=== PATIENT | male | born 1960 | race Caucasian/White ===

== ENCOUNTER 2023-10-06 03:37 | Inpatient (IN) | payer MEDICARE, SELFPAY ==
[2023-10-06] VITALS (16 sets, daily range): BP systolic 135–166; BP diastolic 56–85; PULSE 56–90; RESP 16–20; TEMP 36.5–37.1; O2SAT 90–98; BMI 51.6
--- NOTE | 2023-10-06 03:44 | PC.NURSE ---
Patient arrived to floor via stretcher with EMS from [facility] at 03:42.
--- NOTE | 2023-10-06 03:58 | XR_ITS ---
PROCEDURE INFORMATION: Exam: XR Chest Exam date and time: 10/06/2023 4:46 AM Age: 63 years old Clinical indication: Shortness of breath; Additional info: SOB TECHNIQUE: Imaging protocol: Radiologic exam of the chest. Views: 1 view. COMPARISON: No relevant prior studies available. FINDINGS: Lungs: Unremarkable. No consolidation. Pleural spaces: Unremarkable. No pleural effusion. No pneumothorax. Heart/Mediastinum: Unremarkable. No cardiomegaly. Bones/joints: Unremarkable. IMPRESSION: No acute findings.
--- NOTE | 2023-10-06 04:02 | CA_ITS ---
APPROVED REPORT EXAM: Comprehensive 2D, Doppler, and color-flow Echocardiogram Asbestos Remover: OPAL Fernandes, RVS Ht: 5 ft 6 in Wt: 321lbs BSA: 2.45 BP: 150/86 mmHg Indications: Acute cholecystitis, SOB, Morbid obesity, HTN, DM, Kidney disease Echo Enhancing Agent Comments: Limited acoustic windows due to extreme body habitus 2D Dimensions IVSd 1.20 cm M: 0.6-1.2 LVEF (Visual) 58.20 % PWd 1.20 cm M: 0.6 - 1.2 LA Volume 66.60 mL LVDd 4.91 cm M: 4.2 - 5.9 LA Volume Index 27.18 mL/m2 (M/F) 16-34 LVDs 3.40 cm M: 2.5 - 4.0 Left Atrium 3.14 cm M: 3.0 - 4.0 M-Mode Dimensions LA Diam 4.23 cm (1.9-4.0) LVDd 5.17 cm (3.5-5.7) LVDs 3.26 cm (3.5-5.7) EF (Teich) 66.50% EPSs 0.34 cm FS 36.90% EDV (Teich) 127.80 mL TAPSE 2.44 (<1.7) ESV (Teich) 42.80 mL LV Diastology E Decel Time 270 (160-240 msec) E/A Ratio 0.86 MED A' 10.90 cm/s LAT A' 15.00 cm/s Aortic Valve CARROLL Index 0.87 cm2/m2 AoV Peak Ranjith. 181.0 (50-130 cm/s) AO Peak GR. 13.10 mmHg AO Mean GR. 7.40 (<5 mmHg) AO VTI 37.1 (18-25 cm) CARROLL (VTI) 2.18 (2.5-4.5 cm2) Mitral Valve MV A Velocity 121.0 (40-130 cm/s) E/A Ratio 0.86 Pulmonary Valve PV Peak Velocity 117.0 (50-150 cm/s) Left Ventricle The left ventricle is normal size. The left ventricular systolic function is normal. The left ventricular ejection fraction is within the normal range. There is increased LV wall thickness. There is normal LV segmental wall motion. Transmitral Doppler flow pattern suggests impaired LV relaxation. LVEF is 55%. Right Ventricle The right ventricle is normal size. The right ventricular systolic function is normal. Atria The left atrium size is normal. The right atrium size is normal. There is no Doppler evidence of interatrial shunt. Aortic Valve The aortic valve is mildly thickened. There is no aortic valvular stenosis. Mild aortic regurgitation. Mitral Valve The mitral valve is normal in structure. No evidence of mitral valve stenosis. Trace mitral regurgitation. Tricuspid Valve The tricuspid valve leaflets are thin and pliable. Mild tricuspid regurgitation. RVSP is normal. Pulmonic Valve The pulmonary valve is normal in structure. Trace pulmonic regurgitation. Great Vessels The aortic root is normal in size. The ascending aorta is not well-visualized. IVC is normal in size and collapses >50% with inspiration. Pericardium There is no pericardial effusion. Other Information Study Quality: Fair Conclusion Normal biventricular systolic function. Mild AI, mild TR. Electronically signed by : Magali Zimmerman MD 10/08/2023 20:15:01
--- NOTE | 2023-10-06 04:03 | EXP.HP ---
History of Present Illness *Admission Date: 10/06/23 *Reason for visit:: Cholecystitis *History of present illness: 63-year-old male presents as a transfer from [facility] for acute calculus cholecystitis and choledocholithiasis. Initially presented to the emergency department at [facility] due to pain in epigastric region radiating to right mid back. Acute onset at 430 after taking a shower. Pain increasing with motion. [place] like he had a pushing sensation and abdomen was stabbing in the back. Has had diarrhea last few days but denies any fevers chills nausea vomiting. Also states he has an abscess on his buttock that is being seen but denies any recent surgeries. Has diabetes on insulin. Denies any cardiovascular history. Is unable to complete greater than 4 METS. Limited by leg cramping and dyspnea, must take a break to proceed. Also has stage III kidney disease. Reportedly had issues with anesthesia during a colonoscopy and did not want to wake up Currently patient has no acute concerns answered all questions. [facility] Disclaimer: The information contained in this section may have been updated after the patient was seen, as this information can be updated by other users. Medical History (Updated 10/06/23 @ 06:53 by Justino Rutledge MD) Chronic kidney disease Hypertension Diabetes mellitus, type 2 Social History Smoking Status: Never smoker alcohol intake: never current occupational status: other Travel in the last 8 weeks: None Review of Systems Review of Systems Review of systems:: pertinent systems reviewed and negative unless documented below Meds Home Medications and Allergies Home Medications Medication Instructions Recorded Confirmed Type allopurinol 100 mg tablet 100 mg PO TID 10/06/23 10/06/23 History atenolol 100 mg-chlorthalidone 25 100 tab PO DAILY 10/06/23 10/06/23 History mg tablet bumetanide 1 mg tablet 1 mg PO DAILY 10/06/23 10/06/23 History cholecalciferol (vitamin D3) 10 10 mcg PO DAILY 10/06/23 10/06/23 History mcg (400 unit) tablet (Vitamin D3) doxazosin 8 mg tablet 8 mg PO DAILY 10/06/23 10/06/23 History fenofibrate micronized 134 mg 134 mg PO DAILY 10/06/23 10/06/23 History capsule glipizide 10 mg tablet 10 mg PO DAILY 10/06/23 10/06/23 History insulin degludec 200 unit/mL (3 200 unit SQ DAILY 10/06/23 10/06/23 History mL) subcutaneous pen (Tresiba FlexTouch U-200 insulin) levothyroxine 75 mcg tablet 75 mcg PO DAILY 10/06/23 10/06/23 History repaglinide 2 mg tablet 2 mg PO TID 10/06/23 10/06/23 History semaglutide 1 mg/dose (2 mg/1.5 1 mg SQ WEEKLY 10/06/23 10/06/23 History mL) subcutaneous pen injector New Prescriptions to Start Prescriptions: Allergies Allergy/AdvReac Type Severity Reaction Status Date / Time Sulfa (Sulfonamide Allergy Intermediate Hives Verified 10/06/23 03:58 Antibiotics) Exam Constitutional Constitutional: no acute distress and obese *Routine HEENT Exam Head: Present normocephalic Eye: Present EOMI and PERRL ENT: Present mucous membranes moist *Routine Neck Exam Neck: Present supple; Absent lymphadenopathy *Routine Respiratory Exam Respiratory: Present CTA bilaterally *Routine Cardiovascular Exam Cardiovascular: Present RRR *Routine Abdominal Exam Abdominal: Present soft, normoactive bowel sounds, tenderness and distended; Absent rebound or guarding *Routine Rectal Exam Rectal:: deferred *Routine Genitalia Exam Genitalia:: deferred *Routine Extremities Exam Extremities: Absent cyanosis, clubbing or edema *Routine Skin Exam Skin: Present warm; Absent rash *Routine Neurological Exam Neurological: Present alert and oriented X3 Assessment and Plan *Assessment and plan (1) Choledocholithiasis with acute cholecystitis: Status: Acute Category: Medical Code(s): K80.42 - Calculus of bile duct with acute cholecystitis without obstruction (2) Obesity: Status: Acute Category: Medical Code(s): E66.9 - Obesity, unspecified Plan 63-year-old male presenting with acute calculus cholecystitis and choledocholithiasis. Will admit and start on antibiotics. Consult general surgery. No prior cardiovascular history however has multiple cardiovascular risk factors including poorly controlled diabetic and advanced CKD and is unable to complete 4 METS due to dyspnea. Acute calculus cholecystitis Choledocholithiasis -Rocephin -Follow-up LFTs -Radiology from outside hospital and chart -Consult surgery -N.p.o. -At least intermediate risk for intraperitoneal procedure -EKG and echo ordered. Depending on clinical and procedural urgency may need stress test given reduced METS Diabetes -SSI -Follow-up A1c Morbid obesity -Complicates all aspects of care CKD -Creatinine 2.1 at outside hospital, monitor Hypertension -Will resume home antihypertensives once reconciled Anemia -Monitor
[2023-10-06] MEDS: CEFTRIAXONE SODIUM 1 GM in 0.9 % SODIUM CHLORIDE 50 ML IV (04:36)
[2023-10-06 04:40] LABS: Basophils # 0.1 K/mm3 (0-0.2); Basophils % 0.5 % (0.1-2.0); Eosinophils % 0.4 % (0.1-12.0); Hemoglobin 12.1 g/dL (14.1-18.0); Lymphocytes % 9.1 % (10-50); Mean Corpuscular HGB Conc 31.8 g/dL (31.8-35.4); Mean Corpuscular Hemoglobin 32.1 pg (27.0-31.2); Mean Corpuscular Volume 100.9 fl (80-94); Mean Platelet Volume 9.5 fl (7.4-10.4); Monocytes # 0.4 K/mm3 (0.1-1.0); Neutrophils % 86.1 % (37.0-80.0); Platelet Count 227 K/mm3 (142-424); Red Blood Count 3.77 M/mm3 (4.60-6.20); Red Cell Distribution Width 16.2 % (11.5-17.5); White Blood Count 10.5 K/mm3 (4.8-10.8)
[2023-10-06 04:54] LABS: MANUAL DIFFERENTIAL MANUAL DIFFERENTIAL (MANUAL DIFF)
[2023-10-06 04:56] LABS: Chloride 104 mmol/L (98-107); Potassium 3.4 mmoL/L (3.5-5.1); Sodium 139 mmol/L (136-145)
[2023-10-06 04:58] LABS: Alanine Aminotransferase 51 U/L (12-78); Alkaline Phosphatase 114 U/L (38-126); Aspartate Amino Transferase 75 U/L (17-59); Bilirubin,Total 2.1 mg/dl (0.2-1.3); Blood Urea Nitrogen 46 mg/dl (9-20); Estimated Glomerular Filt Rate 34 ml/min (>60); GFR (African American) 41 ML/MIN (>60)
[2023-10-06 04:59] LABS: Albumin Level 3.3 g/dl (3.5-5.0); Albumin/Globulin Ratio 0.8 (1.1-1.8); Anion Gap 6.4 mEq/L (5-15); Calcium 8.7 mg/dl (8.4-10.2); Carbon Dioxide 32 mmol/L (22.0-30.0); Cholesterol 152 mg/dl (140-200); Globulin 4.1 g/dL (1.3-3.2); Glucose 207 mg/dl (74-100); HDL Cholesterol 33 mg/dl (40-60); Magnesium 1.8 mg/dl (1.6-2.3); Phosphorous 3.2 mg/dl (2.5-4.5); Total Protein,Serum 7.4 g/dl (6.3-8.2); Triglycerides 92 mg/dl (30-150); VLDL Cholesterol 18 mg/dL (0-40)
[2023-10-06 05:00] LABS: Chol/HDL Ratio 4.6 (1-3.5); INR 1.16 (0.9-1.1); Lactic Acid 1.2 mmol/L (0.7-2.1); Prothrombin Time 12.8 seconds (10.1-12.5)
[2023-10-06 05:13] LABS: Troponin I 0.04 ng/ml (0.00-0.034)
[2023-10-06 06:08] LABS: Lymphocytes % 15 % (10-50); Macrocytosis 1+; Neutrophils % 84 % (42-76); Platelet Estimate Normal; Total Cells Counted 100
[2023-10-06 07:35] LABS: POC Glucose,Bedside 142 (70-110)
--- NOTE | 2023-10-06 08:48 | P.CONS_ITS ---
History of Present Illness *Admission Date: 10/06/23 *Reason for visit:: Acute cholecystitis *History of present illness: This is a 63-year-old gentleman seen in consultation from the primary service for evaluation regarding possible acute cholecystitis. Please see HPI forwarded from admission H&P below. Forwarded from admission H&P: 63-year-old male presents as a transfer from [facility] for acute calculus cholecystitis and choledocholithiasis. Initially presented to the emergency department at [facility] due to pain in epigastric region radiating to right mid back. Acute onset at 430 after taking a shower. Pain increasing with motion. [place] like he had a pushing sensation and abdomen was stabbing in the back. Has had diarrhea last few days but denies any fevers chills nausea vomiting. Also states he has an abscess on his buttock that is being seen but denies any recent surgeries. Has diabetes on insulin. Denies any cardiovascular history. Is unable to complete greater than 4 METS. Limited by leg cramping and dyspnea, must take a break to proceed. Also has stage III kidney disease. Reportedly had issues with anesthesia during a colonoscopy and did not want to wake up Currently patient has no acute concerns answered all questions. [facility] Disclaimer: The information contained in this section may have been updated after the patient was seen, as this information can be updated by other users. Medical History (Updated 10/06/23 @ 06:53 by Justino Rutledge MD) Chronic kidney disease Hypertension Diabetes mellitus, type 2 Social History (Updated 10/06/23 @ 06:52 by Justino Rutledge MD) Smoking Status: Never smoker alcohol intake: never current occupational status: other Travel in the last 8 weeks: None Meds Home Medications and Allergies Home Medications Medication Instructions Recorded Confirmed Type allopurinol 100 mg tablet 100 mg PO TID 10/06/23 10/06/23 History atenolol 100 mg-chlorthalidone 25 100 tab PO DAILY 10/06/23 10/06/23 History mg tablet bumetanide 1 mg tablet 1 mg PO DAILY 10/06/23 10/06/23 History cholecalciferol (vitamin D3) 10 10 mcg PO DAILY 10/06/23 10/06/23 History mcg (400 unit) tablet (Vitamin D3) doxazosin 8 mg tablet 8 mg PO DAILY 10/06/23 10/06/23 History fenofibrate micronized 134 mg 134 mg PO DAILY 10/06/23 10/06/23 History capsule glipizide 10 mg tablet 10 mg PO DAILY 10/06/23 10/06/23 History insulin degludec 200 unit/mL (3 200 unit SQ DAILY 10/06/23 10/06/23 History mL) subcutaneous pen (Tresiba FlexTouch U-200 insulin) levothyroxine 75 mcg tablet 75 mcg PO DAILY 10/06/23 10/06/23 History repaglinide 2 mg tablet 2 mg PO TID 10/06/23 10/06/23 History semaglutide 1 mg/dose (2 mg/1.5 1 mg SQ WEEKLY 10/06/23 10/06/23 History mL) subcutaneous pen injector New Prescriptions to Start Prescriptions: Allergies Allergy/AdvReac Type Severity Reaction Status Date / Time Sulfa (Sulfonamide Allergy Intermediate Hives Verified 10/06/23 03:58 Antibiotics) Exam (Inpt) Vital signs and Labs for Last 24 Hours: Temp Pulse Resp BP Pulse Ox O2 Del Method 98.1 F 76 20 146/85 H 93 L Room Air 10/06/23 08:00 10/06/23 08:00 10/06/23 08:00 10/06/23 08:00 10/06/23 08:00 10/06/23 08:00 Laboratory Results - last 24 hr 10/06/23 04:30: WBC 10.5, RBC 3.77 L, Hgb 12.1 L, Hct 38.0 L, MCV 100.9 H, MCH 32.1 H, MCHC 31.8, RDW 16.2, Plt Count 227, MPV 9.5, Neut % (Auto) 86.1 H, Lymph % (Auto) 9.1 L, [place] % (Auto) 4.0, Eos % (Auto) 0.4, Baso % (Auto) 0.5, Neut # (Auto) 9.0 H, Lymph # (Auto) 1.0, [place] # (Auto) 0.4, Eos # (Auto) 0.0, Baso # (Auto) 0.1, Total Counted 100, Neutrophils % (Manual) 84 H, Lymphocytes % (Manual) 15, Basophils % (Manual) 1.0, Platelet Estimate Normal, Macrocytosis 1+, PT 12.8 H, INR 1.16 H, Sodium 139, Potassium 3.4 L, Chloride 104, Carbon Dioxide 32 H, Anion Gap 6.4, BUN 46 H, Creatinine 2.00 H, Estimated GFR 34 L, E st GFR ( Amer) 41 L, Glucose 207 H, Hemoglobin A1c 8.5 H, Lactate 1.2, Calcium 8.7, Phosphorus 3.2, Magnesium 1.8, Total Bilirubin 2.1 H, AST 75 H, ALT 51, Alkaline Phosphatase 114, Troponin I 0.04 H, Total Protein 7.4, Albumin 3.3 L, Globulin 4.1 H, Albumin/Globulin Ratio 0.8 L, Triglycerides 92, Cholesterol 152, LDL Cholesterol Direct 71.30 L, VLDL Cholesterol 18, HDL Cholesterol 33 L, Cholesterol/HDL Ratio 4.6 H 10/06/23 07:26: POC Glucose 142 H I & O for Labs for Last 24 Hours: Intake & Output 10/03/23 10/04/23 10/05/23 10/06/23 11:59 11:59 11:59 11:59 Output Total 0 / 0 Balance 0 / 0 Weight 321 lb 8 oz Constitutional: no acute distress Respiratory: Absent respiratory distress Cardiac: Absent Tachycardia GI: Present soft Results Labs 10/06/23 04:30 10/06/23 04:30 Labs: Laboratory Results - last 24 hr 10/06/23 04:30: WBC 10.5, RBC 3.77 L, Hgb 12.1 L, Hct 38.0 L, MCV 100.9 H, MCH 32.1 H, MCHC 31.8, RDW 16.2, Plt Count 227, MPV 9.5, Neut % (Auto) 86.1 H, Lymph % (Auto) 9.1 L, [place] % (Auto) 4.0, Eos % (Auto) 0.4, Baso % (Auto) 0.5, Neut # (Auto) 9.0 H, Lymph # (Auto) 1.0, [place] # (Auto) 0.4, Eos # (Auto) 0.0, Baso # (Auto) 0.1, Total Counted 100, Neutrophils % (Manual) 84 H, Lymphocytes % (Manual) 15, Basophils % (Manual) 1.0, Platelet Estimate Normal, Macrocytosis 1+, PT 12.8 H, INR 1.16 H, Sodium 139, Potassium 3.4 L, Chloride 104, Carbon Dioxide 32 H, Anion Gap 6.4, BUN 46 H, Creatinine 2.00 H, Estimated GFR 34 L, E st GFR ( Amer) 41 L, Glucose 207 H, Hemoglobin A1c 8.5 H, Lactate 1.2, Calcium 8.7, Phosphorus 3.2, Magnesium 1.8, Total Bilirubin 2.1 H, AST 75 H, ALT 51, Alkaline Phosphatase 114, Troponin I 0.04 H, Total Protein 7.4, Albumin 3.3 L, Globulin 4.1 H, Albumin/Globulin Ratio 0.8 L, Triglycerides 92, Cholesterol 152, LDL Cholesterol Direct 71.30 L, VLDL Cholesterol 18, HDL Cholesterol 33 L, Cholesterol/HDL Ratio 4.6 H 10/06/23 07:26: POC Glucose 142 H Assessment and Plan *Assessment and plan (1) Choledocholithiasis with acute cholecystitis: Status: Acute Category: Medical Code(s): K80.42 - Calculus of bile duct with acute cholecystitis without obstruction Plan: Currently, ERCP capabilities are not present at this facility. Pending results of ultrasound... the patient will possibly require transfer to a facility capable of endoscopic management of common bile duct stones. If no evidence of common bile duct stones or biliary dilatation noted per ultrasound the likely need for transfer diminishes.
--- NOTE | 2023-10-06 09:01 | US_ITS ---
FINAL REPORT CLINICAL HISTORY: ? Acute cholecystitis ?Choledocholithiasis COMPARISON: CT abdomen pelvis 10/05/2023 FINDINGS: Sonographic images of the right upper quadrant were obtained. The pancreas is partially obscured.The liver has an unremarkable appearance. Multiple gallstones are noted. There is gallbladder wall thickening, measuring 11 mm. There is a small amount of pericholecystic fluid. There is borderline biliary duct dilatation consistent with multiple common duct stones seen on CT scan. The common duct measures 6 mm. Limited images of the right kidney are unremarkable. IMPRESSION: Findings consistent with acute cholecystitis. Reviewed, Interpreted and Dictated by Alek Sparks III, MD Transcribed by Brigitte Rod Authenticated and [facility]
--- NOTE | 2023-10-06 09:46 | HMH.PHAINT1 ---
Pharmacy Intervention Comments: MEDICATION RECONCILIATION COMPLETED ON PATIENT USING EXTERNAL FILL HISTORY FROM PHARMACY. -DIONNA LEE, [place]
[2023-10-06] MEDS: ENOXAPARIN 60MG/0.6ML SYRINGE 60 MG SQ ×2 (10:36→20:52)
[2023-10-06 11:07] LABS: Troponin I 0.21 ng/ml (0.00-0.034)
--- NOTE | 2023-10-06 11:51 | PC.NURSE ---
dr Huitron notified this nurse of findings on US and recommends transfer, notified dr. Byrne.
--- NOTE | 2023-10-06 13:24 | IR_ITS ---
APPROVED REPORT Patient Location: Inpatient PROCEDURES Left heart catheterization Left ventriculogram Selective coronary angiogram INDICATION Acute non-ST elevation myocardial infarction, Preoperative evaluation Informed consent was obtained prior to the procedure. COMPLICATIONS NONE Estimated Blood Loss: LESS THAN 10 ML TECHNIQUE One percent lidocaine used to anesthetize the right anterior aspect of the wrist. The right radial artery was accessed via the Seldinger technique. A 6 Arabic sheath was placed in the right radial artery. 2.5 mg of Verapamil, 800 mcg of nitroglycerin, 1mg Lidocaine and 5000 U Heparin were given through the arterial sheath. The papa catheter was also used to perform left heart catheterization, left ventriculogram and selective coronary angiogram. At the end of the procedure the sheath was removed good hemostasis was achieved using Traclet band, patient was transferred to the postop holding area in stable condition. ANGIOGRAPHIC RESULTS The left main artery Normal The left anterior descending artery Has proximal and mid vessel 20 to 30% stenoses The circumflex artery Nondominant with mild diffuse 10 to 20% luminal irregularities The right coronary artery Dominant with proximal and mid vessel 20 and 30% stenoses. The posterior descending artery is occluded proximally and fills via both right to right collaterals and left to right collaterals The LOU ventriculogram reveals Preserved at 55% The left ventricular end-diastolic pressure Elevated at 20 to 25 mmHg IMPRESSION Mild nonflow limiting disease in the LAD and circumflex artery Occluded posterior descending artery which fills via right to right and left to right collaterals. This is the likely etiology for the elevated troponin Preserved ejection fraction Elevated LVEDP PLAN 1. Patient is an acceptable risk to proceed with cholecystectomy 2. Recommend sleep study as an outpatient 3. Medical management for coronary artery disease with a goal LDL of 55 to be achieved with high intensity statin 4. Control of hypertension 5. Workup and evaluation of renal disease Electronically signed by : Hernán Rutledge MD 10/06/2023 17:01:12
[2023-10-06] MEDS: CEFEPIME HCL 1 GM in 0.9 % SODIUM CHLORIDE 50 ML IV (13:25)
--- NOTE | 2023-10-06 13:25 | P.CONCA_ITS ---
History of Present Illness History of Present Illness Consult date: 10/06/23 Requesting physician: Justino Rutledge Consult reason: chest pain Chief complaint: abdominal and chest pain History of present illness: 63-year-old morbidly obese male with questionable history of HFpEF, details are unclear. Patient presented to [facility] ER with sudden onset substernal and right flank pain. Initially thought it was as muscle strain but symptoms worsened in frequency and intensity and continued constantly until he arrived at [facility] ER where he received an IV medication, presumed morphine. He was found on workup to have obstructing gallstones and transferred to this facility for further evaluation. On arrival here his initial troponin was 0.04, subsequent 0.21, EKG showed sinus rhythm with nonspecific inferolateral changes. He states his symptoms are well-controlled at this time surgical evaluation here determine he needs ERCP and will be transferred to [place]. [facility] Disclaimer: The information contained in this section may have been updated after the patient was seen, as this information can be updated by other users. Medical History Chronic kidney disease Hypertension Diabetes mellitus, type 2 Social History Smoking Status: Never smoker alcohol intake: never current occupational status: other Travel in the last 8 weeks: None Review of Systems Constitutional Constitutional: Denies fatigue and Denies weakness Eyes Eyes: Denies loss of vision ENT Ears, Nose, Mouth, and Throat: Denies hearing loss and Denies vertigo *Cardiovascular Cardiovascular: Reports chest pain, Denies dyspnea and Denies syncope *Respiratory Respiratory: Denies cough and Denies dyspnea *Gastrointestinal Gastrointestinal: Reports abdominal pain, Denies change in stool character, Denies nausea and Denies vomiting *Genitourinary Genitourinary: Denies difficulty urinating *Musculoskeletal Musculoskeletal: Denies muscle weakness Integumentary/Breasts Skin/Breast: Denies changing lesions *Neurologic Neurologic: Denies loss of vision, Denies syncope, Denies vertigo and Denies weakness Endocrine Endocrine: Denies fatigue Exam Data for Last 24 hours Vital signs and Labs for Last 24 Hours: Temp Pulse Resp BP Pulse Ox O2 Del Method 98.1 F 68 20 135/68 93 L Room Air 10/06/23 12:00 10/06/23 12:00 10/06/23 12:00 10/06/23 12:00 10/06/23 12:00 10/06/23 12:00 Laboratory Results - last 24 hr 10/06/23 04:30: WBC 10.5, RBC 3.77 L, Hgb 12.1 L, Hct 38.0 L, MCV 100.9 H, MCH 32.1 H, MCHC 31.8, RDW 16.2, Plt Count 227, MPV 9.5, Neut % (Auto) 86.1 H, Lymph % (Auto) 9.1 L, [place] % (Auto) 4.0, Eos % (Auto) 0.4, Baso % (Auto) 0.5, Neut # (Auto) 9.0 H, Lymph # (Auto) 1.0, [place] # (Auto) 0.4, Eos # (Auto) 0.0, Baso # (Auto) 0.1, Total Counted 100, Neutrophils % (Manual) 84 H, Lymphocytes % (Manual) 15, Basophils % (Manual) 1.0, Platelet Estimate Normal, Macrocytosis 1+, PT 12.8 H, INR 1.16 H, Sodium 139, Potassium 3.4 L, Chloride 104, Carbon Dioxide 32 H, Anion Gap 6.4, BUN 46 H, Creatinine 2.00 H, Estimated GFR 34 L, Est GFR ( Amer) 41 L, Glucose 207 H, Hemoglobin A1c 8.5 H, Lactate 1.2, Calcium 8.7, Phosphorus 3.2, Magnesium 1.8, Total Bilirubin 2.1 H, AST 75 H, ALT 51, Alkaline Phosphatase 114, Troponin I 0.04 H, Total Protein 7.4, Albumin 3.3 L, Globulin 4.1 H, Albumin/Globulin Ratio 0.8 L, Triglycerides 92, Cholesterol 152, LDL Cholesterol Direct 71.30 L, VLDL Cholesterol 18, HDL Cholesterol 33 L, Cholesterol/HDL Ratio 4.6 H 10/06/23 07:26: POC Glucose 142 H 10/06/23 10:18: Troponin I 0.21 H I & O for Last 24 hours: Intake & Output 10/03/23 10/04/23 10/05/23 10/06/23 23:59 23:59 23:59 23:59 Output Total 0 / 0 Balance 0 / 0 Weight 321 lb 8 oz Meds Home Medications and Allergies Home Medications Medication Instructions Recorded Confirmed Type allopurinol 100 mg tablet 100 mg PO TID 10/06/23 10/06/23 History atenolol 100 mg-chlorthalidone 25 1 tab PO DAILY 10/06/23 10/06/23 History mg tablet cholecalciferol (vitamin D3) 10 10 mcg PO DAILY 10/06/23 10/06/23 History mcg (400 unit) tablet (Vitamin D3) doxazosin 8 mg tablet 12 mg PO HS 10/06/23 10/06/23 History fenofibrate micronized 134 mg 134 mg PO DAILY 10/06/23 10/06/23 History capsule glipizide 10 mg tablet 15 mg PO DAILY 10/06/23 10/06/23 History insulin degludec 200 unit/mL (3 70 unit SQ BID 10/06/23 10/06/23 History mL) subcutaneous pen (Tresiba FlexTouch U-200 insulin) levothyroxine 75 mcg tablet 75 mcg PO DAILY 10/06/23 10/06/23 History repaglinide 2 mg tablet 2 mg PO TID 10/06/23 10/06/23 History New Prescriptions to Start Prescriptions: Allergies Allergy/AdvReac Type Severity Reaction Status Date / Time Sulfa (Sulfonamide Allergy Intermediate Hives Verified 10/06/23 03:58 Antibiotics) Assessment and Plan *Assessment and plan (1) NSTEMI (non-ST elevated myocardial infarction): Status: Acute Category: Medical Code(s): I21.4 - Non-ST elevation (NSTEMI) myocardial infarction Plan NSTEMI - CCS = 4 on arrival with rising serial Troponins - EKG: SR with minimal ST depression inferior leads - Plan: ASA, Lovenox, Metoprolol, Statin, ECHO, LHC. Discussed details of cath including risks, benefits, and alternative treatment options with patient. He would like to proceed. Acute Obstructive Cholangitis and Cholecystitis - no signs of infection/sepsis yet - pt will be tx to [place] for surgery after [facility] here - symptoms stable - on broad spectrum antibiotics CKD-III - Cr 2 - discussed [facility] risk of contrast induced nephropathy with patient. He is agreeable to proceed - give 500mL NS now and again post cath, monitor labs closely Morbid Obesity, BMI 51 - pt would benefit from aggressive weight loss via diet and exercise - consider OP GLP-1 DM-II, poorly controlled - A1C 8.5 - glucose management per hosp service - consider addition of SGLT-2 Chronic Venous Inufficiency BLE with skin changes - will address outpatient
[2023-10-06] MEDS: 0.9 % SODIUM CHLORIDE 1000ML 1,000 ML 500 ML IV (13:54)
[2023-10-06] MEDS: ASPIRIN 325MG TABLET 325 MG PO (14:24)
[2023-10-06] MEDS: METOPROLOL SUCCINATE XL 25MG TABLET 25 MG PO (14:24)
[2023-10-06 16:09] LABS: Hemoglobin A1C 6.8 % (4.0-6.0)
--- NOTE | 2023-10-06 16:39 | PC.NURSE ---
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
[2023-10-06] MEDS: VERAPAMIL 2.5MG/ML 2ML VIAL 2.5 MG IV (17:05)
[2023-10-06] MEDS: diphenhydrAMINE 50MG/ML VIAL 50 MG IV (17:05)
[2023-10-06] MEDS: LIDOCAINE 1% 10ML MDV 20 ML IJ (17:05)
[2023-10-06] MEDS: NITROGLYCERIN 800MCG/8ML SYR (CATH LAB) 800 MCG IA (17:05)
[2023-10-06] MEDS: FENTANYL 100MCG/2ML VIAL 50 MCG IV (17:06)
[2023-10-06] MEDS: MIDAZOLAM HCL 1MG/1ML 5ML VIAL 1 MG IV (17:06)
[2023-10-06] MEDS: 0.9 % SODIUM CHLORIDE 500 ML 25 ML IV (17:06)
[2023-10-06] MEDS: HEPARIN 1,000 UNITS/ML 10ML VIAL (CATH LAB) 10000 UNIT IV (17:06)
[2023-10-06] MEDS: HEPARIN 1,000 UNITS/500ML NS (CATH LAB) 3000 UNIT IV (17:06)
[2023-10-06] MEDS: IOPAMIDOL-370 (76%);100ML BOTTLE 70 ML IV (17:15)
--- NOTE | 2023-10-06 17:30 | EXP.ACUTE.PN ---
Subjective *Date: 10/06/23 *Time: 17:30 Medical Exam Vital signs and Labs for Last 24 Hours: Vital Signs Temp Pulse Resp BP Pulse Ox O2 Del Method 10/06/23 16:00 98.6 F 72 20 147/58 H 92 L Room Air 10/06/23 15:00 Room Air 10/06/23 13:00 Room Air 10/06/23 12:00 98.1 F 68 20 135/68 93 L Room Air 10/06/23 11:00 Room Air 10/06/23 09:00 Room Air 10/06/23 08:00 Room Air 10/06/23 08:00 98.1 F 76 20 146/85 H 93 L Room Air 10/06/23 05:00 Room Air 10/06/23 04:46 Room Air 10/06/23 04:00 98.2 F 90 18 158/73 H 90 L Room Air Intake and Output 10/06/23 10/06/23 10/06/23 07:59 15:59 23:59 Output Total 0 / 0 Balance 0 / 0 Output: Output, Urine Amount 0 / 0 Other: Weight 145.83 kg Patient Weight 10/06/23 23:59 Weight 145.83 kg Laboratory Results - last 24 hr 10/06/23 04:30: WBC 10.5, RBC 3.77 L, Hgb 12.1 L, Hct 38.0 L, MCV 100.9 H, MCH 32.1 H, MCHC 31.8, RDW 16.2, Plt Count 227, MPV 9.5, Neut % (Auto) 86.1 H, Lymph % (Auto) 9.1 L, [place] % (Auto) 4.0, Eos % (Auto) 0.4, Baso % (Auto) 0.5, Neut # (Auto) 9.0 H, Lymph # (Auto) 1.0, [place] # (Auto) 0.4, Eos # (Auto) 0.0, Baso # (Auto) 0.1, Total Counted 100, Neutrophils % (Manual) 84 H, Lymphocytes % (Manual) 15, Basophils % (Manual) 1.0, Platelet Estimate Normal, Macrocytosis 1+, PT 12.8 H, INR 1.16 H, Sodium 139, Potassium 3.4 L, Chloride 104, Carbon Dioxide 32 H, Anion Gap 6.4, BUN 46 H, Creatinine 2.00 H, Estimated GFR 34 L, Est GFR ( Amer) 41 L, Glucose 207 H, Hemoglobin A1c 6.8 H, Lactate 1.2, Calcium 8.7, Phosphorus 3.2, Magnesium 1.8, Total Bilirubin 2.1 H, AST 75 H, ALT 51, Alkaline Phosphatase 114, Troponin I 0.04 H, Total Protein 7.4, Albumin 3.3 L, Globulin 4.1 H, Albumin/Globulin Ratio 0.8 L, Triglycerides 92, Cholesterol 152, LDL Cholesterol Direct 71.30 L, VLDL Cholesterol 18, HDL Cholesterol 33 L, Cholesterol/HDL Ratio 4.6 H 10/06/23 07:26: POC Glucose 142 H 10/06/23 10:18: Troponin I 0.21 H I & O for Labs for Last 24 Hours: Intake & Output 10/03/23 10/04/23 10/05/23 10/06/23 23:59 23:59 23:59 23:59 Output Total 0 / 0 Balance 0 / 0 Weight 145.83 kg
--- NOTE | 2023-10-06 17:31 | P.EN_ITS ---
Patient undergoing cardiac catheterization today. Spoke with Lakhwinder Elizondo MD gastroenterology at [facility]. [facility] willing to take patient tomorrow for ERCP. Will pick patient n.p.o. after midnight in preparation for ERCP procedure tomorrow.
--- NOTE | 2023-10-06 18:38 | PC.NURSE ---
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 alert and oriented. wrist band still in place, began letting air out at 1830. vss. dsg to buttocks changed today with minimal drainage. cb within reach. pts brother has been at bs majority of the day. no concerns at this time.
[2023-10-06 21:05] LABS: POC Glucose,Bedside 72 (70-110)
--- NOTE | 2023-10-06 22:30 | PC.NURSE ---
Notified by [employer] that patient had a headache and was requesting tylenol for pain. Upon entering room patient states he was lightheaded and felt his sugar was low. FSBS 67. Administered tylenol per MAR and patient sat on the side of the bed and ate peanut butter with cracker and drank a diet soda. Patient stated he was then feeling better after eating a snack and laid back down
[2023-10-06] MEDS: ACETAMINOPHEN 325MG TAB 650 MG PO (22:32)
[2023-10-06 22:37] LABS: POC Glucose,Bedside 67 (70-110)
[2023-10-07] VITALS: BP 133/67; PULSE 56; PULSE 97; RESP 18; TEMP 36.6; O2SAT 93
[2023-10-07 04:00] VITALS: BP 122/57; PULSE 56; PULSE 64; RESP 18; TEMP 36.6; O2SAT 92; BMI 53.1
--- NOTE | 2023-10-07 04:59 | PC.NURSE ---
Patient alert and oriented x4 throughout shift. Patient has slept well majority of shift. Currently on home CPAP while sleeping. No complaints of chest pain or shortness of breath. Right radial cath site dressed with gauze and tegaderm and is C/D/I. Patient has independently gotten up to use restroom throughout the night. No needs or concerns expressed. Call light within reach.
--- NOTE | 2023-10-07 06:01 | ECG_ITS ---
APPROVED REPORT Exam: Resting ECG HR:66 bpm ECG Measurements Heart Rate 66 AXES OK 274 P 29 QRSd 115 QRS 46 QT 426 T 48 QTc 440 Conclusion SINUS RHYTHM WITH FIRST DEGREE AV BLOCK MODERATE INTRAVENTRICULAR CONDUCTION DELAY [110+ ms QRS DURATION] NONSPECIFIC ST & T-WAVE ABNORMALITY ABNORMAL ECG UNCONFIRMED REPORT Electronically signed by : Donovan Wyman MD 10/09/2023 10:36:09
[2023-10-07 06:08] LABS: POC Glucose,Bedside 61 (70-110)
[2023-10-07] MEDS: DEXTROSE 50% 50ML SYRINGE (CRASH CART) 25 ML IVP (06:20)
[2023-10-07 07:20] VITALS: BP 159/88; PULSE 74; RESP 19; TEMP 36.6; O2SAT 94
--- NOTE | 2023-10-07 07:35 | PC.NURSE ---
[facility] called for a clinical update on patient. update given, no issues at this time.
[2023-10-07 08:00] VITALS: PULSE 75
[2023-10-07 08:25] LABS: Basophils # 0.1 K/mm3 (0-0.2); Basophils % 0.8 % (0.1-2.0); Eosinophils # 0.2 K/mm3 (0.0-0.4); Eosinophils % 3.6 % (0.1-12.0); Hematocrit 34.9 % (42.0-52.0); Hemoglobin 10.8 g/dL (14.1-18.0); Lymphocytes % 15.8 % (10-50); Mean Corpuscular Hemoglobin 32.3 pg (27.0-31.2); Mean Corpuscular Volume 104.2 fl (80-94); Mean Platelet Volume 9.1 fl (7.4-10.4); Monocytes # 0.4 K/mm3 (0.1-1.0); Monocytes % 5.5 % (1.7-9.3); Neutrophils # 4.9 K/mm3 (1.8-7.8); Neutrophils % 74.3 % (37.0-80.0); Platelet Count 190 K/mm3 (142-424); Red Blood Count 3.34 M/mm3 (4.60-6.20); Red Cell Distribution Width 16.8 % (11.5-17.5); White Blood Count 6.6 K/mm3 (4.8-10.8)
[2023-10-07] MEDS: METOPROLOL SUCCINATE XL 25MG TABLET 25 MG PO (08:27)
[2023-10-07] MEDS: DEXTROSE 50% 50ML SYRINGE (CRASH CART) 50 ML IV ×2 (08:30→11:05)
[2023-10-07 08:34] LABS: Alanine Aminotransferase 62 U/L (12-78); Albumin Level 3.1 g/dl (3.5-5.0); Albumin/Globulin Ratio 0.8 (1.1-1.8); Alkaline Phosphatase 116 U/L (38-126); Anion Gap 7.1 mEq/L (5-15); Aspartate Amino Transferase 93 U/L (17-59); Bilirubin,Total 3.1 mg/dl (0.2-1.3); Blood Urea Nitrogen 50 mg/dl (9-20); Calcium 7.9 mg/dl (8.4-10.2); Carbon Dioxide 27 mmol/L (22.0-30.0); Chloride 109 mmol/L (98-107); Creatinine Clearance Estimated 26 mL/min (50-200); Estimated Glomerular Filt Rate 25 ml/min (>60); GFR (African American) 30 ML/MIN (>60); Globulin 3.7 g/dL (1.3-3.2); Glucose 56 mg/dl (74-100); Potassium 3.1 mmoL/L (3.5-5.1); Sodium 140 mmol/L (136-145); Total Protein,Serum 6.8 g/dl (6.3-8.2)
[2023-10-07 08:39] LABS: C-Reactive Protein 55.4 mg/L (0-4)
[2023-10-07] MEDS: CEFEPIME HCL 2 GM in 0.9 % SODIUM CHLORIDE 100 ML IV (08:47)
[2023-10-07 08:49] LABS: Procalcitonin 0.198 ng/mL (0.0-2.0)
[2023-10-07 08:57] LABS: POC Glucose,Bedside 60 (70-110)
[2023-10-07 09:08] LABS: POC Glucose,Bedside 103 (70-110)
--- NOTE | 2023-10-07 09:25 | PC.NURSE ---
Addendum entered by Heike Hubbard RN 10/07/23 11:11: 1100 fsbg 63, notified RADHA arce for another amp of d5 and ivmf d5 1/2 ns at 100ml/hr. Original Note: pt stated he was seeing spots and asked to check his sugar. 0820 fsbg 60, notified dr itzel GARCIA for amp of D5. 0900 fsbg 103
[2023-10-07 10:58] LABS: POC Glucose,Bedside 63 (70-110)
--- NOTE | 2023-10-07 11:06 | EXP.SURG.PN ---
Subjective Patient reports: no new complaints Exam Data for Last 24 hours Vital signs and Labs for Last 24 Hours: Temp Pulse Resp BP Pulse Ox O2 Del Method O2 Flow Rate 97.9 F 75 19 159/88 H 94 L Room Air 2.5 10/07/23 07:20 10/07/23 08:00 10/07/23 07:20 10/07/23 07:20 10/07/23 07:20 10/07/23 09:00 10/06/23 22:20 Laboratory Results - last 24 hr 10/06/23 04:30: Hemoglobin A1c 6.8 H 10/06/23 10:18: Troponin I 0.21 H 10/06/23 20:40: POC Glucose 72 10/06/23 22:30: POC Glucose 67 L 10/07/23 06:00: POC Glucose 61 L 10/07/23 07:58: WBC 6.6 D, RBC 3.34 L, Hgb 10.8 L, Hct 34.9 L, MCV 104.2 H, MCH 32.3 H, MCHC 31.0 L, RDW 16.8, Plt Count 190, MPV 9.1, Neut % (Auto) 74.3, Lymph % (Auto) 15.8, [place] % (Auto) 5.5, Eos % (Auto) 3.6, Baso % (Auto) 0.8, Neut # (Auto) 4.9, Lymph # (Auto) 1.0, [place] # (Auto) 0.4, Eos # (Auto) 0.2, Baso # (Auto) 0.1, Sodium 140, Potassium 3.1 L, Chloride 109 H, Carbon Dioxide 27, Anion Gap 7.1, BUN 50 H, Creatinine 2.60 H D, Estimated Creat Clear 26, Estimated GFR 25 L, Est GFR ( Amer) 30 L D, Glucose 56 L, Calcium 7.9 L, Magnesium 2.0 D, Total Bilirubin 3.1 H, AST 93 H, ALT 62, Alkaline Phosphatase 116, C-Reactive Protein 55.4 H, Total Protein 6.8, Albumin 3.1 L, Globulin 3.7 H, Albumin/Globulin Ratio 0.8 L, Procalcitonin 0.198 10/07/23 08:16: POC Glucose 60 L 10/07/23 09:01: POC Glucose 103 10/07/23 10:49: POC Glucose 63 L I & O for Last 24 hours: Intake & Output 10/04/23 10/05/23 10/06/23 10/07/23 11:59 11:59 11:59 11:59 Output Total 0 / 0 0 / 0 Balance 0 / 0 0 / 0 Weight 321 lb 8 oz 330 lb 4.8 oz Microbiology Reports for the Last 24 Hours: Microbiology 10/06/23 04:30 Blood Blood Culture - Preliminary NO GROWTH AFTER 24 HOURS 10/06/23 04:30 Blood Blood Culture - Preliminary NO GROWTH AFTER 24 HOURS Constitutional Constitutional: no acute distress and obese *Routine Respiratory Exam Respiratory: Absent respiratory distress *Routine Cardiovascular Exam Cardiovascular: Absent tachycardia *Routine Abdominal Exam Abdominal: Present soft Progress Note: A&P Assessment and plan (1) Choledocholithiasis with acute cholecystitis: Status: Acute Assessment and plan: Overall stable with regard to cholecystitis (afebrile, normal white blood cell count, improving pain, etc.) Continue antibiotics for now Surgical management deferred to accepting facility (2) Hyperbilirubinemia: Status: Acute Assessment and plan: Worsening hyperbilirubinemia consistent with likely common bile duct obstruction Transfer to facility with ERCP capabilities pending Assessment and Plan Assessment and Plan for All Diagnoses:: Continue overall management per primary service. Transfer to [facility] pending.
[2023-10-07 11:30] VITALS: BP 159/79; PULSE 78; RESP 18; TEMP 36.6; O2SAT 97
--- NOTE | 2023-10-07 11:54 | PC.NURSE ---
late entry: [facility] called with a bed available. room 101 report number: [phone]
[2023-10-07] MEDS: ASPIRIN EC 81MG TABLET 81 MG PO (11:58)
[2023-10-07] MEDS: 0.9 % SODIUM CHLORIDE 1000ML 1,000 ML 999 ML IV (11:58)
[2023-10-07] MEDS: Dex 5% in 0.45% NaCl 1,000 ML 100 ML IV (11:58)
--- NOTE | 2023-10-07 12:22 | P.DS_ITS ---
General Admission date:: 10/06/23 HPI HPI HPI: This is a 63-year-old gentleman seen in consultation from the primary service for evaluation regarding possible acute cholecystitis. Please see HPI forwarded from admission H&P below. Forwarded from admission H&P: 63-year-old male presents as a transfer from [facility] for acute calculus cholecystitis and choledocholithiasis. Initially presented to the emergency department at [facility] due to pain in epigastric region radiating to right mid back. Acute onset at 430 after taking a shower. Pain increasing with motion. Mott like he had a pushing sensation and abdomen was stabbing in the back. Has had diarrhea last few days but denies any fevers chills nausea vomiting. Also states he has an abscess on his buttock that is being seen but denies any recent surgeries. Has diabetes on insulin. Denies any cardiovascular history. Is unable to complete greater than 4 METS. Limited by leg cramping and dyspnea, must take a break to proceed. Also has stage III kidney disease. Reportedly had issues with anesthesia during a colonoscopy and did not want to wake up Currently patient has no acute concerns answered all questions. Hospital Course Hospital Course Hospital Course: Patient admitted to hospital for abdominal discomfort, and diagnosed with choledocholithiasis. Patient had ultrasound gallbladder done showing gallbladder thickening, pericystic with fluid, and common bile duct stones. 10/06/2023 patient's enzymes increased from 0.04 to patient subsequently taken to cardiac [employer] 0.21. With occluded PDA and mild diffuse CAD noted. Patient advised to follow-up with cardiology within 2 weeks as per disposition. Patient then transferred to [facility] for ERCP management of gallstone pancreatitis. Patient will also likely receive cholecystectomy evaluation at [facility]. Exam Data for Last 24 hours Vital signs and Labs for Last 24 Hours: Temp Pulse Resp BP Pulse Ox O2 Del Method O2 Flow Rate 97.9 F 78 18 159/79 H 97 Room Air 2.5 10/07/23 11:30 10/07/23 11:30 10/07/23 11:30 10/07/23 11:30 10/07/23 11:30 10/07/23 11:30 10/06/23 22:20 Laboratory Results - last 24 hr 10/06/23 04:30: Hemoglobin A1c 6.8 H 10/06/23 20:40: POC Glucose 72 10/06/23 22:30: POC Glucose 67 L 10/07/23 06:00: POC Glucose 61 L 10/07/23 07:58: WBC 6.6 D, RBC 3.34 L, Hgb 10.8 L, Hct 34.9 L, MCV 104.2 H, MCH 32.3 H, MCHC 31.0 L, RDW 16.8, Plt Count 190, MPV 9.1, Neut % (Auto) 74.3, Lymph % (Auto) 15.8, [place] % (Auto) 5.5, Eos % (Auto) 3.6, Baso % (Auto) 0.8, Neut # (Auto) 4.9, Lymph # (Auto) 1.0, [place] # (Auto) 0.4, Eos # (Auto) 0.2, Baso # (Auto) 0.1, Sodium 140, Potassium 3.1 L, Chloride 109 H, Carbon Dioxide 27, Anion Gap 7.1, BUN 50 H, Creatinine 2.60 H D, Estimated Creat Clear 26, Estimated GFR 25 L, Est GFR ( Amer) 30 L D, Glucose 56 L, Calcium 7.9 L, Magnesium 2.0 D, Total Bilirubin 3.1 H, AST 93 H, ALT 62, Alkaline Phosphatase 116, C-Reactive Protein 55.4 H, Total Protein 6.8, Albumin 3.1 L, Globulin 3.7 H , Albumin/Globulin Ratio 0.8 L, Procalcitonin 0.198 10/07/23 08:16: POC Glucose 60 L 10/07/23 09:01: POC Glucose 103 10/07/23 10:49: POC Glucose 63 L I & O for Last 24 hours: Intake & Output 10/04/23 10/05/23 10/06/23 10/07/23 23:59 23:59 23:59 23:59 Output Total 0 / 0 0 / 0 Balance 0 / 0 0 / 0 Weight 145.83 kg 149.822 kg Microbiology Reports for the Last 24 Hours: Microbiology 10/06/23 04:30 Blood Blood Culture - Preliminary NO GROWTH AFTER 24 HOURS 10/06/23 04:30 Blood Blood Culture - Preliminary NO GROWTH AFTER 24 HOURS Constitutional Constitutional: no acute distress and obese *Routine HEENT Exam Head: Present normocephalic Eye: Present EOMI ENT: Present mucous membranes moist *Routine Neck Exam Neck: Present supple and full ROM *Routine Respiratory Exam Respiratory: Present CTA bilaterally and normal respiratory effort *Routine Cardiovascular Exam Cardiovascular: Present RRR, Normal S1 and Normal S2 *Routine Abdominal Exam Abdominal: Present soft and normoactive bowel sounds *Routine Rectal Exam Comments: Deferred *Routine Extremities Exam Extremities: Present full ROM and normal capillary refill *Routine Skin Exam Skin: Present intact and dry *Routine Neurological Exam Neurological: Present alert and oriented X3 Results Data Completed and Pending Labs on day of discharge: Labs from last 24 hours 10/07/23 10/07/23 10/07/23 10:49 09:01 08:16 WBC RBC Hgb Hct MCV MCH MCHC RDW Plt Count MPV Neut % (Auto) Lymph % (Auto) [place] % (Auto) Eos % (Auto) Baso % (Auto) Neut # (Auto) Lymph # (Auto) [place] # (Auto) Eos # (Auto) Baso # (Auto) Sodium Potassium Chloride Carbon Dioxide Anion Gap BUN Creatinine Estimated Creat Clear Estimated GFR Est GFR ( Amer) Glucose POC Glucose 63 L 103 60 L Hemoglobin A1c Calcium Magnesium Total Bilirubin AST ALT Alkaline Phosphatase C-Reactive Protein Total Protein Albumin Globulin Albumin/Globulin Ratio Procalcitonin 10/07/23 10/07/23 10/06/23 07:58 06:00 22:30 WBC 6.6 D RBC 3.34 L Hgb 10.8 L Hct 34.9 L MCV 104.2 H MCH 32.3 H MCHC 31.0 L RDW 16.8 Plt Count 190 MPV 9.1 Neut % (Auto) 74.3 Lymph % (Auto) 15.8 [place] % (Auto) 5.5 Eos % (Auto) 3.6 Baso % (Auto) 0.8 Neut # (Auto) 4.9 Lymph # (Auto) 1.0 [place] # (Auto) 0.4 Eos # (Auto) 0.2 Baso # (Auto) 0.1 Sodium 140 Potassium 3.1 L Chloride 109 H Carbon Dioxide 27 Anion Gap 7.1 BUN 50 H Creatinine 2.60 H D Estimated Creat Clear 26 Estimated GFR 25 L Est GFR ( Amer) 30 L D Glucose 56 L POC Glucose 61 L 67 L Hemoglobin A1c Calcium 7.9 L Magnesium 2.0 D Total Bilirubin 3.1 H AST 93 H ALT 62 Alkaline Phosphatase 116 C-Reactive Protein 55.4 H Total Protein 6.8 Albumin 3.1 L Globulin 3.7 H Albumin/Globulin Ratio 0.8 L Procalcitonin 0.198 10/06/23 10/06/23 20:40 04:30 WBC RBC Hgb Hct MCV MCH MCHC RDW Plt Count MPV Neut % (Auto) Lymph % (Auto) [place] % (Auto) Eos % (Auto) Baso % (Auto) Neut # (Auto) Lymph # (Auto) [place] # (Auto) Eos # (Auto) Baso # (Auto) Sodium Potassium Chloride Carbon Dioxide Anion Gap BUN Creatinine Estimated Creat Clear Estimated GFR Est GFR ( Amer) Glucose POC Glucose 72 Hemoglobin A1c 6.8 H Calcium Magnesium Total Bilirubin AST ALT Alkaline Phosphatase C-Reactive Protein Total Protein Albumin Globulin Albumin/Globulin Ratio Procalcitonin Preliminary micro results at discharge 10/06/23 04:30 Blood Culture - Preliminary Blood NO GROWTH AFTER 24 HOURS 10/06/23 04:30 Blood Culture - Preliminary Blood NO GROWTH AFTER 24 HOURS Imaging and Cardiology TESTING: Additional comments: 10/06/23 Echocardiogram: Results pending at time of hospital discharge Ordering Physician: Rene Huitron MD Date of Service: 10/06/23 Procedure(s): US abdomen limited Accession Number(s): [id number] cc: Evans Butler ; Alek Sparks MD~ FINAL REPORT CLINICAL HISTORY: ? Acute cholecystitis ?Choledocholithiasis COMPARISON: CT abdomen pelvis 10/05/2023 FINDINGS: Sonographic images of the right upper quadrant were obtained. The pancreas is partially obscured.The liver has an unremarkable appearance. Multiple gallstones are noted. There is gallbladder wall thickening, measuring 11 mm. There is a small amount of pericholecystic fluid. There is borderline biliary duct dilatation consistent with multiple common duct stones seen on CT scan. The common duct measures 6 mm. Limited images of the right kidney are unremarkable. IMPRESSION: Findings consistent with acute cholecystitis. Ordering Physician: Justino Rutledge MD Date of Service: 10/06/23 Procedure(s): XR chest portable Accession Number(s): [id number] cc: Conor Rosales MD; Evans Butler PROCEDURE INFORMATION: Exam: XR Chest Exam date and time: 10/06/2023 4:46 AM Age: 63 years old Clinical indication: Shortness of breath; Additional info: SOB TECHNIQUE: Imaging protocol: Radiologic exam of the chest. Views: 1 view. COMPARISON: No relevant prior studies available. DS: Diagnosis Discharge Diagnosis (1) Choledocholithiasis with acute cholecystitis: Status: Acute Code(s): K80.42 - Calculus of bile duct with acute cholecystitis without obstruction (2) Hyperbilirubinemia: Status: Acute Code(s): E80.6 - Other disorders of bilirubin metabolism Meds Home Medications and Allergies Home Medications Medication Instructions Recorded Confirmed Type allopurinol 100 mg tablet 100 mg PO TID 10/06/23 10/06/23 History atenolol 100 mg-chlorthalidone 25 1 tab PO DAILY 10/06/23 10/06/23 History mg tablet cholecalciferol (vitamin D3) 10 10 mcg PO DAILY 10/06/23 10/06/23 History mcg (400 unit) tablet (Vitamin D3) doxazosin 8 mg tablet 12 mg PO HS 10/06/23 10/06/23 History glipizide 10 mg tablet 15 mg PO DAILY 10/06/23 10/06/23 History insulin degludec 200 unit/mL (3 70 unit SQ BID 10/06/23 10/06/23 History mL) subcutaneous pen (Tresiba FlexTouch U-200 insulin) levothyroxine 75 mcg tablet 75 mcg PO DAILY 10/06/23 10/06/23 History repaglinide 2 mg tablet 2 mg PO TID 10/06/23 10/06/23 History aspirin 81 mg tablet,delayed 81 mg PO DAILY #90 tabs 10/07/23 Rx release atorvastatin 40 mg tablet 40 mg PO DAILY #90 tabs 10/07/23 Rx metoprolol succinate 25 mg 25 mg PO DAILY #90 tabs 10/07/23 Rx tablet,extended release 24 hr New Prescriptions to Start Prescriptions: aspirin Byrne,Morgan atorvastatin Byrne,Morgan metoprolol succinate Morgan Byrne Allergies Allergy/AdvReac Type Severity Reaction Status Date / Time Sulfa (Sulfonamide Allergy Intermediate Hives Verified 10/06/23 03:58 Antibiotics) Discharge Plan Disposition Patient Disposition: Xfer Short-Term Hosp Condition: Fair Discharge Order Discharge Orders: Discharge Order (Routine); Ordered 10/07/23 Ordered By: Morgan Byrne Follow up Plan Follow up with: Hernán Rutledge MD [Staff Physician] - Enter time for follow up (Please call the office when you are discharged from [facility] per dafne dunne in cardiology office. ) Prescriptions/Medication Reconciliation: New aspirin 81 mg Tablet,Delayed Release (Dr/Ec) 81 mg PO DAILY Qty: 90 0RF metoprolol succinate 25 mg Tablet Extended Release 24 Hr 25 mg PO DAILY Qty: 90 0RF atorvastatin 40 mg tablet 40 mg PO DAILY Qty: 90 0RF Continued atenolol-chlorthalidone 100-25 mg tablet 1 tab PO DAILY repaglinide 2 mg tablet 2 mg PO TID Patient Comments: TAKE ONE TABLET BY MOUTH THREE TIMES DAILY glipizide 10 mg tablet 15 mg PO DAILY allopurinol 100 mg tablet 100 mg PO TID levothyroxine 75 mcg tablet 75 mcg PO DAILY doxazosin 8 mg tablet 12 mg PO HS cholecalciferol (vitamin D3) [Vitamin D3] 10 mcg (400 unit) Tablet 10 mcg PO DAILY insulin degludec [Tresiba FlexTouch U-200] 200 unit/mL (3 mL) insulin pen 70 unit SQ BID Discontinued fenofibrate micronized 134 mg capsule 134 mg PO DAILY Problem Reconciliation Problems Reviewed?: Yes Patient Discharge Instructions ACTIVITY: Continue current activity DIET: continue same diet Stand Alone Forms: Transfer Record Patient Instructions: DI for Cardiac Catheterization, DI for Surgical Site Infection, DI for Epigastric Pain Print Language: Greek Providers Primary Care Provider: Evans Butler Admit Provider: Morgan Byrne Attending Provider: Morgan Byrne
--- NOTE | 2023-10-07 12:40 | PC.NURSE ---
attempted to call report to [facility], no answer. will try again
--- NOTE | 2023-10-07 12:58 | PC.NURSE ---
report given to ervin at [facility].
--- NOTE | 2023-10-07 13:16 | P.PN_ITS ---
Subjective Subjective Date: 10/07/23 Time: 10:00 Interval history: Successful heart cath last night, no stents required. Details outlined below. Creatinine up slightly from 2.0-2.6 he is receiving fluids this morning. Patient denies symptoms of abdominal pain at this time. His transfer to [place] is pending. Exam Data for Last 24 hours Vital signs and Labs for Last 24 Hours: Temp Pulse Resp BP Pulse Ox O2 Del Method O2 Flow Rate 97.9 F 78 18 159/79 H 97 Room Air 2.5 10/07/23 11:30 10/07/23 11:30 10/07/23 11:30 10/07/23 11:30 10/07/23 11:30 10/07/23 11:30 10/06/23 22:20 Laboratory Results - last 24 hr 10/06/23 04:30: Hemoglobin A1c 6.8 H 10/06/23 20:40: POC Glucose 72 10/06/23 22:30: POC Glucose 67 L 10/07/23 06:00: POC Glucose 61 L 10/07/23 07:58: WBC 6.6 D, RBC 3.34 L, Hgb 10.8 L, Hct 34.9 L, MCV 104.2 H, MCH 32.3 H, MCHC 31.0 L, RDW 16.8, Plt Count 190, MPV 9.1, Neut % (Auto) 74.3, Lymph % (Auto) 15.8, [place] % (Auto) 5.5, Eos % (Auto) 3.6, Baso % (Auto) 0.8, Neut # (Auto) 4.9, Lymph # (Auto) 1.0, [place] # (Auto) 0.4, Eos # (Auto) 0.2, Baso # (Auto) 0.1, Sodium 140, Potassium 3.1 L, Chloride 109 H, Carbon Dioxide 27, Anion Gap 7.1, BUN 50 H, Creatinine 2.60 H D, Estimated Creat Clear 26, Estimated GFR 25 L, Est GFR ( Amer) 30 L D, Glucose 56 L, Calcium 7.9 L, Magnesium 2.0 D, Total Bilirubin 3.1 H, AST 93 H, ALT 62, Alkaline Phosphatase 116, C-Reactive Protein 55.4 H, Total Protein 6.8, Albumin 3.1 L, Globulin 3.7 H , Albumin/Globulin Ratio 0.8 L, Procalcitonin 0.198 10/07/23 08:16: POC Glucose 60 L 10/07/23 09:01: POC Glucose 103 10/07/23 10:49: POC Glucose 63 L I & O for Last 24 hours: Intake & Output 10/04/23 10/05/23 10/06/23 10/07/23 23:59 23:59 23:59 23:59 Output Total 0 / 0 0 / 0 Balance 0 / 0 0 / 0 Weight 321 lb 8 oz 330 lb 4.8 oz Microbiology Reports for the Last 24 Hours: Microbiology 10/06/23 04:30 Blood Blood Culture - Preliminary NO GROWTH AFTER 24 HOURS 10/06/23 04:30 Blood Blood Culture - Preliminary NO GROWTH AFTER 24 HOURS Constitutional Constitutional: no acute distress and cooperative *Routine HEENT Exam Eye: Present PERRL *Routine Respiratory Exam Respiratory: Present CTA bilaterally; Absent accessory muscle use, wheezes or crackles *Routine Cardiovascular Exam Cardiovascular: Present RRR, Normal S1 and Normal S2; Absent murmur, gallop or rubs Comments: Right radial cath site is normal on inspection and palpation *Routine Abdominal Exam Abdominal: Present soft; Absent tenderness *Routine Extremities Exam Extremities: Present pulses intact; Absent cyanosis or edema *Routine Skin Exam Skin: Present intact; Absent erythema or wounds *Routine Neurological Exam Neurological: Present alert and oriented X3 Routine Psychiatric Exam Psychiatric: Present cooperative Progress Note: A&P Assessment and plan (1) Coronary artery disease: Status: Acute (2) Choledocholithiasis with acute cholecystitis: Status: Acute (3) Hyperbilirubinemia: Status: Acute (4) Obesity: Status: Acute Assessment and Plan Assessment and Plan for All Diagnoses:: NSTEMI - CCS = 4 on arrival with rising serial Troponins - EKG: SR with minimal ST depression inferior leads - [facility] 10/05: IMPRESSION Mild nonflow limiting disease in the LAD and circumflex artery Occluded posterior descending artery which fills via right to right and left to right collaterals. This is the likely etiology for the elevated troponin Preserved ejection fraction Elevated LVEDP -Add ASA, Plavix, BB. Avoid statins due to elevated LFT and obstructing cholangitis Acute Obstructive Cholangitis and Cholecystitis - no signs of infection/sepsis yet - pt will be tx to [place] for surgery after [facility] here - symptoms stable - on broad spectrum antibiotics CKD-III - Cr 2 on arrival - discussed [facility] risk of contrast induced nephropathy with patient. He is agreeable to proceed - Cr 2.6 post cath, giving another 1L fluids, this will need continued monitoring at transfer. Morbid Obesity, BMI 51 - pt would benefit from aggressive weight loss via diet and exercise - consider OP GLP-1 DM-II, poorly controlled - A1C 8.5 - glucose management per hosp service - consider addition of SGLT-2 Chronic Venous Inufficiency BLE with skin changes - will address outpatient 10/06 CV summary: Pt has new dx of multi-vessel CAD but does not require stenting or intervention of any kind at this time. We discussed his cath findings in detail and he needs outpatient f/u with us post discharge. He is acceptable risk to proceed with ERCP.
== END 2023-10-07 13:13 | disposition short-term general hospital (02) | DRG 444 ==
PROVIDERS: Internal Medicine; Physician Assistant; Student in an Organized Health Care Education/Training Program; Admitting Provider Internal Medicine; PCP Family Medicine; Visit Provider Internal Medicine
PROC: B2151ZZ Fluoroscopy of Left Heart using Low Osmolar Contrast (ICD-10-PCS; principal; 2023-10-06 15:15)
DX: K80.42 Calculus of bile duct with acute cholecystitis without obstruction (principal); I21.4 Non-ST elevation (NSTEMI) myocardial infarction; Z68.43 Body mass index [BMI] 50.0-59.9, adult; E11.22 Type 2 diabetes mellitus with diabetic chronic kidney disease; I12.9 Hypertensive chronic kidney disease with stage 1 through stage 4 chronic kidney disease, or unspecified chronic kidney disease; Z79.4 Long term (current) use of insulin; E66.01 Morbid (severe) obesity due to excess calories; N18.30 Chronic kidney disease, stage 3 unspecified; E11.65 Type 2 diabetes mellitus with hyperglycemia; I87.2 Venous insufficiency (chronic) (peripheral); D63.1 Anemia in chronic kidney disease
CPT/HCPCS: G0379; 36415; 71045; 76705; 80053; 80061; 82962; 83036; 83605; 83735; 84100; 84145; 84484; 85007; 85025; 85027; 85610; 86140; 87040; 93005; 93306; 93458; 99152; C1725; C1760; C1769; J0692; J0696; J1644; J1650; J2250; J3010; Q9967

== ENCOUNTER 2023-10-27 15:09 | Emergency (ER) | payer MEDICARE, SELFPAY ==
[2023-10-27] VITALS (8 sets, daily range): BP systolic 133–180; BP diastolic 48–74; PULSE 57–68; RESP 14–19; TEMP 36.5; O2SAT 93–95; BMI 45.9
--- NOTE | 2023-10-27 16:47 | ED_ITS ---
<Statement entered by Gladis Collins DO - 10/27/23 23:19> I was consulted by the LEONARDA, and we discussed the complexity of the problems being addressed. I approved the treatment and management plan for this patient's care in the emergency department, thus performing a substantive portion of the medical decision making. Gladis Collins DO Discharge Plan Disposition Patient Disposition: Home, Self-Care Condition: Fair Chief Complaint: PAIN Prescriptions Prescriptions: No Action fenofibrate micronized 134 mg capsule 134 mg PO DAILY Patient Comments: Take 1 capsule(s) by mouth daily with meals bumetanide 2 mg tablet 2 mg PO DAILY metoprolol succinate 50 mg tablet extended release 24 hr 50 mg PO DAILY Qty: 90 3RF atenolol-chlorthalidone 100-25 mg tablet 1 tab PO DAILY repaglinide 2 mg tablet 2 mg PO TID Patient Comments: TAKE ONE TABLET BY MOUTH THREE TIMES DAILY glipizide 10 mg tablet 15 mg PO DAILY allopurinol 100 mg tablet 100 mg PO TID levothyroxine 75 mcg tablet 75 mcg PO DAILY doxazosin 8 mg tablet 12 mg PO HS cholecalciferol (vitamin D3) [Vitamin D3] 10 mcg (400 unit) Tablet 10 mcg PO DAILY aspirin 81 mg Tablet,Delayed Release (Dr/Ec) 81 mg PO DAILY Qty: 90 0RF atorvastatin 40 mg tablet 40 mg PO DAILY Qty: 90 0RF insulin degludec [Tresiba FlexTouch U-200] 200 unit/mL (3 mL) insulin pen 70 unit SQ BID PRN Referrals Follow up/Referrals: Provider,Referral, MD [Referring] - See instructions Activity Restrictions/Add. Instructions Additional Instructions/Restrictions: Please follow-up with your PCP within 48 hours for wound recheck. Return to ER for any worsening signs or symptoms. Clinical Impressions Clinical Impression: Bilateral cellulitis of lower leg Instructions Patient Instructions: Cellulitis Print Language Print Language: Hebrew Discharge ED Provider: Gladis Collins General Adult HPI General Chief complaint: PAIN Stated complaint: right leg swollen and red Time Seen by Provider: 10/27/23 16:45 History of Present Illness HPI narrative: Patient presents for evaluation of bilateral lower extremity pain and redness. Patient has a past medical history significant for morbid obesity with a BMI of 46, insulin-dependent type 2 diabetes mellitus, chronic kidney disease stage III, hypothyroidism, hypertension, diabetic dyslipidemia and most recently had acute cholecystitis and is status post cholecystectomy approximately 10 to 14 days ago. Patient lyric david has bilateral lower extremity pitting edema but it has been worse since his recent hospitalization for cholecystitis. He is chronically on bumetanide due to his chronic kidney disease. Patient states that his legs are swollen however the right is more so than the left but awoke this morning noted that both lower extremities had distal erythema and were painful to palpation. He denies fever chills shortness of breath chest pain hemoptysis hematochezia melena hematemesis hematuria Related Data Home Medications ?Medication ?Instructions ?Recorded ?Confirmed allopurinol 100 mg tablet 100 mg PO TID 10/06/23 10/19/23 atenolol 100 mg-chlorthalidone 25 1 tab PO DAILY 10/06/23 10/19/23 mg tablet cholecalciferol (vitamin D3) 10 10 mcg PO DAILY 10/06/23 10/19/23 mcg (400 unit) tablet (Vitamin D3) doxazosin 8 mg tablet 12 mg PO HS 10/06/23 10/19/23 glipizide 10 mg tablet 15 mg PO DAILY 10/06/23 10/19/23 levothyroxine 75 mcg tablet 75 mcg PO DAILY 10/06/23 10/19/23 repaglinide 2 mg tablet 2 mg PO TID 10/06/23 10/19/23 bumetanide 2 mg tablet 2 mg PO DAILY 10/19/23 10/19/23 fenofibrate micronized 134 mg 134 mg PO DAILY 10/19/23 10/19/23 capsule insulin degludec 200 unit/mL (3 70 unit SQ BID PRN 10/19/23 10/19/23 mL) subcutaneous pen (Tresiba FlexTouch U-200 insulin) Previous Rx's ?Medication ?Instructions ?Recorded aspirin 81 mg tablet,delayed 81 mg PO DAILY #90 tabs 10/07/23 release atorvastatin 40 mg tablet 40 mg PO DAILY #90 tabs 10/07/23 metoprolol succinate 50 mg 50 mg PO DAILY #90 tabs 10/19/23 tablet,extended release 24 hr Allergies Allergy/AdvReac Type Severity Reaction Status Date / Time Sulfa (Sulfonamide Allergy Intermediate Hives Verified 10/19/23 10:30 Antibiotics) [facility] Disclaimer: The information contained in this section may have been updated after the patient was seen, as this information can be updated by other users. Medical History (Updated 10/27/23 @ 19:30 by ORLANDO Leonardo) Coronary artery disease NSTEMI (non-ST elevated myocardial infarction) NSTEMI (non-ST elevated myocardial infarction) Chronic kidney disease Hypertension Diabetes mellitus, type 2 Surgical History (Updated 10/19/23 @ 10:30 by Alisha Ness) History of cardiac cath Social History Smoking Status: Never smoker alcohol intake: never current occupational status: other Travel in the last 8 weeks: None ROS Obtained: Yes Systems reviewed as appropriate & no additional complaints except as documented Physical Exam General General appearance: alert and in no apparent distress Neck Neck exam: Present lymphadenopathy Respiratory Respiratory exam: Present normal lung sounds bilaterally Cardiovascular Cardiovascular exam: Present regular rate and normal rhythm Abdominal Exam Abdominal exam: Present soft (Grossly obese); Absent tenderness Extremities Exam Extremities exam: Present edema (Bilateral 3+ pitting edema in the lower extremities) Expanded Lower Extremity Exam Left: Leg image: 2 1. Bilateral, but right greater than left circumferential erythema without noted skin breaks blisters skin sloughing. Neurological Exam Neurological exam: Present alert and oriented X3 Medical Decision Making Medical Records Medical records reviewed: Yes I reviewed the patient's medical records. Chuy Inquiry Pt receiving controlled substance: No Vital Signs: 10/27/23 15:10 10/27/23 16:48 10/27/23 17:00 Temperature 97.7 F Temperature Source Oral Pulse Rate 67 61 Pulse Rate [Left Radial] 68 Respiratory Rate 14 16 18 Blood Pressure 137/48 L 155/66 H Blood Pressure [Right Arm] 180/74 H Blood Pressure Mean 77 80 Blood Pressure Mean [Right Arm] 109 02 Sat by Pulse Oximetry 95 95 94 L Oxygen Delivery Method Room Air 10/27/23 17:31 10/27/23 18:01 10/27/23 18:31 Temperature Temperature Source Pulse Rate 64 59 L 61 Pulse Rate [Left Radial] Respiratory Rate 19 18 Blood Pressure 146/66 H 156/60 H 133/48 L Blood Pressure [Right Arm] Blood Pressure Mean 92 95 Blood Pressure Mean [Right Arm] 02 Sat by Pulse Oximetry 93 L 95 95 Oxygen Delivery Method 10/27/23 19:01 Temperature Temperature Source Pulse Rate 58 L Pulse Rate [Left Radial] Respiratory Rate Blood Pressure 162/62 H Blood Pressure [Right Arm] Blood Pressure Mean Blood Pressure Mean [Right Arm] 02 Sat by Pulse Oximetry 95 Oxygen Delivery Method Lab Data Lab results reviewed: Yes I reviewed the patient's lab results. Lab Results 10/27/23 16:46: WBC 7.5, RBC 3.48 L, Hgb 11.3 L, Hct 35.9 L, MCV 103.2 H, MCH 32.5 H, MCHC 31.5 L, RDW 16.4, Plt Count 196, MPV 10.1, Neut % (Auto) 74.9, Lymph % (Auto) 16.7, [place] % (Auto) 5.1, Eos % (Auto) 2.6, Baso % (Auto) 0.7, Neut # (Auto) 5.6, Lymph # (Auto) 1.3, [place] # (Auto) 0.4, Eos # (Auto) 0.2, Baso # (Auto) 0.1, ESR 134 H, Sodium 140, Potassium 3.3 L, Chloride 99, Carbon Dioxide 35 H, Anion Gap 9.3, BUN 63 H, Creatinine 2.70 H, Estimated Creat Clear 28, Estimated GFR 24 L, Est GFR ( Amer) 29 L, Glucose 201 H, Calcium 8.6, Magnesium 1.8, Total Bilirubin 0.5, AST 48, ALT 33, Alkaline Phosphatase 114, C- Reactive Protein 51.2 H, Total Protein 7.1, Albumin 3.4 L, Globulin 3.7 H, A lbumin/Globulin Ratio 0.9 L, Procalcitonin 0.146 10/27/23 18:03: Urine Color Yellow, Urine Appearance Clear, Urine pH 6.5, Ur Specific [place] 1.010, Urine Protein 2+, Urine Glucose (UA) Negative, Urine Ketones Negative, Urine Blood 1+, Urine Nitrate Negative, Urine Bilirubin Negative, Urine Urobilinogen 0.2, Ur Leukocyte Esterase Negative, Urine RBC 3-5, Urine WBC None, Ur Squamous Epith Cells None, Urine Bacteria None 10/27/23 16:46 10/27/23 16:46 Orders (Tests/Meds): ED MEDICATIONS Discontinued Medications Generic Name Dose Route Start Last Admin Trade Name Freq PRN Reason Stop Dose Admin Acetaminophen 1,000 mg 10/27/23 16:54 10/27/23 17:26 Acetaminophen 1,000mg/100ml Vial IV 10/27/23 16:55 1,000 mg ONCE ONE Administration Dalbavancin 1,125 mg/ Dextrose 250 mls @ 500 mls/hr 10/27/23 18:07 10/27/23 19:09 IV 10/27/23 18:08 500 mls/hr ONCE ONE Administration ORDERS Category Date Time Status CBC w/Auto Diff [Complete Blood Count Auto Diff] Stat Lab 10/27/23 16:46 Completed CMP [Comprehensive Metabolic Panel] Stat Lab 10/27/23 16:46 Completed CRP [C-Reactive Protein] Stat Lab 10/27/23 16:46 Completed ESR [Erythrocyte Sedimentation Rate] Stat Lab 10/27/23 16:46 Completed Magnesium Stat Lab 10/27/23 16:46 Completed Procalcitonin Stat Lab 10/27/23 16:46 Completed UA [Urinalysis and Microscopic] Stat Lab 10/27/23 18:03 Completed Blood Culture Stat Micro 10/27/23 18:12 Received CA venous doppler LE RT Stat Y 10/27/23 16:51 Completed Medical Decision Narrative: In summary patient is a 63-year-old male who presents to the emergency department for evaluation of bilateral lower extremity pain and swelling. Patient is hemodynamically stable upon arrival, afebrile. Physical exam is remarkable for bilateral 3+ pitting edema in the lower extremities without induration. Patient has tenderness palpation of his bilateral lower extremities circumferentially. No palpable cords noted. Patient has geographic erythema with well-demarcated borders in the bilateral lower extremities without skin breakdown ulcers ecchymosis blisters.. Differential diagnosis includes DVT versus erysipelas versus cellulitis versus abscess etc. Initial workup will be conducted with hematologic labs ultrasound DVT blood cultures. Initial interventions include Toradol Tylenol continuous cardiac monitoring and pulse oximetry. Initial workup reviewed by me shows that his hematologic labs are nonactionable he is kidney function is stable and his ultrasound shows preliminarily no evidence of DVT. Upon repeat evaluation patient reports improvement in his discomfort after initial intervention. Given this patient was given a dose of Dalvance and advised to follow-up with his PCP within 48 hours. Patient given strict return instructions. Critical Care Critical Care Time Critical Care Time: No
--- NOTE | 2023-10-27 16:51 | CA_ITS ---
FINAL REPORT TECHNIQUE: Multiple transverse and longitudinal images were performed of the right femoral-popliteal deep venous system with augmentation and compression maneuvers. CLINICAL HISTORY: calf pain/swelling, redness in distal right calf. Patient denies trauma. States edema is ongoing but the redness started yesterday. Patient states he had a heart cath 10/06/23 with right radial wrist access. No stents were placed. He currently takes 81 mg ASA daily. HLD, HTN, DM COMPARISON: None FINDINGS: Exam is limited secondary to patient's body habitus. The peroneal vein is not visualized and the proximal posterior tibial vein is visualized but not obtainable. Otherwise the right lower extremity duplex ultrasound demonstrates normal flow in the visible deep venous system. There is no abnormal echogenicity to suggest thrombus in the visualized system with normal compression and augmentation. IMPRESSION: No evidence of visible thrombus on this limited exam. Reviewed, Interpreted and Dictated by Corona Velasquez MD Transcribed by Brigitte Rod Authenticated and [facility]
[2023-10-27 17:06] LABS: Basophils # 0.1 K/mm3 (0-0.2); Basophils % 0.7 % (0.1-2.0); Eosinophils # 0.2 K/mm3 (0.0-0.4); Eosinophils % 2.6 % (0.1-12.0); Hematocrit 35.9 % (42.0-52.0); Hemoglobin 11.3 g/dL (14.1-18.0); Lymphocytes # 1.3 K/mm3 (0.7-4.5); Lymphocytes % 16.7 % (10-50); Mean Corpuscular HGB Conc 31.5 g/dL (31.8-35.4); Mean Corpuscular Hemoglobin 32.5 pg (27.0-31.2); Mean Corpuscular Volume 103.2 fl (80-94); Mean Platelet Volume 10.1 fl (7.4-10.4); Monocytes # 0.4 K/mm3 (0.1-1.0); Monocytes % 5.1 % (1.7-9.3); Neutrophils # 5.6 K/mm3 (1.8-7.8); Neutrophils % 74.9 % (37.0-80.0); Platelet Count 196 K/mm3 (142-424); Red Blood Count 3.48 M/mm3 (4.60-6.20); Red Cell Distribution Width 16.4 % (11.5-17.5); White Blood Count 7.5 K/mm3 (4.8-10.8)
[2023-10-27 17:12] LABS: Alanine Aminotransferase 33 U/L (12-78); Albumin Level 3.4 g/dl (3.5-5.0); Albumin/Globulin Ratio 0.9 (1.1-1.8); Alkaline Phosphatase 114 U/L (38-126); Anion Gap 9.3 mEq/L (5-15); Aspartate Amino Transferase 48 U/L (17-59); Bilirubin,Total 0.5 mg/dl (0.2-1.3); Blood Urea Nitrogen 63 mg/dl (9-20); Calcium 8.6 mg/dl (8.4-10.2); Carbon Dioxide 35 mmol/L (22.0-30.0); Chloride 99 mmol/L (98-107); Creatinine Clearance Estimated 28 mL/min (50-200); Estimated Glomerular Filt Rate 24 ml/min (>60); GFR (African American) 29 ML/MIN (>60); Globulin 3.7 g/dL (1.3-3.2); Glucose 201 mg/dl (74-100); Magnesium 1.8 mg/dl (1.6-2.3); Potassium 3.3 mmoL/L (3.5-5.1); Sodium 140 mmol/L (136-145); Total Protein,Serum 7.1 g/dl (6.3-8.2)
[2023-10-27 17:17] LABS: C-Reactive Protein 51.2 mg/L (0-4)
[2023-10-27] MEDS: ACETAMINOPHEN 1,000MG/100ML VIAL 1000 MG IV (17:26)
[2023-10-27 17:28] LABS: Procalcitonin 0.146 ng/mL (0.0-2.0)
[2023-10-27 17:41] LABS: Erythrocyte Sedimentation Rate 134 mm/hr (0-20)
[2023-10-27 18:07] LABS: Microscopic, Urine URINE MICROSCOPIC (MICROSCOPIC)
[2023-10-27 18:13] LABS: Appearance,Urine CLEAR (Clear); Bilirubin,Urine Negative (Negative); Blood, Urine 1+ (Negative); Color,Urine YELLOW (Yellow); Glucose,Urine (UA) Negative (Negative); Ketones,Urine Negative (Negative); Leukocyte Esterase,Urine Negative (Negative); Nitrate,Urine Negative (Negative); PH,Urine 6.5 (5.0-8.5); Protein,Urine 2+ (Negative); Urobilinogen,Urine 0.2 EU/dl (0.2)
[2023-10-27] MEDS: WATER IV (19:09)
[2023-10-27] MEDS: DEXTROSE 5% IV (19:09)
[2023-10-27] MEDS: DALBAVANCIN HCL IV (19:09)
== END 2023-10-27 19:52 | disposition home or self-care (01) ==
PROVIDERS: Physician Assistant; Emergency Provider Emergency Medicine; PCP Family Medicine
DX: L03.115 Cellulitis of right lower limb (principal); L03.116 Cellulitis of left lower limb; E11.22 Type 2 diabetes mellitus with diabetic chronic kidney disease; N18.30 Chronic kidney disease, stage 3 unspecified; I12.9 Hypertensive chronic kidney disease with stage 1 through stage 4 chronic kidney disease, or unspecified chronic kidney disease; E66.01 Morbid (severe) obesity due to excess calories; Z68.42 Body mass index [BMI] 45.0-49.9, adult; Z79.4 Long term (current) use of insulin; Z79.84 Long term (current) use of oral hypoglycemic drugs; E03.9 Hypothyroidism, unspecified
CPT/HCPCS: 80053; 81001; 83735; 84145; 85025; 85651; 86140; 87040; 93971; 96374; 96375; 99284; J0131; J0875; J7060

== ENCOUNTER 2023-11-01 08:41 | Outpatient (CLI) | payer MEDICARE, SELFPAY ==
[2023-11-01 09:14] LABS: Chloride 102 mmol/L (98-107); Potassium 3.6 mmoL/L (3.5-5.1); Sodium 141 mmol/L (136-145)
[2023-11-01 09:17] LABS: Anion Gap 9.6 mEq/L (5-15); Blood Urea Nitrogen 54 mg/dl (9-20); Calcium 9.2 mg/dl (8.4-10.2); Carbon Dioxide 33 mmol/L (22.0-30.0); Estimated Glomerular Filt Rate 25 ml/min (>60); GFR (African American) 30 ML/MIN (>60); Glucose 152 mg/dl (74-100)
== END 2023-11-01 23:59 | disposition home or self-care (01) ==
PROVIDERS: PCP Family Medicine; Visit Provider Physician Assistant
DX: N18.9 Chronic kidney disease, unspecified (principal)
CPT/HCPCS: 36415; 80048

== ENCOUNTER 2024-01-21 10:35 | Emergency (ER) | payer MEDICARE, SELFPAY ==
[2024-01-21] VITALS (14 sets, daily range): BP systolic 139–180; BP diastolic 78–91; PULSE 89–125; RESP 16–22; TEMP 36.7; O2SAT 92–99; BMI 52.3
--- NOTE | 2024-01-21 10:45 | ECG_ITS ---
APPROVED REPORT Exam: Resting ECG HR:115 bpm ECG Measurements Heart Rate 115 AXES NV 214 P 55 QRSd 88 QRS 69 QT 297 T 29 QTc 365 Conclusion SINUS TACHYCARDIA WITH FIRST DEGREE AV BLOCK MODERATE ST DEPRESSION [0.05+ mV ST DEPRESSION] ABNORMAL ECG Electronically signed by : Ever Tang, 01/22/2024 07:02:49
--- NOTE | 2024-01-21 10:53 | ED_ITS ---
Discharge Plan Disposition Patient Disposition: Xfer Short-Term Hosp Prescriptions Prescriptions: No Action fenofibrate micronized 134 mg capsule 134 mg PO DAILY Patient Comments: Take 1 capsule(s) by mouth daily with meals bumetanide 2 mg tablet 2 mg PO DAILY metoprolol succinate 50 mg tablet extended release 24 hr 50 mg PO DAILY Qty: 90 3RF atenolol-chlorthalidone 100-25 mg tablet 1 tab PO DAILY repaglinide 2 mg tablet 2 mg PO TID Patient Comments: TAKE ONE TABLET BY MOUTH THREE TIMES DAILY glipizide 10 mg tablet 15 mg PO DAILY allopurinol 100 mg tablet 100 mg PO TID levothyroxine 75 mcg tablet 75 mcg PO DAILY doxazosin 8 mg tablet 12 mg PO HS cholecalciferol (vitamin D3) [Vitamin D3] 10 mcg (400 unit) Tablet 10 mcg PO DAILY aspirin 81 mg Tablet,Delayed Release (Dr/Ec) 81 mg PO DAILY Qty: 90 0RF atorvastatin 40 mg tablet 40 mg PO DAILY Qty: 90 0RF insulin degludec [Tresiba FlexTouch U-200] 200 unit/mL (3 mL) insulin pen 70 unit SQ BID PRN Referrals Follow up/Referrals: Evans Butler [Primary Care Provider] - See instructions Clinical Impressions Clinical Impression: Acute kidney injury superimposed on chronic kidney disease, Volume overload, Elevated brain natriuretic peptide (BNP) level Print Language Print Language: Lebanese Discharge ED Provider: Gladis Collins General Adult HPI <Jj Gleason MD - Last Filed: 01/21/24 15:44> General Chief complaint: Shortness of Breath/Dyspnea Stated complaint: SOA, fluid build up w/leaking blisters, chills Time Seen by Provider: 01/21/24 10:51 Mode of Arrival: Ambulatory Source of Information: Patient Limitations: No Limitations Description of Symptoms (Recalled from ER Triage Doc. by RN): Patient reports increased SOB and increased fluid retention. States he has been short of breath since having COVID back in November. Also reports that the wounds on alexa lower ext are leaking fluid. Reports seeing his PCP on Wednesday and that he was supposed to setup wound care and home health but that he has not heard anymore on this matter. History of Present Illness HPI narrative: Niraj Enrique is a 64y male with a history of coronary artery disease, NSTEMI, CKD, hypertension, type 2 diabetes, obesity on CPAP at night who presents to the emergency department for a month of shortness of breath, weight gain and recent chills. Patient states that he had a biliary stent removed approximately 1 month ago and has had worsening symptoms since then. He notes that both of his legs continue to stay swollen and have blisters that leaked fluid constantly. He reports gaining 45 pounds of fluid over the last month unintentionally. He reports shortness of breath when lying down as well as worsening shortness of breath when walking as well as dcreased urine output despite taking 1-2mg of oral Bumex daily. Patient denies any chest pain right now but does report some shortness of breath. He states that he felt chills last night and could not get warm, which was the primary reason for come to the emergency department today. Related Data Home Medications ?Medication ?Instructions ?Recorded ?Confirmed allopurinol 100 mg tablet 100 mg PO TID 10/06/23 11/03/23 atenolol 100 mg-chlorthalidone 25 1 tab PO DAILY 10/06/23 11/03/23 mg tablet cholecalciferol (vitamin D3) 10 10 mcg PO DAILY 10/06/23 11/03/23 mcg (400 unit) tablet (Vitamin D3) doxazosin 8 mg tablet 12 mg PO HS 10/06/23 11/03/23 glipizide 10 mg tablet 15 mg PO DAILY 10/06/23 11/03/23 levothyroxine 75 mcg tablet 75 mcg PO DAILY 10/06/23 11/03/23 repaglinide 2 mg tablet 2 mg PO TID 10/06/23 11/03/23 bumetanide 2 mg tablet 2 mg PO DAILY 10/19/23 11/03/23 fenofibrate micronized 134 mg 134 mg PO DAILY 10/19/23 11/03/23 capsule insulin degludec 200 unit/mL (3 70 unit SQ BID PRN 10/19/23 11/03/23 mL) subcutaneous pen (Tresiba FlexTouch U-200 insulin) Previous Rx's ?Medication ?Instructions ?Recorded aspirin 81 mg tablet,delayed 81 mg PO DAILY #90 tabs 10/07/23 release atorvastatin 40 mg tablet 40 mg PO DAILY #90 tabs 10/07/23 metoprolol succinate 50 mg 50 mg PO DAILY #90 tabs 10/19/23 tablet,extended release 24 hr Allergies Allergy/AdvReac Type Severity Reaction Status Date / Time Sulfa (Sulfonamide Allergy Intermediate Hives Verified 11/03/23 09:21 Antibiotics) FOR[facility] <Jj Gleason MD - Last Filed: 01/21/24 15:44> [facility] Disclaimer: The information contained in this section may have been updated after the patient was seen, as this information can be updated by other users. Medical History Coronary artery disease NSTEMI (non-ST elevated myocardial infarction) NSTEMI (non-ST elevated myocardial infarction) Chronic kidney disease Hypertension Diabetes mellitus, type 2 Surgical History History of cardiac cath Social History Smoking Status: Unknown if ever smoked alcohol intake: never current occupational status: other Travel in the last 8 weeks: None Other Medical History Have you received the Flu Vaccine for this season: No Have you received the Pneumonia Vaccine: No <Jj Gleason MD - Last Filed: 01/21/24 15:44> ROS Obtained: Yes Systems reviewed as appropriate & no additional complaints except as documented Physical Exam <Jj Gleason MD - Last Filed: 01/21/24 15:44> General General appearance: alert, in no apparent distress (Mild respiratory distress) and obese Head Head exam: atraumatic Eye Eye exam: Present normal appearance ENT ENT exam: Present normal external ear exam Neck Neck exam: Present full ROM Chest Chest inspection: Present symmetric chest wall rise Respiratory Respiratory exam: Present respiratory distress (Mild) and other (Mild crackles at the bases. Diminished breath sounds bilaterally); Absent wheezes or stridor Cardiovascular Cardiovascular exam: Present normal rhythm and tachycardia Abdominal Exam Abdominal exam: Present soft; Absent tenderness or guarding exam: Present deferred Extremities Exam Extremities exam: Present edema (4+ pitting edema to the distal bilateral lower extremities with clear fluid-filled bullae, chronic venous stasis changes.) Back Exam Back exam: Present normal inspection Neurological Exam Neurological exam: Present alert and oriented X3 Psychiatric Psychiatric exam: Present normal affect Skin Skin exam: Present warm and dry Medical Decision Making <Jj Gleason MD - Last Filed: 01/21/24 15:44> Medical Records Medical records reviewed: Yes I reviewed the patient's medical records. Screening: Per USPSTF and CDC recommendations, given the prevalence of disease in our region, it is our hospital?s policy to screen for HIV and viral Hepatitis for all patients aged 18 and over and those with ongoing risk factors. Chuy Inquiry Pt receiving controlled substance: No Vital Signs: 01/21/24 10:38 01/21/24 11:01 01/21/24 11:15 Temperature 98.0 F Temperature Source Oral Pulse Rate 112 H 109 H Pulse Rate [Radial] 125 H Respiratory Rate 22 Blood Pressure 180/83 H 180/83 H Blood Pressure [Right Arm] 139/85 Blood Pressure Mean 111 Blood Pressure Mean [Right Arm] 103 Blood Pressure Source [Right Arm] Automatic Cuff Blood Pressure Position [Right Arm] Sitting 02 Sat by Pulse Oximetry 92 L 93 L 94 L Oxygen Delivery Method Room Air Room Air 01/21/24 11:31 01/21/24 12:00 01/21/24 12:31 Temperature Temperature Source Pulse Rate 107 H 99 H 99 H Pulse Rate [Radial] Respiratory Rate Blood Pressure 164/78 H 176/91 H 166/85 H Blood Pressure [Right Arm] Blood Pressure Mean 103 119 113 Blood Pressure Mean [Right Arm] Blood Pressure Source [Right Arm] Blood Pressure Position [Right Arm] 02 Sat by Pulse Oximetry 93 L 95 94 L Oxygen Delivery Method 01/21/24 13:01 01/21/24 13:31 01/21/24 13:38 Temperature Temperature Source Pulse Rate 93 H 92 H 93 H Pulse Rate [Radial] Respiratory Rate Blood Pressure 166/81 H 153/85 H 168/88 H Blood Pressure [Right Arm] Blood Pressure Mean 109 109 114 Blood Pressure Mean [Right Arm] Blood Pressure Source [Right Arm] Blood Pressure Position [Right Arm] 02 Sat by Pulse Oximetry 96 94 L 99 Oxygen Delivery Method 01/21/24 14:00 01/21/24 15:01 01/21/24 15:30 Temperature Temperature Source Pulse Rate 94 H 93 H 89 Pulse Rate [Radial] Respiratory Rate Blood Pressure 154/89 H 153/80 H 158/85 H Blood Pressure [Right Arm] Blood Pressure Mean 112 104 113 Blood Pressure Mean [Right Arm] Blood Pressure Source [Right Arm] Blood Pressure Position [Right Arm] 02 Sat by Pulse Oximetry 99 98 99 Oxygen Delivery Method 01/21/24 16:00 Temperature Temperature Source Pulse Rate 89 Pulse Rate [Radial] Respiratory Rate Blood Pressure 174/86 H Blood Pressure [Right Arm] Blood Pressure Mean 112 Blood Pressure Mean [Right Arm] Blood Pressure Source [Right Arm] Blood Pressure Position [Right Arm] 02 Sat by Pulse Oximetry 98 Oxygen Delivery Method Room Air Lab Data Lab Results 01/21/24 10:49: WBC 16.4 H, RBC 3.42 L, Hgb 10.7 L, Hct 32.5 L, MCV 95.1 H, MCH 31.4 H, MCHC 33.0, RDW 16.7, Plt Count 128 L, MPV 10.2, Neut % (Auto) 90.2 H, L ymph % (Auto) 5.1 L, [place] % (Auto) 4.5, Eos % (Auto) 0.1, Baso % (Auto) 0.1, N eut # (Auto) 14.8 H, Lymph # (Auto) 0.8, [place] # (Auto) 0.7, Eos # (Auto) 0.0, Baso # (Auto) 0.0, Total Counted 100, Neutrophils % (Manual) 90 H, Lymphocytes % (Manual) 9 L, Monocytes % (Manual) 1 L, Platelet Estimate Slight decrease, RBC Morphology Normal, D-Dimer 0.82 H, Sodium 137, Potassium 4.1, Chloride 107, Carbon Dioxide 26, Anion Gap 8.1, BUN 116 H*, Creatinine 4.20 H, Estimated Creat Clear 18, Estimated GFR 14 L*, Est GFR ( Amer) 17 L*, Glucose 112 H, C alcium 7.8 L, Total Bilirubin 0.7, AST 39, ALT 40, Alkaline Phosphatase 65, T roponin I 0.05 H, NT-Pro-B Natriuret Pep 2250 H, Total Protein 5.1 L D, Albumin 2.4 L, Globulin 2.7, Albumin/Globulin Ratio 0.9 L, HIV 1&2 Antibody Rapid Nonreactive 01/21/24 10:52: VBG pH 7.38, VBG pCO2 43.1, VBG pO2 44.6 H, VBG HCO3 24.9, VBG Total CO2 26.2, VBG O2 Saturation 81.2 H, VBG Base Excess -0.3, VBG Lactic Acid 2.4 H 01/21/24 15:17: Troponin I 0.09 H 01/21/24 15:24: Lactate 0.9 01/21/24 10:49 01/21/24 10:49 Orders (Tests/Meds): ED MEDICATIONS Discontinued Medications Generic Name Dose Route Start Last Admin Trade Name Freq PRN Reason Stop Dose Admin Bumetanide 1 mg 01/21/24 11:14 01/21/24 11:21 Bumetanide 1mg/4ml Vial IV 01/21/24 11:15 1 mg ONCE ONE Administration Bumetanide 4 mg 01/21/24 14:00 01/21/24 14:16 Bumetanide 1mg/4ml Vial IV 01/21/24 14:01 4 mg ONCE ONE Administration Chlorothiazide Sodium 1,000 mg 50 mls @ 100 mls/hr 01/21/24 12:44 01/21/24 13:05 / Sodium Chloride IV 01/21/24 12:45 100 mls/hr ONCE ONE Administration ORDERS Category Date Time Status POCUS Point of Care (ER Only) Stat Exams 01/21/24 10:52 Completed XR chest portable Stat Exams 01/21/24 11:11 Completed BNP [NT Pro Brain Natriuretic Pep.] Stat Lab 01/21/24 10:49 Completed CBC w/Auto Diff [Complete Blood Count Auto Diff] Stat Lab 01/21/24 10:49 Completed CMP [Comprehensive Metabolic Panel] Stat Lab 01/21/24 10:49 Completed D-Dimer Stat Lab 01/21/24 10:49 Completed HIV (1&2) Antibody Rapid Stat Lab 01/21/24 10:49 Completed Hep C Ab with Reflex to RNA Stat Lab 01/21/24 10:49 Received Lactic Acid Follow Up (RFLX 1) Stat Lab 01/21/24 15:24 Completed Troponin I Q3H Lab 01/21/24 15:17 Completed Troponin I Q3H Lab 01/21/24 17:15 Ordered Troponin I Stat Lab 01/21/24 10:49 Completed Blood Culture Stat Micro 01/21/24 11:26 Received VBG [Venous Blood Gas] Stat RT 01/21/24 10:52 Completed ECG Data Tracing #1: EKG interpreted by me personally at 1052. Sinus tachycardia with ventricular rate of 115 bpm. Normal QTc at 365. First-degree AV block with WI interval of [address] depression in V4 but no other elevations or depressions. Medical Decision Narrative: Niraj Enrique is a 64M with a history of coronary artery disease, NSTEMI, CKD, hypertension, diabetes mellitus type 2 who presents to the emergency department for 1 month of 45 pound unintentional weight gain, worsening bilateral lower extremity swelling/blisters, shortness of breath, and subjective fevers that began last night. Patient notes that he takes Bumex 1 mg daily at baseline, however given his worsening swelling, has been told to take 2 mg daily. He does report that he has had decreased urine output over the last month despite taking the increased Bumex. He reports that he had a biliary duct stent removed and his symptoms seem to worsen after this. He does note that he also had a kidney biopsy approximately 1 month ago. Patient became concerned yesterday because he began to have subjective fevers. He reports 1 month of orthopnea as well as shortness of breath with exertion. He has been going through multiple pads daily on his bilateral lower extremities due to clear fluid drainage. 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 Differential diagnosis: CHF, pneumonia, sepsis, cellulitis, pulmonary embolism, kidney failure Patient's workup in the emergency room included: EKG, chest x-ray, CBC, CMP, D- dimer, VBG, lactic acid, troponin, BNP. Patient was administered 1 mg of Bumex IV. [id number] ultrasound of the heart and lungs were performed by me personally. Patient does not have any evidence of right heart strain without dilation of the right ventricle, no D sign on short axis view, no tamponade physiology. No significant pericardial effusion. Patient's LV function appears appropriate. Patient's workup was significant for leukocytosis of 16.4 with left shift, platelets low at 128, mild anemia of 10.7 hemoglobin, hematocrit 32.5, D-dimer elevated at 0.82. Patient's creatinine has worsened to 4.2 with elevated BUN at 116 (baseline creatinine of 2.6), EGFR 14, initial troponin 0.05, BUN elevated at 2250. Chest x-ray was interpreted by me personally and demonstrated global venous congestion consistent with volume overload. See radiology report for final details. CT pulmonary embolism protocol was considered, however given the patient's significantly low EGFR without signs of right heart strain on ultrasound, it is felt that this could be deferred at this time as his symptomatology is most consistent with volume overload secondary to worsening heart failure rather than blood clot. I discussed the patient's case with Dr. Rutledge who recommended aggressive diuresis with 1 g of IV chlorothiazide followed by 4 mg of IV Bumex. Patient had approximately 1 L of urine output after this. His heart rate improved to 94 bpm. Given this, is felt that he is appropriate for admission for continued IV diuresis and echocardiogram and further workup of his heart failure exacerbation versus fluid overload secondary to worsening renal failure. Given he will likely require nephrology consultation, is felt that he would benefit from transfer to another facility that has nephrology capabilities. Patient had previously had his biopsy done at [facility] in [facility]. Attempts are being made to contact the facility. At this time, the patient's care was handed off to the oncoming provider, Dr. Collins. <Gladis Collins, DO - Last Filed: 01/21/24 16:12> Vital Signs: 01/21/24 10:38 01/21/24 11:01 01/21/24 11:15 Temperature 98.0 F Temperature Source Oral Pulse Rate 112 H 109 H Pulse Rate [Radial] 125 H Respiratory Rate 22 Blood Pressure 180/83 H 180/83 H Blood Pressure [Right Arm] 139/85 Blood Pressure Mean 111 Blood Pressure Mean [Right Arm] 103 Blood Pressure Source [Right Arm] Automatic Cuff Blood Pressure Position [Right Arm] Sitting 02 Sat by Pulse Oximetry 92 L 93 L 94 L Oxygen Delivery Method Room Air Room Air 01/21/24 11:31 01/21/24 12:00 01/21/24 12:31 Temperature Temperature Source Pulse Rate 107 H 99 H 99 H Pulse Rate [Radial] Respiratory Rate Blood Pressure 164/78 H 176/91 H 166/85 H Blood Pressure [Right Arm] Blood Pressure Mean 103 119 113 Blood Pressure Mean [Right Arm] Blood Pressure Source [Right Arm] Blood Pressure Position [Right Arm] 02 Sat by Pulse Oximetry 93 L 95 94 L Oxygen Delivery Method 01/21/24 13:01 01/21/24 13:31 01/21/24 13:38 Temperature Temperature Source Pulse Rate 93 H 92 H 93 H Pulse Rate [Radial] Respiratory Rate Blood Pressure 166/81 H 153/85 H 168/88 H Blood Pressure [Right Arm] Blood Pressure Mean 109 109 114 Blood Pressure Mean [Right Arm] Blood Pressure Source [Right Arm] Blood Pressure Position [Right Arm] 02 Sat by Pulse Oximetry 96 94 L 99 Oxygen Delivery Method 01/21/24 14:00 01/21/24 15:01 01/21/24 15:30 Temperature Temperature Source Pulse Rate 94 H 93 H 89 Pulse Rate [Radial] Respiratory Rate Blood Pressure 154/89 H 153/80 H 158/85 H Blood Pressure [Right Arm] Blood Pressure Mean 112 104 113 Blood Pressure Mean [Right Arm] Blood Pressure Source [Right Arm] Blood Pressure Position [Right Arm] 02 Sat by Pulse Oximetry 99 98 99 Oxygen Delivery Method 01/21/24 16:00 Temperature Temperature Source Pulse Rate 89 Pulse Rate [Radial] Respiratory Rate Blood Pressure 174/86 H Blood Pressure [Right Arm] Blood Pressure Mean 112 Blood Pressure Mean [Right Arm] Blood Pressure Source [Right Arm] Blood Pressure Position [Right Arm] 02 Sat by Pulse Oximetry 98 Oxygen Delivery Method Room Air Lab Data Lab Results 01/21/24 10:49: WBC 16.4 H, RBC 3.42 L, Hgb 10.7 L, Hct 32.5 L, MCV 95.1 H, MCH 31.4 H, MCHC 33.0, RDW 16.7, Plt Count 128 L, MPV 10.2, Neut % (Auto) 90.2 H, L ymph % (Auto) 5.1 L, [place] % (Auto) 4.5, Eos % (Auto) 0.1, Baso % (Auto) 0.1, N eut # (Auto) 14.8 H, Lymph # (Auto) 0.8, [place] # (Auto) 0.7, Eos # (Auto) 0.0, Baso # (Auto) 0.0, Total Counted 100, Neutrophils % (Manual) 90 H, Lymphocytes % (Manual) 9 L, Monocytes % (Manual) 1 L, Platelet Estimate Slight decrease, RBC Morphology Normal, D-Dimer 0.82 H, Sodium 137, Potassium 4.1, Chloride 107, Carbon Dioxide 26, Anion Gap 8.1, BUN 116 H*, Creatinine 4.20 H, Estimated Creat Clear 18, Estimated GFR 14 L*, Est GFR ( Amer) 17 L*, Glucose 112 H, C alcium 7.8 L, Total Bilirubin 0.7, AST 39, ALT 40, Alkaline Phosphatase 65, T roponin I 0.05 H, NT-Pro-B Natriuret Pep 2250 H, Total Protein 5.1 L D, Albumin 2.4 L, Globulin 2.7, Albumin/Globulin Ratio 0.9 L, HIV 1&2 Antibody Rapid Nonreactive 01/21/24 10:52: VBG pH 7.38, VBG pCO2 43.1, VBG pO2 44.6 H, VBG HCO3 24.9, VBG Total CO2 26.2, VBG O2 Saturation 81.2 H, VBG Base Excess -0.3, VBG Lactic Acid 2.4 H 01/21/24 15:17: Troponin I 0.09 H 01/21/24 15:24: Lactate 0.9 Orders (Tests/Meds): ED MEDICATIONS Discontinued Medications Generic Name Dose Route Start Last Admin Trade Name Freq PRN Reason Stop Dose Admin Bumetanide 1 mg 01/21/24 11:14 01/21/24 11:21 Bumetanide 1mg/4ml Vial IV 01/21/24 11:15 1 mg ONCE ONE Administration Bumetanide 4 mg 01/21/24 14:00 01/21/24 14:16 Bumetanide 1mg/4ml Vial IV 01/21/24 14:01 4 mg ONCE ONE Administration Chlorothiazide Sodium 1,000 mg 50 mls @ 100 mls/hr 01/21/24 12:44 01/21/24 13:05 / Sodium Chloride IV 01/21/24 12:45 100 mls/hr ONCE ONE Administration ORDERS Category Date Time Status POCUS Point of Care (ER Only) Stat Exams 01/21/24 10:52 Completed XR chest portable Stat Exams 01/21/24 11:11 Completed BNP [NT Pro Brain Natriuretic Pep.] Stat Lab 01/21/24 10:49 Completed CBC w/Auto Diff [Complete Blood Count Auto Diff] Stat Lab 01/21/24 10:49 Completed CMP [Comprehensive Metabolic Panel] Stat Lab 01/21/24 10:49 Completed D-Dimer Stat Lab 01/21/24 10:49 Completed HIV (1&2) Antibody Rapid Stat Lab 01/21/24 10:49 Completed Hep C Ab with Reflex to RNA Stat Lab 01/21/24 10:49 Received Lactic Acid Follow Up (RFLX 1) Stat Lab 01/21/24 15:24 Completed Troponin I Q3H Lab 01/21/24 15:17 Completed Troponin I Q3H Lab 01/21/24 17:15 Ordered Troponin I Stat Lab 01/21/24 10:49 Completed Blood Culture Stat Micro 01/21/24 11:26 Received VBG [Venous Blood Gas] Stat RT 01/21/24 10:52 Completed Medical Decision Narrative: Niraj Enrique is a 64M with a history of coronary artery disease, NSTEMI, CKD, hypertension, diabetes mellitus type 2 who presents to the emergency department for 1 month of 45 pound unintentional weight gain, worsening bilateral lower extremity swelling/blisters, shortness of breath, and subjective fevers that began last night. Patient notes that he takes Bumex 1 mg daily at baseline, however given his worsening swelling, has been told to take 2 mg daily. He does report that he has had decreased urine output over the last month despite taking the increased Bumex. He reports that he had a biliary duct stent removed and his symptoms seem to worsen after this. He does note that he also had a kidney biopsy approximately 1 month ago. Patient became concerned yesterday because he began to have subjective fevers. He reports 1 month of orthopnea as well as shortness of breath with exertion. He has been going through multiple pads daily on his bilateral lower extremities due to clear fluid drainage. 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 Differential diagnosis: CHF, pneumonia, sepsis, cellulitis, pulmonary embolism, kidney failure Patient's workup in the emergency room included: EKG, chest x-ray, CBC, CMP, D- dimer, VBG, lactic acid, troponin, BNP. Patient was administered 1 mg of Bumex IV. [id number] ultrasound of the heart and lungs were performed by me personally. Patient does not have any evidence of right heart strain without dilation of the right ventricle, no D sign on short axis view, no tamponade physiology. No significant pericardial effusion. Patient's LV function appears appropriate. Patient's workup was significant for leukocytosis of 16.4 with left shift, platelets low at 128, mild anemia of 10.7 hemoglobin, hematocrit 32.5, D-dimer elevated at 0.82. Patient's creatinine has worsened to 4.2 with elevated BUN at 116 (baseline creatinine of 2.6), EGFR 14, initial troponin 0.05, BUN elevated at 2250. Chest x-ray was interpreted by me personally and demonstrated global venous congestion consistent with volume overload. See radiology report for final details. CT pulmonary embolism protocol was considered, however given the patient's significantly low EGFR without signs of right heart strain on ultrasound, it is felt that this could be deferred at this time as his symptomatology is most consistent with volume overload secondary to worsening heart failure rather than blood clot. I discussed the patient's case with Dr. Rutledge who recommended aggressive diuresis with 1 g of IV chlorothiazide followed by 4 mg of IV Bumex. Patient had approximately 1 L of urine output after this. His heart rate improved to 94 bpm. Given this, is felt that he is appropriate for admission for continued IV diuresis and echocardiogram and further workup of his heart failure exacerbation versus fluid overload secondary to worsening renal failure. Given he will likely require nephrology consultation, is felt that he would benefit from transfer to another facility that has nephrology capabilities. Patient had previously had his biopsy done at [facility] in [facility]. Attempts are being made to contact the facility. At this time, the patient's care was handed off to the oncoming provider, Dr. Collins. Dennis, DO: I had an interactive discussion with Dr. Cruz at [facility] who accepted the patient for transfer. Patient was transported in stable condition. Patient was updated to plan of care. Critical Care <Jj Gleason MD - Last Filed: 01/21/24 15:44> Critical Care Time Critical Care Time: Yes Attestation: On 01/21/24, the high probability of a clinically significant, sudden or life threatening deterioration of the following system(s) required my full and direct attention, intervention and personal management. The time I documented below is in addition to time spent performing reported procedures but includes the following listed in this critical care notation. Total Time Total Critical Care Time: 35
--- NOTE | 2024-01-21 10:54 | PC.NURSE ---
Dr. Gleason at [facility] for pt eval
[2024-01-21 11:01] LABS: VBG Base Excess -0.3 mmol/L (-2.4-2.3); VBG HCO3 24.9 mmol/L (23-30); VBG Oxygen Saturation 81.2 % (50-70); VBG PCO2 43.1 mmol/L (35-51); VBG PH 7.38 mmol/L (7.31-7.41); VBG PO2 44.6 mmol/L (28-40); VBG Total CO2 26.2 mmol/L (23-27)
--- NOTE | 2024-01-21 11:02 | PC.NURSE ---
RT notified of VBG order
[2024-01-21 11:03] LABS: Lactate Venous 2.4 mmol/L (0.4-2.0)
--- NOTE | 2024-01-21 11:11 | XR_ITS ---
PROCEDURE INFORMATION: Exam: XR Chest Exam date and time: 01/21/2024 11:13 AM Age: 64 years old Clinical indication: Shortness of breath; Additional info: SOB TECHNIQUE: Imaging protocol: Radiologic exam of the chest. Views: 1 view. COMPARISON: CR XR CHEST PORTABLE 10/06/2023 4:46 AM FINDINGS: Lungs: Low lung volumes with bronchovascular crowding. No focal consolidation. Pleural spaces: No pneumothorax or pleural effusion. Heart/Mediastinum: Apparent cardiomegaly, accentuated by low volumes. Bones/joints: No acute osseous or soft tissue abnormality. IMPRESSION: 1. Low lung volumes with bronchovascular crowding. 2. Apparent cardiomegaly.
[2024-01-21 11:21] LABS: Basophils % 0.1 % (0.1-2.0); Eosinophils % 0.1 % (0.1-12.0); Hematocrit 32.5 % (42.0-52.0); Hemoglobin 10.7 g/dL (14.1-18.0); Lymphocytes # 0.8 K/mm3 (0.7-4.5); Lymphocytes % 5.1 % (10-50); Mean Corpuscular Hemoglobin 31.4 pg (27.0-31.2); Mean Corpuscular Volume 95.1 fl (80-94); Mean Platelet Volume 10.2 fl (7.4-10.4); Monocytes # 0.7 K/mm3 (0.1-1.0); Monocytes % 4.5 % (1.7-9.3); Neutrophils # 14.8 K/mm3 (1.8-7.8); Neutrophils % 90.2 % (37.0-80.0); Platelet Count 128 K/mm3 (142-424); Red Blood Count 3.42 M/mm3 (4.60-6.20); Red Cell Distribution Width 16.7 % (11.5-17.5); White Blood Count 16.4 K/mm3 (4.8-10.8)
[2024-01-21] MEDS: BUMETANIDE 1MG/4ML VIAL 1 MG IV (11:21)
[2024-01-21 11:25] LABS: MANUAL DIFFERENTIAL MANUAL DIFFERENTIAL (MANUAL DIFF)
--- NOTE | 2024-01-21 11:27 | PC.NURSE ---
2nd blood culture drawn and sent to lab; blue band placed on left wrist.
[2024-01-21 11:33] LABS: Alanine Aminotransferase 40 U/L (12-78); Albumin Level 2.4 g/dl (3.5-5.0); Albumin/Globulin Ratio 0.9 (1.1-1.8); Alkaline Phosphatase 65 U/L (38-126); Anion Gap 8.1 mEq/L (5-15); Aspartate Amino Transferase 39 U/L (17-59); Bilirubin,Total 0.7 mg/dl (0.2-1.3); Calcium 7.8 mg/dl (8.4-10.2); Carbon Dioxide 26 mmol/L (22.0-30.0); Chloride 107 mmol/L (98-107); Creatinine Clearance Estimated 18 mL/min (50-200); Estimated Glomerular Filt Rate 14 ml/min (>60); GFR (African American) 17 ML/MIN (>60); Globulin 2.7 g/dL (1.3-3.2); Glucose 112 mg/dl (74-100); Potassium 4.1 mmoL/L (3.5-5.1); Sodium 137 mmol/L (136-145); Total Protein,Serum 5.1 g/dl (6.3-8.2)
[2024-01-21 11:38] LABS: D-Dimer 0.82 ug/mL (0.0-0.5)
[2024-01-21 11:40] LABS: Blood Urea Nitrogen 116 mg/dl (9-20)
[2024-01-21 11:46] LABS: NT Pro Brain Natriuretic Pep. 2250 pg/mL (0-125); Troponin I 0.05 ng/ml (0.00-0.034)
[2024-01-21 11:56] LABS: Lymphocytes % 9 % (10-50); Monocytes % 1 % (2-9); Neutrophils % 90 % (42-76); RBC Morphology Normal; Total Cells Counted 100
[2024-01-21 11:57] LABS: Platelet Estimate Slight Decrease
--- NOTE | 2024-01-21 12:34 | PC.NURSE ---
Called Cardiology per Dr Gleason for this pt
--- NOTE | 2024-01-21 12:39 | PC.NURSE ---
Dr. Gleason speaking with Dr. Rutledge
[2024-01-21] MEDS: CHLOROTHIAZIDE SODIUM 1,000 MG in 0.9 % SODIUM CHLORIDE 50 ML 100 MG IV (13:05)
[2024-01-21] MEDS: BUMETANIDE 1MG/4ML VIAL 4 MG IV (14:16)
--- NOTE | 2024-01-21 14:35 | PC.NURSE ---
Patient ambulatory to bathroom at this time.
[2024-01-21 15:03] LABS: Reflex Lactic Add Lactic Reflex
[2024-01-21 15:11] LABS: HIV (1&2) Antibody Rapid NONREACTIVE (NONREACTIVE)
--- NOTE | 2024-01-21 15:19 | PC.NURSE ---
informed pt and family that the alarms going off were a drill. no needs at this time
--- NOTE | 2024-01-21 15:31 | PC.NURSE ---
Repeat lactic drawn and sent to lab.
--- NOTE | 2024-01-21 15:32 | PC.NURSE ---
Awaiting a call back from [facility] for possible transfer
--- NOTE | 2024-01-21 15:38 | PC.NURSE ---
Dr. Collins speaking with [facility]
--- NOTE | 2024-01-21 15:41 | PC.NURSE ---
pt accepted to [facility] by Dr. Cruz
[2024-01-21 15:50] LABS: Lactic Acid Follow Up (RFLX 1) 0.9 mmol/L (0.7-2.1)
[2024-01-21 15:51] LABS: Troponin I 0.09 ng/ml (0.00-0.034)
--- NOTE | 2024-01-21 16:12 | PC.NURSE ---
Dr. Collins at to discuss POC
--- NOTE | 2024-01-21 16:14 | PC.NURSE ---
notified [facility] of need for transport
--- NOTE | 2024-01-21 16:46 | PC.NURSE ---
EMS at to transport patient to [facility]
--- NOTE | 2024-01-21 17:02 | PC.NURSE ---
Attempted to call report to [facility] multiple times after being given a room assignment and number to call report. First attempt I was told that the nurse was in a room and they requested a phone number to call back. Approx 15 minutes later with no return call I attempted to call back and the phone rang off the hook. Attempt number three and I was transferred to two other people and eventually told that his room was not clean and they would not take report. As I began to speak with them letting them know that the patient was being loaded on the stretcher for transport the person I was talking to hung up. curbing stonecutter called back and was eventually able to give report to ERWIN Llamas at [address]
[2024-01-22 08:51] LABS: HCV Ab Non Reactive (Non Reactive)
== END 2024-01-21 17:12 | disposition short-term general hospital (02) ==
PROVIDERS: Student in an Organized Health Care Education/Training Program; Emergency Provider Emergency Medicine; PCP Family Medicine
DX: N17.9 Acute kidney failure, unspecified (principal); E87.70 Fluid overload, unspecified; R79.89 Other specified abnormal findings of blood chemistry; R06.02 Shortness of breath; R68.83 Chills (without fever); R34 Anuria and oliguria
CPT/HCPCS: 71045; 80053; 82803; 83605; 83880; 84484; 85007; 85025; 85027; 85378; 86803; 87040; 87389; 93005; 96374; 96375; 99291; J1205; J1939

== ENCOUNTER 2024-05-24 11:39 | Emergency (ER) | payer MEDICARE, SELFPAY ==
[2024-05-24] VITALS (18 sets, daily range): BP systolic 122–166; BP diastolic 49–79; PULSE 52–74; RESP 18–20; TEMP 36.8–36.9; O2SAT 95–100; BMI 43.9
--- NOTE | 2024-05-24 12:29 | HMH.EDGENADL ---
Discharge Plan Disposition Patient Disposition: Xfer Short-Term Hosp Condition: Good Prescriptions Prescriptions: No Action metoprolol tartrate 100 mg tablet 100 mg PO BID Patient Comments: TAKE ONE TABLET BY MOUTH TWICE DAILY cholecalciferol (vitamin D3) 25 mcg (1,000 unit) capsule 25 mcg PO DAILY insulin aspart U-100 [Novolog FlexPen U-100 Insulin] 100 unit/mL (3 mL) insulin pen 15 unit SQ TID PRN (Reason: diabetes) sevelamer HCl 800 mg tablet 800 mg PO TID Rx Instructions: must administer with a meal/food glipizide 10 mg tablet 15 mg PO DAILY allopurinol 100 mg tablet 100 mg PO TID levothyroxine 75 mcg tablet 75 mcg PO DAILY doxazosin 8 mg tablet 12 mg PO HS aspirin 81 mg Tablet,Delayed Release (Dr/Ec) 81 mg PO DAILY Qty: 90 0RF atorvastatin 40 mg tablet 40 mg PO DAILY Qty: 90 0RF insulin degludec [Tresiba FlexTouch U-200] 200 unit/mL (3 mL) insulin pen 50 unit SQ BID PRN (Reason: diabetes) Ozempic 1 mg/dose (2 mg/1.5 mL) Pen Injector 1 mg SQ WEEKLY Referrals Follow up/Referrals: Evans Butler [Primary Care Provider] - See instructions Clinical Impressions Clinical Impression: Cellulitis and abscess of toe of left foot, Cellulitis of foot, Abscess of foot Instructions Patient Instructions: DI for Skin Abscess Print Language Print Language: Kazakh Discharge ED Provider: Willard Morales General Adult HPI <ORLANDO Chakraborty - Last Filed: 05/24/24 15:10> General Chief complaint: Skin/Abscess/Foreign Body Stated complaint: poss. boil on side of l foot Time Seen by Provider: 05/24/24 12:21 Mode of Arrival: Wheelchair Source of Information: Patient Limitations: No Limitations Description of Symptoms (Recalled from ER Triage Doc. by RN): FLUID FILLED BLISTER TO LEFT FOOT, PT HAS PREVIOUS AMPUTATION OF LEFT FIFTH TOE, 2006. PT REPORTS HE NOTED DISCOLORATION YESTERDAY History of Present Illness HPI narrative: 64-year-old male presents to the emergency department with a 2-day history of left lower extremity, boil/abscess formation. Patient denies any trauma to the area, however does not wear diabetic shoes, he he has any fever chills chest pain shortness of breath nausea vomiting constipation diarrhea, other systemic type symptomatology. He has previous amputation of the left fifth toe in 2006 he is a dialysis patient and receives dialysis Wednesday. Denies any redness, no hot to touch sensation, no pain to the area however patient does have diabetic polyneuropathy. Other past medical history consistent with CAD, hypertension, is on chronic supplemental oxygen therapy 2 L nasal cannula at baseline, gout. Denies any substance use, initial triage vitals are unremarkable. Of note, patient is wheelchair-bound at baseline, however can ambulate with a walker if needed. Onset (ago): day(s) Related Data Home Medications ?Medication ?Instructions ?Recorded ?Confirmed allopurinol 100 mg tablet 100 mg PO TID 10/06/23 05/24/24 doxazosin 8 mg tablet 12 mg PO HS 10/06/23 05/24/24 glipizide 10 mg tablet 15 mg PO DAILY 10/06/23 05/24/24 levothyroxine 75 mcg tablet 75 mcg PO DAILY 10/06/23 05/24/24 cholecalciferol (vitamin D3) 25 25 mcg PO DAILY 05/03/24 05/24/24 mcg (1,000 unit) capsule insulin aspart U-100 100 unit/mL 15 unit SQ TID PRN diabetes 05/03/24 05/24/24 (3 mL) subcutaneous pen (Novolog FlexPen U-100 Insulin aspart) insulin degludec 200 unit/mL (3 50 unit SQ BID PRN diabetes 05/03/24 05/24/24 mL) subcutaneous pen (Tresiba FlexTouch U-200 insulin) metoprolol tartrate 100 mg tablet 100 mg PO BID 05/03/24 05/24/24 sevelamer HCl 800 mg tablet 800 mg PO TID 05/03/24 05/24/24 semaglutide 1 mg/dose (2 mg/1.5 1 mg SQ WEEKLY 05/24/24 05/24/24 mL) subcutaneous pen injector Previous Rx's ?Medication ?Instructions ?Recorded aspirin 81 mg tablet,delayed 81 mg PO DAILY #90 tabs 10/07/23 release atorvastatin 40 mg tablet 40 mg PO DAILY #90 tabs 10/07/23 Allergies Allergy/AdvReac Type Severity Reaction Status Date / Time Sulfa (Sulfonamide Allergy Intermediate Hives Verified 05/03/24 10:57 Antibiotics) [facility] <ORLANDO Chakraborty - Last Filed: 05/24/24 15:10> [facility] Disclaimer: The information contained in this section may have been updated after the patient was seen, as this information can be updated by other users. Medical History Coronary artery disease NSTEMI (non-ST elevated myocardial infarction) NSTEMI (non-ST elevated myocardial infarction) Chronic kidney disease Hypertension Diabetes mellitus, type 2 Surgical History History of cardiac cath Social History Smoking Status: Never smoker alcohol intake: never current occupational status: other Travel in the last 8 weeks: None Have you lived/traveled outside US in past 30 days?: No Contact w/someone who lives/traveled outside US past 30 days?: No Exposure to someone with infectious disease in past 14 days?: No Do you have a fever (greater than 100.4 F or 38 C)?: No Have you tested positive for COVID-19: No Exposed to someone with COVID-19 in past 14 days?: No Do you have a sore throat?: No Do you have a cough?: No Do you have any weakness?: No Do you have any diarrhea?: No Are you experiencing any unusual bleeding?: No Do you have any muscle aches/pain?: No Do you have any abdominal pain?: No Are you experiencing loss of taste or smell?: No Other Medical History Have you received the Flu Vaccine for this season: No Have you received the Pneumonia Vaccine: Yes <ORLANDO Chakraborty - Last Filed: 05/24/24 15:10> ROS Obtained: Yes All systems reviewed & no additional complaints except as documented Physical Exam <ORLANDO Chakraborty - Last Filed: 05/24/24 15:10> General General appearance: alert and in no apparent distress Head Head exam: atraumatic and normocephalic Eye Eye exam: Present PERRL and EOMI ENT ENT exam: Present mucous membranes moist Neck Neck exam: Present normal inspection Chest Chest inspection: Present normal inspection and symmetric chest wall rise Respiratory Respiratory exam: Present normal lung sounds bilaterally; Absent respiratory distress Cardiovascular Cardiovascular exam: Present regular rate and normal rhythm Abdominal Exam Abdominal exam: Present soft; Absent tenderness, guarding, rebound or rigidity Extremities Exam Extremities exam: Present normal inspection, full ROM and other (Neurovascular intact); Absent tenderness Neurological Exam Neurological exam: Present alert and oriented X3 Psychiatric Psychiatric exam: Present normal affect Skin Skin exam: Present warm, dry, erythema and other (There is an approximate 2 cm fluid-filled cyst/carbuncle/However no real erythema, no pain to palpation, no lymphangitic streaking, there is a chronic appearing around stage II diabetic foot wound on the patient's plantar aspect around the fourth and fifth metatarsals, patient states that is been th) Medical Decision Making <ORLANDO Chakraborty - Last Filed: 05/24/24 15:10> Medical Records Medical records reviewed: Yes I reviewed the patient's medical records. Screening: Per USPSTF and CDC recommendations, given the prevalence of disease in our region, it is our hospital?s policy to screen for HIV and viral Hepatitis for all patients aged 18 and over and those with ongoing risk factors. Chuy Inquiry Pt receiving controlled substance: No Chuy was queried for this patient: No Vital Signs: 05/24/24 12:09 05/24/24 12:54 05/24/24 13:01 Temperature 98.5 F Temperature Source Oral Pulse Rate 55 L 55 L Pulse Rate [Radial] 56 L Respiratory Rate 18 Blood Pressure 131/49 L 129/52 L Blood Pressure [Left Arm] 147/51 H Blood Pressure Mean [Left Arm] 83 Blood Pressure Source [Left Arm] Automatic Cuff Blood Pressure Position [Left Arm] Sitting 02 Sat by Pulse Oximetry 95 100 100 Oxygen Delivery Method Nasal Cannula Oxygen Flow Rate (LPM) 2 05/24/24 13:16 05/24/24 13:30 05/24/24 13:47 Temperature Temperature Source Pulse Rate 52 L 53 L 60 Pulse Rate [Radial] Respiratory Rate Blood Pressure 130/57 L 122/59 L 166/59 H Blood Pressure [Left Arm] Blood Pressure Mean [Left Arm] Blood Pressure Source [Left Arm] Blood Pressure Position [Left Arm] 02 Sat by Pulse Oximetry 99 99 99 Oxygen Delivery Method Oxygen Flow Rate (LPM) 05/24/24 14:00 05/24/24 14:16 Temperature Temperature Source Pulse Rate 57 L 58 L Pulse Rate [Radial] Respiratory Rate Blood Pressure 153/79 H 148/65 H Blood Pressure [Left Arm] Blood Pressure Mean [Left Arm] Blood Pressure Source [Left Arm] Blood Pressure Position [Left Arm] 02 Sat by Pulse Oximetry 99 98 Oxygen Delivery Method Oxygen Flow Rate (LPM) Lab Data Lab results reviewed: Yes I reviewed the patient's lab results. Lab Results 05/24/24 12:53: WBC 7.6, RBC 3.26 L, Hgb 10.1 L, Hct 31.8 L, MCV 97.5 H, MCH 31.0, MCHC 31.8, RDW 13.5, Plt Count 179, MPV 10.3, Neut % (Auto) 70.5, Lymph % (Auto) 18.9, Mcculloch % (Auto) 8.2, Eos % (Auto) 1.6, Baso % (Auto) 0.7, Neut # (Auto) 5.4, Lymph # (Auto) 1.4, Mcculloch # (Auto) 0.6, Eos # (Auto) 0.1, Baso # (Auto) 0.1, ESR > 140 H, Sodium 135 L, Potassium 3.6, Chloride 95 L, Carbon Dioxide 36 H, Anion Gap 7.6, BUN 47 H, Creatinine 4.10 H, Estimated Creat Clear 18, Estimated GFR 15 L*, Est GFR ( Amer) 18 L*, Glucose 212 H, Lactate 1.1, Calcium 8.1 L, Magnesium 1.6, Total Bilirubin 0.3, AST 32, ALT 23, Alkaline Phosphatase 172 H, C-Reactive Protein 61.2 H, NT-Pro-B Natriuret Pep 2620 H, Total Protein 7.4 D, Albumin 3.2 L, Globulin 4.2 H, Albumin/Globulin Ratio 0.8 L 05/24/24 12:53 05/24/24 12:53 Orders (Tests/Meds): ED MEDICATIONS Generic Name Dose Route Start Last Admin Trade Name Freq PRN Reason Stop Dose Admin Vancomycin HCl 2,000 mg/ 250 mls @ 125 mls/hr 05/24/24 13:15 Sodium Chloride IV 05/24/24 15:14 ONCE ONE Discontinued Medications Generic Name Dose Route Start Last Admin Trade Name Freq PRN Reason Stop Dose Admin Vancomycin HCl 1,000 mg/ 250 mls @ 125 mls/hr 05/24/24 13:15 Sodium Chloride IV 06/03/24 13:14 Q24H JENNIFER Cefepime HCl 1 gm/ Sodium 50 mls @ 100 mls/hr 05/24/24 13:04 05/24/24 14:05 Chloride IV 05/24/24 13:05 100 mls/hr ONCE ONE Administration Iopamidol 75 ml 05/24/24 13:36 05/24/24 13:37 Iopamidol-370 (76%);100ml Bottle IV 05/24/24 13:37 75 ml ONCE ONE Administration Sodium Chloride 10 ml 05/24/24 13:36 05/24/24 13:37 Sodium Chloride 0.9% 10ml Syr (Rad Only) IV 05/24/24 13:37 10 ml ONCE ONE Administration ORDERS Category Date Time Status CT foot LT w con Stat Cat Scan 05/24/24 13:01 Completed POCUS Point of Care (ER Only) Stat Exams 05/24/24 12:28 Completed CRP [C-Reactive Protein] Stat Lab 05/24/24 12:53 Completed Complete Blood Count Auto Diff Stat Lab 05/24/24 12:53 Completed Comprehensive Metabolic Panel Stat Lab 05/24/24 12:53 Completed ESR [Erythrocyte Sedimentation Rate] Stat Lab 05/24/24 12:53 Completed Lactic Acid Stat Lab 05/24/24 12:53 Completed Magnesium Stat Lab 05/24/24 12:53 Completed NT Pro Brain Natriuretic Pep. Stat Lab 05/24/24 12:53 Completed Blood Culture Stat Micro 05/24/24 14:02 Received Medical Decision Narrative: 64-year-old male presents to the emergency department with a left foot cyst/boil formation on the patient's left lateral aspect of the foot. Differential diagnosis to include but not limited to, cellulitis, cellulitic abscess, CHF exacerbation, dependent edema, lymphedema, furuncle, carbuncle, epidermal sebaceous cyst, diabetic foot ulcer. I discussed this patient's case with the attending physician Dr. Morales will obtain CBC CMP, POCUS bedside ultrasound, blood cultures, CRP and ESR, magnesium level and proBNP level. After attending physician perform POCUS bedside ultrasound, there is concern for cobblestoning/cellulitic/abscess appearance on ultrasound, will obtain CT of the left foot with contrast for further evaluation of this abscess. Will also start some prophylactic vancomycin 1 g IV, and cefepime 1 g IV for concern of left lower extremity cellulitic abscess. CBC is notable for anemia of hemoglobin at 10.1, hematocrit at 31.8, MCV is mildly elevated at 97.5, unsure of chronicity. Otherwise unremarkable CBC, there is no leukocytosis. ESR is elevated at over 140 CMP notable for BUN of 48, creatinine 4.1, corresponds to the patient's chronic kidney disease and on hemodialysis. Lactic acid level within normal limits. There is some minimal hypocalcemia at 8.1 CRP is elevated at 61.2, proBNP is elevated at 2620 I reviewed the patient's CT of the left foot with contrast along the corresponding radiologic report, encapsulated fluid collection suspicious for abscess adjacent to the distal fifth metatarsal remnant with surrounding cellulitis, chronic change of the fifth metatarsal make assessment for osteomyelitis difficult MRI may be helpful in further evaluation. Attending physician spoke with [facility] physician , approximately 2:30 PM, patient is excepted to [facility], however he is on a wait list, pending bed assignment. Just pending transfer to [facility]. Discussed need for transfer with patient and family at the bedside patient and family in agreement with current treatment plan/transfer plan. <Willard Morales MD - Last Filed: 05/24/24 15:12> Vital Signs: 05/24/24 12:09 05/24/24 12:54 05/24/24 13:01 Temperature 98.5 F Temperature Source Oral Pulse Rate 55 L 55 L Pulse Rate [Radial] 56 L Respiratory Rate 18 Blood Pressure 131/49 L 129/52 L Blood Pressure [Left Arm] 147/51 H Blood Pressure Mean [Left Arm] 83 Blood Pressure Source [Left Arm] Automatic Cuff Blood Pressure Position [Left Arm] Sitting 02 Sat by Pulse Oximetry 95 100 100 Oxygen Delivery Method Nasal Cannula Oxygen Flow Rate (LPM) 2 05/24/24 13:16 05/24/24 13:30 05/24/24 13:47 Temperature Temperature Source Pulse Rate 52 L 53 L 60 Pulse Rate [Radial] Respiratory Rate Blood Pressure 130/57 L 122/59 L 166/59 H Blood Pressure [Left Arm] Blood Pressure Mean [Left Arm] Blood Pressure Source [Left Arm] Blood Pressure Position [Left Arm] 02 Sat by Pulse Oximetry 99 99 99 Oxygen Delivery Method Oxygen Flow Rate (LPM) 05/24/24 14:00 05/24/24 14:16 Temperature Temperature Source Pulse Rate 57 L 58 L Pulse Rate [Radial] Respiratory Rate Blood Pressure 153/79 H 148/65 H Blood Pressure [Left Arm] Blood Pressure Mean [Left Arm] Blood Pressure Source [Left Arm] Blood Pressure Position [Left Arm] 02 Sat by Pulse Oximetry 99 98 Oxygen Delivery Method Oxygen Flow Rate (LPM) Lab Data Lab Results 05/24/24 12:53: WBC 7.6, RBC 3.26 L, Hgb 10.1 L, Hct 31.8 L, MCV 97.5 H, MCH 31.0, MCHC 31.8, RDW 13.5, Plt Count 179, MPV 10.3, Neut % (Auto) 70.5, Lymph % (Auto) 18.9, Mcculloch % (Auto) 8.2, Eos % (Auto) 1.6, Baso % (Auto) 0.7, Neut # (Auto) 5.4, Lymph # (Auto) 1.4, Mcculloch # (Auto) 0.6, Eos # (Auto) 0.1, Baso # (Auto) 0.1, ESR > 140 H, Sodium 135 L, Potassium 3.6, Chloride 95 L, Carbon Dioxide 36 H, Anion Gap 7.6, BUN 47 H, Creatinine 4.10 H, Estimated Creat Clear 18, Estimated GFR 15 L*, Est GFR ( Amer) 18 L*, Glucose 212 H, Lactate 1.1, Calcium 8.1 L, Magnesium 1.6, Total Bilirubin 0.3, AST 32, ALT 23, Alkaline Phosphatase 172 H, C-Reactive Protein 61.2 H, NT-Pro-B Natriuret Pep 2620 H, Total Protein 7.4 D, Albumin 3.2 L, Globulin 4.2 H, Albumin/Globulin Ratio 0.8 L Orders (Tests/Meds): ED MEDICATIONS Generic Name Dose Route Start Last Admin Trade Name Freq PRN Reason Stop Dose Admin Vancomycin HCl 2,000 mg/ 250 mls @ 125 mls/hr 05/24/24 13:15 Sodium Chloride IV 05/24/24 15:14 ONCE ONE Discontinued Medications Generic Name Dose Route Start Last Admin Trade Name Freq PRN Reason Stop Dose Admin Vancomycin HCl 1,000 mg/ 250 mls @ 125 mls/hr 05/24/24 13:15 Sodium Chloride IV 06/03/24 13:14 Q24H JENNIFER Cefepime HCl 1 gm/ Sodium 50 mls @ 100 mls/hr 05/24/24 13:04 05/24/24 14:05 Chloride IV 05/24/24 13:05 100 mls/hr ONCE ONE Administration Iopamidol 75 ml 05/24/24 13:36 05/24/24 13:37 Iopamidol-370 (76%);100ml Bottle IV 05/24/24 13:37 75 ml ONCE ONE Administration Sodium Chloride 10 ml 05/24/24 13:36 05/24/24 13:37 Sodium Chloride 0.9% 10ml Syr (Rad Only) IV 05/24/24 13:37 10 ml ONCE ONE Administration ORDERS Category Date Time Status CT foot LT w con Stat Cat Scan 05/24/24 13:01 Completed POCUS Point of Care (ER Only) Stat Exams 05/24/24 12:28 Completed CRP [C-Reactive Protein] Stat Lab 05/24/24 12:53 Completed Complete Blood Count Auto Diff Stat Lab 05/24/24 12:53 Completed Comprehensive Metabolic Panel Stat Lab 05/24/24 12:53 Completed ESR [Erythrocyte Sedimentation Rate] Stat Lab 05/24/24 12:53 Completed Lactic Acid Stat Lab 05/24/24 12:53 Completed Magnesium Stat Lab 05/24/24 12:53 Completed NT Pro Brain Natriuretic Pep. Stat Lab 05/24/24 12:53 Completed Blood Culture Stat Micro 05/24/24 14:02 Received Medical Decision Narrative: 64-year-old male presents to the emergency department with a left foot cyst/boil formation on the patient's left lateral aspect of the foot. Differential diagnosis to include but not limited to, cellulitis, cellulitic abscess, CHF exacerbation, dependent edema, lymphedema, furuncle, carbuncle, epidermal sebaceous cyst, diabetic foot ulcer. I discussed this patient's case with the attending physician Dr. Morales will obtain CBC CMP, POCUS bedside ultrasound, blood cultures, CRP and ESR, magnesium level and proBNP level. After attending physician perform POCUS bedside ultrasound, there is concern for cobblestoning/cellulitic/abscess appearance on ultrasound, will obtain CT of the left foot with contrast for further evaluation of this abscess. Will also start some prophylactic vancomycin 1 g IV, and cefepime 1 g IV for concern of left lower extremity cellulitic abscess. CBC is notable for anemia of hemoglobin at 10.1, hematocrit at 31.8, MCV is mildly elevated at 97.5, unsure of chronicity. Otherwise unremarkable CBC, there is no leukocytosis. ESR is elevated at over 140 CMP notable for BUN of 48, creatinine 4.1, corresponds to the patient's chronic kidney disease and on hemodialysis. Lactic acid level within normal limits. There is some minimal hypocalcemia at 8.1 CRP is elevated at 61.2, proBNP is elevated at 2620 I reviewed the patient's CT of the left foot with contrast along the corresponding radiologic report, encapsulated fluid collection suspicious for abscess adjacent to the distal fifth metatarsal remnant with surrounding cellulitis, chronic change of the fifth metatarsal make assessment for osteomyelitis difficult MRI may be helpful in further evaluation. Attending physician spoke with [facility] physician , approximately 2:30 PM, patient is excepted to [facility], however he is on a wait list, pending bed assignment. I was consulted by the LEONARDA, and we discussed the complexity of the problems being addressed. I approved the treatment and management plan for this patient's care in the Emergency Department, thus performing a substantive portion of the medical decision making. Willard Morales MD Procedures <Willard Morales MD - Last Filed: 05/24/24 15:12> Limited Ultrasound Indication:: Limited soft tissue ultrasound Indication: Left foot swelling, redness, hemorrhagic blister Identified structures: Location: Left foot Findings: Cellulitis and abscess of the left lower extremity Impression: Cellulitis and abscess left foot with concern for bone and muscle involvement Images were saved to permanent archive The study was technically adequate Soft Tissue CPT Codes: CPT Neck: 88176-85 CPT Upper extremity: 01042-15 CPT Axilla: 94381-86 CPT Chest wall: 27138-30 CPT Breast: 95655-33-EL/LT (complete), 13011-71-IP/LT (limited), CPT Upper Back: 08814-13 CPT Lower Back: 02083-55 CPT Abdominal Wall: 14997-28 CPT Pelvic Wall: 04441-33 CPT Lower Extremity: 64606-23 CPT Other Soft Tissue: 67756-03 This study was performed by me, and I personally interpreted all images/videos. Based on my clinical judgement, these images were adequate and did not necessitate further imaging. Critical Care <ORLANDO Chakraborty - Last Filed: 05/24/24 15:10> Critical Care Time Critical Care Time: No <Willard Morales MD - Last Filed: 05/24/24 15:12> Critical Care Time Critical Care Time: Yes (metabolic, ID) Attestation: On 05/24/24, the high probability of a clinically significant, sudden or life threatening deterioration of the following system(s) required my full and direct attention, intervention and personal management. The time I documented below is in addition to time spent performing reported procedures but includes the following listed in this critical care notation. Total Time Total Critical Care Time: 35
--- NOTE | 2024-05-24 13:01 | CT_ITS ---
FINAL REPORT TECHNIQUE: Axial imaging of the left foot was obtained after the intravenous administration of contrast. This study was performed with techniques to keep radiation doses as low as reasonably achievable (ALARA). Individualized dose reduction techniques using automated exposure control or adjustment of mA and/or kV according to the patient's size were employed. CLINICAL HISTORY: Abscess left lateral aspect of foot FINDINGS: There are postoperative changes or chronic destruction of the fifth digit. 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 There is an encapsulated fluid collection along the distal fifth metatarsal measuring 25 x 18 x 14 mm suspicious for abscess. This is noted along the lateral aspect and plantar surface. There is significant surrounding soft tissue swelling. Remaining osseous fractures are unremarkable. Hindfoot is unremarkable. IMPRESSION: Encapsulated fluid collection suspicious for abscess adjacent to the distal fifth metatarsal remnant with surrounding cellulitis. Chronic changes of the fifth metatarsal make assessment for osteomyelitis difficult. MRI may be helpful for further evaluation. Reviewed, Interpreted and Dictated by Brunilda Royal MD Transcribed by Yasmin Bowen Authenticated and [facility]
[2024-05-24 13:06] LABS: Basophils # 0.1 K/mm3 (0-0.2); Basophils % 0.7 % (0.1-2.0); Eosinophils # 0.1 K/mm3 (0.0-0.4); Eosinophils % 1.6 % (0.1-12.0); Hematocrit 31.8 % (42.0-52.0); Hemoglobin 10.1 g/dL (14.1-18.0); Lymphocytes # 1.4 K/mm3 (0.7-4.5); Lymphocytes % 18.9 % (10-50); Mean Corpuscular HGB Conc 31.8 g/dL (31.8-35.4); Mean Corpuscular Volume 97.5 fl (80-94); Mean Platelet Volume 10.3 fl (7.4-10.4); Monocytes # 0.6 K/mm3 (0.1-1.0); Monocytes % 8.2 % (1.7-9.3); Neutrophils # 5.4 K/mm3 (1.8-7.8); Neutrophils % 70.5 % (37.0-80.0); Platelet Count 179 K/mm3 (142-424); Red Blood Count 3.26 M/mm3 (4.60-6.20); Red Cell Distribution Width 13.5 % (11.5-17.5); White Blood Count 7.6 K/mm3 (4.8-10.8)
[2024-05-24 13:12] LABS: Chloride 95 mmol/L (98-107)
[2024-05-24 13:13] LABS: Albumin Level 3.2 g/dl (3.5-5.0); Potassium 3.6 mmoL/L (3.5-5.1); Sodium 135 mmol/L (136-145)
[2024-05-24 13:15] LABS: Blood Urea Nitrogen 47 mg/dl (9-20); Creatinine Clearance Estimated 18 mL/min (50-200); Estimated Glomerular Filt Rate 15 ml/min (>60); GFR (African American) 18 ML/MIN (>60)
[2024-05-24 13:16] LABS: Alanine Aminotransferase 23 U/L (12-78); Albumin/Globulin Ratio 0.8 (1.1-1.8); Alkaline Phosphatase 172 U/L (38-126); Anion Gap 7.6 mEq/L (5-15); Aspartate Amino Transferase 32 U/L (17-59); Bilirubin,Total 0.3 mg/dl (0.2-1.3); Calcium 8.1 mg/dl (8.4-10.2); Carbon Dioxide 36 mmol/L (22.0-30.0); Globulin 4.2 g/dL (1.3-3.2); Glucose 212 mg/dl (74-100); Lactic Acid 1.1 mmol/L (0.7-2.1); Total Protein,Serum 7.4 g/dl (6.3-8.2)
[2024-05-24 13:21] LABS: C-Reactive Protein 61.2 mg/L (0-4)
[2024-05-24 13:28] LABS: Magnesium 1.6 mg/dl (1.6-2.3)
--- NOTE | 2024-05-24 13:30 | HMH.ITSTN ---
conrad. 4.10 today. I spoke with his ER nurse and she stated patient is getting dialysis tomorrow. We can proceed with contrast study today.
[2024-05-24 13:36] LABS: Erythrocyte Sedimentation Rate > 140 mm/hr (0-20)
[2024-05-24 13:37] LABS: NT Pro Brain Natriuretic Pep. 2620 pg/mL (0-125)
[2024-05-24] MEDS: IOPAMIDOL-370 (76%);100ML BOTTLE 75 ML IV (13:37)
[2024-05-24] MEDS: SODIUM CHLORIDE 0.9% 10ML SYR (RAD ONLY) 10 ML IV (13:37)
[2024-05-24] MEDS: CEFEPIME HCL 1 GM in 0.9 % SODIUM CHLORIDE 50 ML IV (14:05)
--- NOTE | 2024-05-24 14:21 | PC.NURSE ---
Reached out to about transfer. They said they are reaching out to Dr. Guo hospitalist and as soon as he is on the phone they will call back. they did state there will be a waitlist.
--- NOTE | 2024-05-24 14:24 | PC.NURSE ---
1235- Assisted patient to stretcher. Placed on BP and SpO2 monitoring. Awaiting orders. 1250- Dr. Morales at bedside with ultrasound. 1255- PIV placed in RAC, labs collected. 1330- Patient to radiology via wheelchair. 1410- Cefipime administered per order.
--- NOTE | 2024-05-24 14:26 | PC.NURSE ---
rounded on the pt. the pt voices that he does not need anything at this time. call light is within reach of the pt. family member is present at the bedside.
--- NOTE | 2024-05-24 14:35 | PC.NURSE ---
2288 - Report received from ERWIN Boyd. Patient in rm 10, no acute distress. ABX infusing via IV, IV intact. Call mcintosh in reach, siderails up x2. Updated on plan of care, awaiting transfer to another facility.
--- NOTE | 2024-05-24 14:40 | PC.NURSE ---
1440 - ALBERTA Nelson at bedside.
[2024-05-24] MEDS: VANCOMYCIN HCL 2,000 MG in 0.9 % SODIUM CHLORIDE 250 ML 125 MG IV (15:26)
--- NOTE | 2024-05-24 15:32 | ED_ITS ---
Discharge Plan Disposition Patient Disposition: Xfer Short-Term Hosp Condition: Good Prescriptions Prescriptions: No Action metoprolol tartrate 100 mg tablet 100 mg PO BID Patient Comments: TAKE ONE TABLET BY MOUTH TWICE DAILY cholecalciferol (vitamin D3) 25 mcg (1,000 unit) capsule 25 mcg PO DAILY insulin aspart U-100 [Novolog FlexPen U-100 Insulin] 100 unit/mL (3 mL) insulin pen 15 unit SQ TID PRN (Reason: diabetes) sevelamer HCl 800 mg tablet 800 mg PO TID Rx Instructions: must administer with a meal/food glipizide 10 mg tablet 15 mg PO DAILY allopurinol 100 mg tablet 100 mg PO TID levothyroxine 75 mcg tablet 75 mcg PO DAILY doxazosin 8 mg tablet 12 mg PO HS aspirin 81 mg Tablet,Delayed Release (Dr/Ec) 81 mg PO DAILY Qty: 90 0RF atorvastatin 40 mg tablet 40 mg PO DAILY Qty: 90 0RF insulin degludec [Tresiba FlexTouch U-200] 200 unit/mL (3 mL) insulin pen 50 unit SQ BID PRN (Reason: diabetes) Ozempic 1 mg/dose (2 mg/1.5 mL) Pen Injector 1 mg SQ WEEKLY Referrals Follow up/Referrals: Evans Butler [Primary Care Provider] - See instructions Clinical Impressions Clinical Impression: Cellulitis and abscess of toe of left foot, Cellulitis of foot, Abscess of foot Stand Alone Forms Stand Alone Forms: Transfer Record - ED Instructions Patient Instructions: DI for Skin Abscess Print Language Print Language: Egyptian Discharge ED Provider: Willard Morales General Adult HPI <ORLANDO Chakraborty - Last Filed: 05/24/24 16:58> General Chief complaint: Skin/Abscess/Foreign Body Stated complaint: poss. boil on side of l foot Time Seen by Provider: 05/24/24 12:21 Mode of Arrival: Wheelchair Source of Information: Patient Limitations: No Limitations Description of Symptoms (Recalled from ER Triage Doc. by RN): FLUID FILLED BLISTER TO LEFT FOOT, PT HAS PREVIOUS AMPUTATION OF LEFT FIFTH TOE, 2006. PT REPORTS HE NOTED DISCOLORATION YESTERDAY History of Present Illness Onset (ago): day(s) Related Data Home Medications ?Medication ?Instructions ?Recorded ?Confirmed allopurinol 100 mg tablet 100 mg PO TID 10/06/23 05/24/24 doxazosin 8 mg tablet 12 mg PO HS 10/06/23 05/24/24 glipizide 10 mg tablet 15 mg PO DAILY 10/06/23 05/24/24 levothyroxine 75 mcg tablet 75 mcg PO DAILY 10/06/23 05/24/24 cholecalciferol (vitamin D3) 25 25 mcg PO DAILY 05/03/24 05/24/24 mcg (1,000 unit) capsule insulin aspart U-100 100 unit/mL 15 unit SQ TID PRN diabetes 05/03/24 05/24/24 (3 mL) subcutaneous pen (Novolog FlexPen U-100 Insulin aspart) insulin degludec 200 unit/mL (3 50 unit SQ BID PRN diabetes 05/03/24 05/24/24 mL) subcutaneous pen (Tresiba FlexTouch U-200 insulin) metoprolol tartrate 100 mg tablet 100 mg PO BID 05/03/24 05/24/24 sevelamer HCl 800 mg tablet 800 mg PO TID 05/03/24 05/24/24 semaglutide 1 mg/dose (2 mg/1.5 1 mg SQ WEEKLY 05/24/24 05/24/24 mL) subcutaneous pen injector Previous Rx's ?Medication ?Instructions ?Recorded aspirin 81 mg tablet,delayed 81 mg PO DAILY #90 tabs 10/07/23 release atorvastatin 40 mg tablet 40 mg PO DAILY #90 tabs 10/07/23 Allergies Allergy/AdvReac Type Severity Reaction Status Date / Time Sulfa (Sulfonamide Allergy Intermediate Hives Verified 05/03/24 10:57 Antibiotics) [facility], LAT[facility] <ORLANDO Chakraborty - Last Filed: 05/24/24 16:58> [facility], LAT[facility] Disclaimer: The information contained in this section may have been updated after the patient was seen, as this information can be updated by other users. Medical History Coronary artery disease NSTEMI (non-ST elevated myocardial infarction) NSTEMI (non-ST elevated myocardial infarction) Chronic kidney disease Hypertension Diabetes mellitus, type 2 Surgical History History of cardiac cath Social History Smoking Status: Never smoker alcohol intake: never current occupational status: other Travel in the last 8 weeks: None Have you lived/traveled outside US in past 30 days?: No Contact w/someone who lives/traveled outside US past 30 days?: No Exposure to someone with infectious disease in past 14 days?: No Do you have a fever (greater than 100.4 F or 38 C)?: No Have you tested positive for COVID-19: No Exposed to someone with COVID-19 in past 14 days?: No Do you have a sore throat?: No Do you have a cough?: No Do you have any weakness?: No Do you have any diarrhea?: No Are you experiencing any unusual bleeding?: No Do you have any muscle aches/pain?: No Do you have any abdominal pain?: No Are you experiencing loss of taste or smell?: No Other Medical History Have you received the Flu Vaccine for this season: No Have you received the Pneumonia Vaccine: Yes <OR[place]O Chakraborty - Last Filed: 05/24/24 16:58> ROS Obtained: Yes All systems reviewed & no additional complaints except as documented Physical Exam <ORLANDO Chakraborty - Last Filed: 05/24/24 16:58> General General appearance: alert and in no apparent distress Respiratory Respiratory exam: Present normal lung sounds bilaterally Cardiovascular Cardiovascular exam: Present regular rate and normal rhythm Neurological Exam Neurological exam: Present alert and oriented X3 <Willard Morales MD - Last Filed: 05/25/24 15:02> Respiratory Respiratory exam: Present normal lung sounds bilaterally Neurological Exam Neurological exam: Present alert Medical Decision Making <ORLANDO Chakraborty - Last Filed: 05/24/24 16:58> Medical Records Screening: Per USPSTF and CDC recommendations, given the prevalence of disease in our region, it is our hospital?s policy to screen for HIV and viral Hepatitis for all patients aged 18 and over and those with ongoing risk factors. Chuy Inquiry Pt receiving controlled substance: No Vital Signs: 05/24/24 12:09 05/24/24 12:54 05/24/24 13:01 Temperature 98.5 F Temperature Source Oral Pulse Rate 55 L 55 L Pulse Rate [Radial] 56 L Respiratory Rate 18 Blood Pressure 131/49 L 129/52 L Blood Pressure [Left Arm] 147/51 H Blood Pressure Mean Blood Pressure Mean [Left Arm] 83 Blood Pressure Source Blood Pressure Source [Left Arm] Automatic Cuff Blood Pressure Position Blood Pressure Position [Left Arm] Sitting 02 Sat by Pulse Oximetry 95 100 100 Oxygen Delivery Method Nasal Cannula Oxygen Flow Rate (LPM) 2 05/24/24 13:16 05/24/24 13:30 05/24/24 13:47 Temperature Temperature Source Pulse Rate 52 L 53 L 60 Pulse Rate [Radial] Respiratory Rate Blood Pressure 130/57 L 122/59 L 166/59 H Blood Pressure [Left Arm] Blood Pressure Mean Blood Pressure Mean [Left Arm] Blood Pressure Source Blood Pressure Source [Left Arm] Blood Pressure Position Blood Pressure Position [Left Arm] 02 Sat by Pulse Oximetry 99 99 99 Oxygen Delivery Method Oxygen Flow Rate (LPM) 05/24/24 14:00 05/24/24 14:16 05/24/24 14:30 Temperature Temperature Source Pulse Rate 57 L 58 L 56 L Pulse Rate [Radial] Respiratory Rate Blood Pressure 153/79 H 148/65 H 151/71 H Blood Pressure [Left Arm] Blood Pressure Mean Blood Pressure Mean [Left Arm] Blood Pressure Source Blood Pressure Source [Left Arm] Blood Pressure Position Blood Pressure Position [Left Arm] 02 Sat by Pulse Oximetry 99 98 97 Oxygen Delivery Method Oxygen Flow Rate (LPM) 05/24/24 14:46 05/24/24 15:01 05/24/24 15:15 Temperature Temperature Source Pulse Rate 60 68 60 Pulse Rate [Radial] Respiratory Rate Blood Pressure 148/72 H 133/77 157/73 H Blood Pressure [Left Arm] Blood Pressure Mean Blood Pressure Mean [Left Arm] Blood Pressure Source Blood Pressure Source [Left Arm] Blood Pressure Position Blood Pressure Position [Left Arm] 02 Sat by Pulse Oximetry 98 96 98 Oxygen Delivery Method Oxygen Flow Rate (LPM) 05/24/24 15:31 05/24/24 15:45 05/24/24 16:01 Temperature Temperature Source Pulse Rate 63 68 72 Pulse Rate [Radial] Respiratory Rate Blood Pressure 155/66 H 144/70 H 133/56 L Blood Pressure [Left Arm] Blood Pressure Mean 100 104 81 Blood Pressure Mean [Left Arm] Blood Pressure Source Blood Pressure Source [Left Arm] Blood Pressure Position Blood Pressure Position [Left Arm] 02 Sat by Pulse Oximetry 97 97 98 Oxygen Delivery Method Oxygen Flow Rate (LPM) 05/24/24 16:16 05/24/24 17:10 05/24/24 17:14 Temperature 98.2 F 98.5 F Temperature Source Oral Oral Pulse Rate 74 74 67 Pulse Rate [Radial] Respiratory Rate 18 20 Blood Pressure 152/65 H 152/65 H 157/52 H Blood Pressure [Left Arm] Blood Pressure Mean 94 Blood Pressure Mean [Left Arm] Blood Pressure Source Automatic Cuff Automatic Cuff Blood Pressure Source [Left Arm] Blood Pressure Position Sitting Supine Blood Pressure Position [Left Arm] 02 Sat by Pulse Oximetry 97 Oxygen Delivery Method Nasal Cannula Nasal Cannula Oxygen Flow Rate (LPM) 2 2 Lab Data Lab Results 05/24/24 12:53: WBC 7.6, RBC 3.26 L, Hgb 10.1 L, Hct 31.8 L, MCV 97.5 H, MCH 31.0, MCHC 31.8, RDW 13.5, Plt Count 179, MPV 10.3, Neut % (Auto) 70.5, Lymph % (Auto) 18.9, [place] % (Auto) 8.2, Eos % (Auto) 1.6, Baso % (Auto) 0.7, Neut # (Auto) 5.4, Lymph # (Auto) 1.4, [place] # (Auto) 0.6, Eos # (Auto) 0.1, Baso # (Auto) 0.1, ESR > 140 H, Sodium 135 L, Potassium 3.6, Chloride 95 L, Carbon Dioxide 36 H, Anion Gap 7.6, BUN 47 H, Creatinine 4.10 H, Estimated Creat Clear 18, Estimated GFR 15 L*, Est GFR ( Amer) 18 L*, Glucose 212 H, Lactate 1.1, Calcium 8.1 L, Magnesium 1.6, Total Bilirubin 0.3, AST 32, ALT 23, Alkaline Phosphatase 172 H, C-Reactive Protein 61.2 H, NT-Pro-B Natriuret Pep 2620 H, T otal Protein 7.4 D, Albumin 3.2 L, Globulin 4.2 H, Albumin/Globulin Ratio 0.8 L 05/24/24 12:53 05/24/24 12:53 Orders (Tests/Meds): ED MEDICATIONS Discontinued Medications Generic Name Dose Route Start Last Admin Trade Name Freq PRN Reason Stop Dose Admin Vancomycin HCl 1,000 mg/ 250 mls @ 125 mls/hr 05/24/24 13:15 Sodium Chloride IV 06/03/24 13:14 Q24H JENNIFER Vancomycin HCl 2,000 mg/ 250 mls @ 125 mls/hr 05/24/24 13:15 05/24/24 15:26 Sodium Chloride IV 05/24/24 15:14 125 mls/hr ONCE ONE Administration Cefepime HCl 1 gm/ Sodium 50 mls @ 100 mls/hr 05/24/24 13:04 05/24/24 14:05 Chloride IV 05/24/24 13:05 100 mls/hr ONCE ONE Administration Iopamidol 75 ml 05/24/24 13:36 05/24/24 13:37 Iopamidol-370 (76%);100ml Bottle IV 05/24/24 13:37 75 ml ONCE ONE Administration Sodium Chloride 10 ml 05/24/24 13:36 05/24/24 13:37 Sodium Chloride 0.9% 10ml Syr (Rad Only) IV 05/24/24 13:37 10 ml ONCE ONE Administration ORDERS Category Date Time Status CT foot LT w con Stat Cat Scan 05/24/24 13:01 Completed POCUS Point of Care (ER Only) Stat Exams 05/24/24 12:28 Completed CRP [C-Reactive Protein] Stat Lab 05/24/24 12:53 Completed Complete Blood Count Auto Diff Stat Lab 05/24/24 12:53 Completed Comprehensive Metabolic Panel Stat Lab 05/24/24 12:53 Completed ESR [Erythrocyte Sedimentation Rate] Stat Lab 05/24/24 12:53 Completed Lactic Acid Stat Lab 05/24/24 12:53 Completed Magnesium Stat Lab 05/24/24 12:53 Completed NT Pro Brain Natriuretic Pep. Stat Lab 05/24/24 12:53 Completed Blood Culture Stat Micro 05/24/24 14:02 Results <Willard Morales MD - Last Filed: 05/25/24 15:02> Vital Signs: 05/24/24 12:09 05/24/24 12:54 05/24/24 13:01 Temperature 98.5 F Temperature Source Oral Pulse Rate 55 L 55 L Pulse Rate [Radial] 56 L Respiratory Rate 18 Blood Pressure 131/49 L 129/52 L Blood Pressure [Left Arm] 147/51 H Blood Pressure Mean Blood Pressure Mean [Left Arm] 83 Blood Pressure Source Blood Pressure Source [Left Arm] Automatic Cuff Blood Pressure Position Blood Pressure Position [Left Arm] Sitting 02 Sat by Pulse Oximetry 95 100 100 Oxygen Delivery Method Nasal Cannula Oxygen Flow Rate (LPM) 2 05/24/24 13:16 05/24/24 13:30 05/24/24 13:47 Temperature Temperature Source Pulse Rate 52 L 53 L 60 Pulse Rate [Radial] Respiratory Rate Blood Pressure 130/57 L 122/59 L 166/59 H Blood Pressure [Left Arm] Blood Pressure Mean Blood Pressure Mean [Left Arm] Blood Pressure Source Blood Pressure Source [Left Arm] Blood Pressure Position Blood Pressure Position [Left Arm] 02 Sat by Pulse Oximetry 99 99 99 Oxygen Delivery Method Oxygen Flow Rate (LPM) 05/24/24 14:00 05/24/24 14:16 05/24/24 14:30 Temperature Temperature Source Pulse Rate 57 L 58 L 56 L Pulse Rate [Radial] Respiratory Rate Blood Pressure 153/79 H 148/65 H 151/71 H Blood Pressure [Left Arm] Blood Pressure Mean Blood Pressure Mean [Left Arm] Blood Pressure Source Blood Pressure Source [Left Arm] Blood Pressure Position Blood Pressure Position [Left Arm] 02 Sat by Pulse Oximetry 99 98 97 Oxygen Delivery Method Oxygen Flow Rate (LPM) 05/24/24 14:46 05/24/24 15:01 05/24/24 15:15 Temperature Temperature Source Pulse Rate 60 68 60 Pulse Rate [Radial] Respiratory Rate Blood Pressure 148/72 H 133/77 157/73 H Blood Pressure [Left Arm] Blood Pressure Mean Blood Pressure Mean [Left Arm] Blood Pressure Source Blood Pressure Source [Left Arm] Blood Pressure Position Blood Pressure Position [Left Arm] 02 Sat by Pulse Oximetry 98 96 98 Oxygen Delivery Method Oxygen Flow Rate (LPM) 05/24/24 15:31 05/24/24 15:45 05/24/24 16:01 Temperature Temperature Source Pulse Rate 63 68 72 Pulse Rate [Radial] Respiratory Rate Blood Pressure 155/66 H 144/70 H 133/56 L Blood Pressure [Left Arm] Blood Pressure Mean 100 104 81 Blood Pressure Mean [Left Arm] Blood Pressure Source Blood Pressure Source [Left Arm] Blood Pressure Position Blood Pressure Position [Left Arm] 02 Sat by Pulse Oximetry 97 97 98 Oxygen Delivery Method Oxygen Flow Rate (LPM) 05/24/24 16:16 05/24/24 17:10 05/24/24 17:14 Temperature 98.2 F 98.5 F Temperature Source Oral Oral Pulse Rate 74 74 67 Pulse Rate [Radial] Respiratory Rate 18 20 Blood Pressure 152/65 H 152/65 H 157/52 H Blood Pressure [Left Arm] Blood Pressure Mean 94 Blood Pressure Mean [Left Arm] Blood Pressure Source Automatic Cuff Automatic Cuff Blood Pressure Source [Left Arm] Blood Pressure Position Sitting Supine Blood Pressure Position [Left Arm] 02 Sat by Pulse Oximetry 97 Oxygen Delivery Method Nasal Cannula Nasal Cannula Oxygen Flow Rate (LPM) 2 2 Lab Data Lab Results 05/24/24 12:53: WBC 7.6, RBC 3.26 L, Hgb 10.1 L, Hct 31.8 L, MCV 97.5 H, MCH 31.0, MCHC 31.8, RDW 13.5, Plt Count 179, MPV 10.3, Neut % (Auto) 70.5, Lymph % (Auto) 18.9, [place] % (Auto) 8.2, Eos % (Auto) 1.6, Baso % (Auto) 0.7, Neut # (Auto) 5.4, Lymph # (Auto) 1.4, [place] # (Auto) 0.6, Eos # (Auto) 0.1, Baso # (Auto) 0.1, ESR > 140 H, Sodium 135 L, Potassium 3.6, Chloride 95 L, Carbon Dioxide 36 H, Anion Gap 7.6, BUN 47 H, Creatinine 4.10 H, Estimated Creat Clear 18, Estimated GFR 15 L*, Est GFR ( Amer) 18 L*, Glucose 212 H, Lactate 1.1, Calcium 8.1 L, Magnesium 1.6, Total Bilirubin 0.3, AST 32, ALT 23, Alkaline Phosphatase 172 H, C-Reactive Protein 61.2 H, NT-Pro-B Natriuret Pep 2620 H, T otal Protein 7.4 D, Albumin 3.2 L, Globulin 4.2 H, Albumin/Globulin Ratio 0.8 L Orders (Tests/Meds): ED MEDICATIONS Discontinued Medications Generic Name Dose Route Start Last Admin Trade Name Freq PRN Reason Stop Dose Admin Vancomycin HCl 1,000 mg/ 250 mls @ 125 mls/hr 05/24/24 13:15 Sodium Chloride IV 06/03/24 13:14 Q24H JENNIFER Vancomycin HCl 2,000 mg/ 250 mls @ 125 mls/hr 05/24/24 13:15 05/24/24 15:26 Sodium Chloride IV 05/24/24 15:14 125 mls/hr ONCE ONE Administration Cefepime HCl 1 gm/ Sodium 50 mls @ 100 mls/hr 05/24/24 13:04 05/24/24 14:05 Chloride IV 05/24/24 13:05 100 mls/hr ONCE ONE Administration Iopamidol 75 ml 05/24/24 13:36 05/24/24 13:37 Iopamidol-370 (76%);100ml Bottle IV 05/24/24 13:37 75 ml ONCE ONE Administration Sodium Chloride 10 ml 05/24/24 13:36 05/24/24 13:37 Sodium Chloride 0.9% 10ml Syr (Rad Only) IV 05/24/24 13:37 10 ml ONCE ONE Administration ORDERS Category Date Time Status CT foot LT w con Stat Cat Scan 05/24/24 13:01 Completed POCUS Point of Care (ER Only) Stat Exams 05/24/24 12:28 Completed CRP [C-Reactive Protein] Stat Lab 05/24/24 12:53 Completed Complete Blood Count Auto Diff Stat Lab 05/24/24 12:53 Completed Comprehensive Metabolic Panel Stat Lab 05/24/24 12:53 Completed ESR [Erythrocyte Sedimentation Rate] Stat Lab 05/24/24 12:53 Completed Lactic Acid Stat Lab 05/24/24 12:53 Completed Magnesium Stat Lab 05/24/24 12:53 Completed NT Pro Brain Natriuretic Pep. Stat Lab 05/24/24 12:53 Completed Blood Culture Stat Micro 05/24/24 14:02 Results Medical Decision Narrative: Invalid document, disregard Critical Care <ORLANDO Chakraborty - Last Filed: 05/24/24 16:58> Critical Care Time Critical Care Time: No
--- NOTE | 2024-05-24 16:07 | PC.NURSE ---
1605 [facility] called to confirm bed number and give report. RN unavailable at this time, no bed assignment available. Number provided for call back.
--- NOTE | 2024-05-24 16:47 | PC.NURSE ---
1645 - Report called to Ferdinand HOOD at [facility]. 3W
== END 2024-05-24 17:20 | disposition short-term general hospital (02) ==
PROVIDERS: Physician Assistant; Emergency Provider Emergency Medicine; PCP Family Medicine
DX: L02.612 Cutaneous abscess of left foot (principal); L03.116 Cellulitis of left lower limb
CPT/HCPCS: 10060; 73701; 80053; 83605; 83735; 83880; 85025; 85651; 86140; 87040; 96374; 96375; 99291; J0692; J3370; Q9967

== ENCOUNTER 2024-06-17 00:19 | Emergency (ER) | payer MEDICARE, SELFPAY ==
[2024-06-17] VITALS (14 sets, daily range): BP systolic 105–144; BP diastolic 36–60; PULSE 61–84; RESP 14–18; TEMP 36.6; O2SAT 96–100; BMI 41.5
--- NOTE | 2024-06-17 00:40 | CT_ITS ---
PROCEDURE INFORMATION: Exam: CTA Abdomen and Pelvis With Contrast Exam date and time: 06/17/2024 1:07 AM Age: 64 years old Clinical indication: Other: Brbpr TECHNIQUE: Imaging protocol: Computed tomographic angiography of the abdomen and pelvis with contrast. Exam focused on the arteries. 3D rendering (Not supervised by radiologist): MIP and/or 3D reconstructed images were created by the technologist. Radiation optimization: All CT scans at this facility use at least one of these dose optimization techniques: automated exposure control; mA and/or kV adjustment per patient size (includes targeted exams where dose is matched to clinical indication); or iterative reconstruction. Contrast material: ISOUVE 370; Contrast volume: 80 ml; Contrast route: INTRAVENOUS (IV); COMPARISON: CT ABD/PELVIS WITH IV CONTRAST 10/05/2023 11:59 PM FINDINGS: Lungs: Minor atelectasis findings of the lung bases Aorta: No aortic aneurysm. No aortic dissection. Celiac trunk and mesenteric arteries: Downward sloping celiac artery with estimated 50-75% stenosis. 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 Renal arteries: No occlusion or significant stenosis. Right iliac arteries: No occlusion or significant stenosis. Left iliac arteries: No occlusion or significant stenosis. Liver: No mass. Gallbladder and biliary ducts: Cholecystectomy since previous exam. Pancreas: Unremarkable. No mass. No ductal dilation. Spleen: Unremarkable. No splenomegaly. Adrenal glands: Unremarkable. No mass. Kidneys and ureters: No hydronephrosis. Stomach and bowel: No abnormal bowel dilation. Radiodense surgical clips are present in the cecum. No CT evidence of active hemorrhage at the colon or rectum Appendix: Normal appendix Intraperitoneal space: No abnormal free fluid Lymph nodes: Unremarkable. No enlarged lymph nodes. Urinary bladder: Unremarkable. No mass. Reproductive: Unremarkable as visualized. Bones/joints: See Celiac trunk and mesenteric arteries finding. Soft tissues: Unremarkable. IMPRESSION: 1. No evidence of active hemorrhage. Hemo clips are seen at the cecum. 2. 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
[2024-06-17 00:50] LABS: Albumin Level 3.3 g/dl (3.5-5.0); Chloride 97 mmol/L (98-107); Sodium 133 mmol/L (136-145)
[2024-06-17 00:53] LABS: Alanine Aminotransferase 23 U/L (12-78); Albumin/Globulin Ratio 0.8 (1.1-1.8); Alkaline Phosphatase 146 U/L (38-126); Aspartate Amino Transferase 34 U/L (17-59); Bilirubin,Total 0.6 mg/dl (0.2-1.3); Blood Urea Nitrogen 57 mg/dl (9-20); Carbon Dioxide 36 mmol/L (22.0-30.0); Creatinine Clearance Estimated 18 mL/min (50-200); Estimated Glomerular Filt Rate 15 ml/min (>60); GFR (African American) 18 ML/MIN (>60); Globulin 3.9 g/dL (1.3-3.2); Total Protein,Serum 7.2 g/dl (6.3-8.2)
[2024-06-17 00:54] LABS: Calcium 8.5 mg/dl (8.4-10.2); Glucose 208 mg/dl (74-100)
[2024-06-17 00:55] LABS: Adenovirus F 40/41, stool Not Detected (NotDetected); Astrovirus Not Detected (NotDetected); Campylobacter Not Detected (NotDetected); Clostridium Difficile A/B, PCR Not Detected (NotDetected); Cryptosporidium Not Detected (NotDetected); Cyclospora Cayetanesis Not Detected (NotDetected); Entamoeba histolytica Not Detected (NotDetected); Enteroaggregative E coli Not Detected (NotDetected); Enteropathogenic E coli Not Detected (NotDetected); Enterotoxigenic E coli Not Detected (NotDetected); Giardia lamblia Not Detected (NotDetected); Plesimonas Shigalloides, PCR Not Detected (NotDetected); Rotavirus A Not Detected (NotDetected); Salmonella, PCR Not Detected (NotDetected); Sapovirus Not Detected (NotDetected); Shiga-like toxin E coli Not Detected (NotDetected); Shigella Enterovasive E coli Not Detected (NotDetected); Vibrio Cholerae Not Detected (NotDetected); Vibrio, PCR Not Detected (NotDetected); Yersinia Entercolitica, PCR Not Detected (NotDetected)
--- NOTE | 2024-06-17 00:57 | PC.NURSE ---
critical received from lab of patient creat 4.1. Provider aware.
[2024-06-17 01:01] LABS: Basophils # 0.1 K/mm3 (0-0.2); Basophils % 0.7 % (0.1-2.0); Eosinophils # 0.2 K/mm3 (0.0-0.4); Eosinophils % 2.6 % (0.1-12.0); Hematocrit 35.4 % (42.0-52.0); Hemoglobin 11.4 g/dL (14.1-18.0); Lymphocytes # 1.8 K/mm3 (0.7-4.5); Lymphocytes % 21.6 % (10-50); Mean Corpuscular HGB Conc 32.2 g/dL (31.8-35.4); Mean Corpuscular Hemoglobin 31.1 pg (27.0-31.2); Mean Corpuscular Volume 96.7 fl (80-94); Mean Platelet Volume 11.3 fl (7.4-10.4); Monocytes # 0.8 K/mm3 (0.1-1.0); Monocytes % 9.3 % (1.7-9.3); Neutrophils # 5.5 K/mm3 (1.8-7.8); Neutrophils % 65.6 % (37.0-80.0); Platelet Count 145 K/mm3 (142-424); Red Blood Count 3.66 M/mm3 (4.60-6.20); Red Cell Distribution Width 14.5 % (11.5-17.5); White Blood Count 8.4 K/mm3 (4.8-10.8)
[2024-06-17 01:07] LABS: INR 1.16 (0.9-1.1); Prothrombin Time 12.8 seconds (10.1-12.5)
[2024-06-17 01:12] LABS: Occult Blood,Stool Positive (Negative)
[2024-06-17 01:19] LABS: Activated Partial Thrombo Time 34.7 seconds (22.8-30.6)
--- NOTE | 2024-06-17 01:35 | ED_ITS ---
Discharge Plan Disposition Patient Disposition: Xfer Short-Term Hosp Condition: Fair Prescriptions Prescriptions: No Action metoprolol tartrate 100 mg tablet 100 mg PO BID Patient Comments: TAKE ONE TABLET BY MOUTH TWICE DAILY cholecalciferol (vitamin D3) 25 mcg (1,000 unit) capsule 25 mcg PO DAILY insulin aspart U-100 [Novolog FlexPen U-100 Insulin] 100 unit/mL (3 mL) insulin pen 15 unit SQ TID PRN (Reason: diabetes) sevelamer HCl 800 mg tablet 800 mg PO TID Rx Instructions: must administer with a meal/food glipizide 10 mg tablet 15 mg PO DAILY allopurinol 100 mg tablet 100 mg PO TID levothyroxine 75 mcg tablet 75 mcg PO DAILY doxazosin 8 mg tablet 12 mg PO HS aspirin 81 mg Tablet,Delayed Release (Dr/Ec) 81 mg PO DAILY Qty: 90 0RF atorvastatin 40 mg tablet 40 mg PO DAILY Qty: 90 0RF insulin degludec [Tresiba FlexTouch U-200] 200 unit/mL (3 mL) insulin pen 50 unit SQ BID PRN (Reason: diabetes) Ozempic 1 mg/dose (2 mg/1.5 mL) Pen Injector 1 mg SQ WEEKLY Referrals Follow up/Referrals: Evans Butler [Primary Care Provider] - See instructions Clinical Impressions Clinical Impression: ABLA (acute blood loss anemia), CKD (chronic kidney disease), Acute lower gastrointestinal bleeding, Norovirus Stand Alone Forms Stand Alone Forms: Transfer Record - ED Instructions Patient Instructions: DI for Gastrointestinal Bleeding Print Language Print Language: Russian Discharge ED Provider: Venkatesh Chacon General Adult HPI General Chief complaint: GI Bleed Stated complaint: diarrhea, blood in stool Time Seen by Provider: 06/17/24 00:58 Mode of Arrival: Wheelchair Source of Information: Patient Description of Symptoms (Recalled from ER Triage Doc. by RN): Patient reports bloody diarrhea tonight; states it is dark red and he has a known fistula; states he sees some bright red when wiping History of Present Illness HPI narrative: 64-year-old male presents to the ER with dark stool and blood when wiping. Patient has a history of diabetes, NSTEMI, hyperbilirubinemia, he had cholecystectomy approximately 1 year ago, he also is on dialysis Wednesday//Wednesday. He has not missed any dialysis. 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 He states he has had fistula since he developed diabetes years ago. He denies any history of ulcerative colitis, Crohn's, or other known GI problems. He states he is supposed to follow-up with his surgeon at [place] [facility] about the fistula in a few days. Patient reports he had been having normal bowel movements, he typically has 1/day. He states tonight around 9 PM he suddenly had the urge to have a bowel movement and it was dark, black. When he wiped there was also blood. Patient reports he has had 3- 4 bowel movements since that time and they have all been similar dark, loose, and blood when he wipes. Patient denies headache, dizziness, nausea, vomiting, he reports diffuse crampy abdominal discomfort but no focal abdominal pain. No chest pain or difficulty breathing patient does wear nasal cannula at baseline. No recent illness. Related Data Home Medications ?Medication ?Instructions ?Recorded ?Confirmed allopurinol 100 mg tablet 100 mg PO TID 10/06/23 05/24/24 doxazosin 8 mg tablet 12 mg PO HS 10/06/23 05/24/24 glipizide 10 mg tablet 15 mg PO DAILY 10/06/23 05/24/24 levothyroxine 75 mcg tablet 75 mcg PO DAILY 10/06/23 05/24/24 cholecalciferol (vitamin D3) 25 25 mcg PO DAILY 05/03/24 05/24/24 mcg (1,000 unit) capsule insulin aspart U-100 100 unit/mL 15 unit SQ TID PRN diabetes 05/03/24 05/24/24 (3 mL) subcutaneous pen (Novolog FlexPen U-100 Insulin aspart) insulin degludec 200 unit/mL (3 50 unit SQ BID PRN diabetes 05/03/24 05/24/24 mL) subcutaneous pen (Tresiba FlexTouch U-200 insulin) metoprolol tartrate 100 mg tablet 100 mg PO BID 05/03/24 05/24/24 sevelamer HCl 800 mg tablet 800 mg PO TID 05/03/24 05/24/24 semaglutide 1 mg/dose (2 mg/1.5 1 mg SQ WEEKLY 05/24/24 05/24/24 mL) subcutaneous pen injector Previous Rx's ?Medication ?Instructions ?Recorded aspirin 81 mg tablet,delayed 81 mg PO DAILY #90 tabs 10/07/23 release atorvastatin 40 mg tablet 40 mg PO DAILY #90 tabs 10/07/23 Allergies Allergy/AdvReac Type Severity Reaction Status Date / Time Sulfa (Sulfonamide Allergy Intermediate Hives Verified 05/03/24 10:57 Antibiotics) [facility] Disclaimer: The information contained in this section may have been updated after the patient was seen, as this information can be updated by other users. Medical History Coronary artery disease NSTEMI (non-ST elevated myocardial infarction) NSTEMI (non-ST elevated myocardial infarction) Chronic kidney disease Hypertension Diabetes mellitus, type 2 Surgical History History of cardiac cath Social History Smoking Status: Never smoker alcohol intake: never current occupational status: other Travel in the last 8 weeks: None Have you lived/traveled outside US in past 30 days?: No Contact w/someone who lives/traveled outside US past 30 days?: No Exposure to someone with infectious disease in past 14 days?: No Do you have a fever (greater than 100.4 F or 38 C)?: No Have you tested positive for COVID-19: No Exposed to someone with COVID-19 in past 14 days?: No Do you have a sore throat?: No Do you have a cough?: No Do you have any weakness?: No Do you have any diarrhea?: Yes Are you experiencing any unusual bleeding?: Yes Do you have any muscle aches/pain?: No Do you have any abdominal pain?: No Are you experiencing loss of taste or smell?: No Other Medical History Have you received the Flu Vaccine for this season: No Have you received the Pneumonia Vaccine: Yes ROS Obtained: Yes Systems reviewed as appropriate & no additional complaints except as documented Per HPI Physical Exam General General appearance: alert, in no apparent distress and obese Comment: Appears older than stated age Head Head exam: atraumatic and normocephalic Eye Eye exam: Present PERRL and EOMI ENT ENT exam: Present mucous membranes moist Neck Neck exam: Present normal inspection and full ROM Chest Chest inspection: Present symmetric chest wall rise Respiratory Respiratory exam: Present normal lung sounds bilaterally; Absent respiratory distress, wheezes or stridor Cardiovascular Cardiovascular exam: Present regular rate and normal rhythm Abdominal Exam Abdominal exam: Present soft and tenderness (Mild generalized); Absent distention, guarding or rebound Rectal Exam Rectal exam: Present normal rectal tone, black stool and bloody stool comment: No obvious fissure, patient has small, soft external hemorrhoids, patient does have small fistula/tunneling wound on the left gluteal cheek near the edge of the gluteal crease approximately 4 cm from the anus, no active bleeding, clot present, no evidence of infection Extremities Exam Extremities exam: Present full ROM, edema (+1 bilateral lower extremity pitting edema) and other (Hard sole shoe on left foot) Neurological Exam Neurological exam: Present alert and oriented X3; Absent motor sensory deficit Psychiatric Psychiatric exam: Present normal affect and normal mood Skin Skin exam: Present warm and dry Medical Decision Making Medical Records Medical records reviewed: Yes I reviewed the patient's medical records. Screening: Per USPSTF and CDC recommendations, given the prevalence of disease in our region, it is our hospital?s policy to screen for HIV and viral Hepatitis for all patients aged 18 and over and those with ongoing risk factors. MR Comment: Patient had choledocholithiasis with cholecystitis in September 2023. He was not operated on in our facility and was transferred to outside facility. Most recent cardiology note from April 2024 demonstrates patient presented for 6-month follow-up and plan was to return to clinic in 6 months. He was on medical management for NSTEMI, has known elevated LVEDP with preserved ejection fraction. Poorly controlled diabetes with A1c at that time of 8.5 Chuy Inquiry Pt receiving controlled substance: No Vital Signs: 06/17/24 00:32 06/17/24 00:32 06/17/24 01:01 Temperature 97.9 F Temperature Source Oral Pulse Rate 61 61 Pulse Rate [Right Radial] 63 Respiratory Rate 18 Blood Pressure 116/36 L 128/47 L Blood Pressure [Right Arm] 129/46 L Blood Pressure Mean [Right Arm] 73 Blood Pressure Source [Right Arm] Automatic Cuff Blood Pressure Position [Right Arm] Supine 02 Sat by Pulse Oximetry 97 98 100 Oxygen Delivery Method Room Air 06/17/24 01:47 06/17/24 01:56 06/17/24 02:01 Temperature Temperature Source Pulse Rate 79 72 66 Pulse Rate [Right Radial] Respiratory Rate Blood Pressure 139/57 L 120/57 L Blood Pressure [Right Arm] Blood Pressure Mean [Right Arm] Blood Pressure Source [Right Arm] Blood Pressure Position [Right Arm] 02 Sat by Pulse Oximetry 97 99 99 Oxygen Delivery Method 06/17/24 02:31 06/17/24 03:01 06/17/24 03:34 Temperature Temperature Source Pulse Rate 68 67 68 Pulse Rate [Right Radial] Respiratory Rate 17 Blood Pressure 144/52 H 121/50 L 105/41 L Blood Pressure [Right Arm] Blood Pressure Mean [Right Arm] Blood Pressure Source [Right Arm] Blood Pressure Position [Right Arm] 02 Sat by Pulse Oximetry 99 98 100 Oxygen Delivery Method 06/17/24 04:01 06/17/24 04:31 Temperature Temperature Source Pulse Rate 73 71 Pulse Rate [Right Radial] Respiratory Rate 14 18 Blood Pressure 112/55 L 122/60 Blood Pressure [Right Arm] Blood Pressure Mean [Right Arm] Blood Pressure Source [Right Arm] Blood Pressure Position [Right Arm] 02 Sat by Pulse Oximetry 100 98 Oxygen Delivery Method Lab Data Lab Results 06/17/24 00:30: WBC 8.4, RBC 3.66 L, Hgb 11.4 L, Hct 35.4 L, MCV 96.7 H, MCH 31.1, MCHC 32.2, RDW 14.5, Plt Count 145, MPV 11.3 H, Neut % (Auto) 65.6, Lymph % (Auto) 21.6, Sebastian % (Auto) 9.3, Eos % (Auto) 2.6, Baso % (Auto) 0.7, Neut # (Auto) 5.5, Lymph # (Auto) 1.8, Sebastian # (Auto) 0.8, Eos # (Auto) 0.2, Baso # (Auto) 0.1, PT 12.8 H, INR 1.16 H, APTT 34.7 H, Sodium 133 L, Potassium 4.0, C hloride 97 L, Carbon Dioxide 36 H, Anion Gap 4.0 L, BUN 57 H, Creatinine 4.10 H, Estimated Creat Clear 18, Estimated GFR 15 L*, Est GFR ( Amer) 18 L*, G lucose 208 H, Calcium 8.5, Total Bilirubin 0.6, AST 34, ALT 23, Alkaline Phosphatase 146 H, Total Protein 7.2, Albumin 3.3 L, Globulin 3.9 H, A lbumin/Globulin Ratio 0.8 L 06/17/24 00:50: Stool Occult Blood Positive A, Stl Aeromonas (PCR) Not detected, Stl C. cayetanensis PCR Not detected, Stool Rotavirus (PCR) Not detected, Stl Adenov F 40/41 PCR Not detected, Stool Astrovirus (PCR) Not detected, Stool Campylobacter PCR Not detected, Stl C.difficile Tox PCR Not detected, Stool Cryptosporidium PCR Not detected, Stl E.coli Shiga Tox PCR Not detected, Stool E coli O157 PCR Not detected, Stl Enterotoxigenic E PCR Not detected, Stool EPEC (PCR) Not detected, Stool EAEC (PCR) Not detected, Stl E. histolytica PCR Not detected, Stool Giardia Lamblia PCR Not detected, Stool Salmonella PCR Not detected, Stool Sapovirus (PCR) Not detected, Stl P. shigelloides PCR Not detected, Stl Shigella/EIEC PCR Not detected, St Y.enterocolitica PCR Not detected, Stool Vibrio (PCR) Not detected, Stl Vibrio cholerae PCR Not detected, Stl Norovirus GI/GII PCR Detected A 06/17/24 03:40: Hgb 10.2 L D, Hct 31.3 L 06/17/24 03:40 06/17/24 00:30 Orders (Tests/Meds): ED MEDICATIONS Generic Name Dose Route Start Last Admin Trade Name Freq PRN Reason Stop Dose Admin Sodium Chloride 10 ml 06/17/24 01:36 06/17/24 01:37 Sodium Chloride 0.9% 10ml Syr (Rad Only) IV 07/17/24 01:35 10 ml NEEDED PRN Administration Maintain IV Site Discontinued Medications Generic Name Dose Route Start Last Admin Trade Name Freq PRN Reason Stop Dose Admin Pantoprazole Sodium 80 mg/ 100 mls @ 100 mls/hr 06/17/24 03:50 06/17/24 03:59 Sodium Chloride IV 06/17/24 04:49 100 mls/hr ONCE ONE Administration Iopamidol 80 ml 06/17/24 01:36 06/17/24 01:37 Iopamidol-370 (76%);100ml Bottle IV 06/17/24 01:37 80 ml ONCE ONE Administration Sodium Chloride 40 ml 06/17/24 01:36 06/17/24 01:37 0.9 % Sodium Chloride 50 Ml Vial IV 06/17/24 01:37 40 ml ONCE ONE Administration ORDERS Category Date Time Status CT angio abdomen pelvis Stat Cat Scan 06/17/24 00:40 Completed CBC w/Auto Diff [Complete Blood Count Auto Diff] Stat Lab 06/17/24 00:30 Completed CMP [Comprehensive Metabolic Panel] Stat Lab 06/17/24 00:30 Completed Diarrhea 6-11 Panel, Cdiff PCR Stat Lab 06/17/24 00:50 Completed H/H [Hemoglobin and Hematocrit] Stat Lab 06/17/24 03:40 Completed Occult Blood,Stool Stat Lab 06/17/24 00:50 Completed PT INR [Prothrombin Time INR] Stat Lab 06/17/24 00:30 Completed PTT [Activated Partial Thrombo Time] Stat Lab 06/17/24 00:30 Completed Medical Decision Narrative: In summary, this 64-year-old male with comorbidities described in the HPI which are not at goal therapy presents to the emergency department today with dark stool and bright red blood when wiping. On initial evaluation patient is hemodynamically stable, afebrile, chronically ill-appearing with mild generalized abdominal tenderness but no peritonitic findings, rectal exam performed with assistive technology specialist present demonstrates patient has a fistula/wound on the left gluteal cheek which is currently hemostatic, mild external hemorrhoids which are soft, stool sample provided was dark with bright red blood as well. Differential diagnosis includes but is not limited to anemia, coagulopathy, fistula, intra-abdominal infection, diverticulosis, diverticulitis, abscess, perforation, electrolyte abnormality, kidney dysfunction, among others. Based on these concerns, I ordered serum labs, CT imaging. Patient is already on dialysis so I am not concerned about the patient receiving IV contrast. Labs personally reviewed demonstrate anemia actually improved from April, no leukocytosis, PT/INR and APTT slightly elevated but not specifically actionable at this time, kidney function similar to previous, consistent with known CKD and dialysis, stool occult positive. CT angiography abdomen pelvis personally interpreted does not demonstrate obvious area of bleeding, no blush, patient does not have evidence of diverticulitis or abscess. See radiology read for final interpretation. On reassessment patient reports he has had multiple more bloody bowel movements. His stool panel resulted positive for norovirus. He states he is feeling more lightheaded. He has not become more tachycardic but his blood pressure has gotten slightly more soft while in the ER. I started him on Protonix though I suspect this is lower GI bleeding not upper. Also sent repeat H&H. Given his symptoms and concern for acute blood loss anemia, lower GI bleed, norovirus, and CKD needing dialysis in the next 24 hours to maintain his schedule, I believe he requires transfer to higher level of care. We reached out to [facility] where patient has already established care for colonoscopies, perianal fistula, etc. I spoke with Dr. Michaels at [facility] with the hospitalist team. We reviewed the case including patient's symptoms, changes in vitals, his H&H had also resulted and demonstrated he has lost more than 1 point of hemoglobin in the time he has been in the ER and he has not received any IV fluids therefore this change is not dilutional. Dr. Michaels agrees with the care so far and graciously accepted the patient for admission. Patient was assigned to [facility] telemetry and bed was immediately available. Patient will go via ALS ambulance to continue hemodynamic monitoring and receiving the Protonix which is currently being administered. He was transferred in stable condition. Critical Care Critical Care Time Critical Care Time: No
[2024-06-17] MEDS: 0.9 % SODIUM CHLORIDE 50 ML VIAL 40 ML IV (01:37)
[2024-06-17] MEDS: SODIUM CHLORIDE 0.9% 10ML SYR (RAD ONLY) 10 ML IV (01:37)
[2024-06-17] MEDS: IOPAMIDOL-370 (76%);100ML BOTTLE 80 ML IV (01:37)
--- NOTE | 2024-06-17 03:34 | PC.NURSE ---
critical called from lab, pt positive for norovirus
[2024-06-17 03:35] LABS: Norovirus Detected (NotDetected)
[2024-06-17 03:59] LABS: Hematocrit 31.3 % (42.0-52.0)
[2024-06-17] MEDS: PANTOPRAZOLE SODIUM 80 MG in 0.9 % SODIUM CHLORIDE 100 ML 100 MG IV (03:59)
[2024-06-17 04:00] LABS: Hemoglobin 10.2 g/dL (14.1-18.0)
--- NOTE | 2024-06-17 04:19 | PC.NURSE ---
Spoke with command center. Received floor assignment. Patient will be going to 3E, along with report to be called to [phone]
--- NOTE | 2024-06-17 04:27 | PC.NURSE ---
Nurse (lucinda) at [facility] on 3E unable to take report at this time. State they will call back in 10 minutes.
--- NOTE | 2024-06-17 04:45 | PC.NURSE ---
Report called to lucinda at [facility] on 3E
--- NOTE | 2024-06-17 05:42 | PC.NURSE ---
EMS here to transport patient
== END 2024-06-17 05:42 | disposition short-term general hospital (02) ==
PROVIDERS: Emergency Provider Emergency Medicine; PCP Family Medicine
DX: D62 Acute posthemorrhagic anemia (principal); N18.9 Chronic kidney disease, unspecified; K92.2 Gastrointestinal hemorrhage, unspecified; A08.11 Acute gastroenteropathy due to Norwalk agent; K92.1 Melena; R19.7 Diarrhea, unspecified; K60.30 Anal fistula, unspecified
CPT/HCPCS: 74174; 80053; 82272; 85014; 85018; 85025; 85610; 85730; 87506; 96365; 99285; G0328; Q9967

== ENCOUNTER 2024-09-14 10:00 | Outpatient (RCR) | payer MEDICARE, SELFPAY | END 2024-09-19 08:49 | disposition home or self-care (01) | LOC: PT.CARL 10:00 | PROVIDERS: PCP Family Medicine; Visit Provider Nurse Practitioner Family | DX: R53.1 Weakness (principal) | CPT/HCPCS: 97110; 97163; 97530 ==

== ENCOUNTER → 2024-12-14 06:27 | Outpatient (CLI) | payer MEDICARE, SELFPAY ==
--- OUTSIDE RECORDS SUMMARY | 2024-11-02 07:40 | XMS_ITS | Encounter Summary ---
Author Organization [facility] Address [address] [place] [address] Care Team Providers Care Engraver Apprentice Decorative Name Role Phone Evans Butler MD Primary Care Provider [phone] Encounter Details Date Type Department Care Team (Late st Contact Info) Description 11/02/2024 7:40 AM EDT Ancillary Procedure [facility] [address] [place] [address] Social History Tobacco Use Types Packs/Day Years Used Date Smoking Tobacco: Never Passive Smoke Exposure: Never Smokeless Tobacco: Never Sex and Gender Information Value Date Recorded Sex Assigned at Not on file Legal Sex Male 8:08 PM EDT Gender Identity Not on file Sexual Orientation Not on file documented as of this encounter Plan of Treatment Upcoming Encounters Date Type Department Care Team (Late Contact Info) Description 05/08/2025 10:45 AM EST Office Visit [facility] [address] [place] [address] Hali Cervantes MD [address] [address] documented as of this encounter Procedures Procedure Name Priority Date/Time Associated Diagnosis Comments OCT, RETINA - OU - BOTH EYES Routine 11/02/2024 2:52 PM EDT 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 Scan locations included subfoveal. Progression has been stable. Left Eye Quality was good. Scan locations included subfoveal. Progression has been stable. Notes Right eye (OD): flat, no CSME Left eye (OS): flat, no CSME, trace epiretinal membrane (ERM) sup. Mild irregular thickening us Hali Cervantes MD OPHTH TOMOGRAPHY Final Result documented in this encounter Visit Diagnoses Not on filedocumented in this encounter Additional Health Concerns Assessment Noted Time A fall risk assessment has been complete d for the patient 11/02/2024 2:06 PM EDT A Body Mass Index follow-up plan has been documented for the patient 11/02/2024 3:03 PM EDT documented as of this encounter Care Teams Engraver Apprentice Decorative Relationship Specialty Start Date End Date Evans Butler MD [address] [place] [address] PCP - General 08/09/20 documented as of this encounter
--- OUTSIDE RECORDS SUMMARY | 2024-11-02 07:40 | XMS_ITS | Encounter Summary ---
Author Organization [facility] Address [address] [place] [address] Care Team Providers Care Fiscal Services Manager Name Role Phone Evans Butler MD Primary Care Provider [phone] Encounter Details Date Type Department Care Team (Late st Contact Info) Description 11/02/2024 7:40 AM EDT Ancillary Procedure [facility] [address] [place] [address] Social History Tobacco Use Types [...] Description 05/08/2025 10:45 AM EST Office Visit [facility] [address] [place] [address] Hali Cervantes MD [address] [address] documented as of this encounter Procedures Procedure Name Priority Date/Time Associated Diagnosis Comments WIDE FIELD COLOR FUNDUS PHOTOGRAPHY - OU - BOTH EYES Routine 11/02/2024 2:53 PM EDT 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 Temporal media opacity? Left eye (OS): panretinal photocoagulation (PRP), no neovascularization of the disc (NVD)/neovascularization elsewhere (NVE) obvious< attached, + PVD us Hali Cervantes MD OPHTH PHOTOGRAPHY Alethea aquino Result documented in this encounter Visit Diagnoses Not on filedocumented in this encounter Additional Health Concerns Assessment Noted Time A fall risk assessment has been complete d for the patient 11/02/2024 2:06 PM EDT A Body Mass Index follow-up plan has been documented for the patient 11/02/2024 3:03 PM EDT documented as of this encounter Care Teams Fiscal Services Manager Relationship Specialty Start Date End Date Evans Butler MD [address] [place] [address] PCP - General 08/09/20 documented as of this encounter
--- OUTSIDE RECORDS SUMMARY | 2024-11-02 14:00 | XMS_ITS | Encounter Summary ---
Author Organization [facility] Address [address] 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 associated with type 2 diabetes mellitus; 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 associated with type 2 diabetes mellitus Social History Tobacco Use Types Packs/Day Years Used Date Smoking Tobacco: Never Passive Smoke Exposure: Never Smokeless Tobacco: Never Tobacco Cessation:Counseling Given: Not Answered Sex and Gender Information Value Date Recorded Sex Assigned at Not on file Legal Sex Male 8:08 PM EDT Gender Identity Not on file Sexual Orientation Not on file documented as of this encounter Miscellaneous Notes * Patient Instructions - Hali Cervantes MD - 11/02/2024 2:00 PM EDT It is important to maintain as good control of your blood sugars, blood pressure, and cholesterol as possible for the overall health of your eyes. Call or return to clinic with sudden vision changes including worsening blurring, distortions, or significant flashes or floaters. Consider going to the emergency room if you are unable to reach the clinic on the phone. Call [phone] and ask for the fruit grading supervisor home sales service professional if it is after hours or a weekend or holiday. * Progress Notes - Hali Cervantes MD - 11/02/2024 2:00 PM EDT Retina Clinic Note CHIEF COMPLAINT Patient presents for No chief complaint on file. HISTORY OF PRESENT ILLNESS: Niraj Enrique is a 64 y.o. male who presents to the clinic today for: HPI 64 yo male presents to clinic today for office visit epiretinal membrane (ERM) of left eye. Hx of proliferative diabetic retinopathy of left eye without macular edema associated with type 2 diabetes mellitus (CMS/HCC), PVD (posterior vitreous detachment), right eye. Pt states vision is about the same still has floaters and dry eyes, but do not feel like there is sand in them like before. Pt denies any flashes, pain or irritation. A1C 7.0 10/20 Last edited by Blanca Arroyo on 11/02/2024 2:25 PM. REVIEW OF SYSTEMS: ROS Positive for: Eyes Negative for: Constitutional, Gastrointestinal, Neurological, Skin, Genitourinary, Musculoskeletal,HENT, Endocrine, Cardiovascular, Respiratory, Psychiatric, Allergic/Imm, Heme/Lymph Last edited by Blanca Arroyo on 11/02/2024 2:05 PM. Negative except for ROS Positive for: Eyes Negative for: Constitutional, Gastrointestinal, Neurological, Skin, Genitourinary, Musculoskeletal,HENT, Endocrine, Cardiovascular, Respiratory, Psychiatric, Allergic/Imm, Heme/Lymph Last edited by Blanca Arroyo on 11/02/2024 2:05 PM. Referring physician: No referring provider defined for this encounter. HISTORICAL INFORMATION: Selected notes from the medical record: CURRENT MEDICATIONS: No current outpatient medications on file. (Ophthalmic Drugs) No current facility-administered medications for this visit. (Ophthalmic Drugs) Current Outpatient Medications (Other) Medication Sig Alcohol Swabs (Alcohol Wipes) 70 % pads allopurinol (Zyloprim) 100 MG tablet take 1 tablet by mouthh 1 to 3 times a day amiodarone (Pacerone) 200 MG tablet Take 1 tablet by mouth daily. apixaban (Eliquis) 5 MG tablet Take 1 tablet by mouth 2 times a day. atorvastatin (Lipitor) 40 MG tablet Take 1 tablet by mouth daily. Global Ease Inject Pen Douglas 32G X 4 MM misc 3 (three) times a day. insulin aspart (NovoLOG FLEXPEN) 100 UNIT/ML injection levothyroxine (Synthroid, Levoxyl) 50 MCG tablet Take 1.5 tablets (75 mcg) by mouth 1 (one) time each day. midodrine (Proamatine) 5 MG tablet Take 1 tablet by mouth 3 times a day. oxygen (O2) gas Inhale 2 L/min continuously at 120,000 mL/hr. via nasal canula pantoprazole (Protonix) 40 MG EC tablet Take 1 tablet by mouth daily before breakfast. Do not crush, chew, or split. Tresiba FlexTouch 200 UNIT/ML injection pen as directed 70 Unit inject below skin twice daily True Metrix Blood Glucose Test test strip 4 (four) times a day. for testing TRUEplus Lancets 30G misc 2 (two) times a day. as directed Vitamin D3 10 MCG (400 UNIT) capsule Take 1 capsule (400 Units) by mouth 1 (one) time each day. allopurinol (Zyloprim) 300 MG tablet atenolol-chlorthalidone (Tenoretic) 100-25 MG tablet bumetanide (Bumex) 2 MG tablet cholecalciferol (VITAMIN D-3) 400 units tablet Take 1 taablet by mouth daily doxazosin (Cardura) 8 MG tablet Take 1&1/2 tablets by mouth nightly fenofibrate micronized (Lofibra) 134 MG capsule glipiZIDE (Glucotrol) 10 MG tablet Levemir FlexTouch 100 UNIT/ML injection pen INJECT 70 UnitS below skin twice daily (Patient not taking: Reported on 06/17/2023) levoFLOXacin (Levaquin) 500 MG tablet Take 1 tablet (500 mg) by mouth 1 (one) time each day. as directed Magnesium 250 MG tablet Take by mouth. Ozempic, 1 MG/DOSE, 4 MG/3ML solution pen-injector inject 1 mg subQ as directed weekly repaglinide (Prandin) 2 MG tablet No current facility-administered medications for this visit. (Other) ALLERGIES Allergies Allergen Reactions Sulfamethoxazole-Trimethoprim Hives PAST MEDICAL HISTORY Past Medical History: Diagnosis Date Chronic kidney disease Dialysis patient (CMS/HCC) Hypertension Personal history of other diseases of the circulatory system History of hypertension Personal history of other endocrine, nutritional and metabolic disease History of diabetes mellitus Type 2 diabetes mellitus with proliferative diabetic retinopathy without macular edema, left eye (CMS/HCC) Proliferative diabetic retinopathy of left eye determined by examination Type 2 diabetes mellitus with severe nonproliferative diabetic retinopathy without macular edema, right eye Non-proliferative diabetic retinopathy, severe, right eye Past Surgical History: Procedure Laterality Date APPENDECTOMY N/A Appendectomy from [facility] CHOLECYSTECTOMY COLONOSCOPY FOOT SURGERY N/A Foot Surgery from [facility] HERNIA REPAIR N/A Inguinal Hernia Repair from [facility] RETINAL LASER PROCEDURE Left ( , ). FAMILY HISTORY Family History Problem Relation Name Age of Onset Diabetes Mother Meenu Hypertension Mother Meenu Stroke Mother Meenu Thyroid disease Mother Meenu Cardiac disorder Father Bob Cataracts Father Bob Clotting disorder Father Bob Other cancer Father Bob Cancer Father Bob Hypertension Father Bob Heart Problem Brother Diabetes Brother Chas SOCIAL HISTORY Social History Tobacco Use Smoking status: Never Passive exposure: Never Smokeless tobacco: Never Vaping Use Vaping status: Never Used GENERAL EXAM: General Exam: Neuro: Alert and Oriented x 3, normal mood and affect OPHTHALMIC EXAM: Base Eye Exam Visual Acuity (Snellen - Linear) Right Left Dist cc 20/30 -2 20/40 Dist ph cc 20/30 -1 20/30 +2 Correction: Glasses Tonometry (Tonopen, 2:27 PM) Right Left Pressure 19 16 Pupils Pupils APD Right PERRL None Left PERRL None Visual [place] Right Left Full Full Extraocular Movement Right Left Full Full Neuro/Psych Oriented x3: Yes Mood/Affect: Normal Dilation Both eyes: 1% Tropicamide, 2.5% Phenylephrine @ 2:28 PM Slit Lamp and Fundus Exam External Exam Right Left External Normal Normal Slit Lamp Exam Right Left Lids/Lashes Normal for age Normal for age Conjunctiva/Sclera Normal Normal Cornea Clear and compact Clear and compact Anterior Chamber Deep and quiet Deep and quiet Iris Normal pupil size and shape Normal pupil size and shape Lens 1-2+ NS, 1-2+ cortical 1-2+ NS, 1-2+ cortical w/ inf nasal PSC Anterior Vitreous PVD PVD Fundus Exam Right Left Disc no edema, no vascularization, good color. mild tilt (Andrew 78 d Lens) no edema, good color (Andrew 78 d Lens), no NVD superotemporal C/D Ratio .3 .3 Macula diffuse scattered DBH/MA diffuse scattered DBH/MA, mild ERM Vessels severe NPDR PDR- inactive Periphery flat and attached 360 degrees, scattered midperipheral hemes moderate PRP IMAGING AND PROCEDURES OCT, Retina - OU - Both Eyes Right Eye Quality was good. Scan locations included subfoveal. Progression has been stable. Left Eye Quality was good. Scan locations included subfoveal. Progression has been stable. Notes Right eye (OD): flat, no CSME Left eye (OS): flat, no CSME, trace epiretinal membrane (ERM) sup. Mild irregular thickening Wide Field Color Fundus Photography - OU - Both Eyes Right eye (OD): flat and attached, mod DBH. Temporal media opacity? Left eye (OS): panretinal photocoagulation (PRP), no neovascularization of the disc (NVD)/neovascularization elsewhere (NVE) obvious< attached, + PVD OCT, Retina - OU - Both Eyes Right Eye Quality was good. Scan locations included subfoveal. Progression has been stable. Left Eye Quality was good. Scan locations included subfoveal. Progression has been stable. Notes Right eye (OD): flat, no CSME Left eye (OS): flat, no CSME, trace epiretinal membrane (ERM) sup. Mild irregular thickening Wide Field Color Fundus Photography - OU - Both Eyes Right eye (OD): flat and attached, mod DBH. Temporal media opacity? Left eye (OS): panretinal photocoagulation (PRP), no neovascularization of the disc (NVD)/neovascularization elsewhere (NVE) obvious< attached, + PVD VISIT DIAGNOSES 1. Epiretinal membrane (ERM) of left eye 2. 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 associated with type 2 diabetes mellitus ASSESSMENT AND PLAN: Type 2 diabetes mellitus (DM) with Retinopathy both eyes (OU) right eye (OD): severe non-proliferative diabetic retinopathy (NPDR) without CSDME - OCT today stable, no IRF/DME - stable, monitor - encourage good diabetes mellitus (DM) control left eye (OS): PDR without DME - has been inactive, today stable - h/o panretinal photocoagulation (PRP) x2 (2017 and 2018) - monitor 11/02/24: long gap in care 2/2 extended hospital stay after a colonoscopy but still inactive. No neovascularization of the disc (NVD) or NVI. Continue to monitor, recheck 6 months, sooner PRN PVD right eye (OD) - photopsias improved significantly and have been resolved for several weeks - retinal detachment (RD) precautions. Vitreous opacities improving both eyes (OU) (PVD both eyes (OU)) epiretinal membrane (ERM) left eye (OS) - monitor, not distorting center retina Mixed NS both eyes (OU) - may be worsening, consider cataract extraction (CE) eval next available vs repeat Mrx (old) - obs for now Dry Eye both eyes (OU) - try artificial tears Explained the diagnoses, plan, and follow up with the patient and they expressed understanding. Patient expressed understanding of the importance of proper follow up care. Follow up in about 6 months (around 05/05/2025) for Dilated Exam, OCT. Patient Instructions It is important to maintain as good control of your blood sugars, blood pressure, and cholesterol as possible for the overall health of your eyes. Call or return to clinic with sudden vision changes including worsening blurring, distortions, or significant flashes or floaters. Consider going to the emergency room if you are unable to reach the clinic on the phone. Call [phone] and ask for the fruit grading supervisor home sales service professional if it is after hours or a weekend or holiday. Electronically signed by: Hali Cervantes MD 11/02/2024 3:03 PM Tobacco Cessation Initiative: Tobacco Use: Low Risk (11/02/2024) Patient History Smoking Tobacco Use: Never Smokeless Tobacco Use: Never Passive Exposure: Never The patient has been counseled on tobacco cessation: Not Applicable documented in this encounter Plan of Treatment Upcoming Encounters Date Type Department Care Team (Late st Contact Info) Description 05/08/2025 10:45 AM EST Office Visit [facility] [address] [place] [address] Hali Cervantes MD [address] [place] [address] documented as of this encounter Procedures Procedure Name Priority Date/Time Associated Diagnosis Comments WIDE FIELD COLOR FUNDUS PHOTOGRAPHY - OU - BOTH EYES Routine 11/02/2024 2:53 PM EDT 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 associated with type 2 diabetes mellitus OCT, RETINA - OU - BOTH EYES [...] us Hali Cervantes MD OPHTH PHOTOGRAPHY Alethea l Result * OCT, Retina - OU - Both [...] Result documented in this encounter Visit Diagnoses Diagnosis Epiretinal membrane (ERM) of left eye- Primary 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 associated with type 2 diabetes mellitus 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 associated with type 2 diabetes mellitus documented in this encounter Additional Health Concerns Assessment Noted Time A fall risk assessment has been complete d for the patient 11/02/2024 2:06 PM EDT A Body Mass Index follow-up plan has been documented for the patient 11/02/2024 3:03 PM EDT documented as of this encounter Care Teams Web Designer Relationship Specialty Start Date End Date Evans Butler MD [address] [place] [address] PCP - General 08/09/20 documented as of this encounter
--- OUTSIDE RECORDS SUMMARY | 2024-11-28 13:00 | XMS_ITS | Encounter Summary ---
Author Organization [employer] ([place], [place], [place], [place]) Address [address] [place] [address] Care Team Providers Care Community Development Specialist Name Role Phone Evans Butler MD Primary Care Provider [phone] Venessa Ortiz PA-C Unavailable Unavailable Reason for Visit * Reason Comments Follow-up 1 month follow up. P ost Ablation Encounter Details Date Type Department Care Team (Late st Contact Info) Description 11/28/2024 1:00 PM EDT Office Visit [facility] Electrophysiology [address] [place] [address] [place] [address] [place] [address] [address] [place] [address] Palpitations (Primary Dx) Social History Tobacco Use Types Packs/Day Years Used Date Smoking Tobacco: Never Passive Smoke Exposure: Never Smokeless Tobacco: Never Tobacco Cessation:Counseling Given: Not Answered Alcohol Use Standard Drinks/Week Comments Not Currently 0 (1 standard drink = 0.6 oz pur e alcohol) Utilities Answer Date Recorded In the past 12 months, has t he electric, gas, oil, or water company threatened to shut off services in your home? No 10/06/2024 Interpersonal Safety Answer Date Record ed How often does anyone, bernard mahmood family and friends, physically hurt you? Never 10/06/2024 How often does anyone, bernard mahmood family and friends, insult or talk down to you? Never 10/06/2024 How often does anyone, bernard mahmood family and friends, threaten you with harm? Never 10/06/2024 How often does anyone, bernard mahmood family and friends, scream or curse at you? Never 10/06/2024 Housing Stability Answer Date Recorded What is your living situation today? I have a [place] place to live 10/06/[address] you li ve. Do you have problems with any of the following? None of the above 10/06/2024 Food Insecurity Answer Date Recorded Within the past 12 months, y ou worried that your food would run out before you got money to buy more. Never true 10/06/2024 Within the past 12 months, t he food you bought just didn't last and you didn't have money to get more. Never true 10/06/2024 Transportation Needs Answer Date Record ed In the past 12 months, has l ack of reliable transportation kept you from medical appointments, meetings, work or from getting things needed for daily living? No 10/06/2024 Financial Resource Strain Answer Date R ecorded How hard is it for you to pa y for the very basics like food, housing, medical care, and heating? Would you say it is: Somewhat hard 10/06/2024 Employment Answer Date Recorded Do you want help finding or keeping work or a job? I do not need or want help 10/06/2024 Family and Community Support Answer Chong e Recorded If for any reason you need h elp with day-to-day activities such as bathing, preparing meals, shopping, managing finances, etc., do you get the help you need? I don't need any help 10/06/2024 Feeling Lonely or Isolated 0 10/06 Educational Attainment Answer Date Vince rded Do you speak a language other than [place] at [facility]? No 10/06/2024 Do you want help with school or training? For example, starting or completing job training or getting a high school diploma, GED or equivalent. No 10/06/2024 Physical Activity Answer Date Recorded Number of minutes of exercise per week 0 10/06/2024 Self Management Answer Date Recorded Because of a physical, menta l, or emotional condition, do you have serious difficulty concentrating, remembering, or making decisions? (5 years or older) Yes 06/26/2024 Because of a physical, menta l, or emotional condition, do you have difficulty doing errands alone such as visiting a doctor's office or shopping? (15 years or older) Yes 06/26/2024 Substance Use Answer Date Recorded How many times in the past y ear have you used prescription drugs for non-medical reasons? Never 10/06/2024 How many times in the past year have you used [place] legal drugs? Never 10/06/2024 Mental Health Answer Date Recorded Calculation of above two rows 0 Sex and Gender Information Value Date Recorded Sex Assigned at Not on file Legal Sex Male 8:08 PM CDT Gender Identity Not on file Sexual Orientation Not on file documented as of this encounter Last Filed Vital Signs Vital Sign Reading Time Taken Comments Blood Pressure 142/80 11/28/2024 1:20 PM EDT Pulse 75 11/28/2024 1:20 PM EDT Temperature - - Respiratory Rate - - Oxygen Saturation 96% 11/28/2024 1:20 PM EDT Inhaled Oxygen Concentration - - Weight 117.5 kg (259 lb) 11/28/2024 1:20 PM EDT Height 177.8 cm (5' 10 ) 11/28/2024 1:20 PM EDT Body Mass Index 37.16 11/28/2024 1:20 PM EDT documented in this encounter Functional Status * Are you deaf or do you have serious difficulty hearing? Answer Date of Assessment Author No 06/05/2024 1:52 PM CDT Keny Palacio RN * Are you blind or do you have serious difficulty seeing, even when wearing glasses? Answer Date of Assessment Author No 06/05/2024 1:52 PM CDT Keny Palacio RN * Do you have serious difficulty walking or climbing stairs? Answer Date of Assessment Author Yes 06/05/2024 1:52 PM CDT Keny Palacio RN * Do you have serious difficulty dressing or bathing? Answer Date of Assessment Author No 06/05/2024 1:52 PM CDT Keny Palacio RN * Because of a physical, mental, or emotional condition, do you have serious difficulty doing errandsalone such as visiting the doctor? Answer Date of Assessment Author No 06/05/2024 1:52 PM Keny Navarro RN documented as of this encounter Mental Status * Because of a physical, mental, or emotional condition, do you have serious difficulty concentrating, remembering, or making decisions? (5 years old or older) Answer Entry Date Author No 06/05/2024 1:52 PM Keny Navarro RN documented in this encounter Progress Notes * Feng Reinoso MD - 11/28/2024 1:00 PM EDT Reason For Visit: 64 y.o. male here for a follow-up visit Medications: Scheduled Medications: More meds Current Outpatient Medications on File Prior to Visit Medication Sig Dispense Refill allopurinoL (ZYLOPRIM) 100 MG tablet Take 1 tablet (100 mg total) by mouth 3 (three) times daily. apixaban (ELIQUIS) 5 mg tab tablet Take 1 tablet (5 mg total) by mouth 2 (two) times daily. 60 tablet 11 atorvastatin (LIPITOR) 40 MG tablet Take 1 tablet (40 mg total) by mouth nightly. cholecalciferol, vitamin D3, 25 mcg (1,000 unit) capsule Take 1 capsule (1,000 Units total) by mouth daily. insulin degludec (Tresiba FlexTouch U-200) 200 unit/mL (3 mL) inpn as directed 70 Unit inject belowskin twice daily ivabradine (CORLANOR) 5 mg tab tablet TAKE 1/2 TAB BY MOUTH TWICE A DAY FOR 30 DAYS 30 tablet 0 levothyroxine (SYNTHROID, LEVOTHROID) 75 MCG tablet Take 1 tablet (75 mcg total) by mouth Every morning on an empty stomach. midodrine (PROAMATINE) 5 MG tablet Take 1 tablet (5 mg total) by mouth. pantoprazole (PROTONIX) 40 MG tablet Take 1 tablet (40 mg total) by mouth. sevelamer carbonate (RENVELA) 800 mg tablet Take 1 tablet (800 mg total) by mouth 3 (three) times daily with meals. No current facility-administered medications on file prior to visit. Problem list and diagnosis Patient Active Problem List Diagnosis ESRD (end stage renal disease) (HCC) Kidney failure STEWART (acute kidney injury) (HCC) Coronary artery disease Diabetes mellitus, type 2 ([facility]) Hypertension Obesity Foot infection Rectal bleeding Chronic diastolic (congestive) heart failure ([facility]) Disorder of thyroid, unspecified Dependence on renal dialysis ([facility]) Hyperlipidemia, unspecified NSTEMI (non-ST elevated myocardial infarction) ([facility]) Obstructive sleep apnea Oxygen dependent 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 associated with type 2 diabetes mellitus ([facility]) BMI 40.0-44.9, adult ([facility]) GI bleed GIB (gastrointestinal bleeding) Hematochezia Atrial flutter ([facility]) Cardiac arrest ([facility]) Tubulovillous adenoma of colon History of GI bleed Fistula Type 2 diabetes mellitus with diabetic chronic kidney disease ([facility]) Shortness of breath 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 Allergies: Allergies Allergen Reactions Sulfa (Sulfonamide Antibiotics) Other Reaction(s): Hives Sulfamethoxazole-Trimethoprim Hives Ibuprofen Low kidney function Physical Exam: There were no vitals taken for this visit. General: Alert and oriented. Eye: Pupils are equal, round and reactive to light. HENT: Normocephalic. Neck: Supple, Non-tender, No carotid bruit, No jugular venous distention. Respiratory: Lungs are clear to auscultation, Respirations are non-labored. Cardiovascular: regular rhythm, No murmur, Good pulses equal in all extremities. Jugular Veins: Not distended. Gastrointestinal: Soft, Non-tender, Non-distended, Normal bowel sounds. Musculoskeletal: Normal range of motion. Integumentary: Warm, Dry, [place]. Neurologic: No obvious focal deficit Psychiatric: Cooperative, Appropriate mood & affect. Labs, Imaging, and Other Studies: Echo Results (last 7 days) No results found for the last 168 hours. Lab Results Component Value Date K 3.5 10/07/2024 Lab Results Component Value Date CREATININE 4.03 (H) 10/07/2024 eGFR (mL/min/1.73m2) Date Value Ref Range Status 10/07/2024 16 (L) >=60 mL/min/1.73m2 Final 06/20/2024 12 (L) >=60 mL/min/1.73m2 Final Comment: ESTIMATED GFR IS NOT ACCURATE CREATININE CLEARANCE IN PREDICTING GLOMERULAR FILTRATION RATE. ESTIMATED GFR IS NOT APPLICABLE FOR DIALYSIS PATIENTS. Lab Results Component Value Date HGB 7.7 (L) 10/07/2024 Lab Results Component Value Date PLT 132 (L) 10/07/2024 No results found for: TSH No results found for: MAGNESIUM AST Date Value Ref Range Status 10/06/2024 27 11 - 34 U/L Final Comment: AST2 reagent used for testing does not contain P5P supplementation and therefore may miss AST elevations in patients with B6 deficiency. This population may be as high as 10% in the [place], with risk factors including malabsorption, drug interactions, and alcoholic hepatitis. ALT Date Value Ref Range Status 10/06/2024 13 <=45 U/L Final Comment: ALT2 reagent used for testing does not contain P5P supplementation and therefore may miss ALT elevations in patients with B6 deficiency. This population may be as high as 10% in the [place], with risk factors including malabsorption, drug interactions, and alcoholic hepatitis. HPI: Patient is here for follow-up on 11/28/2024. He underwent CTI ablation on 10/04/2024. He is been doing a lot of better overall stop the metoprolol the Corlanor and the midodrine. His blood pressure too high. Will start a baby dose of amlodipine. He needs to have a dialysis fistula placed. Assessment and Plan: Niraj Enrique is a 64 y.o. male, is here for hospital follow-up from June 2024. Patient has a past medical history of: Atrial flutter with 2:1 conduction in setting of shock, acute GIB and respiratory failure [id number] of 3 First AF episode appears to be on 06/26 was in sinus rhythm on 06/20/2024 4/2 cardiac arrest after severe hypoxia, ROSC 7 minutes [id number] cardioversion on 07/13/2024. Discussed the option of watchman because of the bleeding. CTI ablation on 10/04/2024 by Kemar keys see above Chronic diastolic heart failure EF 55% normal wall motion in May 202409/[address] Rutledge; LM normal, 30% LAD stenosis, RCA dominant with 30% stenosis, occluded PDA with collaterals ABLA due to GIB Colonic polyps removed, recurrent bleeding, sites clipped Diarrhea due to Norovirus ESRD on HD HTN HLD Morbid obesity with CHRISTIE Thyroid disorder The patient presents today on 07/27/2024 with his brother that takes care of him.. He is back in flutter unfortunately despite triple therapy and amiodarone. He had no bleeding back. I will stop his aspirin. We discussed options that include flutter ablation and Watchman device. We discussed all the risk and the benefits. He is very concerned because he has bad experiences with intubations. Told him that we would do everything to use LMAC and not intubate him but ultimately it is the anesthesiology decision. Also he has a fistula close to his rectum that he needs GI to fix. At this stage we will proceed with flutter ablation though he and his brother are scared. Will holdthe Eliquis the morning of the procedure. Will stop the Corlanor the day before the procedure. 2 days before the procedure we will cut the metoprolol by half to 25 mg twice a day and do not take the metoprolol the morning of the procedure. Will keep patient overnight. Patient is here for follow-up on 11/28/2024. He underwent CTI ablation on 10/04/2024. He is been doing a lot of better overall stop the metoprolol the Corlanor and the midodrine. His blood pressure too high. Will start a baby dose of amlodipine. He needs to have a dialysis fistula placed. Follow-up in 6 months documented in this encounter Plan of Treatment Upcoming Encounters Date Type Department Care Team (Late st Contact Info) Description 05/31/2025 12:45 PM EST Office Visit [facility] Electrophysiology [address] [place] [address] Feng Reinoso MD [address] [place] [address] [address] [place] [address] documented as of this encounter Procedures Procedure Name Priority Date/Time Associated Diagnosis Comments [id number] 12-LEAD Routine 11/28/2024 1:13 P M EDT Palpitations documented in this encounter Results * ECG 12 lead (11/28/2024 1:13 PM EDT) us Feng Reinoso MD ECG ORDERABLES Final Result documented in this encounter Visit Diagnoses Diagnosis Palpitations- Primary documented in this encounter Care Teams Community Development Specialist Relationship Specialty Start Date End Date Evans Butler MD [address] [place] [address] PCP - General Family Medicine 06/17/24 Venessa Ortiz PA-C [address] [place] [address] Gastroenterology 09/05/24 documented as of this encounter
--- OUTSIDE RECORDS SUMMARY | 2024-12-14 06:31 | XMS_ITS | Clinical Summary ---
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 Active allopurinoL (ZYLOPRIM) 100 MG tablet Take 1 tablet (100 mg total) by mouth 3 (three) times daily. Active atorvastatin (LIPITOR) 40 MG tablet Take 1 tablet (40 mg total) by mouth nightly. Active sevelamer carbonate (RENVELA) 800 mg tablet Take 1 tablet (800 mg total) by mouth 3 (three) times daily with meals. Active cholecalciferol, vitamin D3, 25 mcg (1,000 unit) capsule Take 1 capsule (1,000 Units total) by mouth daily. Active insulin degludec (Tresiba FlexTouch U-200) 200 unit/mL (3 mL) inpn as directed 70 Unit inject below skin twice daily 03/29/19 25 Active midodrine (PROAMATINE) 5 MG tablet Take 1 tablet (5 mg total) by mouth. 07/15/19 25 Active pantoprazole (PROTONIX) 40 MG tablet Take 1 tablet (40 mg total) by mouth. 08/03/19 25 Active apixaban (ELIQUIS) 5 mg tab tabletIndications: prevent thromboembolism in chronic atrial fibrillation Take 1 tablet (5 mg total) by mouth 2 (two) times daily. 60 tablet 11 10/10/19 25 Active amLODIPine (NORVASC) 5 MG tablet Take 0.5 tablets (2.5 mg total) by mouth daily. 45 tablet 3 11/29/19 25 026 Active ivabradine (CORLANOR) 5 mg tab tablet TAKE 1/2 TAB BY MOUTH TWICE A DAY FOR 30 DAYS 30 tablet 10/14/19 25 025 Discontinued Active Problems Problem Noted Date Diagnosed Date Gastroesophageal reflux disease 10/04/2024 Atrial fibrillation 10/04/2024 Cardiac arrest 09/05/2024 Tubulovillous adenoma of colon 09/05/2024 History of GI bleed 09/05/2024 Fistula 09/05/2024 Other disorders of phosphorus metabolism 025 Anemia in chronic kidney disease 08/09/2024 Atrial flutter 08/03/2024 Type 2 diabetes mellitus wit h diabetic chronic kidney disease 08/01/2024 Shortness of breath 08/01/2024 Coagulation defect, unspecified 08/01/2024 Anaphylactic shock, unspecified, initial encount er 08/01/2024 GI bleed 06/17/2024 GIB (gastrointestinal bleeding) 06/17/2024 Hematochezia 06/17/2024 NSTEMI (non-ST elevated myocardial infarction) 0 05/29/2024 BMI 40.0-44.9, adult 05/29/2024 Foot infection 05/24/2024 Rectal bleeding 05/24/2024 Chronic diastolic (congestive) heart failure Dependence on renal dialysis 02/11/2024 Oxygen dependent 02/11/2024 Coronary artery disease 01/24/2024 Hypertension 01/24/2024 Obesity 01/24/2024 Kidney failure 01/21/2024 STEWART (acute kidney injury) 01/21/2024 ESRD (end stage renal disease) 11/22/2023 Disorder of thyroid, unspecified 03/29/2023 Hyperlipidemia, unspecified 03/29/2023 Obstructive sleep apnea 03/29/2023 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 associated with type 2 diabetes mellitus 10/09/2020 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 associated with type 2 diabetes mellitus 10/09/2020 Diabetes mellitus, type 2 11/20/2016 Encounters Date Type Department Care Team Description 11/28/2024 1:00 PM EDT Office Visit [facility] Electrophysiology [address] [place] [phone] Rodolfo Grimes MD Palpitations (Primary Dx) 11/28/2024 Travel 11/02/2024 Travel 10/09/2024 Orders Only [facility] Electrophysiology [address] [place], [place] [phone] Jonas Mejia RN 10/09/2024 Telephone [facility] Cardiology [address] [place], [place] [phone] Rodolfo Grimes MD Medication Refill 10/09/[address] [phone] Evans Butler MD Hospital Follow Up 10/06/2024 8:11 AM EDT - 10/07/2024 1:25 PM EDT Hospital Encounter [facility] Cardiac Telemetry [address] [place] [address] Bharati Rodríguez MD Khan, Imran, MD Acute respiratory failure (HCC) (Primary Dx); Pulmonary edema; ESRD (end stage renal disease) on dialysis (HCC); Paroxysmal atrial fibrillation (HCC) Discharge Disposition: Home or Self Care 10/06/2024 Travel 10/04/2024 4:56 PM EDT - 10/05/2024 1:02 PM EDT Hospital Encounter [place] [address] Interventional [facility] [address] [place] [address] Rodolfo Grimes MD Gastroesophageal reflux disease (Primary Dx); Typical atrial flutter (HCC) Discharge Disposition: Home or Self Care 10/04/2024 12:24 PM EDT - 10/04/2024 4:55 PM EDT Hospital Encounter [facility] Cardiology [address] [place] [phone] Rodolfo Grimes MD Hx of atrial flutter Discharge Disposition: Home or Self Care 10/04/2024 11:54 AM EDT Anesthesia Event [facility] Electrophysiology Lab [address] [place] [phone] Luca Meyer MD Maynard, Derek, ROSA 10/04/2024 Travel 10/03/2024 Telephone [facility] Electrophysiology [address] [place] [phone] Jonas Mejia, house visitor Only 09/26/2024 Orders Only [facility] Electrophysiology [address] [place] [phone] Jonas Mejia RN 09/26/2024 Telephone [facility] Electrophysiology [address] [place] [phone] Rodolfo Grimes MD Medication Management; Medication Refill 09/21/2024 Refill [facility] Electrophysiology Lab [address] [place] [phone] Rodolfo Grimes MD from Last 3 Months Immunizations Immunization Administration Dates Next Due INFLUENZA(FLULAVAL,FLUZONE,F LUARIX)_0.5mL(6MOS+)TRI(IMM 129) 01/26/2024 Social History Tobacco Use Types Packs/Day Years [...] Do you speak a language other than Jordanian at [facility]? No 10/06/2024 Do you want help with [...] on file Sexual Orientation Not on file Last Filed Vital Signs Vital Sign Reading Time Taken Comments Blood Pressure 142/80 11/28/2024 1:20 PM EDT Pulse 75 11/28/2024 1:20 PM EDT Temperature 36.5 C (97.7 F) 10/07/2024 12:25 PM EDT Respiratory Rate 16 10/07/2024 12:25 PM EDT Oxygen Saturation 96% 11/28/2024 1:20 PM EDT Inhaled Oxygen Concentration 40% 10/07/2024 5 :05 AM EDT Weight 117.5 kg (259 lb) 11/28/2024 1:20 PM EDT Height 177.8 cm (5' 10 ) 11/28/2024 1:20 PM EDT Body Mass Index 37.16 11/28/2024 1:20 PM EDT Plan of Treatment Upcoming Encounters Date Type Department Care Team (Late st Contact Info) Description 05/31/2025 12:45 PM EST Office Visit [facility] Electrophysiology [address] [place] [phone] Rodolfo Grimes MD [address] [place] [address] [address] [place] [address] Health Maintenance Due Date Last Done Comments CT Colonography 1960 FOBT/FIT 1960 Fit-DNA (Cologuard) 1960 Sigmoidoscopy 1960 Diabetic Eye Exam 01/04/1968 Depression Screening (12+) 1970 DTAP/TDAP/TD VACCINES (1 - Tdap) 1977 Pneumococcal 50+ years (1 of 2 - PCV) 1977 Respiratory Syncytial Virus (RSV) Adult or (1 - Risk 60-74 years 1-dose series) 2018 Medicare Initial AWV G0438 03/30/2023 Hemoglobin A1C 01/24/2024 Falls Risk Screening 03/29/2024 COVID-19 VACCINE (6 - 2024-2 6 season) 2024 02/10/2023, 12/30/2021, 04/11/2021, Additional history exists Influenza Vaccine (#1) 2024 01/26/2024, 2022 Tobacco Cessation Counseling and Screening (12+) 11/28/2025 11/28/2024 Colonoscopy 06/29/2034 06/29/2024, 05/30/2024 Colorectal Cancer Screening 06/29/2034 Shingles Vaccine (Zoster) Completed 04/29/2023, Hepatitis C Screening Completed 06/20/2024, 024 Procedures Procedure Name Priority Date/Time Associated Diagnosis Comments FS_MODEL_IP_ECG 12-LEAD Routine 11/28/2024 1:13 PM EDT Palpitations NOVA GLUCOSE POC Routine 10/07/2024 5:43 AM EDT BASIC METABOLIC PANEL STAT 10/07/2024 4:09 AM EDT CBC HEMOGRAM (SJ-BKR) STAT 10/07/2024 4:09 AM EDT NOVA GLUCOSE POC Routine 10/06/2024 8:11 PM EDT NOVA GLUCOSE POC Routine 10/06/2024 6:38 PM EDT NOVA GLUCOSE POC Routine 10/06/2024 1:25 PM EDT ECHO COMPLETE (DOPPLER / COLOR) WO CONTRAST Routine 10/06/2024 11:36 AM EDT XR CHEST 1 VIEW PORTABLE / BEDSIDE STAT 10/06/2024 8:32 AM EDT BLOOD GAS, ARTERIAL STAT 10/06/2024 8 :31 AM EDT [place] BLUE TOP (EXTRA TUBES) STAT 10/06/2024 8:25 AM EDT [place] EXTRA TUBES STAT 10/06/2024 8:25 AM EDT HEPATITIS B SURFACE ANTIGEN Add-On 10/06/2024 8:24 AM EDT HIGH SENSITIVITY TROPONIN I STAT 10/06/2024 8:24 AM EDT MAGNESIUM STAT 10/06/2024 8:24 AM EDT COMPREHENSIVE METABOLIC PANEL STAT 10/06/2024 8:24 AM EDT CBC W/ AUTO DIFF STAT 10/06/2024 8:24 AM EDT FS_SJ[facility]_MODEL CRITICAL CARE Routine 10/06/2024 8:23 AM EDT FS_MODEL_IP_ECG 12-LEAD STAT 10/06/2024 8:17 AM EDT EKG-SCANNED 10/06/2024 NOVA GLUCOSE POC Routine 10/05/2024 11:2 4 AM EDT NOVA GLUCOSE POC Routine 10/05/2024 7:49 AM EDT FS_MODEL_IP_ECG 12-LEAD Routine 10/05/2024 6:49 AM EDT BASIC METABOLIC PANEL Routine 10/05/2024 5:17 AM EDT CBC HEMOGRAM (SJ-BKR) Routine 10/05/2024 5:17 AM EDT NOVA GLUCOSE POC Routine 10/05/2024 12:5 2 AM EDT FS_MODEL_IP_ECG 12-LEAD Routine 10/04/2024 9:19 PM EDT NOVA GLUCOSE POC Routine 10/04/2024 8:27 PM EDT NOVA GLUCOSE POC Routine 10/04/2024 4:14 PM EDT FS_MODEL_IP_PUNCTURE SITE CARE Routine 10/04/2024 1:50 PM EDT EP LAB - ABLATION - ATRIAL FLUTTER Routine 10/04/2024 1:49 PM EDT Typical atrial flutter (HCC) POCT-ACT Routine 10/04/2024 1:19 PM EDT US GUIDED VASCULAR ACCESS Routine 10/04/2024 1:00 PM EDT Hx of atrial flutter POCT-ACT Routine 10/04/2024 12:58 PM EDT POCT-ACT Routine 10/04/2024 12:47 PM EDT FS_MODEL_IP_ECG 12-LEAD Routine 10/04/2024 8:46 AM EDT COMPREHENSIVE METABOLIC PANEL Routine 10/04/2024 8:38 AM EDT CBC W/ AUTO DIFF Routine 10/04/2024 8:38 AM EDT EKG-SCANNED 10/04/2024 HEPATITIS PANEL, ACUTE Routine 11:31 PM EDT from Last 3 Months or Most Recently Relevant to Health Maintenance Results * ECG 12 lead (11/28/2024 1:13 PM EDT) Only the most recent of5 resultswithin the time period is included. us Rodolfo Grimes MD ECG ORDERABLES Final Result * (ABNORMAL) Glucose, Nova Meter (10/07/2024 5:43 AM EDT) Only the most recent of9 resultswithin the time period is included. Pathologist [facility] POC-GLUCOSE 130(H) 70 - 110 mg/dL 10/07/2024 5:[address] [facility] Comment: In the event of poor peripheral blood flow, venous or arterial blood should be used due to the potential of erroneous results. Notified Nurse RBV Digital Tech [id number] 10/07/2024 5:[address] [facility] Blood WHOLE BLOOD / Unknown 10/07/2024 5:43 AM EDT 10/07/2024 5:[address] [facility] - 10/07/2024 5:44 AM EDT Digital Tech ID is - [id number] us Carley Dove MD POINT OF CARE TEST ORDERABLES Fi nal Result [facility] [address] [place] [address] * (ABNORMAL) CBC - Hemogram (SJ-BKR) (10/07/2024 4:09 AM EDT) Only the most recent of2 resultswithin the time period is included. [facility] WBC 10.7(H) 4.2 - 9.1 K/ L 10/07/2024 5:[address] [facility] RBC 2.30(L) 4.63 - 6.08 M/ L 10/07/2024 5:[address] [facility] Hemoglobin 7.7(L) 13.7 - 17.5 GM/DL 10/07/2024 5:[address] [facility] Hematocrit 24.4(L) 40.1 - 51.0 % 10/07/2024 5:[address] [facility] MCV 106(H) 79 - 92 fL 10/07/2024 5:[address] [facility] MCH 33.5(H) 25.7 - 32.2 pg 10/07/2024 5:[address] [facility] MCHC 31.6(L) 32.3 - 36.5 GM/DL 10/07/2024 5:[address] [facility] RDW 14.8(H) 11.6 - 14.4 % 10/07/2024 5:[address] [facility] Platelets 132(L) 140 - 375 K/CU MM 10/07/2024 5:[address] [facility] MPV 11.1 9.4 - 12.4 fL 10/07/2024 5:[address] [facility] Blood Venipuncture / Unknown 10/07/2024 4:09 AM EDT 10/07/2024 4:50 AM EDT us Carley Dove MD LAB BLOOD ORDERABLES Final Resul t [facility] [address] [place] [address] * (ABNORMAL) Basic Metabolic Panel (10/07/2024 4:09 AM EDT) Only the most recent of2 resultswithin the time period is included. Sodium 137 136 - 145 meq/L 10/07/2024 5:[address] [facility] Potassium 3.5 3.4 - 5.1 meq/L 10/07/2024 5:[address] [facility] CO2 28 22 - 29 meq/L 10/07/2024 5:[address] [facility] Chloride 101 98 - 112 meq/L 10/07/2024 5:[address] [facility] Glucose 159(H) 82 - 115 mg/dL 10/07/2024 5:[address] [facility] BUN 33.3(H) 8.4 - 25.7 mg/dL 10/07/2024 5:[address] [facility] Creatinine 4.03(H) 0.72 - 1.25 mg/dL 10/07/2024 5:[address] [facility] BUN/Creatinine 8 8 - 20 10/07/2024 5:[address] [facility] Calcium 8.0(L) 8.4 - 10.2 mg/dL 10/07/2024 5:[address] [facility] Anion Gap 12 4 - 12 10/07/2024 5:[address] [facility] eGFR (mL/min/1.73m2) 16(L) >=60 mL/min/1.7 3m2 10/07/2024 5:[address] [facility] Osmolality Calc 284.5 mOsm/kg 5:[address] [facility] Blood Venipuncture / Unknown 10/07/2024 4:09 AM EDT 10/07/2024 4:57 AM EDT us Carley Dove MD LAB BLOOD ORDERABLES Final Resul t [facility] [address] [place] [address] * ECHO COMPLETE (DOPPLER / COLOR) WO CONTRAST (10/06/2024 11:36 AM EDT) Anatomical Region Laterality Modality Heart Vascular Ultraso und 10/06/2024 11:2 6 AM EDT Narrative 10/07/2024 12:30 PM EDT TRANSTHORACIC ECHOCARDIOGRAPHY REPORT Demographics Patient Name: THANG CAVANAUGH : 1960 [place] Age: 64 year(s) Corporate ID Number: [id number] Gender Male Design Editor: Cleopatra Sawant Height: 70 inches RDCS Referring Physician: CLARA RODRÍGUEZ Weight: 262 pounds Interpreting RODOLFO GRIMES MD BMI: 37.59 kg/m^2 Physician: Date of Service: 10/06/2024 Blood Pressure: 128/60 mmHg Room Number: ED 15 Type of Study: TTE procedure: ECHO COMPLETE (DOPPLER / COLOR) W OR WO CONTRAST. Patient Status: Routine IP Study Location: PortableTechnical Quality: Adequate visualization Allergies - Sulfa. - Bactrim. - Ibuprofen. History/Tech Notes: Indication: shortness of breath R06.02 Impression: ######################################## Normal sized left ventricle. Mild left ventricular hypertrophy. Visually estimated ejection fraction 65% +/- 5%. Borderline systolic strain pattern. Indeterminate diastolic function. No hemodynamically significant valvular heart disease. Elevated central venous pressure >15mmHg. ###################################### Measurements Summary: LVEDd: 4.22 cm LVESd: 2.04 cm IVSEd: 1.06 cm AO Root:3.15 cm LVPWd: 0.99 cm Contractility Score Normal Left Ventricular contractility was noted. LV regional wall motion: (0-Not visualized 1-Normal 2-Hypokinesis 3-Akinesis 4-Dyskinesis 5-Aneurysm) Left Ventricle Peak E-wave: 1.32 Peak A-wave: 0.72 m/s E/A ratio: 1.83 m/s Volume [id number] LV length: 8.56 cm ml Volume [id number] ml LVOT diameter: 1.53 cm Normal sized left ventricle. Mild left ventricular hypertrophy. Visually estimated ejection fraction 65% +/- 5%. Borderline systolic strain pattern. Indeterminate diastolic function. No left ventricular masses or thrombi. Right Ventricle Diastolic dimension: 3.98 cm Normal sized right ventricle. Normal TAPSE c/w normal right ventricular function Left Atrium LA dimension: 3.8 cm LA volume:57.45 ml LA/Aorta: 1.21 Normal sized left atrium. Normal left atrial volume index 25 ml/m^2. Intact atrial septum. No atrial mass or thrombus. Right Atrium Normal sized right atrium. Intact atrial septum. No atrial mass or thrombus. Mitral Valve Deceleration time: 180.26 msec Structurally normal mitral valve. No mitral regurgitation. No mitral stenosis. No masses or vegetations seen. Aortic Valve LVOT VTI: 29.77 cm Three cusped aortic valve No aortic regurgitation. No aortic stenosis. No masses or vegetations seen. Tricuspid Valve Structurally normal tricuspid valve. Trace tricuspid regurgitation. No tricuspid stenosis. No masses or vegetations seen. Pulmonic Valve Acceleration time: 68.51 msec Structurally normal pulmonic valve. No pulmonic regurgitation. No pulmonic stenosis. Abnormal pulmonary acceleration time. No masses or vegetations seen. Great Vessels Aorta Aortic Root: 3.15 cm LVOT Diameter: 1.53 cm Visualized thoracic aorta is normal. Normal aortic root. No evidence of dissection. Dilated IVC with no inspiratory collapse. Elevated central venous pressure >15mmHg. Pericardium / Pleura No pericardial effusion. Procedure Note Rodolfo Grimes MD - 10/07/2024 TRANSTHORACIC ECHOCARDIOGRAPHY REPORT Demographics Patient Name: THANG CAVANAUGH : 1960 [facility] Age: 64 year(s) Corporate ID Number: [id number] Gender Male Design Editor: Cleopatra Sawant Height: 70 inches [facility] Referring Physician: CLARA RODRÍGUEZ Weight: 262 pounds Interpreting RODOLFO GRIMES MD BMI: 37.59 kg/m^2 Physician: Date of Service: 10/06/2024 Blood Pressure: 128/60 mmHg Room Number: ED 15 Type of Study: TTE procedure: ECHO COMPLETE (DOPPLER / COLOR) W OR WO CONTRAST. Patient Status: Routine IP Study Location: PortableTechnical Quality: Adequate visualization Allergies - Sulfa. - Bactrim. - Ibuprofen. History/Tech Notes: Indication: shortness of breath R06.02 Impression: ######################################## Normal sized left ventricle. Mild left ventricular hypertrophy. Visually estimated ejection fraction 65% +/- 5%. Borderline systolic strain pattern. Indeterminate diastolic function. No hemodynamically significant valvular heart disease. Elevated central venous pressure >15mmHg. ###################################### Measurements Summary: LVEDd: 4.22 cm LVESd: 2.04 cm IVSEd: 1.06 cm AO Root:3.15 cm LVPWd: 0.99 cm Contractility Score Normal Left Ventricular contractility was noted. LV regional wall motion: (0-Not visualized 1-Normal 2-Hypokinesis 3-Akinesis 4-Dyskinesis 5-Aneurysm) Left Ventricle Peak E-wave: 1.32 Peak A-wave: 0.72 m/s E/A ratio: 1.83 m/s Volume fybftazhz06.61 LV length: 8.56 cm ml Volume uyynbixl59.36 ml LVOT diameter: 1.53 cm Normal sized left ventricle. Mild left ventricular hypertrophy. Visually estimated ejection fraction 65% +/- 5%. Borderline systolic strain pattern. Indeterminate diastolic function. No left ventricular masses or thrombi. Right Ventricle Diastolic dimension: 3.98 cm Normal sized right ventricle. Normal TAPSE c/w normal right ventricular function Left Atrium LA dimension: 3.8 cm LA volume:57.45 ml LA/Aorta: 1.21 Normal sized left atrium. Normal left atrial volume index 25 ml/m^2. Intact atrial septum. No atrial mass or thrombus. Right Atrium Normal sized right atrium. Intact atrial septum. No atrial mass or thrombus. Mitral Valve Deceleration time: 180.26 msec Structurally normal mitral valve. No mitral regurgitation. No mitral stenosis. No masses or vegetations seen. Aortic Valve LVOT VTI: 29.77 cm Three cusped aortic valve No aortic regurgitation. No aortic stenosis. No masses or vegetations seen. Tricuspid Valve Structurally normal tricuspid valve. Trace tricuspid regurgitation. No tricuspid stenosis. No masses or vegetations seen. Pulmonic Valve Acceleration time: 68.51 msec Structurally normal pulmonic valve. No pulmonic regurgitation. No pulmonic stenosis. Abnormal pulmonary acceleration time. No masses or vegetations seen. Great Vessels Aorta Aortic Root: 3.15 cm LVOT Diameter: 1.53 cm Visualized thoracic aorta is normal. Normal aortic root. No evidence of dissection. Dilated IVC with no inspiratory collapse. Elevated central venous pressure >15mmHg. Pericardium / Pleura No pericardial effusion. us Carley Dove MD CV ECHO ORDERABLES Final Result * XR chest 1 view portable / bedside (10/06/2024 8:32 AM EDT) Anatomical Region Laterality Modality X-Ray 10/06/2024 9:16 AM EDT Impressions 10/06/2024 9:45 AM EDT Interval worsening as above. Continued follow up recommended. Images reviewed, interpreted, and dictated by Dr. Nick Camejo. Transcribed by Ambika Og PA-C. Narrative 10/06/2024 9:45 AM EDT PORTABLE CHEST 10/06/2024 8:32 AM HISTORY: Acute shortness of breath. COMPARISON: June 2024. FINDINGS: The heart is stable in size. There has been interval worsening in the perihilar and bibasilar opacities. The lungs are hypoaerated. There are small bilateral pleural effusions. There is no pneumothorax. The support devices are in good position. Procedure Note Sean Camejo MD - 10/06/2024 PORTABLE CHEST 10/06/2024 8:32 AM HISTORY: Acute shortness of breath. COMPARISON: June 2024. FINDINGS: The heart is stable in size. There has been interval worsening in the perihilar and bibasilar opacities. The lungs are hypoaerated. There are small bilateral pleural effusions. There is no pneumothorax. The support devices are in good position. IMPRESSION: Interval worsening as above. Continued follow up recommended. Images reviewed, interpreted, and dictated by Dr. Nick Camejo. Transcribed by Ambika Og PA-C. Bharati Rodríguez MD IMG DIAGNOSTIC IMAGING ORDERAB LES Final Result * (ABNORMAL) Blood gas, arterial (10/06/2024 8:31 AM EDT) pH, Arterial 7.42 7.35 - 7.45 [facility] p[facility], Arterial 42 35 - 45 mm Hg 10/06/2024 8:[address] [facility] pO2, Arterial 72(L) 80 - 100 mm Hg 10/06/2024 8:50 AM [facility] HCO3, Arterial 28(H) 20 - 26 mmol/L 10/06/2024 8:50 AM [facility] Base Excess, Arterial 2.9(H) -2.0 - 2.0 mmol/L 10/06/2024 8:50 AM [facility] O2 Sat, Arterial 96.1 95.0 - 100.0 % 10/06/2024 8:[address] [facility] CTO2 ARTERIAL 11.0 mmol/L 10/06/2024 8:50 AM [facility] THB ARTERIAL 8.2(L) 12.0 - 18.0 g/dL 10/06/2024 8:50 AM [facility] COLLECTION SITE Left Brachial 10/06/2024 8:50 AM [facility] Arterial Puncture Yes 10/06/2024 8:50 AM [facility] Blood Gas O2 Delivery Device Cannula 10/06/2024 8:50 AM [facility] Oxygen Flow Rate 5 10/06/2024 8:[address] [facility] Blood Gas PT Temperature C 37.0 10/06/2024 8:[address] [facility] Chauncey's Test Not Applicable 10/07/19 8:[address] [facility] ABG Number of Draw Attempts 2 10/06/2024 8:[address] [facility] FIO2 10/06/2024 8:[address] [facility] Blood Gas Temperature Corrected Results No No 10/06/2024 8:[address] [facility] Blood, Arterial Collection / Unknown 10/06/2024 8:31 AM EDT 10/06/2024 8:50 AM EDT us Bharati Rodríguez MD LAB BLOOD ORDERABLES Final Res ult Performing Organization Address [facility] Co de Phone Number [facility] [address] [place] [address] * Blue Top Extra Tubes (10/06/2024 8:25 AM EDT) HOLD SPECIMEN (SJ - BKR) Hold for add-ons. 10/06/2024 10:[address] [facility] Comment:Auto resulted. Blood Venipuncture / Unknown 10/06/2024 8:25 AM EDT 10/06/2024 8:27 AM EDT us Bharati Rodríguez MD LAB BLOOD ORDERABLES Final Res ult Performing Organization Address [facility]/ZIP Co de Phone Number [facility] [address] [phone] * (ABNORMAL) CBC with Auto Diff (10/06/2024 8:24 AM EDT) Only the most recent of2 resultswithin the time period is included. WBC 11.2(H) 4.2 - 9.1 K/ L 10/06/2024 8:[address] [facility] RBC 2.49(L) 4.63 - 6.08 M/ L 10/06/2024 8:[address] [facility] Hemoglobin 8.5(L) 13.7 - 17.5 GM/DL 10/06/2024 8:[address] [facility] Hematocrit 26.1(L) 40.1 - 51.0 % 10/06/2024 8:[address] [facility] MCV 105(H) 79 - 92 fL 10/06/2024 8:[address] [facility] MCH 34.1(H) 25.7 - 32.2 pg 10/06/2024 8:[address] [facility] MCHC 32.6 32.3 - 36.5 GM/DL 10/06/2024 8:[address] [facility] RDW 15.0(H) 11.6 - 14.4 % 10/06/2024 8:[address] [facility] Platelets 129(L) 140 - 375 K/CU MM 10/06/2024 8:[address] [facility] MPV 11.1 9.4 - 12.4 fL 10/06/2024 8:[address] [facility] % Neutros 85(H) 34 - 68 % 10/06/2024 8:[address] [facility] % Lymphs 7(L) 22 - 53 % 10/06/2024 8:[address] [facility] % Monos 7 5 - 12 % 10/06/2024 8:[address] [facility] % Eos 0(L) 1 - 7 % 10/06/2024 8:[address] [facility] % Baso 0 0 - 1 % 10/06/2024 8:[address] [facility] NRBC Absolute <0.01 0 - 0.012 K/ul 10/06/2024 8:[address] [facility] # Neutros 9.50(H) 1.78 - 5.38 K/ L 10/06/2024 8:[address] [facility] # Lymphs 0.83(L) 1.32 - 3.57 K/ L 10/06/2024 8:[address] [facility] # Monos 0.75 0.30 - 0.82 K/ L 10/06/2024 8:[address] [facility] # Eos 0.03(L) 0.04 - 0.54 K/ L 10/06/2024 8:[address] [facility] # Baso 0.03 0.01 - 0.08 K/ L 10/06/2024 8:[address] [facility] Immature Granulocytes-Re lative 0.50(H) 0.01 - 0.43 % 10/06/2024 8:[address] [facility] # IG 0.06(H) 0.00 - 0.03 K/uL 10/06/2024 8:[address] [facility] Blood Venipuncture / Unknown 10/06/2024 8:24 AM EDT 10/06/2024 8:[address] [facility] - 10/06/2024 8:35 AM EDT When CBC w/ Auto Diff is ordered the lab will add a Manual Differential as a quality check at no additional charge if: Lymphocytes greater than seventy five percent with normal or increased WBC Monocytes greater than Fifteen percent Basophil greater than four percent Bands >10% or several immature myeloids are seen on scan Blast? Flag noted Atypical Lymph flag noted us Bharati Rodríguez MD LAB BLOOD ORDERABLES Final Res ult [facility] [address] [place] [address] * (ABNORMAL) High Sensitivity Troponin I (10/06/2024 8:24 AM EDT) Troponin I High Sensitivity (pg/mL) 226.8(HH) <=35 pg/mL 10/06/2024 9:[address] [facility] Blood Venipuncture / Unknown 10/06/2024 8:24 AM EDT 10/06/2024 8:[address] [facility] - 10/06/2024 9:39 AM EDT Applicable to [facility] only. Effective June 20 the lab will begin using a new chemistry analyzer. HsTroponin methodology, reference ranges and critical values have changed. us Bharati Rodríguez MD LAB BLOOD ORDERABLES Final Res ult Performing Organization Address City/[facility]/ZIP Co de Phone Number [facility] [address] [phone] * Hepatitis B surface antigen (10/06/2024 8:24 AM EDT) Hepatitis B surface antigen Nonreactive Nonreactive 10/06/2024 1:[address] [facility] Blood Venipuncture / Unknown 10/06/2024 8:24 AM EDT 10/06/2024 8:[address] [facility] - 10/06/2024 1:11 PM EDT Specimen slightly hemolyzed us Tamanna Ram MD LAB BLOOD ORDERABLES Final Resul t Performing Organization Address [facility] Co de Phone Number [facility] [address] [phone] * Magnesium (10/06/2024 8:24 AM EDT) Magnesium 1.9 1.6 - 2.6 mg/dL 10/06/2024 9:[address] [facility] Blood Venipuncture / Unknown 10/06/2024 8:24 AM EDT 10/06/2024 8:[address] [facility] - 10/06/2024 9:37 AM EDT Specimen slightly hemolyzed us Bharati Rodríguez MD LAB BLOOD ORDERABLES Final Res ult Performing Organization Address City/[facility]/ZIP Co de Phone Number [facility] [address] [phone] * (ABNORMAL) Comprehensive metabolic panel (10/06/2024 8:24 AM EDT) Only the most recent of2 resultswithin the time period is included. Sodium 137 136 - 145 meq/L 10/06/2024 9:37 AM [facility] Potassium 4.4 3.4 - 5.1 meq/L 10/06/2024 9:37 AM [facility] Chloride 101 98 - 112 meq/L 10/06/2024 9:37 AM [facility] CO2 26 22 - 29 meq/L 10/06/2024 9:37 AM [facility] Calcium 8.7 8.4 - 10.2 mg/dL 10/06/2024 9:37 AM [facility] Glucose 219(H) 82 - 115 mg/dL 10/06/2024 9:37 AM [facility] BUN 63.4(H) 8.4 - 25.7 mg/dL 10/06/2024 9:37 AM [facility] Creatinine 5.89(H) 0.72 - 1.25 mg/dL 10/06/2024 9:37 AM [facility] BUN/Creatinine 11 8 - 20 10/06/2024 9:37 AM [facility] eGFR (mL/min/1.73m2) 10(L) >=60 mL/min/1. 73m2 10/06/2024 9:37 AM [facility] Albumin 2.8(L) 3.5 - 5.0 g/dL 10/06/2024 9:37 AM [facility] Alkaline Phosphatase 146 40 - 150 U/L 10/06/2024 9:37 AM [facility] ALT 13 <=45 U/L 10/06/2024 9:37 AM [facility] Comment: ALT2 reagent used for testing does not contain P5P supplementation and therefore may miss ALT elevations in patients with B6 deficiency. This population may be as high as 10% in the [place], with risk factors including malabsorption, drug interactions, and alcoholic hepatitis. AST 27 11 - 34 U/L 10/06/2024 9:37 AM [facility] Comment: AST2 reagent used for testing does not contain P5P supplementation and therefore may miss AST elevations in patients with B6 deficiency. This population may be as high as 10% in the [place], with risk factors including malabsorption, drug interactions, and alcoholic hepatitis. Total Bilirubin 0.6 0.2 - 1.2 mg/dL 10/06/2024 9:[address] [facility] Protein, Total 7.7 6.4 - 8.3 g/dL 10/06/2024 9:[address] [facility] Globulin 4.9(H) 2.5 - 4.1 g/dL 10/06/2024 9:[address] [facility] Anion Gap 14(H) 4 - 12 10/06/2024 9:[address] [facility] A/G Ratio 0.6(L) 0.7 - 1.9 10/06/2024 9:[address] [facility] Osmolality Calc 298.6 mOsm/kg 9:[address] [facility] Blood Venipuncture / Unknown 10/06/2024 8:24 AM EDT 10/06/2024 8:[address] [facility] - 10/06/2024 9:37 AM EDT Specimen slightly hemolyzed us Bharati Rodríguez MD LAB BLOOD ORDERABLES Final Res ult Performing Organization Address City/State/[facility] Co de Phone Number [facility] [address] [phone] * Critical Care (10/06/2024 8:23 AM EDT) Bharati Peoples MD - 10/06/2024 8:23 AM EDT Bharati Rodríguez MD 10/06/2024 9:52 AM Critical Care Performed by: Bharati Rodríguez MD Authorized by: Bharati Rodríguez MD Critical care provider statement: Critical care time (minutes): 35 Critical care was necessary to treat or prevent imminent or life-threatening deterioration of the following conditions: Respiratory failure Critical care was time spent personally by me on the following activities: Development of treatment plan with patient or surrogate, discussions with consultants, ordering and review of laboratory studies, ordering and review of radiographic studies, ordering and performing treatments and interventions, re-evaluation of patient's condition and evaluation of patient's response to treatment Bharati Rodríguez MD PROCEDURE/MINOR SURGICAL ORDER MIGUEL Final Result * EKG-SCANNED (10/06/2024) Only the most recent of2 resultswithin the time period is included. Narrative 10/06/2024 Ordered by an unspecified provider. us Default Scanning Provider SCAN ORDERS Final Result * EP LAB - ABLATION - ATRIAL FLUTTER (10/04/2024 1:49 PM EDT) Anatomical Region Laterality Modality Heart Other Narrative 10/04/2024 6:14 PM EDT Digital Tech: Rodolfo Grimes MD Indication: 64 y.o. male is here for an EPS and flutter ablation Procedure report: After written informed consent was obtained, the patient was brought to the Electrophysiology Laboratory in a fasting state. Sedation was managed by anesthesia. The right was prepped and draped in the usual manner. 15 ml of 1% lidocaine was infiltrated in the groin for local anesthesia. The following catheters were placed using ultrasound guidance. 1)8 Fr in the right femoral vein. This was used for the 8 Fr ICE catheter then to advance 3.5 mm irrigated D/F ablation catheter with a deflectable sheath for stability. 2.)8 Fr in the right femoral vein. This was used to advance a 6 Fr decapolar deflectable catheter which was placed in the CS for left atrial pacing and recording as well as draw ACT. The ICE catheter was used to inspect the heart prior to ablation. There was a small eustachian ridge/pouch with a normal length CTI. Based on the ICE image, we decided to take an D/F ablation catheter. There was no pericardial effusion present prior to ablation as evidenced with the ICE catheter. The cycle length of the arrhythmia was 280 ms. The activation on the coronary sinus catheter was proximal to distal. Activation mapping was undertaken around the tricuspid annulus. The entire cycle length on the tachycardia was mapped and the activation looked like a counterclockwise flutter. The ICE was used to construct a 3-D model of the CTI. Additional right atrial geometry was acquired with the 3D CARTO electroanatomic system. The following intervals were measured after conversion in sinus rhythm AH 181 ms, HV 45 ms and AV Wenckebach 490 ms. Ablation was carried out from the tricuspid annulus to the ER around the 6 o'clock position. The flutter prolonged in block. We had obtained bidirectional block. The trans-isthmus time post ablation was 180 ms. We used isoproterenol infusion with a drip at 1 mics but no significant PAC or atrial arrhythmia were induced despite atrial burst pacing. In addition, the trans-isthmus time was stable 15 minutes after final ablation and did not recover with the isoproterenol. Catheters and sheaths were removed. Hemostasis was achieved with Perclose devices. Heparin was given during the case to maintain an ACT around 250 or above for thrombosis venous prophylaxis and reversed with protamine at the case. Complications: No immediate complications were observed. There was no pericardial effusion at the end of the procedure. Blood loss around 20 mL. Conclusion: Successful Procedure(s) of: 1. Cavotricuspid isthmus dependent flutter ablation 2. Intracardiac echo 3. Isoproterenol infusion Plan: Discharge tomorrow Rodolfo Grimes MD CV ELECTROPHYSIOLOGY ORDERABLES Final Result * (ABNORMAL) POC ACTIVATED CLOTTING TIME (10/04/2024 1:19 PM EDT) Only the most recent of3 resultswithin the time period is included. Activated Clotting Time 251(H) 74 - 137 sec 10/04/2024 2:[address] [facility] Digital Tech [id number] 10/04/2024 2:[address] [facility] Blood 10/04/2024 1:19 PM EDT 10/04/2024 2:[address] [facility] - 10/04/2024 2:07 PM EDT Digital Tech ID is - [id number] Rodolfo Grimes MD POINT OF CARE TEST ORDERABLES Fi nal Result [facility] [address] [phone] * Ultrasound-guided vascular access (10/04/2024 1:00 PM EDT) Anatomical Region Laterality Modality Vascular Vascular Ultraso und 10/04/2024 12:2 7 PM EDT Narrative 10/04/2024 5:45 PM EDT Vascular Procedure Demographics Patient Name THANG CAVANAUGH GENE Age 64 Patient Number [id number] Gender Male Race Ethnicity Corporate ID [id number] Height Date of 1960 Weight Accession Number [id number] BSA Room Number BMI Referring RODOLFO GRIMES MD Interpreting RODOLFO GRIMES MD Physician Physician Design Editor Mariluz Jacques, T, [facility] Procedure Type of Study: US GUIDED VASCULAR ACCESS : . Impressions Summary INDICATION: Hx of atrial flutter Z86.79 ##################################### RIGHT: Ultrasound guided access of the common femoral vein. CFV was 4 cm in depth and patent. CFV was accessed twice ; successful placement of two wires. ##################################### Allergies - Sulfa. - Bactrim. - Ibuprofen. Patient Status:Outpatient. Study Location:Portable. Technical Quality:Good visualization. Risk Factors History of Disease + +----+--------+ !Diagnosis !Date!Comments! + +----+--------+ !Renal failure ! ! ! + +----+--------+ !CAD ! ! ! + +----+--------+ !Hypertension ! ! ! + +----+--------+ !Diabetes ! ! ! + +----+--------+ Signature Procedure Note Rodolfo Grimes MD - 10/04/2024 Vascular Procedure Demographics Patient Name THANG CAVANAUGH GENE Age 64 Patient Number [id number] Gender Male Race Ethnicity Corporate ID [id number] Height Date of 1960 Weight Accession Number [id number] BSA Room Number BMI Referring RODOLFO GRIMES MD Interpreting RODOLFO DIETRICH Physician Physician Design Editor Mariluz Jacques, T, [facility] Procedure Type of Study: US GUIDED VASCULAR ACCESS : . Impressions Summary INDICATION: Hx of atrial flutter Z86.79 ##################################### RIGHT: Ultrasound guided access of the common femoral vein. CFV was 4 cm in depth and patent. CFV was accessed twice ; successful placement of two wires. ##################################### Allergies - Sulfa. - Bactrim. - Ibuprofen. Patient Status:Outpatient. Study Location:Portable. Technical Quality:Good visualization. Risk Factors History of Disease + +----+--------+ !Diagnosis!Date!Comments! + +----+--------+ !Renal failure ! !! + +----+--------+ !CAD ! !! + +----+--------+ !Hypertension ! !! + +----+--------+ !Diabetes ! !! + +----+--------+ Signature Rodolfo Grimes MD [facility] ORDERABLES Final Result * (ABNORMAL) Hepatitis panel, acute (06/20/2024 11:31 PM EDT) Hep A IgM Nonreactive Nonreactive 06/21/2024 12:[address] [facility] Hep B C IgM Nonreactive Nonreactive 06/21/2024 12:[address] [facility] Hepatitis B surface antigen Nonreactive Nonreactive 06/21/2024 12:[address] [facility] Hepatitis C Ab Presumptive Reactive - Sent Out to Confirm(A) Nonreactive 06/21/2024 12:[address] [facility] Comment: Car Spotter recommends confirmatory testing on all reactives and equivocals. Blood Venipuncture / Unknown 06/20/2024 11:31 PM EDT 06/20/2024 11:37 PM EDT us Tamanna Ram MD LAB BLOOD ORDERABLES Final Resul t [facility] [address] [phone] from Last 3 Months or Most Recently Relevant to Health Maintenance Insurance [facility] MEDICARE HMO Advance Directives For more information, please contact: [phone] * Full Code (Latest Code Status on File) Date Activated Date Inactivated Comments 10/06/2024 9:54 AM 10/07/2024 2:43 PM * Full Code Date Activated Date Inactivated Comments 10/04/2024 12:50 PM 10/05/2024 2:03 PM * Full Code Date Activated Date Inactivated Comments 10/04/2024 7:14 AM 10/04/2024 12:50 PM * Full Code Date Activated Date Inactivated Comments 06/17/2024 6:48 AM 07/13/2024 7:32 PM * Full Code Date Activated Date Inactivated Comments 05/24/2024 5:48 PM 06/05/2024 5:36 PM 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
--- OUTSIDE RECORDS SUMMARY | 2024-12-14 06:31 | XMS_ITS ---
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 Ordering Clinician Indication Dosage Frequency Signature (SIG) Comments Components Mircera 9-13 04:00: 00 Yes [id number] Number of Repeats Allowed: Frequency: REYNALDO dosing, every two weeks Oxygen 8-18 12:11: 10 Yes [id number] Number of Repeats Allowed: Frequency: Every Dialysis Treatment ONS [facility] 8-05 04:00: 00 Yes [id number] Number of Repeats Allowed: Frequency: Every Dialysis Treatment Venofer 7-31 18:22: 56 Yes [id number] Number of Repeats Allowed: Frequency: One time a weekDosesO rdered: Maintenanc e Dose 50 Milligram Route: Intravenou s Mircera 3-14 04:00: 00 Yes [id number] Number of Repeats Allowed: Frequency: REYNALDO dosing, every two weeks Venofer 2-21 12:41: 25 Yes [id number] Number of Repeats Allowed: Frequency: One time a weekDosesO rdered: Maintenanc e Dose 50 Milligram Route: Intravenou s ONS [facility] 05-13 15:55: 11 Yes [id number] Number of Repeats Allowed: Frequency: Every Dialysis Treatment Oxygen 2023-03 12:56: 02 Yes [id number] Number of Repeats Allowed: Frequency: Every Dialysis Treatment Normal Saline Flush 2023-03 05:00: 00 Yes [id number] Number of Repeats Allowed: Frequency: Pre-dialys is heparin sodium, porcine 2023-03 05:00: 00 Yes [id number] Number of Repeats Allowed: Frequency: Every Dialysis TreatmentD osesOrdere d: Loading Dose 3000 Units 1:1000 Units/mLRo [place]: Intravenou s Normal Saline Flush 2023-03 05:00: 00 Yes [id number] Number of Repeats Allowed: Frequency: Post-dialy sis Problems This patient has no known problems. Procedures Procedure Date / Time Performed Performing Clinician Echo ce Details Central Venous Catheter (CVC) 2024-02-11 05:00:00 Access Site Chest (Right) Access Use Start Date 2024-02-15 00:00:0 0 DIALYSIS TREATMENT INFORMATION Conventional Hemodialysis Date Type Treatment Start Date Treatment End Date Pre-Treatment Vitals Post-Treatment Vitals Weight Gain BFR DFR Actual [facility] In-Ce nter Hemod ialys is Treat ment 2024-12-13 T12:07:56. 000Z 2024-12-13 T15:43:58. 000Z BP Sitting (Pre-Dialysis) 153/77 mmHg BP Sitting (Post-D ialysis ) 145/ 85 mmHg Sitting Heart Rate Pre-Dialysis 80 BPM BP Standing (Post-Dialysis) 126/59 mmHg Temperature Pre-Dialysis 98.1 degF Sitting Heart Ra te Post-Dialysis 60 BPM Standing Heart Rate Post-Obdulia lysis 70 BPM Temperature Post-Dialysis 97 .3 degF December 11, 2024 In-Center Hemodialysis Treatment 1371-26-84J33:01:06.000Z 2720-04-87Y71:50:35.000Z BP Sitting (Pre-Dialysis) 146/62 mmHg BP Sitting (Post-Dialysis) 128/72 mmHg Concurrent Access: falseCentral Venous Catheter (CVC) Chest (Right) Arterial Sitting Heart Rate Pre-Dialysis 80 BPM BP Standing (Post-Dialysis) 104/65 mmHg Temperature Pre-Dialysis 98.2 degF Sitting Heart Ra te Post-Dialysis 62 BPM Standing Heart Rate Post-Obdulia lysis 73 BPM Temperature Post-Dialysis 97 .9 degF December 08, 2024 In-Center Hemodialysis Treatment 2533-05-33M00:05:58.000Z 4716-91-37J79:58:23.000Z BP Sitting (Pre-Dialysis) 156/87 mmHg BP Sitting (Post-Dialysis) 142/85 mmHg Concurrent Access: falseCentral Venous Catheter (CVC) Chest (Right) Arterial Sitting Heart Rate Pre-Dialysis 80 BPM BP Standi ng (Post-Dialysis) 118/78 mmHg Temperature Pre-Dialysis 98 degF Sitting Heart Ra te Post-Dialysis 60 BPM Standing Heart Rate Post-Bodulia lysis 72 BPM Temperature Post-Dialysis 97 .8 degF December 06, 2024 In-Center Hemodialysis Treatment 3381-83-79R93:04:00.000Z 5411-28-14Z22:55:25.000Z BP Sitting (Pre-Dialysis) 166/80 mmHg BP Sitting (Post-Dialysis) 147/90 mmHg Concurrent Access: falseCentral Venous Catheter (CVC) Chest (Right) Arterial BP Standing (Pre-Dialysis) 107/70 mmHg BP Standing (P ost-Dialysis) 115/54 mmHg Sitting Heart Rate Pre-Dialysis 71 BPM Sitting Heart Rate Post-Dialysis 60 BPM Standing Heart Rate Pre-Dialysis 73 BPM Standing Heart Rate Post-Dialysis 77 BPM Temperature Pre-Dialysis 97.5 degF Temperature Post -Dialysis 97.8 degF December 04, 2024 In-Center Hemodialysis Treatment 1997-55-68B09:04:00.000Z 7820-86-19J08:50:00.000Z BP Sitting (Pre-Dialysis) 133/58 mmHg BP Sitting (Post-Dialysis) 136/81 mmHg Concurrent Access: falseCentral Venous Catheter (CVC) Chest (Right) Arterial BP Standing (Pre-Dialysis) 133/58 mmHg Sitting Heart Rate Post-Dialysis 60 BPM Sitting Heart Rate Pre-Dialysis 80 BPM Temperatu re Post-Dialysis 98 degF Standing Heart Rate Pre-Dialysis 80 BPM Temperature Pre-Dialysis 97.3 degF December 01, 2024 In-Center Hemodialysis Treatment 4620-12-50X24:03:00.000Z 3167-36-22R03:54:35.000Z BP Sitting (Pre-Dialysis) 174/98 mmHg BP Sitting (Post-Dialysis) 134/78 mmHg Concurrent Access: falseCentral Venous Catheter (CVC) Chest (Right) Arterial Sitting Heart Rate Pre-Dialysis 77 BPM BP Standing (Post-Dialysis) 100/54 mmHg Temperature Pre-Dialysis 97.7 degF Sitting Heart Ra te Post-Dialysis 60 BPM Standing Heart Rate Post-Obdulia lysis 71 BPM Temperature Post-Dialysis 97 .8 degF November 29, 2024 In-Center Hemodialysis Treatment 7102-33-33A75:01:00.000Z 8625-13-39S19:50:47.000Z BP Sitting (Pre-Dialysis) 177/93 mmHg BP Sitting (Post-Dialysis) 137/62 mmHg Concurrent Access: falseCentral Venous Catheter (CVC) Chest (Right) Arterial BP Standing (Pre-Dialysis) 179/85 mmHg BP Standing (P ost-Dialysis) 111/66 mmHg Sitting Heart Rate Pre-Dialysis 80 BPM Sitting Heart Rate Post-Dialysis 60 BPM Standing Heart Rate Pre-Dialysis 74 BPM Standing Heart Rate Post-Dialysis 80 BPM Temperature Pre-Dialysis 97.6 degF Temperature Post -Dialysis 97.9 degF November 27, 2024 In-Center Hemodialysis Treatment 5875-09-72K17:06:00.000Z 9531-04-93O37:48:10.000Z BP Sitting (Pre-Dialysis) 170/81 mmHg BP Sitting (Post-Dialysis) 127/65 mmHg Concurrent Access: falseCentral Venous Catheter (CVC) Chest (Right) Arterial BP Standing (Pre-Dialysis) 154/90 mmHg BP Standing (P ost-Dialysis) 118/71 mmHg Sitting Heart Rate Pre-Dialysis 80 BPM Sitting Heart Rate Post-Dialysis 60 BPM Standing Heart Rate Pre-Dialysis 82 BPM Standing Heart Rate Post-Dialysis 69 BPM Temperature Pre-Dialysis 97.8 degF Temperature Post -Dialysis 98.3 degF November 24, 2024 In-Center Hemodialysis Treatment 2551-77-04U97:11:00.000Z 0697-20-71H87:57:26.000Z BP Sitting (Pre-Dialysis) 158/86 mmHg BP Sitting (Post-Dialysis) 135/76 mmHg Concurrent Access: falseCentral Venous Catheter (CVC) Chest (Right) Arterial BP Standing (Pre-Dialysis) 158/76 mmHg Sitti ng Heart Rate Post-Dialysis 60 BPM Sitting Heart Rate Pre-Dialysis 80 BPM Temperatu re Post-Dialysis 97.9 degF Standing Heart Rate Pre-Dialysis 80 BPM Temperature Pre-Dialysis 97.9 degF November 22, 2024 In-Center Hemodialysis Treatment 9693-57-47L45:03:00.000Z 8664-63-73X91:54:31.000Z BP Sitting (Pre-Dialysis) 176/71 mmHg BP Sitting (Post-Dialysis) 119/84 mmHg Concurrent Access: falseCentral Venous Catheter (CVC) Chest (Right) Arterial BP Standing (Pre-Dialysis) 165/88 mmHg BP Standing (P ost-Dialysis) 128/74 mmHg Sitting Heart Rate Pre-Dialysis 60 BPM Sitting Heart Rate Post-Dialysis 55 BPM Standing Heart Rate Pre-Dialysis 66 BPM Standing Heart Rate Post-Dialysis 66 BPM Temperature Pre-Dialysis 97.5 degF Temperature Post -Dialysis 98.1 degF November 20, 2024 In-Center Hemodialysis Treatment 8482-01-72R59:05:00.000Z 2016-78-40K27:58:06.000Z BP Sitting (Pre-Dialysis) 156/78 mmHg BP Sitting (Post-Dialysis) 161/88 mmHg Concurrent Access: falseCentral Venous Catheter (CVC) Chest (Right) Arterial BP Standing (Pre-Dialysis) 171/87 mmHg BP Standing (P ost-Dialysis) 120/69 mmHg Sitting Heart Rate Pre-Dialysis 66 BPM Sitting Heart Rate Post-Dialysis 60 BPM Standing Heart Rate Pre-Dialysis 72 BPM Standing Heart Rate Post-Dialysis 67 BPM Temperature Pre-Dialysis 97.7 degF Temperature Post -Dialysis 98.3 degF November 17, 2024 In-Center Hemodialysis Treatment 9155-67-42P85:58:00.000Z 1564-21-81G45:39:00.000Z BP Sitting (Pre-Dialysis) 167/82 mmHg BP Sitting (Post-Dialysis) 133/76 mmHg Concurrent Access: falseCentral Venous Catheter (CVC) Chest (Right) Arterial BP Standing (Pre-Dialysis) 142/70 mmHg BP Standing (P ost-Dialysis) 113/70 mmHg Sitting Heart Rate Pre-Dialysis 74 BPM Sitting Heart Rate Post-Dialysis 60 BPM Standing Heart Rate Pre-Dialysis 80 BPM Standing Heart Rate Post-Dialysis 72 BPM Temperature Pre-Dialysis 97.4 degF Temperature Post -Dialysis 98 degF November 15, 2024 In-Center Hemodialysis Treatment 7235-31-46D54:04:00.000Z 6200-72-97P96:44:12.000Z BP Sitting (Pre-Dialysis) 143/66 mmHg BP Sitting (Post-Dialysis) 134/81 mmHg Concurrent Access: falseCentral Venous Catheter (CVC) Chest (Right) Arterial BP Standing (Pre-Dialysis) 117/75 mmHg BP Standing (P ost-Dialysis) 121/77 mmHg Sitting Heart Rate Pre-Dialysis 89 BPM Sitting Heart Rate Post-Dialysis 62 BPM Standing Heart Rate Pre-Dialysis 60 BPM Standing Heart Rate Post-Dialysis 62 BPM Temperature Pre-Dialysis 97.9 degF Temperature Post -Dialysis 97.9 degF November 13, 2024 In-Center Hemodialysis Treatment 7165-16-15G62:02:00.000Z 2686-13-84L41:53:33.000Z BP Sitting (Pre-Dialysis) 171/83 mmHg BP Sitting (Post-Dialysis) 143/89 mmHg Concurrent Access: falseCentral Venous Catheter (CVC) Chest (Right) Arterial BP Standing (Pre-Dialysis) 176/91 mmHg BP Standing (P ost-Dialysis) 120/66 mmHg Sitting Heart Rate Pre-Dialysis 80 BPM Sitting Heart Rate Post-Dialysis 60 BPM Standing Heart Rate Pre-Dialysis 80 BPM Standing Heart Rate Post-Dialysis 72 BPM Temperature Pre-Dialysis 97.4 degF Temperature Post -Dialysis 97.6 degF November 10, 2024 In-Center Hemodialysis Treatment 5831-06-32E84:08:00.000Z 1893-92-48Y52:03:44.000Z BP Sitting (Pre-Dialysis) 164/81 mmHg BP Sitting (Post-Dialysis) 154/93 mmHg Concurrent Access: falseCentral Venous Catheter (CVC) Chest (Right) Arterial BP Standing (Pre-Dialysis) 162/88 mmHg BP Standing (P ost-Dialysis) 121/67 mmHg Sitting Heart Rate Pre-Dialysis 70 BPM Sitting Heart Rate Post-Dialysis 62 BPM Standing Heart Rate Pre-Dialysis 74 BPM Standing Heart Rate Post-Dialysis 80 BPM Temperature Pre-Dialysis 97.9 degF Temperature Post -Dialysis 97.9 degF November 08, 2024 In-Center Hemodialysis Treatment 3187-58-68T20:00:00.000Z 4729-10-49H21:54:26.000Z BP Sitting (Pre-Dialysis) 168/88 mmHg BP Sitting (Post-Dialysis) 110/67 mmHg Concurrent Access: falseCentral Venous Catheter (CVC) Chest (Right) Arterial BP Standing (Pre-Dialysis) 172/96 mmHg BP Standing (P ost-Dialysis) 100/54 mmHg Sitting Heart Rate Pre-Dialysis 80 BPM Sitting Heart Rate Post-Dialysis 82 BPM Standing Heart Rate Pre-Dialysis 85 BPM Standing Heart Rate Post-Dialysis 88 BPM Temperature Pre-Dialysis 97.6 degF Temperature Post -Dialysis 97.4 degF November 06, 2024 In-Center Hemodialysis Treatment 3909-05-70O33:17:00.000Z 1368-43-98B47:04:19.000Z BP Sitting (Pre-Dialysis) 170/83 mmHg BP Sitting (Post-Dialysis) 141/84 mmHg Concurrent Access: falseCentral Venous Catheter (CVC) Chest (Right) Arterial BP Standing (Pre-Dialysis) 165/74 mmHg BP Standing (P ost-Dialysis) 114/65 mmHg Sitting Heart Rate Pre-Dialysis 71 BPM Sitting Heart Rate Post-Dialysis 60 BPM Standing Heart Rate Pre-Dialysis 80 BPM Standing Heart Rate Post-Dialysis 80 BPM Temperature Pre-Dialysis 97.5 degF Temperature Post -Dialysis 97.4 degF November 03, 2024 In-Center Hemodialysis Treatment 3628-90-17T21:11:45.000Z 1656-74-77S74:58:46.000Z BP Sitting (Pre-Dialysis) 158/51 mmHg BP Sitting (Post-Dialysis) 151/99 mmHg Concurrent Access: falseCentral Venous Catheter (CVC) Chest (Right) Arterial Sitting Heart Rate Pre-Dialysis 80 BPM BP Standing (Post-Dialysis) 127/59 mmHg Temperature Pre-Dialysis 98.1 degF Sitting Heart Ra te Post-Dialysis 60 BPM Standing Heart Rate Post-Obdulia lysis 60 BPM Temperature Post-Dialysis 97 .6 degF November 01, 2024 In-Center Hemodialysis Treatment 1006-79-73M29:13:00.000Z 0087-77-41A89:01:37.000Z BP Sitting (Pre-Dialysis) 110/77 mmHg BP Sitting (Post-Dialysis) 135/87 mmHg Concurrent Access: falseCentral Venous Catheter (CVC) Chest (Right) Arterial Sitting Heart Rate Pre-Dialysis 91 BPM Sitting H eart Rate Post-Dialysis 66 BPM Temperature Pre-Dialysis 96.9 degF Temperature Post -Dialysis 98.1 degF October 30, 2024 In-Center Hemodialysis Treatment 6601-37-61X74:14:57.000Z 0008-03-59K11:03:38.000Z BP Sitting (Pre-Dialysis) 159/80 mmHg BP Sitting (Post-Dialysis) 126/83 mmHg Concurrent Access: falseCentral Venous Catheter (CVC) Chest (Right) Arterial BP Standing (Pre-Dialysis) 162/83 mmHg BP Standing (P ost-Dialysis) 108/55 mmHg Sitting Heart Rate Pre-Dialysis 67 BPM Sitting Heart Rate Post-Dialysis 70 BPM Standing Heart Rate Pre-Dialysis 77 BPM Standing Heart Rate Post-Dialysis 80 BPM Temperature Pre-Dialysis 97.3 degF Temperature Post -Dialysis 97.9 degF October 27, 2024 In-Center Hemodialysis Treatment 1327-91-74U02:12:00.000Z 2462-26-84L09:13:45.000Z BP Sitting (Pre-Dialysis) 170/91 mmHg BP Sitting (Post-Dialysis) 154/93 mmHg Concurrent Access: falseCentral Venous Catheter (CVC) Chest (Right) Arterial Sitting Heart Rate Pre-Dialysis 65 BPM BP Standing (Post-Dialysis) 111/57 mmHg Temperature Pre-Dialysis 97.7 degF Sitting Heart Ra te Post-Dialysis 60 BPM Standing Heart Rate Post-Obdulia lysis 80 BPM Temperature Post-Dialysis 97 .8 degF October 25, 2024 In-Center Hemodialysis Treatment 6791-48-74X15:10:00.000Z 7989-13-20I56:59:23.000Z BP Sitting (Pre-Dialysis) 16/85 mmHg BP Sitting (Post-Dialysis) 145/87 mmHg Concurrent Access: falseCentral Venous Catheter (CVC) Chest (Right) Arterial BP Standing (Pre-Dialysis) 162/85 mmHg BP Standing (P ost-Dialysis) 121/80 mmHg Sitting Heart Rate Pre-Dialysis 62 BPM Sitting Heart Rate Post-Dialysis 60 BPM Standing Heart Rate Pre-Dialysis 69 BPM Standing Heart Rate Post-Dialysis 71 BPM Temperature Pre-Dialysis 97.4 degF Temperature Post -Dialysis 97.4 degF October 23, 2024 In-Center Hemodialysis Treatment 3159-16-76K82:57:00.000Z 8664-86-54G68:53:18.000Z BP Sitting (Pre-Dialysis) 159/77 mmHg BP Sitting (Post-Dialysis) 129/78 mmHg Concurrent Access: falseCentral Venous Catheter (CVC) Chest (Right) Arterial BP Standing (Pre-Dialysis) 153/85 mmHg BP Standing (P ost-Dialysis) 114/62 mmHg Sitting Heart Rate Pre-Dialysis 85 BPM Sitting Heart Rate Post-Dialysis 67 BPM Standing Heart Rate Pre-Dialysis 80 BPM Standing Heart Rate Post-Dialysis 80 BPM Temperature Pre-Dialysis 98.3 degF Temperature Post -Dialysis 97.8 degF June 15, 2024 In-Center Hemodialysis Treatment 3976-44-96K97:33:18.000Z 8945-47-30E43:32:36.000Z BP Sitting (Pre-Dialysis) 112/94 mmHg BP Sitting (Post-Dialysis) 127/83 mmHg Concurrent Access: falseCentral Venous Catheter (CVC) Chest (Right) Arterial Sitting Heart Rate Pre-Dialysis 80 BPM Sitting H eart Rate Post-Dialysis 60 BPM Temperature Pre-Dialysis 98.5 degF Temperature Post -Dialysis 97.6 degF June 13, 2024 In-Center Hemodialysis Treatment 6035-62-95L56:16:00.000Z 6292-82-43C22:19:17.000Z BP Sitting (Pre-Dialysis) 150/62 mmHg BP Sitting (Post-Dialysis) 170/84 mmHg Concurrent Access: falseCentral Venous Catheter (CVC) Chest (Right) Arterial Sitting Heart Rate Pre-Dialysis 60 BPM Sitting H eart Rate Post-Dialysis 65 BPM Temperature Pre-Dialysis 98.1 degF Temperature Post -Dialysis 97.6 degF June 10, 2024 In-Center Hemodialysis Treatment 3527-16-85N08:41:57.000Z 4656-79-82R66:14:52.000Z BP Sitting (Pre-Dialysis) 143/79 mmHg BP Sitting (Post-Dialysis) 153/68 mmHg Concurrent Access: falseCentral Venous Catheter (CVC) Chest (Right) Arterial Sitting Heart Rate Pre-Dialysis 60 BPM Sitting H eart Rate Post-Dialysis 55 BPM Temperature Pre-Dialysis 97.6 degF Temperature Post -Dialysis 97.6 degF June 08, 2024 In-Center Hemodialysis Treatment 0484-69-27P48:40:46.000Z 7074-38-89O08:42:42.000Z BP Sitting (Pre-Dialysis) 144/61 mmHg BP Sitting (Post-Dialysis) 139/69 mmHg Concurrent Access: falseCentral Venous Catheter (CVC) Chest (Right) Arterial Sitting Heart Rate Pre-Dialysis 70 BPM Sitting H eart Rate Post-Dialysis 60 BPM Temperature Pre-Dialysis 97.3 degF Temperature Post -Dialysis 98.1 degF June 06, 2024 In-Center Hemodialysis Treatment 0308-38-86A97:18:00.000Z 3024-49-94P91:21:43.000Z BP Sitting (Pre-Dialysis) 152/64 mmHg BP Sitting (Post-Dialysis) 165/65 mmHg Concurrent Access: falseCentral Venous Catheter (CVC) Chest (Right) Arterial Sitting Heart Rate Pre-Dialysis 60 BPM Sitting H eart Rate Post-Dialysis 53 BPM Temperature Pre-Dialysis 97.4 degF Temperature Post -Dialysis 97.2 degF May 23, 2024 In-Center Hemodialysis Treatment 9801-13-36T95:41:00.000Z 6292-96-11C04:57:10.000Z BP Sitting (Pre-Dialysis) 106/75 mmHg BP Sitting (Post-Dialysis) 153/64 mmHg Concurrent Access: falseCentral Venous Catheter (CVC) Chest (Right) Arterial Sitting Heart Rate Pre-Dialysis 90 BPM Sitting H eart Rate Post-Dialysis 60 BPM Temperature Pre-Dialysis 97.6 degF Temperature Post -Dialysis 97.6 degF May 20, 2024 In-Center Hemodialysis Treatment 1895-70-55I53:54:00.000Z 0209-50-07M23:04:58.000Z BP Sitting (Pre-Dialysis) 145/67 mmHg BP Sitting (Post-Dialysis) 148/90 mmHg Concurrent Access: falseCentral Venous Catheter (CVC) Chest (Right) Arterial Sitting Heart Rate Pre-Dialysis 68 BPM Sitting H eart Rate Post-Dialysis 74 BPM Temperature Pre-Dialysis 97.3 degF Temperature Post -Dialysis 97.6 degF May 18, 2024 In-Center Hemodialysis Treatment 1743-81-53R76:45:00.000Z 2212-87-68P46:08:05.000Z BP Sitting (Pre-Dialysis) 155/78 mmHg BP Sitting (Post-Dialysis) 132/57 mmHg Concurrent Access: falseCentral Venous Catheter (CVC) Chest (Right) Arterial Sitting Heart Rate Pre-Dialysis 74 BPM Sitting H eart Rate Post-Dialysis 60 BPM Temperature Pre-Dialysis 97.3 degF Temperature Post -Dialysis 97.3 degF May 16, 2024 In-Center Hemodialysis Treatment 6344-60-93F90:50:08.000Z 7078-15-69N12:55:24.000Z BP Sitting (Pre-Dialysis) 100/66 mmHg BP Sitting (Post-Dialysis) 162/76 mmHg Concurrent Access: falseCentral Venous Catheter (CVC) Chest (Right) Arterial Sitting Heart Rate Pre-Dialysis 109 BPM Sitting H eart Rate Post-Dialysis 68 BPM Temperature Pre-Dialysis 97.6 degF Temperature Post -Dialysis 98 degF May 13, 2024 In-Center Hemodialysis Treatment 8620-90-58J15:03:00.000Z 1956-51-31J02:11:28.000Z BP Sitting (Pre-Dialysis) 152/68 mmHg BP Sitting (Post-Dialysis) 158/74 mmHg Concurrent Access: falseCentral Venous Catheter (CVC) Chest (Right) Arterial Sitting Heart Rate Pre-Dialysis 80 BPM Sitting H eart Rate Post-Dialysis 68 BPM Temperature Pre-Dialysis 98 degF Temperature Post -Dialysis 98 degF May 11, 2024 In-Center Hemodialysis Treatment 4942-68-75D83:45:00.000Z 2758-83-63O98:50:47.000Z BP Sitting (Pre-Dialysis) 147/64 mmHg BP Sitting (Post-Dialysis) 148/67 mmHg Concurrent Access: falseCentral Venous Catheter (CVC) Chest (Right) Arterial Sitting Heart Rate Pre-Dialysis 65 BPM Sitting H eart Rate Post-Dialysis 65 BPM Temperature Pre-Dialysis 98 degF Temperature Post -Dialysis 97.9 degF May 09, 2024 In-Center Hemodialysis Treatment 0860-20-43T01:49:00.000Z 1694-17-06B28:55:55.000Z BP Sitting (Pre-Dialysis) 160/71 mmHg BP Sitting (Post-Dialysis) 137/118 mmHg Concurrent Access: falseCentral Venous Catheter (CVC) Chest (Right) Arterial Sitting Heart Rate Pre-Dialysis 74 BPM Sitting H eart Rate Post-Dialysis 60 BPM Temperature Pre-Dialysis 97.9 degF Temperature Post -Dialysis 98 degF May 06, 2024 In-Center Hemodialysis Treatment 5968-78-84X71:57:00.000Z 7296-76-79C57:57:44.000Z BP Sitting (Pre-Dialysis) 130/57 mmHg BP Sitting (Post-Dialysis) 155/42 mmHg Concurrent Access: falseCentral Venous Catheter (CVC) Chest (Right) Arterial Sitting Heart Rate Pre-Dialysis 80 BPM Sitting H eart Rate Post-Dialysis 62 BPM Temperature Pre-Dialysis 97.3 degF Temperature Post -Dialysis 98 degF May 04, 2024 In-Center Hemodialysis Treatment 9417-36-97Y90:46:00.000Z 5066-43-43Y75:01:59.000Z BP Sitting (Pre-Dialysis) 151/67 mmHg BP Sitting (Post-Dialysis) 102/62 mmHg Concurrent Access: falseCentral Venous Catheter (CVC) Chest (Right) Arterial Sitting Heart Rate Pre-Dialysis 94 BPM Sitting H eart Rate Post-Dialysis 77 BPM Temperature Pre-Dialysis 97.3 degF Temperature Post -Dialysis 97.9 degF May 02, 2024 In-Center Hemodialysis Treatment 0100-69-91Q20:51:00.000Z 6706-74-62G08:57:54.000Z BP Sitting (Pre-Dialysis) 162/72 mmHg BP Sitting (Post-Dialysis) 162/67 mmHg Concurrent Access: falseCentral Venous Catheter (CVC) Chest (Right) Arterial Sitting Heart Rate Pre-Dialysis 70 BPM Sitting H eart Rate Post-Dialysis 55 BPM Temperature Pre-Dialysis 98 degF Temperature Post -Dialysis 98 degF April 29, 2024 In-Center Hemodialysis Treatment 4454-64-89I18:01:00.000Z 5216-50-44X15:14:05.000Z BP Sitting (Pre-Dialysis) 157/52 mmHg BP Sitting (Post-Dialysis) 149/74 mmHg Concurrent Access: falseCentral Venous Catheter (CVC) Chest (Right) Arterial Sitting Heart Rate Pre-Dialysis 65 BPM Sitting H eart Rate Post-Dialysis 65 BPM Temperature Pre-Dialysis 97.9 degF Temperature Post -Dialysis 97.5 degF April 27, 2024 In-Center Hemodialysis Treatment 7217-49-08T58:55:00.000Z 7753-29-98S03:59:33.000Z BP Sitting (Pre-Dialysis) 160/74 mmHg BP Sitting (Post-Dialysis) 156/77 mmHg Concurrent Access: falseCentral Venous Catheter (CVC) Chest (Right) Arterial Sitting Heart Rate Pre-Dialysis 67 BPM Sitting H eart Rate Post-Dialysis 71 BPM Temperature Pre-Dialysis 97.8 degF Temperature Post -Dialysis 97.6 degF April 25, 2024 In-Center Hemodialysis Treatment 3898-14-03V78:45:00.000Z 8996-12-55E56:54:40.000Z BP Sitting (Pre-Dialysis) 123/56 mmHg BP Sitting (Post-Dialysis) 155/62 mmHg Concurrent Access: falseCentral Venous Catheter (CVC) Chest (Right) Arterial Sitting Heart Rate Pre-Dialysis 74 BPM Sitting H eart Rate Post-Dialysis 68 BPM Temperature Pre-Dialysis 97.6 degF Temperature Post -Dialysis 98 degF April 22, 2024 In-Center Hemodialysis Treatment 2465-65-30O22:52:00.000Z 5031-37-46R60:53:30.000Z BP Sitting (Pre-Dialysis) 154/66 mmHg BP Sitting (Post-Dialysis) 145/59 mmHg Concurrent Access: falseCentral Venous Catheter (CVC) Chest (Right) Arterial Sitting Heart Rate Pre-Dialysis 62 BPM Sitting H eart Rate Post-Dialysis 67 BPM Temperature Pre-Dialysis 97.4 degF Temperature Post -Dialysis 97.4 degF April 20, 2024 In-Center Hemodialysis Treatment 7694-27-86H82:46:00.000Z 7097-12-26J86:54:29.000Z BP Sitting (Pre-Dialysis) 116/69 mmHg BP Sitting (Post-Dialysis) 124/91 mmHg Concurrent Access: falseCentral Venous Catheter (CVC) Chest (Right) Arterial Sitting Heart Rate Pre-Dialysis 73 BPM Sitting H eart Rate Post-Dialysis 69 BPM Temperature Pre-Dialysis 97.9 degF Temperature Post -Dialysis 98.1 degF April 18, 2024 In-Center Hemodialysis Treatment 5054-90-10A11:01:00.000Z 5459-25-63F62:05:27.000Z BP Sitting (Pre-Dialysis) 189/83 mmHg BP Sitting (Post-Dialysis) 154/74 mmHg Concurrent Access: falseCentral Venous Catheter (CVC) Chest (Right) Arterial Sitting Heart Rate Pre-Dialysis 77 BPM Sitting H eart Rate Post-Dialysis 66 BPM Temperature Pre-Dialysis 97.6 degF Temperature Post -Dialysis 98.2 degF April 15, 2024 In-Center Hemodialysis Treatment 4791-97-91R16:42:12.000Z 2866-81-47X94:33:16.000Z BP Sitting (Pre-Dialysis) 145/64 mmHg BP Sitting (Post-Dialysis) 150/57 mmHg Concurrent Access: falseCentral Venous Catheter (CVC) Chest (Right) Arterial Sitting Heart Rate Pre-Dialysis 80 BPM Sitting H eart Rate Post-Dialysis 69 BPM Temperature Pre-Dialysis 97.9 degF Temperature Post -Dialysis 97.3 degF April 13, 2024 In-Center Hemodialysis Treatment 2006-75-59E71:55:35.000Z 5392-91-98R13:04:38.000Z BP Sitting (Pre-Dialysis) 147/88 mmHg BP Sitting (Post-Dialysis) 144/66 mmHg Concurrent Access: falseCentral Venous Catheter (CVC) Chest (Right) Arterial Sitting Heart Rate Pre-Dialysis 80 BPM Sitting H eart Rate Post-Dialysis 68 BPM Temperature Pre-Dialysis 97.7 degF Temperature Post -Dialysis 97.3 degF April 11, 2024 In-Center Hemodialysis Treatment [id number]:52:55.000Z [id number]:59:30.000Z BP Sitting (Pre-Dialysis) 146/94 mmHg BP Sitting (Post-Dialysis) 141/79 mmHg Concurrent Access: falseCentral Venous Catheter (CVC) Chest (Right) Arterial Sitting Heart Rate Pre-Dialysis 67 BPM Sitting H eart Rate Post-Dialysis 68 BPM Temperature Pre-Dialysis 97.6 degF Temperature Post -Dialysis 97.3 degF April 08, 2024 In-Center Hemodialysis Treatment [id number]:23:34.000Z [id number]:34:04.000Z BP Sitting (Pre-Dialysis) 142/78 mmHg BP Sitting (Post-Dialysis) 150/76 mmHg Concurrent Access: falseCentral Venous Catheter (CVC) Chest (Right) Arterial Sitting Heart Rate Pre-Dialysis 74 BPM Sitting H eart Rate Post-Dialysis 80 BPM Temperature Pre-Dialysis 97.5 degF Temperature Post -Dialysis 97.3 degF April 06, 2024 In-Center Hemodialysis Treatment [id number]:06:03.000Z [id number]:09:54.000Z BP Sitting (Pre-Dialysis) 151/71 mmHg BP Sitting (Post-Dialysis) 145/68 mmHg Concurrent Access: falseCentral Venous Catheter (CVC) Chest (Right) Arterial Sitting Heart Rate Pre-Dialysis 80 BPM Sitting H eart Rate Post-Dialysis 80 BPM Temperature Pre-Dialysis 97.3 degF Temperature Post -Dialysis 97.5 degF April 04, 2024 In-Center Hemodialysis Treatment [id number]:04:24.000Z [id number]:08:09.000Z BP Sitting (Pre-Dialysis) 148/64 mmHg BP Sitting (Post-Dialysis) 131/67 mmHg Concurrent Access: falseCentral Venous Catheter (CVC) Chest (Right) Arterial Sitting Heart Rate Pre-Dialysis 73 BPM Sitting H eart Rate Post-Dialysis 66 BPM Temperature Pre-Dialysis 97.6 degF Temperature Post -Dialysis 97.3 degF April 01, 2024 In-Center Hemodialysis Treatment [id number]:00:49.000Z [id number]:04:15.000Z BP Sitting (Pre-Dialysis) 108/50 mmHg BP Sitting (Post-Dialysis) 124/78 mmHg Concurrent Access: falseCentral Venous Catheter (CVC) Chest (Right) Arterial Sitting Heart Rate Pre-Dialysis 77 BPM Sitting H eart Rate Post-Dialysis 70 BPM Temperature Pre-Dialysis 97.9 degF Temperature Post -Dialysis 97.5 degF March 30, 2024 In-Center Hemodialysis Treatment [id number]:01:13.000Z [id number]:03:49.000Z BP Sitting (Pre-Dialysis) 151/83 mmHg BP Sitting (Post-Dialysis) 158/62 mmHg Concurrent Access: falseCentral Venous Catheter (CVC) Chest (Right) Arterial Sitting Heart Rate Pre-Dialysis 74 BPM Sitting H eart Rate Post-Dialysis 74 BPM Temperature Pre-Dialysis 97.9 degF Temperature Post -Dialysis 97.6 degF March 28, 2024 In-Center Hemodialysis Treatment [id number]:48:00.000Z [id number]:58:04.000Z BP Sitting (Pre-Dialysis) 138/101 mmHg BP Sitting (Post-Dialysis) 156/73 mmHg Concurrent Access: falseCentral Venous Catheter (CVC) Chest (Right) Arterial Sitting Heart Rate Pre-Dialysis 92 BPM Sitting H eart Rate Post-Dialysis 80 BPM Temperature Pre-Dialysis 97.3 degF Temperature Post -Dialysis 97.3 degF March 25, 2024 In-Center Hemodialysis Treatment [id number]:57:53.000Z [id number]:48:33.000Z BP Sitting (Pre-Dialysis) 198/85 mmHg BP Sitting (Post-Dialysis) 181/89 mmHg Concurrent Access: falseCentral Venous Catheter (CVC) Chest (Right) Arterial Sitting Heart Rate Pre-Dialysis 65 BPM Sitting H eart Rate Post-Dialysis 72 BPM Temperature Pre-Dialysis 97.8 degF Temperature Post -Dialysis 97.6 degF March 23, 2024 In-Center Hemodialysis Treatment [id number]:57:28.000Z [id number]:02:59.000Z BP Sitting (Pre-Dialysis) 159/70 mmHg BP Sitting (Post-Dialysis) 133/42 mmHg Concurrent Access: falseCentral Venous Catheter (CVC) Chest (Right) Arterial Sitting Heart Rate Pre-Dialysis 61 BPM Sitting H eart Rate Post-Dialysis 60 BPM Temperature Pre-Dialysis 98.4 degF Temperature Post -Dialysis 97.5 degF March 20, 2024 In-Center Hemodialysis Treatment [id number]:59:18.000Z [id number]:59:39.000Z BP Sitting (Pre-Dialysis) 132/55 mmHg BP Sitting (Post-Dialysis) 137/57 mmHg Concurrent Access: falseCentral Venous Catheter (CVC) Chest (Right) Arterial Sitting Heart Rate Pre-Dialysis 68 BPM Sitting H eart Rate Post-Dialysis 69 BPM Temperature Pre-Dialysis 97.9 degF Temperature Post -Dialysis 97.3 degF March 18, 2024 In-Center Hemodialysis Treatment [id number]:04:44.000Z [id number]:13:05.000Z BP Sitting (Pre-Dialysis) 140/69 mmHg BP Sitting (Post-Dialysis) 162/74 mmHg Concurrent Access: falseCentral Venous Catheter (CVC) Chest (Right) Arterial Sitting Heart Rate Pre-Dialysis 92 BPM Sitting H eart Rate Post-Dialysis 67 BPM Temperature Pre-Dialysis 97.6 degF Temperature Post -Dialysis 97.3 degF March 16, 2024 In-Center Hemodialysis Treatment [id number]:48:35.000Z [id number]:57:19.000Z BP Sitting (Pre-Dialysis) 123/91 mmHg BP Sitting (Post-Dialysis) 150/72 mmHg Concurrent Access: falseCentral Venous Catheter (CVC) Chest (Right) Arterial Sitting Heart Rate Pre-Dialysis 80 BPM Sitting H eart Rate Post-Dialysis 71 BPM Temperature Pre-Dialysis 97.6 degF Temperature Post -Dialysis 97.6 degF March 14, 2024 In-Center Hemodialysis Treatment [id number]:09:16.000Z [id number]:15:27.000Z BP Sitting (Pre-Dialysis) 161/88 mmHg BP Sitting (Post-Dialysis) 161/86 mmHg Concurrent Access: falseCentral Venous Catheter (CVC) Chest (Right) Arterial Sitting Heart Rate Pre-Dialysis 80 BPM Sitting H eart Rate Post-Dialysis 80 BPM Temperature Pre-Dialysis 98 degF Temperature Post -Dialysis 97.6 degF March 11, 2024 In-Center Hemodialysis Treatment [id number]:57:32.000Z [id number]:02:09.000Z BP Sitting (Pre-Dialysis) 160/62 mmHg BP Sitting (Post-Dialysis) 120/63 mmHg Concurrent Access: falseCentral Venous Catheter (CVC) Chest (Right) Arterial Sitting Heart Rate Pre-Dialysis 73 BPM Sitting H eart Rate Post-Dialysis 85 BPM Temperature Pre-Dialysis 97.5 degF Temperature Post -Dialysis 97.6 degF March 09, 2024 In-Center Hemodialysis Treatment [id number]:44:39.000Z [id number]:47:59.000Z BP Sitting (Pre-Dialysis) 107/55 mmHg BP Sitting (Post-Dialysis) 129/59 mmHg Concurrent Access: falseCentral Venous Catheter (CVC) Chest (Right) Arterial Sitting Heart Rate Pre-Dialysis 71 BPM Sitting H eart Rate Post-Dialysis 73 BPM Temperature Pre-Dialysis 97.9 degF Temperature Post -Dialysis 97.2 degF March 07, 2024 In-Center Hemodialysis Treatment [id number]:51:46.000Z [id number]:55:00.000Z BP Sitting (Pre-Dialysis) 131/67 mmHg BP Sitting (Post-Dialysis) 135/53 mmHg Concurrent Access: falseCentral Venous Catheter (CVC) Chest (Right) Arterial Sitting Heart Rate Pre-Dialysis 74 BPM Sitting H eart Rate Post-Dialysis 80 BPM Temperature Pre-Dialysis 97.6 degF Temperature Post -Dialysis 97 degF March 04, 2024 In-Center Hemodialysis Treatment [id number]:05:36.000Z [id number]:11:36.000Z BP Sitting (Pre-Dialysis) 134/58 mmHg BP Sitting (Post-Dialysis) 133/99 mmHg Concurrent Access: falseCentral Venous Catheter (CVC) Chest (Right) Arterial Sitting Heart Rate Pre-Dialysis 69 BPM Sitting H eart Rate Post-Dialysis 65 BPM Temperature Pre-Dialysis 97.6 degF Temperature Post -Dialysis 97 degF March 02, 2024 In-Center Hemodialysis Treatment [id number]:16:26.000Z [id number]:20:57.000Z BP Sitting (Pre-Dialysis) 133/82 mmHg BP Sitting (Post-Dialysis) 143/73 mmHg Concurrent Access: falseCentral Venous Catheter (CVC) Chest (Right) Arterial Sitting Heart Rate Pre-Dialysis 85 BPM Sitting H eart Rate Post-Dialysis 80 BPM Temperature Pre-Dialysis 97.3 degF Temperature Post -Dialysis 97.5 degF February 29, 2024 In-Center Hemodialysis Treatment [id number]:52:00.000Z [id number]:07:26.000Z BP Sitting (Pre-Dialysis) 119/55 mmHg BP Sitting (Post-Dialysis) 154/66 mmHg Concurrent Access: falseCentral Venous Catheter (CVC) Chest (Right) Arterial Sitting Heart Rate Pre-Dialysis 87 BPM Sitting H eart Rate Post-Dialysis 65 BPM Temperature Pre-Dialysis 97.3 degF Temperature Post -Dialysis 97.6 degF February 26, 2024 In-Center Hemodialysis Treatment [id number]:06:52.000Z [id number]:12:08.000Z BP Sitting (Pre-Dialysis) 139/72 mmHg BP Sitting (Post-Dialysis) 160/77 mmHg Concurrent Access: falseCentral Venous Catheter (CVC) Chest (Right) Arterial Sitting Heart Rate Pre-Dialysis 80 BPM Sitting H eart Rate Post-Dialysis 80 BPM Temperature Pre-Dialysis 97.4 degF Temperature Post -Dialysis 98.3 degF February 23, 2024 In-Center Hemodialysis Treatment [id number]:07:08.000Z [id number]:19:34.000Z BP Sitting (Pre-Dialysis) 133/76 mmHg BP Sitting (Post-Dialysis) 118/61 mmHg Concurrent Access: falseCentral Venous Catheter (CVC) Chest (Right) Arterial Sitting Heart Rate Pre-Dialysis 82 BPM Sitting H eart Rate Post-Dialysis 92 BPM Temperature Pre-Dialysis 97.5 degF Temperature Post -Dialysis 97.5 degF February 21, 2024 In-Center Hemodialysis Treatment [id number]:50:00.000Z [id number]:59:30.000Z BP Sitting (Pre-Dialysis) 175/70 mmHg BP Sitting (Post-Dialysis) 152/60 mmHg Concurrent Access: falseCentral Venous Catheter (CVC) Chest (Right) Arterial Sitting Heart Rate Pre-Dialysis 87 BPM Sitting H eart Rate Post-Dialysis 55 BPM Temperature Pre-Dialysis 97.6 degF Temperature Post -Dialysis 97.3 degF February 19, 2024 In-Center Hemodialysis Treatment [id number]:05:00.000Z [id number]:09:00.000Z BP Sitting (Pre-Dialysis) 107/63 mmHg BP Sitting (Post-Dialysis) 186/80 mmHg Concurrent Access: falseCentral Venous Catheter (CVC) Chest (Right) Arterial Sitting Heart Rate Pre-Dialysis 86 BPM Sitting H eart Rate Post-Dialysis 95 BPM Temperature Pre-Dialysis 97.9 degF Temperature Post -Dialysis 97.6 degF February 17, 2024 In-Center Hemodialysis Treatment [id number]:02:47.000Z [id number]:07:38.000Z BP Sitting (Pre-Dialysis) 150/69 mmHg BP Sitting (Post-Dialysis) 113/57 mmHg Concurrent Access: falseCentral Venous Catheter (CVC) Chest (Right) Arterial Sitting Heart Rate Pre-Dialysis 80 BPM Sitting H eart Rate Post-Dialysis 97 BPM Temperature Pre-Dialysis 97.3 degF Temperature Post -Dialysis 97.6 degF February 15, 2024 In-Center Hemodialysis Treatment [id number]:24:00.000Z [id number]:24:15.000Z BP Sitting (Pre-Dialysis) 146/73 mmHg BP Sitting (Post-Dialysis) 142/96 mmHg Concurrent Access: falseCentral Venous Catheter (CVC) Chest (Right) Arterial Sitting Heart Rate Pre-Dialysis 62 BPM Sitting H eart Rate Post-Dialysis 54 BPM Temperature Pre-Dialysis 97.6 degF Temperature Post -Dialysis 97.3 degF DIALYSIS ORDER Dialysis Procedure Orders Type of Dialysis Procedure Order Order Date/Time Observations In-Center Hemodialysis Treatment September Target Weight 116.5 kg Dialysate Flow Rate 800 mL/min Blood Flow Rate 400 mL/min Treatment Time 225 min(total) Max UF Rate 13 mL/kg/hr Base Sodium Dialysate Base Sodium 138 mE q/L dialysate_temp 37 C BiCarb Dialysate BiCarbonate 35 meq/L Access Concurrent No Arterial Access [facility] (CVC) (Chest (Right)) Venous Access [facility] (CVC) (Chest (Right)) Dialyzer [employer] Optiflux F 180NR 1218 [email or web address] Dialysate Bath Potassium Potassium 3 mEq /L Dialysate Bath Calcium Calcium 2.5 mEq/L In-Center Hemodialysis TreatmentJune 15, 2024 Observation Value Target Weight 130 kg Dialysate Flow Rate 500 mL/min Blood Flow Rate 400 mL/min Treatment Time 240 min(total) Max UF Rate 13 mL/kg/hr Base Sodium Dialysate Base Sodium 138 mE q/L dialysate_temp 37 C BiCarb Dialysate BiCarbonate 36 mEq/L Access Concurrent No Arterial Access [facility] (CVC) (Chest (Right)) Venous Access [facility] (CVC) (Chest (Right)) Dialyzer [employer] Optiflux F 180NR 1218 [email or web address] Dialysate Bath Potassium Potassium 2 mEq /L Dialysate Bath Calcium Calcium 2.5 mEq/L Results Adequacy Description Draw Date Result/Unit Status Ref Range Result Comments stdKt/V (DIAL) 2024-12-06 23:28:30 N/A F URR% 2024-12-06 23:28:30 77 % F BSA YULIANA 2024-12-06 23:28:30 2.32 sq m F nPCR 2024-12-06 23:28:30 1.44 G/KG/D F HEIGHT IN INCHES 2024-12-06 23:28:30 70 Inches F DIALYZER FLOW-QD 2024-12-06 23:28:30 650 mL/min F TOTAL HOURS/WEEK DIALYSIS 2024-12-06 23:28:30 11 hrs F Residual kt/v 2024-12-06 23:28:30 F Unable to calculate: Post BUN lab result is unknown Dialyzer SUMAYA 2024-12-06 23:28:30 1218 Calc F TBW (Pena) 2024-12-06 23:28:30 54.46 Liters F WEIGHT - PRE DAY 1 2024-12-06 23:28:30 119.2 kg F BLOOD FLOW-QWB 2024-12-06 23:28:30 400 F CURRENT KRU 2024-12-06 23:28:30 F Unable to calculate: Post BUN lab result is unknown Total Kt/V 2024-12-06 23:28:30 1.73 F KT/V PRESCRIBED 2024-12-06 23:28:30 1.45 F WEIGHT (KG) 2024-12-06 23:28:30 116.5 kg F LENGTH OF DIALYSIS 2024-12-06 23:28:30 226 min F stdKT/V Total 2024-12-06 23:28:30 N/A F eKt/V 2024-12-06 23:28:30 1.48 F Std Renal KT/V 2024-12-06 23:28:30 N/A F spKt/V 2024-12-06 23:28:30 1.73 F WEIGHT - POST DAY 1 2024-12-06 23:28:30 116.6 kg F PRESCRIBED DAYS/WEEK 2024-12-06 23:28:30 3 Day/Wk F VT (KT/V TX VOL) 2024-12-06 23:28:30 37 L F AMPUTATE FACTOR 2024-12-06 23:28:30 0 F VM (KT/V MEAN VOL) 2024-12-06 23:28:30 122.1 F PATIENT AGE 2024-12-06 23:28:30 64 Years F Urea nitrogen [Mass/volume] in Serum or Plasma --post dialysis 2024-12-06 23:26:15 21 mg/dL F 9.0-23.0 Creatinine [Mass/volume] in Serum or Plasma 2024-12-06 19:59:20 6.2 mg/dL F 0.7-1.3 Urea nitrogen [Mass/volume] in Serum or Plasma 2024-12-06 19:59:20 93 mg/dL F 9.0-23.0 eKt/V 2024-11-20 15:30:26 1.22 F TBW (Pena) 2024-11-20 15:30:26 54.43 Liters F PRESCRIBED DAYS/WEEK 2024-11-20 15:30:26 3 Day/Wk F DIALYZER FLOW-QD 2024-11-20 15:30:26 805 mL/min F VT (KT/V TX VOL) 2024-11-20 15:30:26 50.2 L F KT/V PRESCRIBED 2024-11-20 15:30:26 1.55 F BSA YULIANA 2024-11-20 15:30:26 2.32 sq m F spKt/V 2024-11-20 15:30:26 1.41 F WEIGHT - PRE DAY 1 2024-11-20 15:30:26 118.3 kg F BLOOD FLOW-QWB 2024-11-20 15:30:26 400 F TOTAL HOURS/WEEK DIALYSIS 2024-11-20 15:30:26 11 hrs F WEIGHT (KG) 2024-11-20 15:30:26 116.5 kg F nPCR 2024-11-20 15:30:26 0.91 G/KG/D F URR% 2024-11-20 15:30:26 71 % F Residual kt/v 2024-11-20 15:30:26 F Unable to calculate: Post BUN lab result is unknown HEIGHT IN INCHES 2024-11-20 15:30:26 70 Inches F AMPUTATE FACTOR 2024-11-20 15:30:26 0 F CURRENT KRU 2024-11-20 15:30:26 F Unable to calculate: Post BUN lab result is unknown PATIENT AGE 2024-11-20 15:30:26 64 Years F VM (KT/V MEAN VOL) 2024-11-20 15:30:26 122.1 F LENGTH OF DIALYSIS 2024-11-20 15:30:26 241 min F Total Kt/V 2024-11-20 15:30:26 1.41 F stdKT/V Total 2024-11-20 15:30:26 N/A F Std Renal KT/V 2024-11-20 15:30:26 N/A F Dialyzer SUMAYA 2024-11-20 15:30:26 1218 Calc F WEIGHT - POST DAY 1 2024-11-20 15:30:26 116.5 kg F stdKt/V (DIAL) 2024-11-20 15:30:26 N/A F eKt/V 2024-11-20 15:30:26 1.31 F BLOOD FLOW-QWB 2024-11-20 15:30:26 400 F URR% 2024-11-20 15:30:26 76 % F LENGTH OF DIALYSIS 2024-11-20 15:30:26 236 min F TBW (Pena) 2024-11-20 15:30:26 54.43 Liters F PATIENT AGE 2024-11-20 15:30:26 64 Years F BSA YULIANA 2024-11-20 15:30:26 2.34 sq m F Std Renal KT/V 2024-11-20 15:30:26 N/A F HEIGHT IN INCHES 2024-11-20 15:30:26 70 Inches F DIALYZER FLOW-QD 2024-11-20 15:30:26 667 mL/min F WEIGHT - POST DAY 1 2024-11-20 15:30:26 116.5 kg F nPCR 2024-11-20 15:30:26 0.53 G/KG/D F CURRENT KRU 2024-11-20 15:30:26 F TOTAL HOURS/WEEK DIALYSIS 2024-11-20 15:30:26 3 hrs F AMPUTATE FACTOR 2024-11-20 15:30:26 0 F Total Kt/V 2024-11-20 15:30:26 1.53 F stdKT/V Total 2024-11-20 15:30:26 N/A F VM (KT/V MEAN VOL) 2024-11-20 15:30:26 122.1 F KT/V PRESCRIBED 2024-11-20 15:30:26 1.49 F Dialyzer SUMAYA 2024-11-20 15:30:26 1218 Calc F stdKt/V (DIAL) 2024-11-20 15:30:26 N/A F WEIGHT - PRE DAY 1 2024-11-20 15:30:26 118.3 kg F spKt/V 2024-11-20 15:30:26 1.53 F Residual kt/v 2024-11-20 15:30:26 F WEIGHT (KG) 2024-11-20 15:30:26 119 kg F VT (KT/V TX VOL) 2024-11-20 15:30:26 44 L F PRESCRIBED DAYS/WEEK 2024-11-20 15:30:26 3 Day/Wk F Creatinine [Mass/volume] in Serum or Plasma 2024-11-08 14:15:18 5.12 mg/dL F 0.7-1.3 Urea nitrogen [Mass/volume] in Serum or Plasma --post dialysis 2024-10-29 00:12:09 17 mg/dL F 9.0-23.0 Urea nitrogen [Mass/volume] in Serum or Plasma 2024-10-28 23:00:17 59 mg/dL F 9.0-23.0 Creatinine [Mass/volume] in Serum or Plasma 2024-10-25 01:30:22 6.01 mg/dL F 0.7-1.3 Urea nitrogen [Mass/volume] in Serum or Plasma 2024-10-25 01:30:22 74 mg/dL F 9.0-23.0 Urea nitrogen [Mass/volume] in Serum or Plasma --post dialysis 2024-10-24 22:58:19 18 mg/dL F 9.0-23.0 WEIGHT (KG) 2024-06-07 22:53:51 139 kg F PRESCRIBED DAYS/WEEK 2024-06-07 22:53:51 3 Day/Wk F Dialyzer SUMAYA 2024-06-07 22:53:51 1218 Calc F URR% 2024-06-07 22:53:51 70 % F Total Kt/V 2024-06-07 22:53:51 1.27 F WEIGHT - PRE DAY 1 2024-06-07 22:53:51 132.7 kg F KT/V PRESCRIBED 2024-06-07 22:53:51 1.26 F VM (KT/V MEAN VOL) 2024-06-07 22:53:51 122.1 F Residual kt/v 2024-06-07 22:53:51 F Std Renal KT/V 2024-06-07 22:53:51 N/A F TOTAL HOURS/WEEK DIALYSIS 2024-06-07 22:53:51 4 hrs F CURRENT KRU 2024-06-07 22:53:51 F nPCR 2024-06-07 22:53:51 0.46 G/KG/D F HEIGHT IN INCHES 2024-06-07 22:53:51 70 Inches F PATIENT AGE 2024-06-07 22:53:51 64 Years F BSA YULIANA 2024-06-07 22:53:51 2.5 sq m F AMPUTATE FACTOR 2024-06-07 22:53:51 0 F stdKT/V Total 2024-06-07 22:53:51 N/A F LENGTH OF DIALYSIS 2024-06-07 22:53:51 243 min F spKt/V 2024-06-07 22:53:51 1.27 F BLOOD FLOW-QWB 2024-06-07 22:53:51 400 F DIALYZER FLOW-QD 2024-06-07 22:53:51 500 mL/min F TBW (Pena) 2024-06-07 22:53:51 59.64 Liters F eKt/V 2024-06-07 22:53:51 1.1 F WEIGHT - POST DAY 1 2024-06-07 22:53:51 132 kg F stdKt/V (DIAL) 2024-06-07 22:53:51 N/A F VT (KT/V TX VOL) 2024-06-07 22:53:51 51.2 L F Creatinine [Mass/volume] in Serum or Plasma 2024-06-07 22:52:23 4.55 mg/dL F 0.7-1.3 Urea nitrogen [Mass/volume] in Serum or Plasma 2024-06-07 22:52:23 67 mg/dL F 9.0-23.0 Urea nitrogen [Mass/volume] in Serum or Plasma --post dialysis 2024-06-07 13:37:27 20 mg/dL F 9.0-23.0 WEIGHT (KG) 2024-05-10 15:08:19 140 kg F VT (KT/V TX VOL) 2024-05-10 15:08:19 47 L F HEIGHT IN INCHES 2024-05-10 15:08:19 70 Inches F Std Renal KT/V 2024-05-10 15:08:19 N/A F DIALYZER FLOW-QD 2024-05-10 15:08:19 500 mL/min F stdKt/V (DIAL) 2024-05-10 15:08:19 N/A F CURRENT KRU 2024-05-10 15:08:19 F Residual kt/v 2024-05-10 15:08:19 F WEIGHT - POST DAY 1 2024-05-10 15:08:19 139.4 kg F TOTAL HOURS/WEEK DIALYSIS 2024-05-10 15:08:19 12 hrs F BLOOD FLOW-QWB 2024-05-10 15:08:19 400 F Total Kt/V 2024-05-10 15:08:19 1.4 F WEIGHT - PRE DAY 1 2024-05-10 15:08:19 142.9 kg F Dialyzer SUMAYA 2024-05-10 15:08:19 1218 Calc F BSA YULIANA 2024-05-10 15:08:19 2.51 sq m F nPCR 2024-05-10 15:08:19 1.01 G/KG/D F eKt/V 2024-05-10 15:08:19 1.22 F PATIENT AGE 2024-05-10 15:08:19 64 Years F PRESCRIBED DAYS/WEEK 2024-05-10 15:08:19 3 Day/Wk F stdKT/V Total 2024-05-10 15:08:19 N/A F TBW (Pena) 2024-05-10 15:08:19 62.13 Liters F KT/V PRESCRIBED 2024-05-10 15:08:19 1.26 F LENGTH OF DIALYSIS 2024-05-10 15:08:19 245 min F URR% 2024-05-10 15:08:19 69 % F VM (KT/V MEAN VOL) 2024-05-10 15:08:19 122.1 F AMPUTATE FACTOR 2024-05-10 15:08:19 0 F spKt/V 2024-05-10 15:08:19 1.4 F Urea nitrogen [Mass/volume] in Serum or Plasma 2024-05-10 15:06:26 65 mg/dL F 9.0-23.0 Creatinine [Mass/volume] in Serum or Plasma 2024-05-10 15:06:26 4.31 mg/dL F 0.7-1.3 Urea nitrogen [Mass/volume] in Serum or Plasma --post dialysis 2024-05-10 14:38:20 20 mg/dL F 9.0-23.0 HEIGHT IN INCHES 2024-04-13 06:23:01 70 Inches F WEIGHT - POST DAY 1 2024-04-13 06:23:01 142.5 kg F Dialyzer SUMAYA 2024-04-13 06:23:01 1218 Calc F AMPUTATE FACTOR 2024-04-13 06:23:01 0 F URR% 2024-04-13 06:23:01 68 % F Std Renal KT/V 2024-04-13 06:23:01 N/A F VT (KT/V TX VOL) 2024-04-13 06:23:01 49.1 L F nPCR 2024-04-13 06:23:01 0.86 G/KG/D F stdKT/V Total 2024-04-13 06:23:01 N/A F BLOOD FLOW-QWB 2024-04-13 06:23:01 380 F LENGTH OF DIALYSIS 2024-04-13 06:23:01 244 min F WEIGHT (KG) 2024-04-13 06:23:01 143 kg F WEIGHT - PRE DAY 1 2024-04-13 06:23:01 145 kg F Residual kt/v 2024-04-13 06:23:01 F VM (KT/V MEAN VOL) 2024-04-13 06:23:01 122.1 F BSA YULIANA 2024-04-13 06:23:01 2.53 sq m F PRESCRIBED DAYS/WEEK 2024-04-13 06:23:01 3 Day/Wk F spKt/V 2024-04-13 06:23:01 1.31 F TOTAL HOURS/WEEK DIALYSIS 2024-04-13 06:23:01 12 hrs F DIALYZER FLOW-QD 2024-04-13 06:23:01 516 mL/min F KT/V PRESCRIBED 2024-04-13 06:23:01 1.24 F Total Kt/V 2024-04-13 06:23:01 1.31 F PATIENT AGE 2024-04-13 06:23:01 64 Years F TBW (Pena) 2024-04-13 06:23:01 63.17 Liters F stdKt/V (DIAL) 2024-04-13 06:23:01 N/A F eKt/V 2024-04-13 06:23:01 1.14 F CURRENT KRU 2024-04-13 06:23:01 F UREA CLR UR/BSA 2024-04-13 06:21:58 0.5 mL/min F 64.0-99.0 CRE CLR UR/BSA 2024-04-13 06:21:58 6 mL/min F 85.0-125.0 BUN/CREAT 2024-04-13 06:21:58 14.3 Calc F 6.9-32.9 Urea nitrogen [Mass/volume] in Serum or Plasma 2024-04-13 06:21:19 56 mg/dL F 9.0-23.0 Creatinine [Mass/volume] in Serum or Plasma 2024-04-13 06:21:19 3.92 mg/dL F 0.7-1.3 Urea nitrogen [Mass/volume] in Urine 2024-04-13 03:42:16 282 mg/dL F Creatinine [Mass/volume] in Urine 2024-04-13 03:42:16 231.5 mg/dL F Urea nitrogen [Mass/volume] in Serum or Plasma --post dialysis 2024-04-12 22:57:19 18 mg/dL F 9.0-23.0 BODY WEIGHT (LBS) 2024-04-11 18:47:11 142.5 lbs F COLLECTION TIME FOR URINE 2024-04-11 18:47:11 1440 min F TOTAL VOLUME-24 HR URINE 2024-04-11 18:47:11 150 mL F AMPUTATE FACTOR 2024-04-11 18:47:04 0 F Std Renal KT/V 2024-03-08 19:19:16 N/A F PATIENT AGE 2024-03-08 19:19:16 64 Years F VT (KT/V TX VOL) 2024-03-08 19:19:16 50.3 L F Residual kt/v 2024-03-08 19:19:16 F eKt/V 2024-03-08 19:19:16 1.13 F BLOOD FLOW-QWB 2024-03-08 19:19:16 400 F BSA YULIANA 2024-03-08 19:19:16 2.55 sq m F PRESCRIBED DAYS/WEEK 2024-03-08 19:19:16 3 Day/Wk F WEIGHT (KG) 2024-03-08 19:19:16 145.5 kg F TBW (Pena) 2024-03-08 19:19:16 64.25 Liters F Total Kt/V 2024-03-08 19:19:16 1.3 F stdKT/V Total 2024-03-08 19:19:16 N/A F WEIGHT - POST DAY 1 2024-03-08 19:19:16 145.7 kg F HEIGHT IN INCHES 2024-03-08 19:19:16 70 Inches F TOTAL HOURS/WEEK DIALYSIS 2024-03-08 19:19:16 12 hrs F Dialyzer SUMAYA 2024-03-08 19:19:16 1218 Calc F stdKt/V (DIAL) 2024-03-08 19:19:16 N/A F AMPUTATE FACTOR 2024-03-08 19:19:16 0 F URR% 2024-03-08 19:19:16 68 % F nPCR 2024-03-08 19:19:16 0.9 G/KG/D F CURRENT KRU 2024-03-08 19:19:16 F KT/V PRESCRIBED 2024-03-08 19:19:16 1.22 F LENGTH OF DIALYSIS 2024-03-08 19:19:16 244 min F WEIGHT - PRE DAY 1 2024-03-08 19:19:16 147.4 kg F VM (KT/V MEAN VOL) 2024-03-08 19:19:16 122.1 F DIALYZER FLOW-QD 2024-03-08 19:19:16 504 mL/min F spKt/V 2024-03-08 19:19:16 1.3 F BUN/CREAT 2024-03-08 19:18:06 10.9 Calc F 6.9-32.9 Creatinine [Mass/volume] in Serum or Plasma 2024-03-08 18:55:15 5.48 mg/dL F 0.7-1.3 Urea nitrogen [Mass/volume] in Serum or Plasma 2024-03-08 18:55:15 60 mg/dL F 9.0-23.0 Urea nitrogen [Mass/volume] in Serum or Plasma --post dialysis 2024-03-08 16:39:19 19 mg/dL F 9.0-23.0 Creatinine [Mass/volume] in Serum or Plasma 2024-02-16 20:11:25 6.58 mg/dL F 0.7-1.3 Urea nitrogen [Mass/volume] in Serum or Plasma BLOOD FLOW-QWB BSA YULIANA Residual kt/v AMPUTATE FACTOR PATIENT AGE Std Renal KT/V WEIGHT - PRE DAY 1 PRESCRIBED DAYS/WEEK WEIGHT - POST DAY 1 LENGTH OF DIALYSIS DIALYZER FLOW-QD eKt/V VM (KT/V MEAN VOL) WEIGHT (KG) Dialyzer SUMAYA TOTAL HOURS/WEEK DIALYSIS stdKT/V Total URR% nPCR Total Kt/V stdKt/V (DIAL) HEIGHT IN INCHES TBW (Pena) CURRENT KRU VT (KT/V TX VOL) KT/V PRESCRIBED spKt/V Anemia Description Draw Date Result/Unit Status Ref Range Result Comments HCT CALC HGBX3 2024-12-07 02:49:52 28.5 % F 42.0-52.0 Erythrocyte distribution width [Ratio] by Automated count 2024-12-07 02:49:09 15.8 % F 11.0-15.0 Hemoglobin [Mass/volume] in Blood 2024-12-07 02:49:09 9.5 g/dL F 14.0-18.0 Platelets [#/volume] in Blood by Automated count 2024-12-07 02:49:09 143 x 10^3 cells/uL F 140.0-450.0 MCHC [Mass/volume] by Automated count 2024-12-07 02:49:09 31.5 g/dL F 29.6-35.3 MCH [Entitic mass] by Automated count 2024-12-07 02:49:09 32.2 pg F 25.9-34.2 Hematocrit [Volume Fraction] of Blood by Automated count 2024-12-07 02:49:09 30.3 % F 41.0-53.0 Erythrocytes [#/volume] in Blood by Automated count 2024-12-07 02:49:09 2.96 x 10^6 cells/uL F 4.6-6.2 MCV [Entitic volume] by Automated count 2024-12-07 02:49:09 102.4 fL F 80.0-100.0 HCT CALC HGBX3 2024-11-22 01:55:20 27.6 % F 42.0-52.0 Hemoglobin [Mass/volume] in Blood 2024-11-22 01:54:20 9.2 g/dL F 14.0-18.0 IRON SATURATION 2024-11-09 06:54:01 33 % F 21.0-49.0 TIBC 2024-11-09 06:54:01 256 ug/dL F 250.0-425.0 Iron [Mass/volume] in Serum or Plasma 2024-11-09 06:53:09 85 ug/dL F 65.0-175.0 Iron binding capacity.unsaturated [Mass/volume] in Serum or Plasma 2024-11-09 06:53:09 171 ug/dL F 75.0-360.0 Ferritin [Mass/volume] in Serum or Plasma 2024-11-09 01:39:22 404 ng/mL F 22.0-322.0 HCT CALC HGBX3 2024-11-08 05:45:01 28.8 % F 42.0-52.0 Erythrocyte distribution width [Ratio] by Automated count 2024-11-08 05:44:19 15.4 % F 11.0-15.0 Platelets [#/volume] in Blood by Automated count 2024-11-08 05:44:19 147 x 10^3 cells/uL F 140.0-450.0 MCHC [Mass/volume] by Automated count 2024-11-08 05:44:19 31.8 g/dL F 29.6-35.3 Hemoglobin [Mass/volume] in Blood 2024-11-08 05:44:17 9.6 g/dL F 14.0-18.0 MCH [Entitic mass] by Automated count 2024-11-08 05:44:17 32.5 pg F 25.9-34.2 Erythrocytes [#/volume] in Blood by Automated count 2024-11-08 05:44:17 2.97 x 10^6 cells/uL F 4.6-6.2 Hematocrit [Volume Fraction] of Blood by Automated count 2024-11-08 05:44:17 30.3 % F 41.0-53.0 MCV [Entitic volume] by Automated count 2024-11-08 05:44:17 102.1 fL F 80.0-100.0 Ferritin [Mass/volume] in Serum or Plasma 2024-10-25 16:10:14 354 ng/mL F 22.0-322.0 IRON SATURATION 2024-10-25 07:51:52 15 % F 21.0-49.0 TIBC 2024-10-25 07:51:52 262 ug/dL F 250.0-425.0 Iron binding capacity.unsaturated [Mass/volume] in Serum or Plasma 2024-10-25 07:15:49 224 ug/dL F 75.0-360.0 Iron [Mass/volume] in Serum or Plasma 2024-10-25 03:34:32 38 ug/dL F 65.0-175.0 HCT CALC HGBX3 2024-10-24 23:26:03 30.3 % F 42.0-52.0 Erythrocyte distribution width [Ratio] by Automated count 2024-10-24 23:25:16 16.7 % F 11.0-15.0 Hemoglobin [Mass/volume] in Blood 2024-10-24 23:25:16 10.1 g/dL F 14.0-18.0 Platelets [#/volume] in Blood by Automated count 2024-10-24 23:25:16 242 x 10^3 cells/uL F 140.0-450.0 MCH [Entitic mass] by Automated count 2024-10-24 23:25:16 33.3 pg F 25.9-34.2 MCHC [Mass/volume] by Automated count 2024-10-24 23:25:16 32 g/dL F 29.6-35.3 Hematocrit [Volume Fraction] of Blood by Automated count 2024-10-24 23:25:16 31.6 % F 41.0-53.0 Erythrocytes [#/volume] in Blood by Automated count 2024-10-24 23:25:16 3.04 x 10^6 cells/uL F 4.6-6.2 MCV [Entitic volume] by Automated count 2024-10-24 23:25:16 103.9 fL F 80.0-100.0 Ferritin [Mass/volume] in Serum or Plasma 2024-06-09 21:13:46 231 ng/mL F 22.0-322.0 IRON SATURATION 2024-06-09 16:23:14 21 % F 21.0-49.0 TIBC 2024-06-09 16:23:14 220 ug/dL F 250.0-425.0 Iron [Mass/volume] in Serum or Plasma 2024-06-09 16:19:10 47 ug/dL F 65.0-175.0 Iron binding capacity.unsaturated [Mass/volume] in Serum or Plasma 2024-06-09 16:19:08 173 ug/dL F 75.0-360.0 Transferrin [Mass/volume] in Serum or Plasma 2024-06-07 22:52:23 168 mg/dL F 215.0-365.0 HCT CALC HGBX3 2024-06-07 21:57:20 33.6 % F 42.0-52.0 ABSOLUTE RETIC COUNT 2024-06-07 21:56:21 0.165 x 10^6 cells/uL F 0.035-0.127 Erythrocyte distribution width [Ratio] by Automated count 2024-06-07 21:56:21 15.3 % F 11.0-15.0 Hemoglobin [Mass/volume] in Blood 2024-06-07 21:56:21 11.2 g/dL F 14.0-18.0 MCHC [Mass/volume] by Automated count 2024-06-07 21:56:21 29.9 g/dL F 29.6-35.3 Reticulocytes/100 erythrocytes in Blood by Automated count 2024-06-07 21:56:21 4.58 % F 0.7-2.5 Platelets [#/volume] in Blood by Automated count 2024-06-07 21:56:21 177 x 10^3 cells/uL F 140.0-450.0 MCH [Entitic mass] by Automated count 2024-06-07 21:56:21 31.1 pg F 25.9-34.2 Erythrocytes [#/volume] in Blood by Automated count 2024-06-07 21:56:21 3.6 x 10^6 cells/uL F 4.6-6.2 Hematocrit [Volume Fraction] of Blood by Automated count 2024-06-07 21:56:21 37.4 % F 41.0-53.0 MCV [Entitic volume] by Automated count 2024-06-07 21:56:21 103.8 fL F 80.0-100.0 HCT CALC HGBX3 2024-05-25 02:39:06 29.1 % F 42.0-52.0 Hemoglobin [Mass/volume] in Blood 2024-05-25 02:38:16 9.7 g/dL F 14.0-18.0 IRON SATURATION 2024-05-18 08:05:52 15 % F 21.0-49.0 TIBC 2024-05-18 08:05:52 216 ug/dL F 250.0-425.0 Iron binding capacity.unsaturated [Mass/volume] in Serum or Plasma 2024-05-18 06:02:04 183 ug/dL F 75.0-360.0 Iron [Mass/volume] in Serum or Plasma 2024-05-18 06:02:04 33 ug/dL F 65.0-175.0 Ferritin [Mass/volume] in Serum or Plasma 2024-05-18 00:38:24 265 ng/mL F 22.0-322.0 Ferritin [Mass/volume] in Serum or Plasma 2024-05-13 05:45:58 270 ng/mL F 22.0-322.0 TIBC 2024-05-12 21:09:32 230 ug/dL F 250.0-425.0 IRON SATURATION 2024-05-12 21:09:32 20 % F 21.0-49.0 Iron [Mass/volume] in Serum or Plasma 2024-05-12 19:46:45 45 ug/dL F 65.0-175.0 Iron binding capacity.unsaturated [Mass/volume] in Serum or Plasma 2024-05-12 19:46:45 185 ug/dL F 75.0-360.0 HCT CALC HGBX3 2024-05-10 22:04:59 28.2 % F 42.0-52.0 Reticulocytes/100 erythrocytes in Blood by Automated count 2024-05-10 22:04:19 1.45 % F 0.7-2.5 Platelets [#/volume] in Blood by Automated count 2024-05-10 22:04:19 178 x 10^3 cells/uL F 140.0-450.0 MCV [Entitic volume] by Automated count 2024-05-10 22:04:19 104.9 fL F 80.0-100.0 MCH [Entitic mass] by Automated count 2024-05-10 22:04:19 31.2 pg F 25.9-34.2 ABSOLUTE RETIC COUNT 2024-05-10 22:04:16 0.044 x 10^6 cells/uL F 0.035-0.127 Erythrocytes [#/volume] in Blood by Automated count 2024-05-10 22:04:16 3.01 x 10^6 cells/uL F 4.6-6.2 Hematocrit [Volume Fraction] of Blood by Automated count 2024-05-10 22:04:16 31.6 % F 41.0-53.0 Erythrocyte distribution width [Ratio] by Automated count 2024-05-10 22:04:16 15.8 % F 11.0-15.0 Hemoglobin [Mass/volume] in Blood 2024-05-10 22:04:16 9.4 g/dL F 14.0-18.0 MCHC [Mass/volume] by Automated count 2024-05-10 22:04:16 29.8 g/dL F 29.6-35.3 Transferrin [Mass/volume] in Serum or Plasma 2024-05-10 15:06:26 181 mg/dL F 215.0-365.0 Transferrin [Mass/volume] in Serum or Plasma 2024-04-13 06:21:19 194 mg/dL F 215.0-365.0 HCT CALC HGBX3 2024-04-13 04:27:59 24.9 % F 42.0-52.0 ABSOLUTE RETIC COUNT 2024-04-13 04:25:13 0.036 x 10^6 cells/uL F 0.035-0.127 MCH [Entitic mass] by Automated count 2024-04-13 04:25:13 32.4 pg F 25.9-34.2 Hematocrit [Volume Fraction] of Blood by Automated count 2024-04-13 04:25:13 27.4 % F 41.0-53.0 Hemoglobin [Mass/volume] in Blood 2024-04-13 04:25:13 8.3 g/dL F 14.0-18.0 Platelets [#/volume] in Blood by Automated count 2024-04-13 04:25:13 203 x 10^3 cells/uL F 140.0-450.0 MCV [Entitic volume] by Automated count 2024-04-13 04:25:13 107.6 fL F 80.0-100.0 Reticulocytes/100 erythrocytes in Blood by Automated count 2024-04-13 04:25:13 1.42 % F 0.7-2.5 Erythrocyte distribution width [Ratio] by Automated count 2024-04-13 04:25:13 16 % F 11.0-15.0 MCHC [Mass/volume] by Automated count 2024-04-13 04:25:13 30.1 g/dL F 29.6-35.3 Erythrocytes [#/volume] in Blood by Automated count 2024-04-13 04:25:13 2.55 x 10^6 cells/uL F 4.6-6.2 HCT CALC HGBX3 2024-03-09 03:08:17 24.6 % F 42.0-52.0 Erythrocyte distribution width [Ratio] by Automated count 2024-03-09 03:07:18 17.8 % F 11.0-15.0 MCHC [Mass/volume] by Automated count 2024-03-09 03:07:18 30.2 g/dL F 29.6-35.3 Erythrocytes [#/volume] in Blood by Automated count 2024-03-09 03:07:18 2.57 x 10'6 cells/uL F 4.6-6.2 MCV [Entitic volume] by Automated count 2024-03-09 03:07:18 104.8 fL F 80.0-100.0 Hemoglobin [Mass/volume] in Blood 2024-03-09 03:07:18 8.2 g/dL F 14.0-18.0 Platelets [#/volume] in Blood by Automated count 2024-03-09 03:07:18 224 x 10^3 cells/uL F 140.0-450.0 Hematocrit [Volume Fraction] of Blood by Automated count 2024-03-09 03:07:18 27 % F 41.0-53.0 MCH [Entitic mass] by Automated count 2024-03-09 03:07:18 31.7 pg F 25.9-34.2 Transferrin [Mass/volume] in Serum or Plasma 2024-03-08 18:55:15 201 mg/dL F 215.0-365.0 Ferritin [Mass/volume] in Serum or Plasma 2024-02-17 07:26:32 139 ng/mL F 22.0-322.0 IRON SATURATION 2024-02-17 04:12:12 15 % F 21.0-49.0 TIBC 2024-02-17 04:12:12 299 ug/dL F 250.0-425.0 Iron [Mass/volume] in Serum or Plasma 2024-02-17 03:52:29 45 ug/dL F 65.0-175.0 Iron binding capacity.unsaturated [Mass/volume] in Serum or Plasma 2024-02-17 03:52:29 254 ug/dL F 75.0-360.0 HCT CALC HGBX3 2024-02-16 21:41:20 22.5 % F 42.0-52.0 MCHC [Mass/volume] by Automated count 2024-02-16 21:40:17 27.2 g/dL F 29.6-35.3 Erythrocyte distribution width [Ratio] by Automated count 2024-02-16 21:40:17 19.2 % F 11.0-15.0 MCV [Entitic volume] by Automated count 2024-02-16 21:40:17 103.9 fL F 80.0-100.0 MCH [Entitic mass] by Automated count 2024-02-16 21:40:17 28.3 pg F 25.9-34.2 Hemoglobin [Mass/volume] in Blood 2024-02-16 21:40:15 7.5 g/dL F 14.0-18.0 Erythrocytes [#/volume] in Blood by Automated count 2024-02-16 21:40:15 2.65 x 10'6 cells/uL F 4.6-6.2 Platelets [#/volume] in Blood by Automated count 2024-02-16 21:40:15 386 x 10^3 cells/uL F 140.0-450.0 Hematocrit [Volume Fraction] of Blood by Automated count 2024-02-16 21:40:15 27.5 % F 41.0-53.0 Transferrin [Mass/volume] in Serum or Plasma 2024-02-16 20:11:25 235 mg/dL F 215.0-365.0 Comorbidities Description Draw Date Result/Unit Status Ref Range Result Comments Hemoglobin A1c/Hemoglobin.total in Blood 2024-02-16 22:08:14 7 %A1c F 0.0-5.6 FluidBP Description Draw Date Result/Unit Status Ref Range Result Comments Sodium [Moles/volume] in Serum or Plasma 2024-12-07 06:47:03 137 mEq/L F 132.0-146.0 Sodium [Moles/volume] in Serum or Plasma 2024-11-08 15:53:08 138 mEq/L F 132.0-146.0 Sodium [Moles/volume] in Serum or Plasma 2024-10-25 03:34:33 134 mEq/L F 132.0-146.0 Sodium [Moles/volume] in Serum or Plasma 2024-06-08 07:06:16 137 mEq/L F 132.0-146.0 Sodium [Moles/volume] in Serum or Plasma 2024-05-11 07:02:42 139 mEq/L F 132.0-146.0 Sodium [Moles/volume] in Serum or Plasma 2024-04-13 07:15:25 139 mEq/L F 132.0-146.0 Sodium [Moles/volume] in Serum or Plasma 2024-03-09 07:57:03 138 mEq/L F 132.0-146.0 Sodium [Moles/volume] in Serum or Plasma 2024-02-17 03:52:45 135 mEq/L F 132.0-146.0 General Description Draw Date Result/Unit Status Ref Range Result Comments Chloride [Moles/volume] in Serum or Plasma 2024-12-07 06:47:03 100 mEq/L F 99.0-109.0 Aspartate aminotransferase [Enzymatic activity/volume] in Serum or Plasma 2024-12-06 19:59:20 19 U/L F 0.0-33.0 Chloride [Moles/volume] in Serum or Plasma 2024-11-08 15:53:08 100 mEq/L F 99.0-109.0 Aspartate aminotransferase [Enzymatic activity/volume] in Serum or Plasma 2024-11-08 14:15:18 17 U/L F 0.0-33.0 Aluminum [Mass/volume] in Serum or Plasma 2024-10-25 18:09:45 10 ug/L F 0.0-9.0 Chloride [Moles/volume] in Serum or Plasma 2024-10-25 03:34:33 96 mEq/L F 99.0-109.0 Aspartate aminotransferase [Enzymatic activity/volume] in Serum or Plasma 2024-10-25 01:30:22 19 U/L F 0.0-33.0 Alanine aminotransferase [Enzymatic activity/volume] in Serum or Plasma 2024-10-25 01:30:22 13 U/L F 10.0-49.0 Chloride [Moles/volume] in Serum or Plasma 2024-06-08 07:06:16 101 mEq/L F 99.0-109.0 Alanine aminotransferase [Enzymatic activity/volume] in Serum or Plasma 2024-06-07 22:52:23 21 U/L F 10.0-49.0 Aspartate aminotransferase [Enzymatic activity/volume] in Serum or Plasma 2024-06-07 22:52:23 23 U/L F 0.0-33.0 Chloride [Moles/volume] in Serum or Plasma 2024-05-11 07:02:42 101 mEq/L F 99.0-109.0 Aspartate aminotransferase [Enzymatic activity/volume] in Serum or Plasma 2024-05-10 15:06:26 18 U/L F 0.0-33.0 Alanine aminotransferase [Enzymatic activity/volume] in Serum or Plasma 2024-05-10 15:06:26 14 U/L F 10.0-49.0 Chloride [Moles/volume] in Serum or Plasma 2024-04-13 07:15:25 101 mEq/L F 99.0-109.0 Aspartate aminotransferase [Enzymatic activity/volume] in Serum or Plasma 2024-04-13 06:21:19 33 U/L F 0.0-33.0 Alanine aminotransferase [Enzymatic activity/volume] in Serum or Plasma 2024-04-13 06:21:19 24 U/L F 10.0-49.0 Chloride [Moles/volume] in Serum or Plasma 2024-03-09 07:57:03 100 mEq/L F 99.0-109.0 Aspartate aminotransferase [Enzymatic activity/volume] in Serum or Plasma 2024-03-08 18:55:15 30 U/L F 0.0-33.0 Alanine aminotransferase [Enzymatic activity/volume] in Serum or Plasma 2024-03-08 18:55:15 28 U/L F 10.0-49.0 Chloride [Moles/volume] in Serum or Plasma 2024-02-17 03:52:45 101 mEq/L F 99.0-109.0 Aspartate aminotransferase [Enzymatic activity/volume] in Serum or Plasma 2024-02-16 20:11:25 86 U/L F 0.0-33.0 Alanine aminotransferase [Enzymatic activity/volume] in Serum or Plasma 2024-02-16 20:11:25 45 U/L F 10.0-49.0 Aluminum [Mass/volume] in Serum or Plasma 2024-02-16 16:54:09 10 ug/L F 0.0-9.0 InfectionVaccination Description Draw Date Result/Unit Status Ref Range Result Comments Neutrophils/100 leukocytes in Blood by Automated count 2024-12-07 02:49:09 71.2 % F Eosinophils/100 leukocytes in Blood by Automated count 2024-12-07 02:49:09 2.9 % F Monocytes/100 leukocytes in Blood by Automated count 2024-12-07 02:49:09 5.3 % F Basophils/100 leukocytes in Blood by Automated count 2024-12-07 02:49:09 0.4 % F Lymphocytes/100 leukocytes in Blood by Automated count 2024-12-07 02:49:09 20.2 % F Monocytes [#/volume] in Blood by Automated count 2024-12-07 02:49:09 387 Cells/uL F 0.0-1100.0 Basophils [#/volume] in Blood by Automated count 2024-12-07 02:49:09 29 Cells/uL F 0.0-400.0 Eosinophils [#/volume] in Blood by Automated count 2024-12-07 02:49:09 212 Cells/uL F 0.0-700.0 Neutrophils [#/volume] in Blood by Automated count 2024-12-07 02:49:09 5198 Cells/uL F 2000.0-8800.0 Leukocytes [#/volume] in Blood by Automated count 2024-12-07 02:49:09 7.3 x 10^3 cells/uL F 4.0-11.0 Lymphocytes [#/volume] in Blood by Automated count 2024-12-07 02:49:09 1475 Cells/uL F 620.0-3660.0 Basophils/100 leukocytes in Blood by Automated count 2024-11-08 05:44:19 0.4 % F Monocytes [#/volume] in Blood by Automated count 2024-11-08 05:44:19 357 Cells/uL F 0.0-1100.0 Neutrophils [#/volume] in Blood by Automated count 2024-11-08 05:44:19 4306 Cells/uL F 2000.0-8800.0 Leukocytes [#/volume] in Blood by Automated count 2024-11-08 05:44:19 6.4 x 10^3 cells/uL F 4.0-11.0 Neutrophils/100 leukocytes in Blood by Automated count 2024-11-08 05:44:17 67.5 % F Monocytes/100 leukocytes in Blood by Automated count 2024-11-08 05:44:17 5.6 % F Eosinophils/100 leukocytes in Blood by Automated count 2024-11-08 05:44:17 2.7 % F Lymphocytes/100 leukocytes in Blood by Automated count 2024-11-08 05:44:17 23.8 % F Basophils [#/volume] in Blood by Automated count 2024-11-08 05:44:17 26 Cells/uL F 0.0-400.0 Eosinophils [#/volume] in Blood by Automated count 2024-11-08 05:44:17 172 Cells/uL F 0.0-700.0 Lymphocytes [#/volume] in Blood by Automated count 2024-11-08 05:44:17 1518 Cells/uL F 620.0-3660.0 Neutrophils/100 leukocytes in Blood by Automated count 2024-10-24 23:25:16 64.9 % F Eosinophils/100 leukocytes in Blood by Automated count 2024-10-24 23:25:16 2.9 % F Basophils/100 leukocytes in Blood by Automated count 2024-10-24 23:25:16 0.4 % F Monocytes/100 leukocytes in Blood by Automated count 2024-10-24 23:25:16 6.5 % F Lymphocytes/100 leukocytes in Blood by Automated count 2024-10-24 23:25:16 25.3 % F Monocytes [#/volume] in Blood by Automated count 2024-10-24 23:25:16 437 Cells/uL F 0.0-1100.0 Basophils [#/volume] in Blood by Automated count 2024-10-24 23:25:16 27 Cells/uL F 0.0-400.0 Eosinophils [#/volume] in Blood by Automated count 2024-10-24 23:25:16 195 Cells/uL F 0.0-700.0 Neutrophils [#/volume] in Blood by Automated count 2024-10-24 23:25:16 4361 Cells/uL F 2000.0-8800.0 Leukocytes [#/volume] in Blood by Automated count 2024-10-24 23:25:16 6.7 x 10^3 cells/uL F 4.0-11.0 Lymphocytes [#/volume] in Blood by Automated count 2024-10-24 23:25:16 1700 Cells/uL F 620.0-3660.0 Eosinophils/100 leukocytes in Blood by Automated count 2024-06-07 21:56:21 3.2 % F Neutrophils/100 leukocytes in Blood by Automated count 2024-06-07 21:56:21 64.9 % F Basophils [#/volume] in Blood by Automated count 2024-06-07 21:56:21 20 Cells/uL F 0.0-400.0 Eosinophils [#/volume] in Blood by Automated count 2024-06-07 21:56:21 215 Cells/uL F 0.0-700.0 Leukocytes [#/volume] in Blood by Automated count 2024-06-07 21:56:21 6.7 x 10^3 cells/uL F 4.0-11.0 Lymphocytes/100 leukocytes in Blood by Automated count 2024-06-07 21:56:21 24.4 % F Basophils/100 leukocytes in Blood by Automated count 2024-06-07 21:56:21 0.3 % F Monocytes/100 leukocytes in Blood by Automated count 2024-06-07 21:56:21 7.2 % F Monocytes [#/volume] in Blood by Automated count 2024-06-07 21:56:21 485 Cells/uL F 0.0-1100.0 Neutrophils [#/volume] in Blood by Automated count 2024-06-07 21:56:21 4368 Cells/uL F 2000.0-8800.0 Lymphocytes [#/volume] in Blood by Automated count 2024-06-07 21:56:21 1642 Cells/uL F 620.0-3660.0 Neutrophils/100 leukocytes in Blood by Automated count 2024-05-10 22:04:19 71.6 % F Monocytes [#/volume] in Blood by Automated count 2024-05-10 22:04:19 458 Cells/uL F 0.0-1100.0 Basophils [#/volume] in Blood by Automated count 2024-05-10 22:04:19 34 Cells/uL F 0.0-400.0 Neutrophils [#/volume] in Blood by Automated count 2024-05-10 22:04:19 6072 Cells/uL F 2000.0-8800.0 Leukocytes [#/volume] in Blood by Automated count 2024-05-10 22:04:19 8.5 x 10^3 cells/uL F 4.0-11.0 Lymphocytes/100 leukocytes in Blood by Automated count 2024-05-10 22:04:19 20 % F Monocytes/100 leukocytes in Blood by Automated count 2024-05-10 22:04:16 5.4 % F Basophils/100 leukocytes in Blood by Automated count 2024-05-10 22:04:16 0.4 % F Lymphocytes [#/volume] in Blood by Automated count 2024-05-10 22:04:16 1696 Cells/uL F 620.0-3660.0 Eosinophils/100 leukocytes in Blood by Automated count 2024-05-10 22:04:16 2.6 % F Eosinophils [#/volume] in Blood by Automated count 2024-05-10 22:04:16 220 Cells/uL F 0.0-700.0 Lymphocytes [#/volume] in Blood by Automated count 2024-04-13 04:25:13 1289 Cells/uL F 620.0-3660.0 Eosinophils/100 leukocytes in Blood by Automated count 2024-04-13 04:25:13 2.9 % F Monocytes [#/volume] in Blood by Automated count 2024-04-13 04:25:13 407 Cells/uL F 0.0-1100.0 Neutrophils/100 leukocytes in Blood by Automated count 2024-04-13 04:25:13 73.9 % F Basophils/100 leukocytes in Blood by Automated count 2024-04-13 04:25:13 0.7 % F Monocytes/100 leukocytes in Blood by Automated count 2024-04-13 04:25:13 5.4 % F Eosinophils [#/volume] in Blood by Automated count 2024-04-13 04:25:13 219 Cells/uL F 0.0-700.0 Leukocytes [#/volume] in Blood by Automated count 2024-04-13 04:25:13 7.5 x 10^3 cells/uL F 4.0-11.0 Lymphocytes/100 leukocytes in Blood by Automated count 2024-04-13 04:25:13 17.1 % F Basophils [#/volume] in Blood by Automated count 2024-04-13 04:25:13 53 Cells/uL F 0.0-400.0 Neutrophils [#/volume] in Blood by Automated count 2024-04-13 04:25:13 5572 Cells/uL F 2000.0-8800.0 Lymphocytes/100 leukocytes in Blood by Automated count 2024-03-09 03:07:18 18.5 % F Monocytes [#/volume] in Blood by Automated count 2024-03-09 03:07:18 622 Cells/uL F 0.0-1100.0 Basophils [#/volume] in Blood by Automated count 2024-03-09 03:07:18 56 Cells/uL F 0.0-400.0 Neutrophils [#/volume] in Blood by Automated count 2024-03-09 03:07:18 8249 Cells/uL F 2000.0-8800.0 Basophils/100 leukocytes in Blood by Automated count 2024-03-09 03:07:18 0.5 % F Neutrophils/100 leukocytes in Blood by Automated count 2024-03-09 03:07:18 73 % F Eosinophils/100 leukocytes in Blood by Automated count 2024-03-09 03:07:18 2.5 % F Leukocytes [#/volume] in Blood by Automated count 2024-03-09 03:07:18 11.3 x 10^3 cells/uL F 4.0-11.0 Lymphocytes [#/volume] in Blood by Automated count 2024-03-09 03:07:18 2090 Cells/uL F 620.0-3660.0 Monocytes/100 leukocytes in Blood by Automated count 2024-03-09 03:07:18 5.5 % F Eosinophils [#/volume] in Blood by Automated count 2024-03-09 03:07:18 282 Cells/uL F 0.0-700.0 Lymphocytes [#/volume] in Blood by Automated count 2024-02-16 21:40:17 1529 Cells/uL F 620.0-3660.0 Monocytes/100 leukocytes in Blood by Automated count 2024-02-16 21:40:17 6 % F Eosinophils/100 leukocytes in Blood by Automated count 2024-02-16 21:40:17 2 % F Monocytes [#/volume] in Blood by Automated count 2024-02-16 21:40:15 507 Cells/uL F 0.0-1100.0 Neutrophils [#/volume] in Blood by Automated count 2024-02-16 21:40:15 6211 Cells/uL F 2000.0-8800.0 Leukocytes [#/volume] in Blood by Automated count 2024-02-16 21:40:15 8.4 x 10^3 cells/uL F 4.0-11.0 Basophils/100 leukocytes in Blood by Automated count 2024-02-16 21:40:15 0.4 % F Basophils [#/volume] in Blood by Automated count 2024-02-16 21:40:15 34 Cells/uL F 0.0-400.0 Lymphocytes/100 leukocytes in Blood by Automated count 2024-02-16 21:40:15 18.1 % F Neutrophils/100 leukocytes in Blood by Automated count 2024-02-16 21:40:15 73.5 % F Eosinophils [#/volume] in Blood by Automated count 2024-02-16 21:40:15 169 Cells/uL F 0.0-700.0 MineralBone Disorder Description Draw Date Result/Unit Status Ref Range Result Comments CA CORRECTED 2024-12-07 06:58:47 8.7 mg/dL F CA/PHOS PRODUCT 2024-12-07 06:56:26 43.7 Calc F 21.0-53.0 CA*PO4 CORRCTD 2024-12-07 06:56:26 47.2 Calc F 21.0-53.0 Calcium [Mass/volume] in Serum or Plasma 2024-12-07 06:47:03 8.1 mg/dL F 8.7-10.4 Parathyrin.intact [Mass/volume] in Serum or Plasma 2024-12-07 02:32:20 539 pg/mL F 18.0-80.0 Phosphate [Mass/volume] in Serum or Plasma 2024-12-06 19:59:20 5.4 mg/dL F 2.4-5.1 Alkaline phosphatase [Enzymatic activity/volume] in Serum or Plasma 2024-12-06 19:59:20 188 U/L F 46.0-116.0 Parathyrin.intact [Mass/volume] in Serum or Plasma 2024-11-09 01:39:22 262 pg/mL F 18.0-80.0 CA CORRECTED 2024-11-08 16:06:56 9 mg/dL F CA*PO4 CORRCTD 2024-11-08 16:04:42 34.4 Calc F 21.0-53.0 CA/PHOS PRODUCT 2024-11-08 16:04:42 31.9 Calc F 21.0-53.0 Calcium [Mass/volume] in Serum or Plasma 2024-11-08 15:53:08 8.4 mg/dL F 8.7-10.4 Phosphate [Mass/volume] in Serum or Plasma 2024-11-08 14:15:18 3.8 mg/dL F 2.4-5.1 Alkaline phosphatase [Enzymatic activity/volume] in Serum or Plasma 2024-11-08 14:15:18 169 U/L F 46.0-116.0 Parathyrin.intact [Mass/volume] in Serum or Plasma 2024-10-25 16:10:14 244 pg/mL F 18.0-80.0 25-Hydroxyvitamin D3+25-Hydroxyvitamin D2 [Mass/volume] in Serum or Plasma 2024-10-25 07:23:42 77.6 ng/mL F CA CORRECTED 2024-10-25 03:42:27 9.3 mg/dL F CA*PO4 CORRCTD 2024-10-25 03:41:11 46.3 Calc F 21.0-53.0 CA/PHOS PRODUCT 2024-10-25 03:41:11 43.5 Calc F 21.0-53.0 Calcium [Mass/volume] in Serum or Plasma 2024-10-25 03:34:33 8.7 mg/dL F 8.7-10.4 Phosphate [Mass/volume] in Serum or Plasma 2024-10-25 01:30:22 5 mg/dL F 2.4-5.1 Alkaline phosphatase [Enzymatic activity/volume] in Serum or Plasma 2024-10-25 01:30:22 170 U/L F 46.0-116.0 CA CORRECTED 2024-06-08 08:04:16 9.3 mg/dL F CA/PHOS PRODUCT 2024-06-08 08:02:10 53.1 Calc F 21.0-53.0 CA*PO4 CORRCTD 2024-06-08 08:02:10 59.3 Calc F 21.0-53.0 Phosphate [Mass/volume] in Serum or Plasma 2024-06-08 07:06:16 6.4 mg/dL F 2.4-5.1 Calcium [Mass/volume] in Serum or Plasma 2024-06-08 07:06:16 8.3 mg/dL F 8.7-10.4 Alkaline phosphatase [Enzymatic activity/volume] in Serum or Plasma 2024-06-07 22:52:23 160 U/L F 46.0-116.0 Parathyrin.intact [Mass/volume] in Serum or Plasma 2024-06-07 18:09:15 267 pg/mL F 18.0-80.0 CA CORRECTED 2024-05-11 09:14:11 9.2 mg/dL F CA/PHOS PRODUCT 2024-05-11 09:12:13 40.7 Calc F 21.0-53.0 CA*PO4 CORRCTD 2024-05-11 09:12:13 45 Calc F 21.0-53.0 Calcium [Mass/volume] in Serum or Plasma 2024-05-11 07:02:42 8.3 mg/dL F 8.7-10.4 Phosphate [Mass/volume] in Serum or Plasma 2024-05-11 07:02:42 4.9 mg/dL F 2.4-5.1 Parathyrin.intact [Mass/volume] in Serum or Plasma 2024-05-10 19:51:21 268 pg/mL F 18.0-80.0 Alkaline phosphatase [Enzymatic activity/volume] in Serum or Plasma 2024-05-10 15:06:26 147 U/L F 46.0-116.0 CA CORRECTED 2024-04-13 14:28:43 8.7 mg/dL F CA*PO4 CORRCTD 2024-04-13 14:27:00 51.6 Calc F 21.0-53.0 CA/PHOS PRODUCT 2024-04-13 14:27:00 45.4 Calc F 21.0-53.0 Calcium [Mass/volume] in Serum or Plasma 2024-04-13 07:15:25 7.7 mg/dL F 8.7-10.4 Phosphate [Mass/volume] in Serum or Plasma 2024-04-13 07:15:25 5.9 mg/dL F 2.4-5.1 Alkaline phosphatase [Enzymatic activity/volume] in Serum or Plasma 2024-04-13 06:21:19 136 U/L F 46.0-116.0 Parathyrin.intact [Mass/volume] in Serum or Plasma 2024-04-12 23:46:17 249 pg/mL F 18.0-80.0 CA CORRECTED 2024-03-09 08:56:43 9.1 mg/dL F CA/PHOS PRODUCT 2024-03-09 08:55:04 45.8 Calc F 21.0-53.0 CA*PO4 CORRCTD 2024-03-09 08:55:04 52.8 Calc F 21.0-53.0 Calcium [Mass/volume] in Serum or Plasma 2024-03-09 07:57:03 7.9 mg/dL F 8.7-10.4 Phosphate [Mass/volume] in Serum or Plasma 2024-03-09 07:57:03 5.8 mg/dL F 2.4-5.1 Parathyrin.intact [Mass/volume] in Serum or Plasma 2024-03-08 19:04:22 150 pg/mL F 18.0-80.0 Alkaline phosphatase [Enzymatic activity/volume] in Serum or Plasma 2024-03-08 18:55:15 113 U/L F 46.0-116.0 25-Hydroxyvitamin D3+25-Hydroxyvitamin D2 [Mass/volume] in Serum or Plasma 2024-02-17 07:12:58 36.7 ng/mL F CA CORRECTED 2024-02-17 04:13:03 9 mg/dL F CA/PHOS PRODUCT 2024-02-17 04:12:12 50.1 Calc F 21.0-53.0 CA*PO4 CORRCTD 2024-02-17 04:12:12 58.4 Calc F 21.0-53.0 Calcium [Mass/volume] in Serum or Plasma 2024-02-17 03:52:29 7.7 mg/dL F 8.7-10.4 Parathyrin.intact [Mass/volume] in Serum or Plasma 2024-02-17 00:51:13 261 pg/mL F 18.0-80.0 Phosphate [Mass/volume] in Serum or Plasma 2024-02-16 20:11:25 6.5 mg/dL F 2.4-5.1 Alkaline phosphatase [Enzymatic activity/volume] in Serum or Plasma 2024-02-16 20:11:25 106 U/L F 46.0-116.0 Nutrition Description Draw Date Result/Unit Status Ref Range Result Comments Potassium [Moles/volume] in Serum or Plasma 2024-12-07 06:47:03 5 mEq/L F 3.5-5.5 GLOBULIN 2024-12-06 20:00:27 3.3 g/dL F 0.9-5.0 A/G RATIO 2024-12-06 20:00:27 1 Calc F 1.0-2.5 Lactate dehydrogenase [Enzymatic activity/volume] in Serum or Plasma 2024-12-06 19:59:20 159 U/L F 120.0-246.0 Bicarbonate [Moles/volume] in Serum or Plasma 2024-12-06 19:59:20 27 mEq/L F 20.0-31.0 Albumin [Mass/volume] in Serum or Plasma by Bromocresol green (BCG) dye binding method 2024-12-06 19:59:20 3.2 g/dL F 3.4-4.8 Protein [Mass/volume] in Serum or Plasma 2024-12-06 19:59:20 6.5 g/dL F 5.7-8.2 Potassium [Moles/volume] in Serum or Plasma 2024-11-08 15:53:08 4.4 mEq/L F 3.5-5.5 GLOBULIN 2024-11-08 14:16:08 3.3 g/dL F 0.9-5.0 A/G RATIO 2024-11-08 14:16:08 1 Calc F 1.0-2.5 Lactate dehydrogenase [Enzymatic activity/volume] in Serum or Plasma 2024-11-08 14:15:18 158 U/L F 120.0-246.0 Bicarbonate [Moles/volume] in Serum or Plasma 2024-11-08 14:15:18 27 mEq/L F 20.0-31.0 Albumin [Mass/volume] in Serum or Plasma by Bromocresol green (BCG) dye binding method 2024-11-08 14:15:18 3.2 g/dL F 3.4-4.8 Protein [Mass/volume] in Serum or Plasma 2024-11-08 14:15:18 6.5 g/dL F 5.7-8.2 Potassium [Moles/volume] in Serum or Plasma 2024-10-25 03:34:33 4.5 mEq/L F 3.5-5.5 GLOBULIN 2024-10-25 01:38:16 3.5 g/dL F 0.9-5.0 A/G RATIO 2024-10-25 01:38:16 0.9 Calc F 1.0-2.5 Lactate dehydrogenase [Enzymatic activity/volume] in Serum or Plasma 2024-10-25 01:30:22 231 U/L F 120.0-246.0 Bicarbonate [Moles/volume] in Serum or Plasma 2024-10-25 01:30:22 26 mEq/L F 20.0-31.0 Albumin [Mass/volume] in Serum or Plasma by Bromocresol green (BCG) dye binding method 2024-10-25 01:30:22 3.3 g/dL F 3.4-4.8 Protein [Mass/volume] in Serum or Plasma 2024-10-25 01:30:22 6.8 g/dL F 5.7-8.2 Potassium [Moles/volume] in Serum or Plasma 2024-06-08 07:06:16 4.2 mEq/L F 3.5-5.5 GLOBULIN 2024-06-07 22:53:03 4 g/dL F 0.9-5.0 A/G RATIO 2024-06-07 22:53:03 0.7 Calc F 1.0-2.5 Lactate dehydrogenase [Enzymatic activity/volume] in Serum or Plasma 2024-06-07 22:52:23 167 U/L F 120.0-246.0 Bicarbonate [Moles/volume] in Serum or Plasma 2024-06-07 22:52:23 25 mEq/L F 20.0-31.0 Albumin [Mass/volume] in Serum or Plasma by Bromocresol green (BCG) dye binding method 2024-06-07 22:52:23 2.8 g/dL F 3.4-4.8 Protein [Mass/volume] in Serum or Plasma 2024-06-07 22:52:23 6.8 g/dL F 5.7-8.2 Glucose [Mass/volume] in Serum or Plasma 2024-06-07 22:52:23 187 mg/dL F 70.0-99.0 Potassium [Moles/volume] in Serum or Plasma 2024-05-11 07:02:42 3.6 mEq/L F 3.5-5.5 A/G RATIO 2024-05-10 15:07:14 0.8 Calc F 1.0-2.5 GLOBULIN 2024-05-10 15:07:14 3.8 g/dL F 0.9-5.0 Protein [Mass/volume] in Serum or Plasma 2024-05-10 15:06:26 6.7 g/dL F 5.7-8.2 Lactate dehydrogenase [Enzymatic activity/volume] in Serum or Plasma 2024-05-10 15:06:26 183 U/L F 120.0-246.0 Bicarbonate [Moles/volume] in Serum or Plasma 2024-05-10 15:06:26 31 mEq/L F 20.0-31.0 Albumin [Mass/volume] in Serum or Plasma by Bromocresol green (BCG) dye binding method 2024-05-10 15:06:26 2.9 g/dL F 3.4-4.8 Glucose [Mass/volume] in Serum or Plasma 2024-05-10 15:06:26 192 mg/dL F 70.0-99.0 Potassium [Moles/volume] in Serum or Plasma 2024-04-13 07:15:25 3.6 mEq/L F 3.5-5.5 A/G RATIO 2024-04-13 06:21:58 0.7 Calc F 1.0-2.5 GLOBULIN 2024-04-13 06:21:58 3.7 g/dL F 0.9-5.0 Lactate dehydrogenase [Enzymatic activity/volume] in Serum or Plasma 2024-04-13 06:21:19 200 U/L F 120.0-246.0 Bicarbonate [Moles/volume] in Serum or Plasma 2024-04-13 06:21:19 30 mEq/L F 20.0-31.0 Albumin [Mass/volume] in Serum or Plasma by Bromocresol green (BCG) dye binding method 2024-04-13 06:21:19 2.7 g/dL F 3.4-4.8 Protein [Mass/volume] in Serum or Plasma 2024-04-13 06:21:19 6.4 g/dL F 5.7-8.2 Glucose [Mass/volume] in Serum or Plasma 2024-04-13 06:21:19 158 mg/dL F 70.0-99.0 Potassium [Moles/volume] in Serum or Plasma 2024-03-09 07:57:03 3.8 mEq/L F 3.5-5.5 GLOBULIN 2024-03-08 19:18:06 4 g/dL F 0.9-5.0 A/G RATIO 2024-03-08 19:18:06 0.6 Calc F 1.0-2.5 Bicarbonate [Moles/volume] in Serum or Plasma 2024-03-08 18:55:15 31 mEq/L F 20.0-31.0 Albumin [Mass/volume] in Serum or Plasma by Bromocresol green (BCG) dye binding method 2024-03-08 18:55:15 2.5 g/dL F 3.4-4.8 Protein [Mass/volume] in Serum or Plasma 2024-03-08 18:55:15 6.5 g/dL F 5.7-8.2 Lactate dehydrogenase [Enzymatic activity/volume] in Serum or Plasma 2024-03-08 18:55:15 229 U/L F 120.0-246.0 Glucose [Mass/volume] in Serum or Plasma 2024-03-08 18:55:15 183 mg/dL F 70.0-99.0 Folate [Mass/volume] in Serum or Plasma 2024-02-17 07:13:01 4.5 ng/mL F 5.5-16.0 Cobalamin (Vitamin B12) [Mass/volume] in Serum or Plasma 2024-02-17 07:13:01 775 pg/mL F 211.0-911.0 Potassium [Moles/volume] in Serum or Plasma 2024-02-17 03:52:45 5.2 mEq/L F 3.5-5.5 VLDL-CHOL(CALC) 2024-02-16 20:12:42 24 mg/dL F 0.0-29.0 CHOL/HDL RATIO 2024-02-16 20:12:42 4 Calc F 3.3-5.0 A/G RATIO 2024-02-16 20:12:42 0.7 Calc F 1.0-2.5 LDL-CHOLESTEROL 2024-02-16 20:12:42 33 mg/dL F 0.0-99.0 GLOBULIN 2024-02-16 20:12:42 3.6 g/dL F 0.9-5.0 Protein [Mass/volume] in Serum or Plasma 2024-02-16 20:11:25 121 mg/dL F 0.0-149.0 Bicarbonate [Moles/volume] in Serum or Plasma 2024-02-16 20:11:25 28 mEq/L F 20.0-31.0 Protein [Mass/volume] in Serum or Plasma 2024-02-16 20:11:25 6 g/dL F 5.7-8.2 Glucose [Mass/volume] in Serum or Plasma 2024-02-16 20:11:25 111 mg/dL F 70.0-99.0 Cholesterol [Mass/volume] in Serum or Plasma 2024-02-16 20:11:25 76 mg/dL F 0.0-199.0 Cholesterol in HDL [Mass/volume] in Serum or Plasma 2024-02-16 20:11:25 19 mg/dL F 40.0-60.0 Lactate dehydrogenase [Enzymatic activity/volume] in Serum or Plasma 2024-02-16 20:11:25 334 U/L F 120.0-246.0 Albumin [Mass/volume] in Serum or Plasma by Bromocresol green (BCG) dye binding method 2024-02-16 20:11:25 2.4 g/dL F 3.4-4.8 Encounters No encounter information to report Immunizations Ordered Immunization Name Filled Immunization Name Date Status Comments Refusal Reason TST-PPD intradermal 2024-11-06 15:04:36 TST-PPD intradermal 2024-10-23 14:49:00 TB Skin Test 2024-10-23 04:00:00 Hep B, adult 2024-05-09 11:48:32 Hep B, adult 2024-04-11 11:53:36 Hep B, adult 2024-03-07 11:45:03 TST-PPD intradermal 2024-02-29 12:06:54 Pneumococcal conjugate PCV20, polysaccharide [id number] conjugate, adjuvant, PF 2024-02-19 11:53:43 TST-PPD intradermal 2024-02-15 12:13:43 Influenza Vaccination 2024-01-26 04:00:00 Plan of Treatment Planned Activity Provider Planned Date Details Commen ts Diagnostic Test Pending Tamanna Ram 2024-10-27 04:00:00 Parathyrin.intact [Mass/volume] in Serum or Plasma [code = 2731-8] Diagnostic Test Pending Tamanna Ram 2024-10-27 05:42:15 Ferritin [Mass/volume] in Serum or Plasma [code = 2276-4] Diagnostic Test Pending Tamanna Ram 2024-10-24 05:36:16 Hemoglobin [Mass/volume] in Blood [code = 718-7] Diagnostic Test Pending [facility] 2024-10-23 10:23:51 Alanine aminotransferase [Enzymatic activity/volume] in Serum or Plasma [code = 1742-6] Diagnostic Test Pending [facility] 2024-10-23 10:23:41 Sodium [Moles/volume] in Serum or Plasma [code = 2951-2] Diagnostic Test Pending [facility] 2024-10-23 10:23:16 25-Hydroxyvitamin D3+25-Hydroxyvitamin D2 [Mass/volume] in Serum or Plasma [code = 95884-0] Diagnostic Test Pending [facility] 2024-10-23 10:21:46 Creatinine [Mass/volume] in Serum or Plasma [code = 2160-0] Diagnostic Test Pending [facility] 2024-10-23 10:21:19 Aluminum [Mass/volume] in Serum or Plasma [code = 5574-9] Future Scheduled Test [facility] 2025-03-29 05:00:00 Aluminum [Mass/volume] in Serum or Plasma [code = 5574-9] Future Scheduled Test [facility] 2025-03-29 05:00:00 Folate [Mass/volume] in Serum or Plasma [code = 2284-8] Future Scheduled Test [facility] 2025-03-29 05:00:00 Cobalamin (Vitamin B12) [Mass/volume] in Serum or Plasma [code = 2132-9] Diagnostic Test Pending [facility] 2024-06-27 04:00:00 25-Hydroxyvitamin D3+25-Hydroxyvitamin D2 [Mass/volume] in Serum or Plasma [code = 46846-7] Diagnostic Test Pending [facility] 2024-07-27 04:00:00 Ferritin [Mass/volume] in Serum or Plasma [code = 2276-4] Diagnostic Test Pending [facility] 2024-04-29 05:00:00 Reticulocytes/100 erythrocytes in Blood by Automated count [code = 45853-3] Diagnostic Test Pending [facility] 2024-06-27 04:00:00 Hemoglobin A1c/Hemoglobin.total in Blood [code = 4548-4] Diagnostic Test Pending [facility] 2024-04-29 05:00:00 Alanine aminotransferase [Enzymatic activity/volume] in Serum or Plasma [code = 1742-6] Diagnostic Test Pending [facility] 2024-04-29 05:00:00 Creatinine [Mass/volume] in Serum or Plasma [code = 2160-0] Diagnostic Test Pending [facility] 2024-04-29 05:00:[address] [code = 2265] Diagnostic Test Pending [facility] 2024-04-29 05:00:00 Sodium [Moles/volume] in Serum or Plasma [code = 2951-2] Diagnostic Test Pending [facility] 2024-04-29 05:00:00 Glucose [Mass/volume] in Serum or Plasma [code = 2345-7] Diagnostic Test Pending [facility] 2024-04-29 05:00:00 Potassium [Moles/volume] in Serum or Plasma [code = 2823-3] Diagnostic Test Pending [facility] 2024-04-29 05:00:00 Parathyrin.intact [Mass/volume] in Serum or Plasma [code = 2731-8] Diagnostic Test Pending [facility] 2024-04-29 05:00:00 Transferrin [Mass/volume] in Serum or Plasma [code = 3034-6] Diagnostic Test Pending [facility] 2024-04-19 06:36:26 Hemoglobin [Mass/volume] in Blood [code = 718-7] Diagnostic Test Pending [facility] 2024-10-25 18:30:01 In-Center Hemodialysis Treatment [code = HSB240] Diagnostic Test Pending [facility] 2024-06-15 14:37:55 In-Center Hemodialysis Treatment [code = TNH532] Diet Order [facility] November 20, 2024 Diet Calorie 30 kcal/kg Fluid Value 1200 mL/d Phosphorus Value 1000 mg/d Potassium Value 2000 mg/d Protein Value 1.4 gm/kg Sodium Value 2000 mg/d Calculated Weight 109 kg dietary_diet_modification Carb Controlle d; Diet OrderTamanna Arguelles [facility] 2023 Observation Value Diet Calorie 30 kcal/kg Fluid Value 1200 mL/d Phosphorus Value 1000 mg/d Potassium Value 2000 mg/d Protein Value 1.5 gm/kg Sodium Value 2000 mg/d Calculated Weight 131 kg dietary_diet_modification Carb Controlle d;
--- OUTSIDE RECORDS SUMMARY | 2024-12-14 06:31 | XMS_ITS | Clinical Summary ---
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, limited to breakdown of skin (E11.621) L97.521 (ICD-10-CM) 04/15 Active 04/15 Heather López Non-pressure chronic ulcer of other part of left foot limited to breakdown of skin DM II with diabetic polyneuropat hy E11.42 (ICD-10-CM) 04/15 Active 04/15 Heather López Type 2 diabetes mellitus with diabetic polyneuropathy Acute renal failure with tubular necrosis 552202960811 101 (SNOMED CT) 04/15 Active 04/15 Heather López Acute renal failure due to tubular necrosis Chronic venous stasis disease 30518510 (SNOMED CT) 04/15 Active 04/15 Heather López Stasis dermatitis Obesity, class 3, BMI 40 or greater E66.813 (ICD-10-CM) 04/15 Active 04/15 Heather López Obesity, class 3 Cellulitis of RLE 573805777 (SNOMED CT) 04/15 Active 04/15 Heather López Cellulitis of lower limb Cellulitis of LLE L03.116 (ICD-10-CM) 04/15 Active 04/15 Heather Rene Cellulitis of left lower limb Bullous disorder 4149331 (SNOMED CT) 04/15 Active 04/15 Heather López Bullous dermatosis Infection, local skin/subcuta neous tissue 632475724 (SNOMED CT) 04/15 Active 04/15 Heather López Localized infection of skin AND/OR subcutaneous tissue Neutrophilic leukemoid reaction D72.823 (ICD-10-CM) 04/15 Active 04/15 Heather López Leukemoid reaction Coronary artery disease (CAD) 72781417 (SNOMED CT) 04/15 Active 04/15 Heather López Coronary arteriosclerosis DM II with diabetic CKD, 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 metoprolol tartrate [id number] QIE qieuser MELATONIN 3 MG TABS Take 1 tablet (3 mg total) by mouth every night as needed for insomnia. melatonin 98031344543 QIE qieuser LEVOTHYROXINE SODIUM 75 MCG TABS Take 1 tablet (75 mcg total) by mouth Every morning on an empty stomach. levothyroxine 66866906786 QIE qieuser INSULIN LISPRO 100 UNIT/ML SOLN Inject 0-6 Units subcutaneously 4 (four) times daily before meals and nightly. 04/02 insulin lispro 34373721544 QIE qieuser INSULIN GLARGINE-YFGN 100 UNIT/ML SOLN Inject 35 Units subcutaneously nightly. insulin glargine-yfgn 88050876998 QIE qieuser HEPARIN SODIUM (PORCINE) 5000 UNIT/ML SOLN Inject 1 mL (5,000 Units total) subcutaneously every 8 (eight) hours. heparin (porcine) 56287198086 QIE qieuser FENOFIBRATE 145 MG TABS Take 1 tablet (145 mg total) by mouth daily. 04/02 fenofibrate nanocrystallized 29186861210 QIE qieuser epoetin evelina-epbx (RETACRIT) 20,000 unit/mL injection Inject 1 mL (20,000 Units total) subcutaneously 3 (three) times a week at bedtime TUE/ESTHER/SAT. RETACRIT QIE qieuser DOXYCYCLINE HYCLATE 100 MG TABS Take 1 tablet (100 mg total) by mouth 2 (two) times daily for 14 days. 04/16 doxycycline hyclate 69839201650 QIE qieuser DOXAZOSIN MESYLATE 8 MG TABS Take 1.5 tablets (12 mg total) by mouth nightly. doxazosin 29244015802 QIE qieuser DOCUSATE SODIUM 100 MG CAPS Take 1 capsule (100 mg total) by mouth 2 (two) times daily as needed for constipation for up to 10 days. 04/12 docusate sodium 07992127502 QIE qieuser cholecalciferol (VITAMIN D3) 10 mcg (400 unit) tab tablet Take 2.5 tablets (1,000 Units total) by mouth daily. VITAMIN D3 QIE qieuser CEPHALEXIN 500 MG CAPS Take 1 capsule (500 mg total) by mouth 2 (two) times daily for 14 days. 04/16 cephalexin 18259504565 QIE qieuser ATORVASTATIN CALCIUM 40 MG TABS Take 1 tablet (40 mg total) by mouth daily. atorvastatin 66849480428 QIE qieuser ALLOPURINOL 100 MG TABS Take 1 tablet (100 mg total) by mouth 3 (three) times daily. allopurinol 40938346629 QIE qieuser ACETAMINOPHEN 500 MG TABS Take 1 tablet (500 mg total) by mouth every 6 (six) hours as needed for up to 10 days. 04/12 acetaminophen 09846253740 QIE qieuser Medications Administered No information available. 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 Procedures No information available. Vital Signs No information available. Immunizations No information available. Advance Directives No information available.
--- OUTSIDE RECORDS SUMMARY | 2024-12-14 06:32 | XMS_ITS | Clinical Summary ---
Author Organization [facility] Address [address] [place] [address] Care Team Providers Care Academic Affairs Specialist Name Role Phone Evans Butler MD Primary Care Provider [phone] Allergies Active Allergy Reactions Criticality Noted Date Comments Sulfamethoxazole-Trimethoprim Hives Medium 2017 Medications Alcohol Swabs (Alcohol Wipes) 70 % pads 7 Active atenolol-chlort halidone (Tenoretic) 100-25 MG tablet 7 Active bumetanide (Bumex) 2 MG tablet 6 Active fenofibrate micronized (Lofibra) 134 MG capsule 6 Active glipiZIDE (Glucotrol) 10 MG tablet 6 Active insulin aspart (NovoLOG FLEXPEN) 100 UNIT/ML injection 8 Active repaglinide (Prandin) 2 MG tablet 8 Active Global Ease Inject Pen [place] 32G X 4 MM misc 3 (three) times a day. 1 Active Levemir FlexTouch 100 UNIT/ML injection pen INJECT 70 UnitS below skin twice daily 1 Active doxazosin (Cardura) 8 MG tablet Take 1&1/2 tablets by mouth nightly 1 Active True Metrix Blood Glucose Test test strip 4 (four) times a day. for testing 1 Active TRUEplus Lancets 30G misc 2 (two) times a day. as directed 1 Active levoFLOXacin (Levaquin) 500 MG tablet Take 1 tablet (500 mg) by mouth 1 (one) time each day. as directed 1 Active Ozempic, 1 MG/DOSE, 4 MG/3ML solution pen-injector inject 1 mg subQ as directed weekly 1 Active cholecalciferol (VITAMIN D-3) 400 units tablet Take 1 taablet by mouth daily 2 Active allopurinol (Zyloprim) 300 MG tablet 2 Active Magnesium 250 MG tablet Take by mouth. Activ e levothyroxine (Synthroid, Levoxyl) 50 MCG tablet Take 1.5 tablets (75 mcg) by mouth 1 (one) time each day. 2 Active Vitamin D3 10 MCG (400 UNIT) capsule Take 1 capsule (400 Units) by mouth 1 (one) time each day. 2 Active allopurinol (Zyloprim) 100 MG tablet take 1 tablet by mouthh 1 to 3 times a day 3 Active Tresiba FlexTouch 200 UNIT/ML injection pen as directed 70 Unit inject below skin twice daily 4 Active amiodarone (Pacerone) 200 MG tablet Take 1 tablet by mouth daily. Active apixaban (Eliquis) 5 MG tablet Take 1 tablet by mouth 2 times a day. Active atorvastatin (Lipitor) 40 MG tablet Take 1 tablet by mouth daily. Active midodrine (Proamatine) 5 MG tablet Take 1 tablet by mouth 3 times a day. Active pantoprazole (Protonix) 40 MG EC tablet Take 1 tablet by mouth daily before breakfast. Do not crush, chew, or split. Active oxygen (O2) gas Inhale 2 L/min continuously at 120,000 mL/hr. via nasal canula Active Active Problems Problem Noted Date Diagnosed Date 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 associated with type 2 diabetes mellitus 10/09/2020 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 associated with type 2 diabetes mellitus 10/09/2020 Nuclear senile cataract of both eyes 10/09/2020 Intragel vitreous hemorrhage, left eye 7 Diabetes mellitus 11/20/2016 Nuclear sclerosis of both eyes 11/27/2015 Encounters Date Type Department Care Team Description 11/02/2024 2:00 PM EDT Office Visit [facility] [address] [place] [address] Hali Cervantes MD Epiretinal membrane (ERM) of left eye (Primary Dx); 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 associated with type 2 diabetes mellitus; 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 associated with type 2 diabetes mellitus 11/02/2024 7:40 AM EDT Ancillary Procedure [facility] [address] [place] [address] 11/02/2024 7:40 AM EDT Ancillary Procedure [facility] [address] [place] [address] 11/02/2024 Travel 10/28/2024 Travel from Last 3 Months Family History Medical History Relation Name Comments Heart Problem Brother 1 Diabetes Brother 2 Chas Cancer Father Bob Cardiac disorder Father Bob Cataracts Father Bob Clotting disorder Father Bob Hypertension Father Bob Other cancer Father Bob Diabetes Mother Meenu Hypertension Mother Meenu Stroke Mother Meenu Thyroid disease Mother Meenu Relation Name Status Comments Brother 1 Brother 2 Chas Father Bob Mother Meenu Social History Tobacco Use Types Packs/Day Years Used Date Smoking Tobacco: Never Passive Smoke Exposure: Never Smokeless Tobacco: Never Tobacco Cessation:Counseling Given: Not Answered Sex and Gender Information Value Date Recorded Sex Assigned at Not on file Legal Sex Male 8:08 PM EDT Gender Identity Not on file Sexual Orientation Not on file Plan of Treatment Upcoming Encounters Date Type Department Care Team (Late st Contact Info) Description 05/08/2025 10:45 AM EST Office Visit [facility] [address] [place] [address] Hali Cervantes MD [address] [address] Health Maintenance Due Date Last Done Comments [facility]-Depression Screening 1958 [facility]-Diabetes: Hemoglobin A1C 1958 [facility]-Hepatitis C Screening 1960 [facility]-Medicare Annual Wellness (AWV) 1960 [facility]-Infant/Child/Adol SDOH Screenings 1960 Diabetes: Dental Exam 01/04/1968 [facility]- SDOH Screenings 01/04/1976 [facility]-Adult SDOH Screenings 01/04/1976 [facility]-DTaP,Tdap,and Td Vaccines (1 - Tdap) 1977 [facility]-Pneumococcal Vaccine: 50+ Years (1 of 2 - PCV) 1977 CT Colonography 2003 Colonoscopy 2003 FIT-DNA 2003 FIT 2003 FOBT 2003 Sigmoidoscopy 2003 [facility]-Colorectal Cancer Screening 2003 [facility]-RSV Vaccine: 60+ Years or (1 - Risk 60-74 years 1-dose series) 2018 VAO-[id number]-97 Vaccine (7 - Moderna risk 2023- season) 2024 05/03/2024, 02/10/2023, 12/30/2021, Additional history exists [facility]-Influenza Vaccine (#1) 11/27/202401/25, 01/13/2023, 12/30/2021, Additional history exists [facility]-Zoster Vaccines Completed 04/29/2023, 3 HPV Vaccines Aged Out No longer eligi ble based on patient's age to complete this topic [facility]-HIB Vaccines Aged Out No longer e ligible based on patient's age to complete this topic [facility]-Hepatitis A Vaccines Aged Out No longer eligible based on patient's age to complete this topic [facility]-IPV Vaccines Aged Out No longer e ligible based on patient's age to complete this topic [facility]-Rotavirus Vaccines Aged Out No lo nger eligible based on patient's age to complete this topic Procedures Procedure Name Priority Date/Time Associated Diagnosis [...] edema associated with type 2 diabetes mellitus from Last 3 Months Results * Wide Field Color Fundus Photography [...] Hali Cervantes MD OPHTH TOMOGRAPHY Final Result from Last 3 Months Insurance MEDICARE Care Teams Academic Affairs Specialist Relationship Specialty Start Date End Date Evans Butler MD [address] [place], [place] [id number] PCP - General 08/09/20
--- OUTSIDE RECORDS SUMMARY | 2024-12-14 06:32 | XMS_ITS | Encounter Summary ---
Author Organization [employer] ([place], [place], [place], [place]) Address [address] [place] [address] Care Team Providers Care Motor Checker Name Role Phone Tamanna Ram MD Primary Care Provider [phone] Evans Butler MD Primary Care Provider [phone] Venessa Ortiz PA-C Unavailable Unavailable Reason for Referral * CAT Scan (Routine) - Closed Specialty Diagnoses / Procedures Referred By Roberto marquez Referred To Contact Radiology Diagnoses Chronic kidney disease (CKD) stage G3b/A1, moderately decreased glomerular filtration rate (GFR) between 30-44 mL/min/1.73 square meter and albuminuria creatinine ratio less than 30 mg/g (HCC) Procedures CT BIOPSY SITE KIDNEY Tamanna Ram MD [address] [facility] [address] [place] [address] Phone: tel: fax: Referral ID Status Reason Start Date Expiration Date Visits Re quested Visits Authorized [id number] Closed 11/19/2023 11/14/2024 1 1 Encounter Details Date Type Department Care Team (Late st Contact Info) Description 11/15/2023 Outside Orders [facility] Central Scheduling [address] [place] [address] Tamanna Ram MD [address] [facility] [address] [place] [address] Chronic kidney disease (CKD) stage G3b/A1, moderately decreased glomerular filtration rate (GFR) between 30-44 mL/min/1.73 square meter and albuminuria creatinine ratio less than 30 mg/g (HCC) (Primary Dx) Social History Tobacco Use Types Packs/Day Years Used Date Smoking Tobacco: Never Assessed Utilities Answer Date Recorded In the past [...] your living situation today? I have a [facility] place to live 10/06/2024 Think about the [...] Do you speak a language other than Bur[place]ian at [facility]? No 10/06/2024 Do you want help with [...] Description 05/31/2025 12:45 PM EST Office Visit [facility] Electrophysiology [address] [place] [address] Feng Reinoso MD [address] [place] [address] [address] [place] [address] documented as of this encounter Results * CT BIOPSY SITE KIDNEY (11/22/2023 11:44 AM EDT) Anatomical Region Laterality Modality Kidney, Abdomen Computed Tomogra phy (CT) 11/22/2023 1:09 PM EDT Impressions 11/22/2023 1:20 PM EDT Cirrhotic appearance of the liver. Left renal lesions, likely hemorrhagic cysts. Status post CT guided biopsy of left kidney without immediate complication. Images reviewed, interpreted, and dictated by Dr. Nick Camejo. Transcribed by Tyrell Erazo PA-C Narrative 11/22/2023 1:[address] GUIDED RENAL BIOPSY. HISTORY: Chronic kidney disease stage III. ATTENDING RADIOLOGIST: . PHYSICIAN EMPLOYEE RELATION MANAGER: Tyrell Erazo PA-C. PROCEDURE: After informed consent was obtained and a time-out was performed, the patient was prepped and draped in the usual sterile fashion over the left flank. The inferior pole of the left kidney was targeted for biopsy. Utilizing local anesthesia and sterile technique with a coaxial system, access to the lesion was obtained under direct CT guidance. Two 18-gauge core biopsies were obtained. Postbiopsy films demonstrate minimal perinephric hematoma. The patient received no conscious sedation. The patient tolerated the procedure well and left the department in good condition. Localization images demonstrated an incompletely imaged lobular liver. There are 2 hypodense lesions in the lower pole the left kidney measuring up to 10 mm which cannot be fully characterized without contrast but likely represent hemorrhagic cysts. Procedure Note Sean Camejo MD - 11/22/2023 CT GUIDED RENAL BIOPSY. HISTORY: Chronic kidney disease stage III. ATTENDING RADIOLOGIST: . PHYSICIAN EMPLOYEE RELATION MANAGER: Tyrell Erazo PA-C. PROCEDURE: After informed consent was obtained and a time-out was performed, the patient was prepped and draped in the usual sterile fashion over the left flank. The inferior pole of the left kidney was targeted for biopsy. Utilizing local anesthesia and sterile technique with a coaxial system, access to the lesion was obtained under direct CT guidance. Two 18-gauge core biopsies were obtained. Postbiopsy films demonstrate minimal perinephric hematoma. The patient received no conscious sedation. The patient tolerated the procedure well and left the department in good condition. Localization images demonstrated an incompletely imaged lobular liver. There are 2 hypodense lesions in the lower pole the left kidney measuring up to 10 mm which cannot be fully characterized without contrast but likely represent hemorrhagic cysts. IMPRESSION: Cirrhotic appearance of the liver. Left renal lesions, likely hemorrhagic cysts. Status post CT guided biopsy of left kidney without immediate complication. Images reviewed, interpreted, and dictated by Dr. Nick Camejo. Transcribed by Tyrell Erazo PA-C Tamanna Ram MD IMG CT ORDERABLES Final Result documented in this encounter Visit Diagnoses Diagnosis Chronic kidney disease (CKD) stage G3b/A1, moderately decreased glomerular filtration rate (GFR) between 30-44 mL/min/1.73 square meter and albuminuria creatinine ratio less than 30 mg/g (HCC)- Primary ESRD (end stage renal disease) (HCC)- Primary End stage renal disease Chronic kidney disease (CKD) stage G3b/A1, moderately decreased glomerular filtration rate (GFR) between 30-44 mL/min/1.73 square meter and albuminuria creatinine ratio less than 30 mg/g (HCC) documented in this encounter Care Teams Motor Checker Relationship Specialty Start Date End Date Tamanna Ram MD [address] [facility] [address] [place], [place] [id number] PCP - General Nephrology 11/22/23 06/16/24 Evans Butler MD [address] [place] [address] PCP - General Family Medicine 06/17/24 Venessa Ortiz PA-C [address] [place] [address] Gastroenterology 09/05/24 documented as of this encounter
--- OUTSIDE RECORDS SUMMARY | 2024-12-14 06:32 | XMS_ITS | Encounter Summary ---
Author Organization [employer] ([place], [place], [place], [place]) Address [address] [place] [address] Care Team Providers Care Branch Associate Name Role Phone Tamanna Ram MD Primary Care Provider [phone] Evans Butler MD Primary Care Provider [phone] Venessa Ortiz PA-C Unavailable Unavailable Encounter Details Date Type Department Care Team (Late st Contact Info) Description 11/12/2023 Outside Orders [facility] Nephrology [address] [place] [address] Tamanna Ram MD [address] [facility] [address] [place] [address] Stage 3b chronic kidney disease (HCC) (Primary Dx); Essential (primary) hypertension Social History Tobacco Use Types Packs/Day Years [...] Never 10/06/2024 How often does anyone, bernard mamhood family and friends, insult or talk down to you? Never 10/06/2024 How often does anyone, bernard mahmood family and friends, threaten you with harm? Never 10/06/2024 How often does anyone, inclu ding family and friends, scream or curse at [...] Do you speak a language other than Qatari at [facility]? No 10/06/2024 Do you want help [...] Description 05/31/2025 12:45 PM EST Office Visit [facility] Electrophysiology [address] [place] [id number] [place] [address] [place] [address] [address] [place] [address] documented as of this encounter Visit Diagnoses Diagnosis Stage 3b chronic kidney disease (HCC)- Primary Essential (primary) hypertension Unspecified essential hypertension documented in this encounter Care Teams Branch Associate Relationship Specialty Start Date End Date Tamanna Ram MD [address] [facility] [address] [place] [address] PCP - General Nephrology 11/22/23 06/16/24 Evans Butler MD [address] [place] [address] PCP - General Family Medicine 06/17/24 Venessa Ortiz PA-C [address] [place] [address] Gastroenterology 09/05/24 documented as of this encounter
--- OUTSIDE RECORDS SUMMARY | 2024-12-14 06:32 | XMS_ITS | Encounter Summary ---
Author Organization [employer] ([place], [place], [place]) Address [address] [place] [address] Care Team Providers Care Wardrobe Manager Name Role Phone Evans Butler MD Primary Care Provider [phone] Venessa Ortiz PA-C Unavailable Unavailable Encounter Details Date Type Department Care Team (Latest Contact Info) Description 11/02/2024 Travel Social History Tobacco Use Types Packs/Day Years Used Date Smoking Tobacco: Never Passive Smoke Exposure: Never Smokeless Tobacco: Never Alcohol Use Standard Drinks/Week Comments Not Currently [...] living situation today? I have a [facility] place to live 10/06/2024 Think about the [...] Do you speak a language other than Latvian at [facility]? No 10/06/2024 Do you want help with [...] on file documented as of this encounter Functional Status * Are you [...] 06/05/2024 1:52 PM CDT Keny Palacio RN documented as of this encounter Mental Status * Because of a physical, mental, or emotional condition, do you have serious difficulty concentrating, remembering, or making decisions? (5 years old or older) Answer Entry Date Author No 06/05/2024 1:52 PM Keny Navarro RN documented in this encounter Plan of Treatment Upcoming Encounters Date Type Department Care Team (Late st Contact Info) Description 05/31/2025 12:45 PM EST Office Visit [facility] Electrophysiology [address] [place] [address] Feng Reinoso MD [address] [place] [address] [address] [place] [address] documented as of this encounter Visit Diagnoses Not on filedocumented in this encounter Care Teams Wardrobe Manager Relationship Specialty Start Date End Date Evans Butler MD [address] [place] [address] [address] [address] PCP - General Family Medicine 06/17/24 Venessa Ortiz PA-C [address] [address] Gastroenterology 09/05/24 documented as of this encounter
--- OUTSIDE RECORDS SUMMARY | 2024-12-14 06:32 | XMS_ITS | Encounter Summary ---
Author Organization [facility] Address [address] [place] [address] Care Team Providers Care Accounting Machine Servicer Name Role Phone Evans Butler MD Primary Care Provider [phone] Encounter Details Date Type Department Care Team [...] Description 05/08/2025 10:45 AM EST Office Visit [facility] [address] [place] [address] Hali Cervantes MD [address] [address] documented as of this encounter Visit Diagnoses Not on filedocumented in this encounter Additional Health Concerns Assessment Noted Time A fall risk assessment has been complete d for the patient 11/02/2024 2:06 PM EDT A Body Mass Index follow-up plan has been documented for the patient 11/02/2024 3:03 PM EDT documented as of this encounter Care Teams Accounting Machine Servicer Relationship Specialty Start Date End Date Evans Butler MD [facility] [place] [address] PCP - General 08/09/20 documented as of this encounter
--- OUTSIDE RECORDS SUMMARY | 2024-12-14 06:32 | XMS_ITS | Encounter Summary ---
Author Organization [employer] ([place], [place], [place], [place]) Address [address] [place] [address] Care Team Providers Care Payroll Machine Operator Name Role Phone Evans Butler MD Primary Care Provider [phone] Venessa Ortiz PA-C Unavailable Unavailable Encounter Details Date Type Department Care Team (Latest Contact Info) Description 11/28/2024 Travel Social History Tobacco Use Types Packs/Day [...] living situation today? I have a [facility] place to live 10/06/2024 Think about [...] Do you speak a language other than Israeli at [facility]? No 10/06/2024 Do you want [...] Description 05/31/2025 12:45 PM EST Office Visit [facility] Electrophysiology [address] [place] [address] Feng Reinoso MD [address] [place] [address] [address] [place] [address] documented as of this encounter Visit Diagnoses Not on filedocumented in this encounter Care Teams Payroll Machine Operator Relationship Specialty Start Date End Date Evans Butler MD [address] [place] [address] [address] [address] PCP - General Family Medicine 06/17/24 Venessa Ortiz PA-C [address] [place] [address] Gastroenterology 09/05/24 documented as of this encounter
--- OUTSIDE RECORDS SUMMARY | 2024-12-14 06:32 | XMS_ITS | Encounter Summary ---
Author Organization [facility] Address [address] [place] [address] Care Team Providers Care Visual Communications Instructor Name Role Phone Evans Butler MD Primary Care Provider [phone] Encounter Details Date Type Department Care Team (Latest Contact Info) Description 10/28/2024 Travel Social History Tobacco Use Types Packs/Day Years Used Date Smoking Tobacco: Never Smokeless Tobacco: Never Sex and Gender Information Value Date Recorded Sex Assigned at Not on file Legal Sex Male 8:08 PM EDT Gender Identity Not on file Sexual Orientation Not on file documented as of this encounter Plan of Treatment Upcoming Encounters Date Type Department Care Team (Late st Contact Info) Description 05/08/2025 10:45 AM EST Office Visit [facility] Advanced Eye Care [address] [place] [address] Hali Cervantes MD [address] [address] documented as of this encounter Visit Diagnoses Not on filedocumented in this encounter Additional Health Concerns Assessment Noted Time A fall risk assessment has been complete d for the patient 06/17/2023 12:59 PM EDT A Body Mass Index follow-up plan has been documented for the patient 06/17/2023 1:39 PM EDT documented as of this encounter Care Teams Visual Communications Instructor Relationship Specialty Start Date End Date Evans Butler MD [facility] [place] [address] PCP - General 08/09/20 documented as of this encounter
--- OUTSIDE RECORDS SUMMARY | 2024-12-14 06:32 | XMS_ITS | Referral Summary ---
Author Organization [employer] ([place], [place], [place], [place]) Address [address] [place] [address] Care Team Providers Care Rocket Scientist Name Role Phone Evans Butler MD Primary Care Provider [phone] Venessa Ortiz PA-C Unavailable Unavailable Encounters Date Type Department Care Team Description 11/28/2024 Travel 11/28/2024 1:00 PM EDT Office Visit [facility] Electrophysiology [address] [place] [phone] Rodolfo Grimes MD Palpitations (Primary Dx) 11/02/2024 Travel 10/09/2024 Orders Only [facility] Electrophysiology [address] [place] [phone] Jonas Mejia RN 10/09/2024 Telephone [facility] Cardiology [address] [place] [phone] Rodolfo Grimes MD Medication Refill 10/09/[address] [phone] Evans Butler MD Hospital Follow Up 10/06/2024 8:11 AM EDT - 10/07/2024 1:25 PM EDT Hospital Encounter [facility] Cardiac Telemetry 1 [place] [address] Bharati Rodríguez MD Khan, Imran, MD Acute respiratory failure (HCC) (Primary Dx); Pulmonary edema; ESRD (end stage renal disease) on dialysis (HCC); Paroxysmal atrial fibrillation (HCC) Discharge Disposition: Home or Self Care 10/06/2024 Travel 10/04/2024 4:56 PM EDT - 10/05/2024 1:02 PM EDT Hospital Encounter [facility] [place] 4 Interventional Care Unit 1 [place] [address] Rodolfo Grimes MD Gastroesophageal reflux disease (Primary Dx); Typical atrial flutter ([facility]) Discharge Disposition: Home or Self Care 10/04/2024 12:24 PM EDT - 10/04/2024 4:55 PM EDT Hospital Encounter [facility] [place] Non-Invasive Cardiology 1 [place] [address] Rodolfo Grimes MD Hx of atrial flutter Discharge Disposition: Home or Self Care 10/04/2024 Travel 10/04/2024 11:54 AM EDT Anesthesia Event [facility] [place] Electrophysiology Lab 1 [place] [address] Luca Meyer MD Maynard, Derek, CRNA 10/03/2024 Telephone [facility] Electrophysiology [address] [place], [place] [phone] Jonas Mejia, assistant professor of anthropology Only 09/26/2024 Orders Only [facility] Electrophysiology [address] [place], [place] [phone] Jonas Mejia, ERWIN 09/26/2024 Telephone [facility] Electrophysiology [address] [place] [phone] Rodolfo Grimes MD Medication Management; Medication Refill 09/21/2024 Refill [facility] [place] Electrophysiology Lab 1 [place] [phone] Rodolfo Grimes MD from Last 3 Months Allergies Active Allergy Reactions Criticality Noted Date [...] Hypertension 01/24/2024 Obesity 01/24/2024 Kidney failure 01/21/2024 TSEWART (acute kidney injury) 01/21/2024 ESRD (end stage renal disease) 11/22/2023 Disorder of thyroid, unspecified 03/29/2023 Hyperlipidemia, unspecified 03/29/2023 Obstructive sleep apnea 03/29/2023 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 No 10/06/2024 Do you want help with [...] Mass Index 37.16 11/28/2024 1:20 PM EDT Functional Status * Are you deaf or [...] 06/05/2024 1:52 PM CDT Keny Palacio RN Mental Status * Because of a physical, mental, or emotional condition, do you have serious difficulty concentrating, remembering, or making decisions? (5 years old or older) Answer Entry Date Author No 06/05/2024 1:52 PM CDT Keny Palacio RN Plan of Treatment Upcoming Encounters Date Type Department Care Team (Late st Contact Info) Description 05/31/2025 12:45 PM EST Office Visit [facility] Electrophysiology [address] [place] [phone] Rodolfo Grimes MD [address] [place] [address] [address] [place] [address] Procedures Procedure Name Priority Date/Time Associated Diagnosis [...] EDT CBC W/ AUTO DIFF STAT 10/06/2024 8:2 4 AM EDT [facility] Routine 10/06/2024 [...] of9 resultswithin the time period is included. POC-GLUCOSE 130(H) 70 - 110 mg/dL 10/07/2024 5:44 AM EDT [facility] Comment: In the event of poor peripheral blood flow, venous or arterial blood should be used due to the potential of erroneous results. Notified Nurse RBV Generating Station Mechanic [id number] 10/07/2024 5:44 AM EDT [facility] Blood WHOLE BLOOD / Unknown 10/07/2024 5:43 AM EDT 10/07/2024 5:44 AM EDT Narrative [facility] - 10/07/2024 5:44 AM EDT Generating Station Mechanic ID is - [id number] Carley Dove MD POINT OF CARE TEST ORDERABLES Fi nal Result [facility] [address] [phone] * (ABNORMAL) CBC - Hemogram (SJ-BKR) (10/07/2024 4:09 AM EDT) Only the most recent of2 resultswithin the time period is included. WBC 10.7(H) 4.2 - 9.1 K/ L 10/07/2024 5:02 AM EDT [facility] RBC 2.30(L) 4.63 - 6.08 M/ L 10/07/2024 5:02 AM EDT [facility] Hemoglobin 7.7(L) 13.7 - 17.5 GM/DL 10/07/2024 5:02 AM EDT [facility] Hematocrit 24.4(L) 40.1 - 51.0 % 10/07/2024 5:02 AM EDT [facility] MCV 106(H) 79 - 92 fL 10/07/2024 5:02 AM EDT [facility] MCH 33.5(H) 25.7 - 32.2 pg 10/07/2024 5:02 AM EDT [facility] MCHC 31.6(L) 32.3 - 36.5 GM/DL 10/07/2024 5:02 AM EDT [facility] RDW 14.8(H) 11.6 - 14.4 % 10/07/2024 5:02 AM EDT [facility] Platelets 132(L) 140 - 375 K/CU MM 10/07/2024 5:02 AM EDT [facility] MPV 11.1 9.4 - 12.4 fL 10/07/2024 5:02 AM EDT [facility] Blood Venipuncture / Unknown 10/07/2024 4:09 AM EDT 10/07/2024 4:50 AM EDT us Carley Dove MD LAB BLOOD ORDERABLES Final Resul t [facility] [address] [phone] * (ABNORMAL) Basic Metabolic Panel (10/07/2024 4:09 AM EDT) Only the most recent of2 resultswithin the time period is included. Sodium 137 136 - 145 meq/L 10/07/2024 5:28 AM EDT [facility] Potassium 3.5 3.4 - 5.1 meq/L 10/07/2024 5:28 AM EDT [facility] CO2 28 22 - 29 meq/L 10/07/2024 5:28 AM EDT [facility] Chloride 101 98 - 112 meq/L 10/07/2024 5:28 AM EDT [facility] Glucose 159(H) 82 - 115 mg/dL 10/07/2024 5:28 AM EDT [facility] BUN 33.3(H) 8.4 - 25.7 mg/dL 10/07/2024 5:28 AM EDT [facility] Creatinine 4.03(H) 0.72 - 1.25 mg/dL 10/07/2024 5:28 AM EDT [facility] BUN/Creatinine 8 8 - 20 10/07/2024 5:28 AM EDT [facility] Calcium 8.0(L) 8.4 - 10.2 mg/dL 10/07/2024 5:28 AM EDT [facility] Anion Gap 12 4 - 12 10/07/2024 5:28 AM EDT [facility] eGFR (mL/min/1.73m2) 16(L) >=60 mL/min/1.7 3m2 10/07/2024 5:28 AM EDT [facility] Osmolality Calc 284.5 mOsm/kg 5:28 AM EDT [facility] Blood Venipuncture / Unknown 10/07/2024 4:09 AM EDT 10/07/2024 4:57 AM EDT us Carley Dove MD LAB BLOOD ORDERABLES Final Resul t Performing Organization Address City/State/[facility] Co de Phone Number [facility] [address] [phone] * ECHO COMPLETE (DOPPLER / COLOR) WO CONTRAST (10/06/2024 11:36 AM EDT) Anatomical Region Laterality Modality Heart Vascular Ultraso und 10/06/2024 11:2 6 AM EDT Narrative 10/07/2024 12:30 PM EDT TRANSTHORACIC ECHOCARDIOGRAPHY REPORT Demographics Patient Name: KLAUS CAVANAUGH : 1960 [facility] Age: 64 year(s) Corporate ID Number: [id number] Gender Male Gas Technician: Cleopatra Sawant Height: 70 inches [facility] Referring Physician: CLARA RODRÍGUEZ Weight: [...] 0.72 m/s E/A ratio: 1.83 m/s Volume [id number] LV length: 8.56 cm ml Volume .36 ml LVOT diameter: 1.53 cm Normal sized [...] 10/07/2024 TRANSTHORACIC ECHOCARDIOGRAPHY REPORT Demographics Patient Name: KLAUS CAVANAUGH : 1960 [facility] Age: 64 year(s) Corporate ID Number: [id number] Gender Male Gas Technician: Cleopatra Sawant Height: 70 inches [facility] Referring Physician: CLARA RODRÍGUEZ Weight: [...] 0.72 m/s E/A ratio: 1.83 m/s Volume [id number] LV length: 8.56 cm ml Volume elxlaxou68.36 ml LVOT diameter: 1.53 cm Normal sized [...] >15mmHg. Pericardium / Pleura No pericardial effusion. Carley Dove MD CV ECHO ORDERABLES Final [...] by Ambika Og PA-C. Bharati Rodríguez MD IM DIAGNOSTIC IMAGING ORDERAB LES Final Result * (ABNORMAL) Blood gas, arterial (10/06/2024 8:31 AM EDT) pH, Arterial 7.42 7.35 - 7.45 10/06/2024 8:50 AM EDT [facility] pCO2, Arterial 42 35 - 45 mm Hg 10/06/2024 8:50 AM EDT [facility] pO2, Arterial 72(L) 80 - 100 mm Hg 10/06/2024 8:50 AM EDT [facility] HCO3, Arterial 28(H) 20 - 26 mmol/L 10/06/2024 8:50 AM T [facility] Base Excess, Arterial 2.9(H) -2.0 - 2.0 mmol/L 10/06/2024 8:50 AM EDT [facility] O2 Sat, Arterial 96.1 95.0 - 100.0 % 10/06/2024 8:50 AM EDT [facility] CTO2 ARTERIAL 11.0 mmol/L 10/06/2024 8:50 AM EDT [facility] THB ARTERIAL 8.2(L) 12.0 - 18.0 g/dL 10/06/2024 8:[facility] Left Brachial 10/06/2024 8:[facility] Arterial Puncture Yes 10/06/2024 8:50 AM [facility] Blood Gas O2 Delivery Device Cannula 10/06/2024 8:50 AM T [facility] Oxygen Flow Rate 5 10/06/2024 8:50 AM T [facility] Blood Gas PT Temperature C 37.0 10/06/2024 8:50 AM EDT [facility] Chauncey's Test Not Applicable 10/07/19 8:50 AM EDT [facility] ABG Number of Draw Attempts 2 10/06/2024 8:50 AM EDT [facility] FIO2 10/06/2024 8:50 AM EDT [facility] Blood Gas Temperature Corrected Results No No 10/06/2024 8:50 AM EDT [facility] Blood, Arterial Collection / Unknown 10/06/2024 8:31 AM EDT 10/06/2024 8:50 AM EDT us Bharati Rodríguez MD LAB BLOOD ORDERABLES Final Res ult Performing Organization Address City/[facility]/ZIP Co de Phone Number [facility] [address] [phone] * Blue Top Extra Tubes (10/06/2024 8:25 AM EDT) HOLD SPECIMEN (SJ - BKR) Hold for add-ons. 10/06/2024 10:00 AM EDT [facility] Comment:Auto resulted. Blood Venipuncture / Unknown 10/06/2024 8:25 AM EDT 10/06/2024 8:27 AM EDT us Bharati Rodríguez MD LAB BLOOD ORDERABLES Final Res ult Performing Organization Address City/[facility] Co de Phone Number [facility] [address] [phone] * (ABNORMAL) CBC with Auto Diff (10/06/2024 8:24 AM EDT) Only the most recent of2 resultswithin the time period is included. WBC 11.2(H) 4.2 - 9.1 K/ L 10/06/2024 8:35 AM EDT [facility] RBC 2.49(L) 4.63 - 6.08 M/ L 10/06/2024 8:35 AM EDT [facility] Hemoglobin 8.5(L) 13.7 - 17.5 GM/DL 10/06/2024 8:35 AM EDT [facility] Hematocrit 26.1(L) 40.1 - 51.0 % 10/06/2024 8:35 AM EDT [facility] MCV 105(H) 79 - 92 fL 10/06/2024 8:35 AM EDT [facility] MCH 34.1(H) 25.7 - 32.2 pg 10/06/2024 8:35 AM EDT [facility] MCHC 32.6 32.3 - 36.5 GM/DL 10/06/2024 8:35 AM EDT [facility] RDW 15.0(H) 11.6 - 14.4 % 10/06/2024 8:35 AM EDT [facility] Platelets 129(L) 140 - 375 K/CU MM 10/06/2024 8:35 AM EDT [facility] MPV 11.1 9.4 - 12.4 fL 10/06/2024 8:35 AM EDT [facility] % Neutros 85(H) 34 - 68 % 10/06/2024 8:35 AM EDT [facility] % Lymphs 7(L) 22 - 53 % 10/06/2024 8:35 AM EDT [facility] % Monos 7 5 - 12 % 10/06/2024 8:35 AM EDT [facility] % Eos 0(L) 1 - 7 % 10/06/2024 8:35 AM EDT [facility] % Baso 0 0 - 1 % 10/06/2024 8:35 AM EDT [facility] NRBC Absolute <0.01 0 - 0.012 K/ul 10/06/2024 8:35 AM EDT [facility] # Neutros 9.50(H) 1.78 - 5.38 K/ L 10/06/2024 8:35 AM EDT [facility] # Lymphs 0.83(L) 1.32 - 3.57 K/ L 10/06/2024 8:35 AM EDT [facility] # Monos 0.75 0.30 - 0.82 K/ L 10/06/2024 8:35 AM EDT [facility] # Eos 0.03(L) 0.04 - 0.54 K/ L 10/06/2024 8:35 AM EDT [facility] # Baso 0.03 0.01 - 0.08 K/ L 10/06/2024 8:35 AM EDT [facility] Immature Granulocytes-Re lative 0.50(H) 0.01 - 0.43 % 10/06/2024 8:35 AM EDT [facility] # IG 0.06(H) 0.00 - 0.03 K/uL 10/06/2024 8:35 AM EDT [facility] Blood Venipuncture / Unknown 10/06/2024 8:24 AM EDT 10/06/2024 8:27 AM EDT Narrative [facility] - 10/06/2024 8:35 AM EDT When [...] MD LAB BLOOD ORDERABLES Final Res ult [facility] [address] [phone] * (ABNORMAL) High Sensitivity Troponin I (10/06/2024 8:24 AM EDT) Troponin I High Sensitivity (pg/mL) 226.8(HH) <=35 pg/mL 10/06/2024 9:39 AM EDT [facility] Blood Venipuncture / Unknown 10/06/2024 8:24 AM EDT 10/06/2024 8:27 AM EDT Narrative [facility] - 10/06/2024 9:39 AM EDT Applicable to [facility] only. Effective June 20 the lab will begin using a new chemistry analyzer. HsTroponin methodology, reference ranges and critical values have changed. us Bharati Rodríguez MD LAB BLOOD ORDERABLES Final Res ult Performing Organization Address City/[facility]/ZIP Co de Phone Number [facility] [address] [phone] * Hepatitis B surface antigen (10/06/2024 8:24 AM EDT) Hepatitis B surface antigen Nonreactive Nonreactive 10/06/2024 1:11 PM EDT [facility] Blood Venipuncture / Unknown 10/06/2024 8:24 AM EDT 10/06/2024 8:28 AM EDT Narrative [facility] - 10/06/2024 1:11 PM EDT Specimen slightly hemolyzed us Tamanna Ram MD LAB BLOOD ORDERABLES Final Resul t Performing Organization Address [facility] Co de Phone Number [facility] [address] [phone] * Magnesium (10/06/2024 8:24 AM EDT) Magnesium 1.9 1.6 - 2.6 mg/dL 10/06/2024 9:37 AM EDT [facility] Blood Venipuncture / Unknown 10/06/2024 8:24 AM EDT 10/06/2024 8:28 AM EDT Narrative [facility] - 10/06/2024 9:37 AM EDT Specimen slightly hemolyzed us Bharati Rodríguez MD LAB BLOOD ORDERABLES Final Res ult Performing Organization Address City/[facility] Co de Phone Number [facility] [address] [phone] * (ABNORMAL) Comprehensive metabolic panel (10/06/2024 8:24 AM EDT) Only the most recent of2 resultswithin the time period is included. Sodium 137 136 - 145 meq/L 10/06/2024 9:37 AM [facility] Potassium 4.4 3.4 - 5.1 meq/L 10/06/2024 9:37 AM [facility] Chloride 101 98 - 112 meq/L 10/06/2024 9:37 AM [facility] CO2 26 22 - 29 meq/L 10/06/2024 9:37 AM [facility] Calcium 8.7 8.4 - 10.2 mg/dL 10/06/2024 9:37 AM [facility] Glucose 219(H) 82 - 115 mg/dL 10/06/2024 9:37 AM [facility] BUN 63.4(H) 8.4 - 25.7 mg/dL 10/06/2024 9:37 AM [facility] Creatinine 5.89(H) 0.72 - 1.25 mg/dL 10/06/2024 9:37 AM [facility] BUN/Creatinine 11 8 - 20 10/06/2024 9:37 AM [facility] eGFR (mL/min/1.73m2) 10(L) >=60 mL/min/1. 73m2 10/06/2024 9:37 AM [facility] Albumin 2.8(L) 3.5 - 5.0 g/dL 10/06/2024 9:37 AM [facility] Alkaline Phosphatase 146 40 - 150 U/L 10/06/2024 9:37 AM [facility] ALT 13 <=45 U/L 10/06/2024 9:37 AM [facility] Comment: ALT2 reagent used for testing does not contain P5P supplementation and therefore may miss ALT elevations in patients with B6 deficiency. This population may be as high as 10% in the [place], with risk factors including malabsorption, drug interactions, and alcoholic hepatitis. AST 27 11 - 34 U/L 10/06/2024 9:37 AM [facility] Comment: AST2 reagent used for testing does not contain P5P supplementation and therefore may miss AST elevations in patients with B6 deficiency. This population may be as high as 10% in the [place], with risk factors including malabsorption, drug interactions, and alcoholic hepatitis. Total Bilirubin 0.6 0.2 - 1.2 mg/dL 10/06/2024 9:37 AM EDT [facility] Protein, Total 7.7 6.4 - 8.3 g/dL 10/06/2024 9:37 AM EDT [facility] Globulin 4.9(H) 2.5 - 4.1 g/dL 10/06/2024 9:37 AM EDT [facility] Anion Gap 14(H) 4 - 12 10/06/2024 9:37 AM EDT [facility] A/G Ratio 0.6(L) 0.7 - 1.9 10/06/2024 9:37 AM EDT [facility] Osmolality Calc 298.6 mOsm/kg 9:37 AM EDT [facility] Blood Venipuncture / Unknown 10/06/2024 8:24 AM EDT 10/06/2024 8:28 AM EDT Narrative [facility] - 10/06/2024 9:37 AM EDT Specimen slightly hemolyzed us Bharati Rodríguez MD LAB BLOOD ORDERABLES Final Res ult [facility] [address] [phone] * Critical Care (10/06/2024 8:23 AM EDT) [...] and evaluation of patient's response to treatment us Bharati Rodríguez MD PROCEDURE/MINOR SURGICAL ORDER MIGUEL Final Result * EKG-SCANNED (10/06/2024) Only the most recent of2 resultswithin the time period is included. Narrative 10/06/2024 Ordered by an unspecified provider. us Default Scanning Provider SCAN ORDERS Final Result * EP LAB - ABLATION - ATRIAL FLUTTER (10/04/2024 1:49 PM EDT) Anatomical Region Laterality Modality Heart Other Narrative 10/04/2024 6:14 PM EDT Generating Station Mechanic: Rodolfo Grimes MD Indication: 64 y.o. male [...] - 137 sec 10/04/2024 2:07 PM EDT [facility] Generating Station Mechanic [id number] 10/04/2024 2:07 PM EDT [facility] Blood 10/04/2024 1:19 PM EDT 10/04/2024 2:07 PM EDT Narrative [facility] - 10/04/2024 2:07 PM EDT Generating Station Mechanic ID is - [id number] Rodolfo Grimes MD POINT OF CARE TEST ORDERABLES Fi nal Result [facility] [address] [phone] * Ultrasound-guided vascular access (10/04/2024 1:00 PM EDT) Anatomical Region Laterality Modality Vascular Vascular Ultraso und 10/04/2024 12:2 7 PM EDT Narrative 10/04/2024 5:45 PM EDT Vascular Procedure Demographics Patient Name KLAUS CAVANAUGH GENE Age 64 Patient Number [id number] Gender Male Race Ethnicity Corporate ID [id number] Height Date of 1960 Weight Accession Number [id number] BSA Room Number BMI Referring RODOLFO GRIMES MD Interpreting RODOLFO GRIMES MD Physician Physician Gas Technician Mariluz Jacques, T, [facility] Procedure Type of Study: [place] [...] - 10/04/2024 Vascular Procedure Demographics Patient Name KLAUS BOONE Age 64 Patient Number [id number] Gender Male Race Ethnicity Corporate ID [id number] Height Date of 1960 Weight Accession Number [id number] BSA Room Number BMI Referring RODOLFO GRIMES MD Interpreting RODOLFO DIETRICH Physician Physician Gas Technician Mariluz Jacques, RVT, [facility] Procedure Type of Study: US [...] !! + +----+--------+ Signature Rodolfo Grimes MD [facility] ORDERABLES Final Result * (ABNORMAL) Hepatitis panel, acute (06/20/2024 11:31 PM EDT) Hep A IgM Nonreactive Nonreactive 06/21/2024 12:25 AM EDT [facility] Hep B C IgM Nonreactive Nonreactive 06/21/2024 12:25 AM EDT [facility] Hepatitis B surface antigen Nonreactive Nonreactive 06/21/2024 12:25 AM EDT [facility] Hepatitis C Ab Presumptive Reactive - Sent Out to Confirm(A) Nonreactive 06/21/2024 12:25 AM EDT [facility] Comment: Fruit Receiver recommends confirmatory testing on all reactives and equivocals. Blood Venipuncture / Unknown 06/20/2024 11:31 PM EDT 06/20/2024 11:37 PM EDT us Tamanna Ram MD LAB BLOOD ORDERABLES Final Resul t [facility] [address] [phone] from Last 3 Months or Most Recently Relevant to Health Maintenance Insurance [facility] MEDIC[facility] HMO Advance Directives For more information, please contact: [phone] * Full Code (Latest Code Status on [...] 5:48 PM 06/05/2024 5:36 PM Care Teams Rocket Scientist Relationship Specialty Start Date End Date Evans Butler MD [address] [place] [address] [place] [address] PCP - General Family Medicine 06/17/24 Venessa Ortiz PA-C [address] [place] [address] Gastroenterology 09/05/24
== END ==
LOC: SL 06:28
PROVIDERS: PCP Family Medicine; Visit Provider Family Medicine
DX: G47.33 Obstructive sleep apnea (adult) (pediatric) (principal)
CPT/HCPCS: G0399